=== PATIENT | female | born 1975 | race Caucasian/White ===

== ENCOUNTER 2017-09-13 11:33 | Day surgery (SDC) | payer OTHER ==
[2017-09-09 10:29] VITALS: BMI 33.3
[2017-09-13] MEDS ORDERED: Midazolam 2 MG/2 ML VIAL ONE (15:06)
[2017-09-13] MEDS ORDERED: Propofol 10 mg/ml Inj (20 ML) ONE (15:06)
[2017-09-13] MEDS ORDERED: Lidocaine Hydrochloride 5 ML INJ ONE (15:07)
[2017-09-13] MEDS ORDERED: Rocuronium 10 mg/ml (10 ml) ONE (15:10)
[2017-09-13] MEDS ORDERED: ceFAZolin 1 gm in NS 1 GM/100 ML BAG IVPB ONE (15:22)
[2017-09-13] MEDS ORDERED: Neostigmine Methylsulfate 3mg/3ml Syringe IV ONE (16:22)
[2017-09-13] MEDS ORDERED: Acetaminophen IV 1,000 MG in Premixed IV 1 EA IV PRN (16:53)
[2017-09-13] MEDS: HYDROmorphone 0.5 mg/0.5 ml ISec IVP PRN ×2 (16:57→17:20)
--- NOTE | 2017-09-13 16:57 | PCM.SURG1 ---
Surgeon's Initial Post Op Note - Surgeon's Notes Surgeon: Melchor Instrumentation Controls Engineer: Johnathan PGY4, Dom PGY3 Type of Anesthesia: General Endo Pre-Operative Diagnosis: Gallstone pancreatitis Operative Findings: Fibrotic tissue Post-Operative Diagnosis: same Operation Performed: Laparoscopic cholecystectomy Specimen/Specimens Removed: gallbladder Estimated Blood Loss: EBL {In ML}: 15 Blood Products Given: N/A Drains Used: No Drains Post-Op Condition: Good Date of Surgery/Procedure: 09/13/17 Time of Surgery/Procedure: 16:57
[2017-09-13] MEDS ORDERED: Lactated Ringer's 1,000 ML IV SCH (17:00)
[2017-09-13] MEDS ORDERED: Lactated Ringer's 1,000 ML IV ONE (18:00)
[2017-09-13 18:27] VITALS: RESP 16; O2SAT 97
[2017-09-13 19:05] VITALS: BP 144/80; PULSE 60; TEMP 97.7
--- NOTE | 2017-09-14 23:39 | OP ---
PROCEDURE DATE: 09/13/2017 SURGEON: Brant Roche MD ASSISTANTS: Miah Mann DO and Sorin Fernandes DO ANESTHESIA: General. PREOPERATIVE DIAGNOSIS: Cholelithiasis, status post gallstone pancreatitis. POSTOPERATIVE DIAGNOSIS: Cholelithiasis, status post gallstone pancreatitis. PROCEDURE: Laparoscopic cholecystectomy. DESCRIPTION OF OPERATION: With the patient in the supine position, under adequate general anesthesia, the abdomen was prepped and draped in the usual sterile manner. Veress needle puncture was performed at the umbilicus with insufflation to 15 cm water pressure of CO2, and a 10-mm laparoscopic trocar was inserted via a supraumbilical incision. Under direct vision, additional trocars were inserted in the epigastrium and right costal margin. The gallbladder was visualized. It was not acutely inflamed. The gallbladder fundus was grasped and elevated. There were adhesions of the duodenum to the peritoneal surface of the gallbladder, and these were taken down sharply to expose the gallbladder infundibulum. The infundibulum was grasped and retracted laterally. Cystic duct was identified and dissected. There was inflammatory tissue surrounding the cystic duct consistent with past pancreatitis, and this was cleared to fully visualize the cystic duct. The cystic duct was triply clipped and divided. The cystic artery was similarly identified and dissected. The cystic artery was triply clipped and divided, and the gallbladder was dissected free of the liver bed using the electrocautery. The liver bed was inspected for hemostasis, and the dissection was completed. The gallbladder was placed in a specimen retrieval bag and removed via the umbilical port site. Right upper quadrant was irrigated and suctioned. Pneumoperitoneum was released, and the trocars were removed. The umbilical port site was closed with a [id number] fascial suture of 0 Vicryl. All incisions were closed with 4-0 Monocryl subcuticular sutures and Steri-Strips. Dry sterile dressings were applied. The patient tolerated the procedure well and transferred to recovery room in stable condition. Estimated blood loss for the procedure was 15 mL. Brant Roche MD
== END 2017-09-13 19:05 | disposition home or self-care (01) ==
LOC: C.SDS 11:33
PROVIDERS: ATTEND Specialist
DX: K80.20 Calculus of gallbladder without cholecystitis without obstruction (principal); K85.10 Biliary acute pancreatitis without necrosis or infection
CPT/HCPCS: 47562; J0690; J1170; J2250; J2405; J2704; J2710; J3010; J7120

== ENCOUNTER 2017-09-16 12:15 | Inpatient (IN) | payer OTHER ==
[2017-09-16 12:15] VITALS: BMI 33.3
[2017-09-16] MEDS ORDERED: Sodium Chloride 0.9% 1,000 ML IV ONE (13:19)
[2017-09-16] MEDS ORDERED: Sodium Chloride 0.9% 1,000 ML ONE (13:26)
[2017-09-16 13:43] LABS: BASO % 0.4 % (0.0-2.0); EOS # 0.1 K/uL (0.0-0.7); EOS % 0.6 % (0.0-4.0); LYMPH # 1.1 K/uL (1.0-4.3); LYMPH % 9.7 % (20.0-40.0); MEAN CELL VOLUME 76.8 fL (81.0-99.0); MEAN CORPUSCULAR HEMOGLOBIN 25.6 pg (27.0-31.0); MEAN CORPUSCULAR HGB CONC 33.4 g/dL (33.0-37.0); MEAN PLATELET VOLUME 9.6 fL (7.2-11.7); MONO # 0.8 K/uL (0.0-0.8); NEUT # 9.3 K/uL (1.8-7.0); NEUT % 82.3 % (50.0-75.0); NRBC % 0.3 % (0.0-2.0); RBC 5.66 Mil/uL (3.80-5.20); RED CELL DISTRIBUTION WIDTH 15.3 % (11.5-14.5)
[2017-09-16 13:48] LABS: HEMOGLOBIN 14.5 g/dL (11.0-16.0); PLATELET COUNT 450 K/uL (130-400); WHITE BLOOD COUNT 11.3 K/uL (4.8-10.8)
[2017-09-16 13:54] LABS: ALB/GLOB RATIO 1.4 (1.0-2.1); ALBUMIN 4.7 g/dL (3.5-5.0); ALT/SGPT 162 U/L (9-52); AST/SGOT 151 U/L (14-36); BLOOD UREA NITROGEN 8 mg/dL (7-17); GFR AFRICAN-AMERICAN > 60; GFR NON-AFRICAN AMERICAN > 60; LIPASE 82 U/L (23-300)
[2017-09-16 14:37] LABS: HCG,QUALITATIVE URINE NEGATIVE (NEGATIVE)
[2017-09-16 14:44] LABS: SQUAMOUS EPITHIAL 9 /hpf (0-5); URINE BACTERIA RARE (<OCC); URINE BILIRUBIN NEGATIVE (NEGATIVE); URINE BLOOD NEGATIVE (NEGATIVE); URINE CLARITY Clear (Clear); URINE COLOR Amber (YELLOW); URINE GLUCOSE (UA) 1+ mg/dL (Normal); URINE LEUKOCYTE ESTERASE NEG Leu/uL (Negative); URINE PROTEIN 2+ mg/dL (NEGATIVE)
[2017-09-16 15:03] LABS: LYMPHOCYTE 5 % (20-40); MONOCYTE 6 % (0-10); NEUTROPHIL 89 % (50-75); PLATELET ESTIMATE SLIGHTLY INCREASED (NORMAL); TOTAL CELLS COUNTED 100
[2017-09-16 15:04] LABS: ANISOCYTOSIS SLIGHT; LARGE PLATELETS PRESENT; OVALOCYTES SLIGHT
[2017-09-16 15:05] LABS: GIANT PLATELETS PRESENT
--- NOTE | 2017-09-16 16:08 | RAD ---
Date of service: 09/16/2017 PROCEDURE: Radiographs of the chest and abdomen (obstructive series) HISTORY: Vomiting s/p cholecystectomy 3 days ago COMPARISON: No prior. TECHNIQUE: AP radiograph of the chest, with upright and supine radiographs of the abdomen. FINDINGS: CHEST: Lungs: The lungs are well inflated and clear. Cardiovascular: Normal size heart. No pulmonary vascular congestion. Pleura: No pleural fluid. No pneumothorax. Other findings: None. ABDOMEN AND PELVIS: Bowel: There is mild dilatation of the small bowel loops in the upper abdomen. There is large amount of stool in the ascending and transverse colon. . Free air: None. Bones: Unremarkable. Other findings: Surgical clips in the right upper quadrant are related to prior cholecystectomy. IMPRESSION: 1. Constipation. Mild dilatation of small bowel loops in the upper abdomen could be related to developing bowel obstruction or postoperative ileus. Clinical and imaging follow-up is advised. 2. Clear lungs.
[2017-09-16] MEDS ORDERED: Morphine 4 MG/ML VIAL ONE ×2 (17:29→18:47)
--- NOTE | 2017-09-16 18:00 | C.PDOC ---
Time Seen by Provider: 09/16/17 13:13 Chief Complaint (Nursing): Abdominal Pain History Per: Patient Onset/Duration Of Symptoms: Days (3) Current Symptoms Are (Timing): Still Present Severity: Moderate Location Of Pain/Discomfort: LUQ, Suprapubic Quality Of Discomfort: "Pain" Associated Symptoms: Nausea, Vomiting, Constipation Exacerbating Factors: Food Alleviating Factors: None Last Bowel Movement: Days Ago (4) Additional History Per: Prior Records Past Medical History Reviewed: Historical Data, Nursing Documentation, Vital Signs Vital Signs: Last Vital Signs Temp 98.7 F 09/16/17 18:38 Pulse 93 H 09/16/17 18:38 Resp 16 09/16/17 18:38 BP 138/84 09/16/17 18:38 Pulse Ox 98 09/16/17 18:38 - Medical History PMH: No Chronic Diseases Surgical History: Cholecystectomy (3 days ago) - [facility] Procedures APPLICATION OF SPLINT (11/02/13) Family History: States: Unknown Family Hx - Social History Hx Alcohol Use: No Hx Substance Use: No - Immunization History Hx Tetanus Toxoid Vaccination: No Hx Influenza Vaccination: No Hx Pneumococcal Vaccination: No Review Of Systems Except As Marked, All Systems Reviewed And Found Negative. Constitutional: Negative for: Weight loss Cardiovascular: Negative for: Edema Respiratory: Negative for: Shortness of Breath, Hemoptysis Gastrointestinal: Positive for: Nausea, Vomiting, Abdominal Pain, Constipation. Negative for: Diarrhea, Melena, Hematochezia, Hematemesis Genitourinary: Positive for: Dysuria Musculoskeletal: Negative for: Neck Pain Skin: Negative for: Rash Neurological: Negative for: Weakness, Numbness Physical Exam - Physical Exam Appears: Other (Uncomfortable in pain) Skin: Normal Color, Warm, Dry Head: Atraumatic, Normacephalic Eye(s): bilateral: PERRL, EOMI Neck: Normal ROM, Supple Cardiovascular: Rhythm Regular Respiratory: Normal Breath Sounds, No Accessory Muscle Use Gastrointestinal/Abdominal: Soft, Tenderness Extremity: Normal ROM Neurological/Psych: Oriented x3, Normal Motor, Normal Sensation ED Course And Treatment - Laboratory Results Result Diagrams: 09/16/17 13:35 09/16/17 13:35 Urine POC: Negative O2 Sat by Pulse Oximetry: 98 Pulse Ox Interpretation: Normal - Other Rad Obstructive Series X-Ray: Viewed By Me, Read By Radiologist Interpretation: IMPRESSION: 1. Constipation. Mild dilatation of small bowel loops in the upper abdomen could be related to developing bowel obstruction or postoperative ileus. Clinical and imaging follow-up is advised. 2. Clear lungs. - CT Scan/US CT abd/pelv Other Rad Studies (CT/US): Read By Radiologist, Radiology Report Reviewed CT/US Interpretation: IMPRESSION: 1. The recent cholecystectomy, 3-7 days prior. Surgical clips in place. There is fluid dissecting along. the right- sided abdominal wall laterally measuring 2.5 x 9.7 cm on image 93, and superior to the. inferior of 27 cm. there is fluid infiltration of more superficial subcutaneous fat. Whether this is a. infected fluid collection or sterile collection is uncertain. 2. There is a small volume of free fluid in the pelvis which may be postoperative in nature. Most of the. fluid is in the pelvis without definite signs of bile leak, which is not completely excludable. 3. There are scattered air-fluid levels in the small and large bowel as well as within portions of the. stomach which suggests a potential postoperative ileus. Progress Note: Pt was evaluated by the surgical coder who d/w Dr. Roche. They want to admit pt to their service. Progress - Interventions Interventions:: Observation, Intravenous fluid - Medications Administered Intravenous: Antiemetic, H-2 leann, NSAID, Opiate - Data Reviewed Data Reviewed: Lab, Diagnostic imaging, Old records - Patient Status Patient status: Partially improved - Continuity of Care Discussed patient case with:: Patient, Family-HIPPA compliant, ED Nurse Discussed pt. case with cycle consultant/specialty: General Surgery - Patient Plan Patient Plan: Admission Disposition Counseled Patient/Family Regarding: Studies Performed, Diagnosis - Disposition Disposition: HOSPITALIZED Disposition Time: 21:47 Condition: GUARDED - Clinical Impression Clinical Impression: Ileus, postoperative, Abdominal fluid collection, Nausea and vomiting, Abdominal pain
[2017-09-16] MEDS ORDERED: Iohexol 350mg/ml 100 ML ONE (19:05)
[2017-09-16] MEDS: Potassium Chl 40 mEq in D5-1/2 1,000 ML IV SCH (19:31)
--- NOTE | 2017-09-16 22:33 | CP.PCM.HP ---
History of Present Illness - History of Present Illness History of Present Illness: 42F with no significant PMHx s/p laparoscopic cholecystectomy POD3 presents to [facility] [place] ED with complaints of abdominal pain. Patient states she has not been able to tolerate anything PO since after surgery. Reports having multiple bouts of non bloody emesis througout the weekend. Patient reports she has not passed flatus or had a BM since day of surgery 09/13/17. Patient reports upper abdominal pain which radiates in band like fashion from RUQ to LUQ. At time of examination patient reported feeling nauseous. Denies headache/dizziness, chest pain/SOB, palpitations, dysuria. PMHx: as stated above PSurgHx: laparoscopic cholecystectomy Allergies: NKDA Fam Hx: non-contributory Present on Admission - Present on Admission Any Indicators Present on Admission: No Review of Systems - Review of Systems Review of Systems: 12 pt ROS carried out, unremarkable except as stated in HPI Past Patient History - Past Medical History & Family History Past Medical History?: Yes - Past Social History Smoking Status: Light Smoker < 10 Cigarettes Daily - CARDIAC Hx Cardiac Disorders: No - PULMONARY Hx Respiratory Disorders: No - NEUROLOGICAL Hx Neurological Disorder: No - RENAL Hx Chronic Kidney Disease: No - ENDOCRINE/METABOLIC Hx Endocrine Disorders: No - HEMATOLOGICAL/ONCOLOGICAL Hx Blood Disorders: No - INTEGUMENTARY Hx Dermatological Problems: No - MUSCULOSKELETAL/RHEUMATOLOGICAL Hx Musculoskeletal Disorders: No Hx Falls: No - GASTROINTESTINAL Hx Gastrointestinal Disorders: Yes Hx Gall Bladder Disease: Yes Other/Comment: Pancreatitis - GENITOURINARY/GYNECOLOGICAL Hx Genitourinary Disorders: No - PSYCHIATRIC Hx Substance Use: No - SURGICAL HISTORY Hx Cholecystectomy: Yes (3 days ago) - ANESTHESIA Hx Anesthesia: No Meds Allergies/Adverse Reactions: Allergies Allergy/AdvReac Type Severity Reaction Status Date / Time No Known Allergies Allergy Verified 09/16/17 12:48 Physical Exam - Constitutional Appears: No Acute Distress - Head Exam Head Exam: NORMOCEPHALIC - Eye Exam Eye Exam: EOMI, Normal appearance - ENT Exam ENT Exam: Mucous Membranes Moist - Respiratory Exam Respiratory Exam: NORMAL BREATHING PATTERN - Cardiovascular Exam Cardiovascular Exam: +S1, +S2 - GI/Abdominal Exam GI & Abdominal Exam: Distended, Soft, Tenderness. absent: Firm, Guarding, Rebound, Rigid - Extremities Exam Extremities exam: Negative for: pedal edema - Neurological Exam Neurological exam: Alert, Oriented x3 - Psychiatric Exam Psychiatric exam: Normal Mood - Skin Skin Exam: Dry, Intact, Warm Results - Vital Signs Recent Vital Signs: Last Vital Signs Temp 97.4 F L 09/16/17 22:17 Pulse 88 09/16/17 22:17 Resp 18 09/16/17 22:17 BP 130/82 09/16/17 22:17 Pulse Ox 95 09/16/17 22:17 - Labs Result Diagrams: 09/16/17 13:35 09/16/17 13:35 Labs: Laboratory Results - last 24 hr 09/16/17 09/16/17 09/16/17 13:35 13:35 14:23 WBC 11.3 H D RBC 5.66 H Hgb 14.5 D Hct 43.5 MCV 76.8 L MCH 25.6 L MCHC 33.4 RDW 15.3 H Plt Count 450 H D MPV 9.6 Neut % (Auto) 82.3 H Lymph % (Auto) 9.7 L [place] % (Auto) 7.0 Eos % (Auto) 0.6 Baso % (Auto) 0.4 Neut # (Auto) 9.3 H Lymph # (Auto) 1.1 [place] # (Auto) 0.8 Eos # (Auto) 0.1 Baso # (Auto) 0.0 Neutrophils % (Manual) 89 H Lymphocytes % (Manual) 5 L Monocytes % (Manual) 6 Platelet Estimate Slightly increased H Plt Clumps, EDTA Large Platelets Present Giant Platelets Present Anisocytosis (manual) Slight Ovalocytes Slight Sodium 141 Potassium 3.0 L Chloride 95 L Carbon Dioxide 28 Anion Gap 21 H BUN 8 Creatinine 0.8 Est GFR ( Amer) > 60 Est GFR (Non-Af Amer) > 60 Random Glucose 167 H Calcium 10.0 Total Bilirubin 3.0 H AST 151 H D ALT 162 H D Alkaline Phosphatase 149 H D Total Protein 8.1 Albumin 4.7 Globulin 3.4 Albumin/Globulin Ratio 1.4 Lipase 82 Urine Color Alyssa Urine Clarity Clear Urine pH 5.0 Ur Specific [place] 1.020 Urine Protein 2+ H Urine Glucose (UA) 1+ Urine Ketones Negative Urine Blood Negative Urine Nitrate Negative Urine Bilirubin Negative Urine Urobilinogen 4.0 H Ur Leukocyte Esterase Neg Urine WBC (Auto) 6 H Urine RBC (Auto) 1 Ur Squamous Epith Cells 9 H Urine Bacteria Rare Hyaline Casts 6-10 H Urine HCG, Qual Negative - Imaging and Cardiology CT scan - abdomen Status: Image reviewed by me, Report reviewed by me Assessment & Plan - Assessment and Plan (Free Text) Assessment: 42F s/p laparoscopic cholecystectomy POD 3 complicated by post operative ileus, ?bile leak Plan: NPO IVF Analgesic Prokinetic NGT if nausea/distention worsens F/u AM labs D/w Dr. Melchor Dumont PGY3
[2017-09-17 02:24] VITALS: RESP 20
[2017-09-17] MEDS: Potassium Chl 40 mEq in D5-1/2 1,000 ML IV SCH ×5 (02:47→20:09)
[2017-09-17 07:04] LABS: BASO # 0.1 K/uL (0.0-0.2); BASO % 1.1 % (0.0-2.0); EOS # 0.2 K/uL (0.0-0.7); EOS % 2.7 % (0.0-4.0); HEMOGLOBIN 12.8 g/dL (11.0-16.0); LYMPH # 1.2 K/uL (1.0-4.3); LYMPH % 17.9 % (20.0-40.0); MEAN CELL VOLUME 76.7 fL (81.0-99.0); MEAN CORPUSCULAR HEMOGLOBIN 26.3 pg (27.0-31.0); MEAN CORPUSCULAR HGB CONC 34.3 g/dL (33.0-37.0); MEAN PLATELET VOLUME 9.3 fL (7.2-11.7); MONO # 0.6 K/uL (0.0-0.8); MONO % 8.7 % (0.0-10.0); NEUT # 4.7 K/uL (1.8-7.0); NEUT % 69.6 % (50.0-75.0); RBC 4.88 Mil/uL (3.80-5.20); RED CELL DISTRIBUTION WIDTH 15.4 % (11.5-14.5); WHITE BLOOD COUNT 6.8 K/uL (4.8-10.8)
[2017-09-17 07:24] LABS: ALB/GLOB RATIO 1.3 (1.0-2.1); ALBUMIN 3.7 g/dL (3.5-5.0); ALT/SGPT 135 U/L (9-52); AST/SGOT 69 U/L (14-36); BLOOD UREA NITROGEN 8 mg/dL (7-17); GFR AFRICAN-AMERICAN > 60; GFR NON-AFRICAN AMERICAN > 60
--- NOTE | 2017-09-17 10:16 | CT ---
Date of service: 09/16/2017 PROCEDURE: CT Abdomen and Pelvis with contrast HISTORY: Abd pain and vomiting s/p lap ayo 3 days ago COMPARISON: None. TECHNIQUE: Contrast dose: 100 mL Omnipaque 350 Radiation dose: Total exam DLP = 955.25 mGy-cm. This CT exam was performed using one or more of the following dose reduction techniques: Automated exposure control, adjustment of the mA and/or kV according to patient size, and/or use of iterative reconstruction technique. FINDINGS: LOWER THORAX: Unremarkable. LIVER: Unremarkable. No gross lesion or ductal dilatation. GALLBLADDER AND BILE DUCTS: Status post cholecystectomy PANCREAS: Unremarkable. No gross lesion or ductal dilatation. SPLEEN: Unremarkable. ADRENALS: Left adrenal mass, 2.8 cm. Statistically likely adrenal adenoma. Right adrenal mass, 1.2 cm. This cystically likely adrenal adenoma. Further characterization, if desired, should be performed with opposed phase magnetic resonance imaging. KIDNEYS AND URETERS: Small bilateral renal cortical masses likely cysts. 1.3 cm upper pole right kidney. 7 mm lower pole right kidney. 1.4 cm mid left kidney. 2 mm nonobstructing calculus upper pole left kidney. VASCULATURE: Unremarkable. No aortic aneurysm. BOWEL: Unremarkable. No obstruction. No gross mural thickening. APPENDIX: Normal appendix. PERITONEUM: There is ascites noted. There is no pneumoperitoneum. There is a large intermediate attenuation fluid collection in the right lateral abdominal wall beats we in the external and internal oblique muscles. This collection measures approximately 3.4 x 26.5 x 3.0 cm and is strongly suspicious for an abscess. There is reactive edema lateral to the external oblique muscle, within the subcutaneous fat over the right lateral abdominal wall. This is considered a drainable collection. There is a radiopaque foreign body, several mm in diameter, in the internal oblique muscle far posteriorly, seen on series 3, image 81. Uncertain significance. LYMPH NODES: Unremarkable. No enlarged lymph nodes. BLADDER: Suboptimally distended. Grossly normal. REPRODUCTIVE: Uterus significant for a 10 mm enhancing nodule in the myometrium, most likely a leiomyoma. There is a peripherally enhancing irregular mass in the right ovary, 1.8 cm diameter, most likely representing a ruptured or involuting follicle. BONES: No acute fracture. OTHER FINDINGS: None. IMPRESSION: Large abscess over the right lateral abdominal wall between the internal-external oblique muscles. Possibly related to recent laparoscopic cholecystectomy. Tiny radiopaque foreign body seen in the lateral abdominal wall, uncertain significance. Ascites. No pneumoperitoneum. Bilateral adrenal masses as described. Statistically these most likely represent adrenal adenomas. If further imaging is desired, this should be pursued with opposed phase magnetic resonance imaging. Bilateral renal cortical cysts. 2 mm nonobstructing left upper pole renal calculus. The preliminary findings for this examination were reported by [facility] at 8:22 p.m. on 09/16/2017. There is concurrence of this report with the preliminary findings.
--- NOTE | 2017-09-17 14:59 | CP.PCM.PN ---
Subjective - Date & Time of Evaluation Date of Evaluation: 09/17/17 Time of Evaluation: 14:57 - Subjective Subjective: Surgery: Dr. Roche Pt seen and examined. Resting comfortably in bed. Her pain is improved. No N/V. She states that she would like to eat. Objective - Vital Signs/Intake and Output Vital Signs (last 24 hours): Temp Pulse Resp BP Pulse Ox 99.4 F 90 20 129/79 96 09/17/17 08:00 09/17/17 08:00 09/17/17 08:00 09/17/17 08:00 09/17/17 08:00 Intake and Output: 09/17/17 09/17/17 06:59 18:59 Intake Total 875 Balance 875 - Medications Medications: Current Medications Famotidine (Pepcid) 20 mg PO BID [facility] Last Admin: 09/17/17 10:45 Dose: 20 mg Potassium Chloride/Dextrose/Sod Cl (Potassium Chl 40 Meq In D5-1/2ns) 1,000 mls @ 125 mls/hr IV .Q8H [facility] Last Admin: 09/17/17 14:10 Dose: 125 mls/hr Ketorolac Tromethamine (Toradol) 30 mg IV Q6 PRN PRN Reason: Pain, moderate (4-7) Last Admin: 09/17/17 14:12 Dose: 30 mg Metoclopramide HCl (Reglan) 10 mg IVP DAILY [facility] Last Admin: 09/17/17 10:45 Dose: 10 mg Pneumococcal Polyvalent Vaccine (Pneumovax 23 Vaccine) 0.5 ml IM .ONCE ONE Stop: 09/18/17 10:01 - Labs Labs: 09/17/17 06:55 09/17/17 06:55 - Constitutional Appears: Non-toxic, No Acute Distress - Head Exam Head Exam: ATRAUMATIC, NORMOCEPHALIC - Eye Exam Eye Exam: EOMI. absent: Scleral icterus - ENT Exam ENT Exam: Mucous Membranes Moist - Neck Exam Neck Exam: Full ROM - Respiratory Exam Respiratory Exam: NORMAL BREATHING PATTERN. absent: Accessory Muscle Use, Respiratory Distress - GI/Abdominal Exam GI & Abdominal Exam: Soft, Tenderness (R side abdomen, overlying ecchymosis). absent: Distended, Firm, Guarding, Rigid, Rebound - Extremities Exam Extremities Exam: absent: Calf Tenderness, Pedal Edema - Neurological Exam Neurological Exam: Alert, Awake, Oriented x3 Assessment and Plan - Assessment and Plan (Free Text) Assessment: 42F s/p laparoscopic cholecystectomy POD#4, complicated by post operative ileus , and fluid collection -will start CLD -c/w IVF and trend LFTs -will get ABD U/S tomorrow, if collection persists, will consult IR -encourage OOB, ambulation, and IS use -d/w attending Zemaitis PGY4
[2017-09-17] MEDS: Enoxaparin 40 mg Syringe SC SCH (17:09)
[2017-09-18] MEDS: Potassium Chl 40 mEq in D5-1/2 1,000 ML IV SCH ×3 (02:02→17:50)
--- NOTE | 2017-09-18 07:01 | US ---
Date of service: 09/17/2017 HISTORY: R side abdominal wall collection COMPARISON: Comparison is made to the previous CT of the abdomen and pelvis dated 09/16/2017 TECHNIQUE: Sonographic evaluation of the abdomen. FINDINGS: LIVER: Measures 15.1 cm. Increased echogenicity of the liver parenchyma. No mass. No intrahepatic bile duct dilatation. GALLBLADDER: The gallbladder was removed. COMMON BILE DUCT: Measures 4 mm. No stones. No dilatation. PANCREAS: The pancreas is obscured by overlying bowel gas RIGHT KIDNEY: Measures 11.1 x 4.9 x 4.7cm. Normal echogenicity. No calculus, mass, or hydronephrosis. There is 1.9 x 1 x 1.1 centimeters cyst at the midpole of the right kidney. LEFT KIDNEY: Measures 11.6 x 5.8 x 4.8cm. This suspicious for 5 millimeter nonobstructing renal calculus. No evidence of hydronephrosis. SPLEEN: Normal in size and contour. No mass. AORTA: No aneurysmal dilatation. IVC: Unremarkable. OTHER FINDINGS: There is right lateral abdominal wall subcutaneous complex collection corresponding to the fluid collection noted in the previous CT. IMPRESSION: Suboptimal study due to the patient's condition and body habitus. No evidence of acute pathology in the abdomen. Status post cholecystectomy. 5 millimeter nonobstructing left renal calculus. Right lateral abdominal wall subcutaneous complex collection may represent hematoma. The possibility of abscess formation is less likely. If clinically warranted ultrasound or CT-guided aspiration may be performed.
[2017-09-18 08:59] LABS: BASO % 0.5 % (0.0-2.0); EOS # 0.1 K/uL (0.0-0.7); EOS % 1.2 % (0.0-4.0); HEMOGLOBIN 13.1 g/dL (11.0-16.0); LYMPH # 0.6 K/uL (1.0-4.3); LYMPH % 7.4 % (20.0-40.0); MEAN CELL VOLUME 76.2 fL (81.0-99.0); MEAN CORPUSCULAR HEMOGLOBIN 26.2 pg (27.0-31.0); MEAN CORPUSCULAR HGB CONC 34.4 g/dL (33.0-37.0); MEAN PLATELET VOLUME 9.1 fL (7.2-11.7); MONO # 0.6 K/uL (0.0-0.8); MONO % 8.1 % (0.0-10.0); NEUT # 6.6 K/uL (1.8-7.0); NEUT % 82.8 % (50.0-75.0); PLATELET COUNT 368 K/uL (130-400); RBC 5.02 Mil/uL (3.80-5.20); RED CELL DISTRIBUTION WIDTH 15.5 % (11.5-14.5)
[2017-09-18 09:31] LABS: BANDS 1 % (0-2); LARGE PLATELETS PRESENT; LYMPHOCYTE 7 % (20-40); MONOCYTE 8 % (0-10); NEUTROPHIL 83 % (50-75); PLATELET ESTIMATE NORMAL (NORMAL); REACTIVE LYMPHOCYTES 1 % (0-0); TOTAL CELLS COUNTED 100
[2017-09-18 09:33] LABS: BLOOD UREA NITROGEN 11 mg/dL (7-17)
[2017-09-18 09:34] LABS: ALB/GLOB RATIO 1.3 (1.0-2.1); ALBUMIN 3.5 g/dL (3.5-5.0); ALT/SGPT 98 U/L (9-52); AST/SGOT 33 U/L (14-36); BILIRUBIN,DIRECT 0.8 mg/dL (0.0-0.4); CALCIUM 9.1 mg/dl (8.6-10.4); GFR AFRICAN-AMERICAN > 60; GFR NON-AFRICAN AMERICAN > 60
[2017-09-18] MEDS ORDERED: Pneumococcal 23-Valent Vaccine IM ONE (10:00)
--- NOTE | 2017-09-18 10:00 | PCM.IRP ---
Chief Complaint: IR requested to evaluate Pt for drainage. Pt with post operative fluid collection along right external/internal oblique. Pt currently afebrile and has no white count. Collection is not organized and may represent a seroma or hematoma. Recommend aspiration if Pt becomes uncomfortable or shows signs of infection. Objective - Vital Signs/Intake and Output Vital Signs (last 24 hours): Vital Signs - 24 hr 09/17/17 09/17/17 09/18/17 15:30 23:25 01:51 Temperature 98.6 F 99.8 F H 99.6 F Pulse Rate 88 96 H Respiratory 20 20 Rate Blood Pressure 146/85 141/90 O2 Sat by Pulse 98 96 Oximetry 09/18/17 09/18/17 06:15 07:40 Temperature 100.2 F H 99.4 F Pulse Rate 89 88 Respiratory 20 20 Rate Blood Pressure 142/86 152/97 H O2 Sat by Pulse 97 97 Oximetry Intake and Output (last 12 hours): Intake & Output 09/17/17 09/18/17 09/18/17 18:59 06:59 18:59 Intake Total 1875 1240 Output Total 400 Balance 1875 840 Intake: Intake, IV Amount 1875 1000 Right Antecubital 1875 1000 Oral 240 Output: Emesis 400 Other: # Voids Urine, Voided 2 3 # Bowel Movements 0 2 - Medications Medications: Current Medications Acetaminophen (Tylenol 325mg Tab) 650 mg PO Q6 PRN PRN Reason: Fever >100.4 F Last Admin: 09/18/17 01:51 Dose: 650 mg Enoxaparin Sodium (Lovenox) 40 mg SC DAILY [facility] Last Admin: 09/17/17 17:09 Dose: 40 mg Famotidine (Pepcid) 20 mg PO BID [facility] Last Admin: 09/17/17 17:10 Dose: 20 mg Potassium Chloride/Dextrose/Sod Cl (Potassium Chl 40 Meq In D5-1/2ns) 1,000 mls @ 125 mls/hr IV .Q8H [facility] Last Admin: 09/18/17 02:02 Dose: 125 mls/hr Ketorolac Tromethamine (Toradol) 30 mg IV Q6 PRN PRN Reason: Pain, moderate (4-7) Last Admin: 09/18/17 01:56 Dose: 30 mg Metoclopramide HCl (Reglan) 10 mg IVP DAILY [facility] Last Admin: 09/17/17 10:45 Dose: 10 mg Ondansetron HCl (Zofran Inj) 4 mg IVP DAILY@ONCE PRN PRN Reason: Nausea/Vomiting Last Admin: 09/18/17 05:17 Dose: 4 mg Pneumococcal Polyvalent Vaccine (Pneumovax 23 Vaccine) 0.5 ml IM .ONCE ONE Stop: 09/18/17 10:01 - Labs Labs (last 24 hours): Laboratory Results - last 24 hr 09/18/17 09/18/17 08:40 08:40 WBC 8.0 RBC 5.02 Hgb 13.1 Hct 38.2 MCV 76.2 L MCH 26.2 L MCHC 34.4 RDW 15.5 H Plt Count 368 MPV 9.1 Neut % (Auto) 82.8 H Lymph % (Auto) 7.4 L [place] % (Auto) 8.1 Eos % (Auto) 1.2 Baso % (Auto) 0.5 Neut # (Auto) 6.6 Lymph # (Auto) 0.6 L [place] # (Auto) 0.6 Eos # (Auto) 0.1 Baso # (Auto) 0.0 Neutrophils % (Manual) 83 H Band Neutrophils % 1 Lymphocytes % (Manual) 7 L Reactive Lymphs % 1 H Monocytes % (Manual) 8 Platelet Estimate Normal Large Platelets Present Sodium 138 Potassium 4.1 Chloride 101 Carbon Dioxide 26 Anion Gap 16 BUN 11 Creatinine 0.7 Est GFR ( Amer) > 60 Est GFR (Non-Af Amer) > 60 Random Glucose 154 H Calcium 9.1 Phosphorus 2.9 Total Bilirubin 2.2 H Direct Bilirubin 0.8 H AST 33 ALT 98 H D Alkaline Phosphatase 164 H Total Protein 6.3 Albumin 3.5 Globulin 2.8 Albumin/Globulin Ratio 1.3
[2017-09-18] MEDS: Enoxaparin 40 mg Syringe SC SCH (10:30)
--- NOTE | 2017-09-18 12:39 | CP.PCM.PN ---
Subjective - Date & Time of Evaluation Date of Evaluation: 09/18/17 Time of Evaluation: 12:37 - Subjective Subjective: Surgery: Dr. Roche Pt seen and examined. Pt has increased R side abd pain. She states that she had nausea/vomiting. She states that she felt like she had a fever last night. Objective - Vital Signs/Intake and Output Vital Signs (last 24 hours): Temp Pulse Resp BP Pulse Ox 99.4 F 88 20 152/97 H 97 09/18/17 07:40 09/18/17 07:40 09/18/17 07:40 09/18/17 07:40 09/18/17 07:40 Intake and Output: 09/18/17 09/18/17 06:59 18:59 Intake Total 1240 Output Total 400 Balance 840 - Medications Medications: Current Medications Acetaminophen (Tylenol 325mg Tab) 650 mg PO Q6 PRN PRN Reason: Fever >100.4 F Last Admin: 09/18/17 01:51 Dose: 650 mg Enoxaparin Sodium (Lovenox) 40 mg SC DAILY [facility] Last Admin: 09/18/17 10:30 Dose: Not Given Famotidine (Pepcid) 20 mg PO BID [facility] Last Admin: 09/18/17 10:30 Dose: 20 mg Potassium Chloride/Dextrose/Sod Cl (Potassium Chl 40 Meq In D5-1/2ns) 1,000 mls @ 125 mls/hr IV .Q8H [facility] Last Admin: 09/18/17 10:45 Dose: 125 mls/hr Ketorolac Tromethamine (Toradol) 30 mg IV Q6 PRN PRN Reason: Pain, moderate (4-7) Last Admin: 09/18/17 01:56 Dose: 30 mg Metoclopramide HCl (Reglan) 10 mg IVP DAILY [facility] Last Admin: 09/18/17 10:30 Dose: 10 mg Ondansetron HCl (Zofran Inj) 4 mg IVP DAILY@ONCE PRN PRN Reason: Nausea/Vomiting Last Admin: 09/18/17 05:17 Dose: 4 mg - Labs Labs: 09/18/17 08:40 09/18/17 08:40 - Constitutional Appears: Non-toxic, No Acute Distress - Head Exam Head Exam: ATRAUMATIC, NORMOCEPHALIC - Eye Exam Eye Exam: EOMI - ENT Exam ENT Exam: Mucous Membranes Moist - Neck Exam Neck Exam: Full ROM - Respiratory Exam Respiratory Exam: NORMAL BREATHING PATTERN. absent: Accessory Muscle Use, Respiratory Distress - GI/Abdominal Exam GI & Abdominal Exam: Soft, Tenderness (R side with overlying ecchymosis). absent: Distended, Firm, Guarding, Rigid - Extremities Exam Extremities Exam: absent: Calf Tenderness, Pedal Edema - Neurological Exam Neurological Exam: Alert, Awake, Oriented x3 - Skin Skin Exam: Dry, Warm Assessment and Plan - Assessment and Plan (Free Text) Assessment: 42F s/p laparoscopic cholecystectomy POD#5, complicated by post operative ileus , and fluid collection in abdominal wall which is becoming increasingly painful -Recommend IR drainage -NPO -IVF -pain meds -DVT ppx -LFTs improving, continue to trend -d/w attending Zemaitis PGY4
[2017-09-18] MEDS: Lidocaine 5% Patch TD SCH (16:02)
[2017-09-18] MEDS: HYDROmorphone 0.5 mg/0.5 ml ISec IVP PRN ×2 (16:03→21:47)
[2017-09-18 17:14] LABS: INR 1.2; PROTHROMBIN TIME 13.4 SECONDS (9.7-12.2)
[2017-09-19] MEDS: Potassium Chl 40 mEq in D5-1/2 1,000 ML IV SCH ×4 (00:45→20:04)
[2017-09-19] MEDS: HYDROmorphone 0.5 mg/0.5 ml ISec IVP PRN ×5 (01:46→20:01)
--- NOTE | 2017-09-19 07:26 | CP.PCM.PN ---
Subjective - Date & Time of Evaluation Date of Evaluation: 09/19/17 Time of Evaluation: 07:24 - Subjective Subjective: Surgery: Dr. Roche Pt seen and examined. She continues to have R side abd pain. She states that it is mildly improved. She reports multiple episodes of nausea and emesis overnight and into this AM. Objective - Vital Signs/Intake and Output Vital Signs (last 24 hours): Temp Pulse Resp BP Pulse Ox 97.6 F 105 H 20 141/88 94 L 09/19/17 00:00 09/19/17 00:00 09/19/17 00:00 09/19/17 00:00 09/19/17 00:00 Intake and Output: 09/19/17 09/19/17 06:59 18:59 Intake Total 1300 Output Total 700 Balance 600 - Medications Medications: Current Medications Acetaminophen (Tylenol 325mg Tab) 650 mg PO Q6 PRN PRN Reason: Fever >100.4 F Last Admin: 09/18/17 01:51 Dose: 650 mg Enoxaparin Sodium (Lovenox) 40 mg SC DAILY [facility] Last Admin: 09/18/17 10:30 Dose: Not Given Famotidine (Pepcid) 20 mg PO BID [facility] Last Admin: 09/18/17 17:49 Dose: 20 mg Hydromorphone HCl (Dilaudid) 0.5 mg IVP Q4H PRN PRN Reason: Pain, moderate (4-7) Last Admin: 09/19/17 05:36 Dose: 0.5 mg Potassium Chloride/Dextrose/Sod Cl (Potassium Chl 40 Meq In D5-1/2ns) 1,000 mls @ 125 mls/hr IV .Q8H [facility] Last Admin: 09/19/17 02:45 Dose: Not Given Lidocaine (Lidoderm) 1 ea TD DAILY [facility] Last Admin: 09/18/17 16:02 Dose: 1 ea Metoclopramide HCl (Reglan) 10 mg IVP Q6 PRN PRN Reason: Nausea/Vomiting Last Admin: 09/19/17 05:06 Dose: 10 mg Ondansetron HCl (Zofran Inj) 4 mg IVP Q6 PRN PRN Reason: Nausea/Vomiting Last Admin: 09/19/17 00:36 Dose: 4 mg - Labs Labs: 09/18/17 08:40 08/01/18 08:40 PT 13.4 SECONDS (9.7-12.2) H 09/18/17 17:04 INR 1.2 09/18/17 17:04 - Constitutional Appears: Non-toxic, No Acute Distress - Head Exam Head Exam: ATRAUMATIC, NORMOCEPHALIC - Eye Exam Eye Exam: EOMI - ENT Exam ENT Exam: Mucous Membranes Moist - Neck Exam Neck Exam: Full ROM - Respiratory Exam Respiratory Exam: NORMAL BREATHING PATTERN. absent: Accessory Muscle Use, Respiratory Distress - GI/Abdominal Exam GI & Abdominal Exam: Soft, Tenderness (R side). absent: Distended, Firm, Guarding, Rigid, Rebound Additional comments: Worsening ecchymosis over R flank, new ecchymosis developing over umbilicus - Extremities Exam Extremities Exam: absent: Calf Tenderness, Pedal Edema - Neurological Exam Neurological Exam: Alert, Awake, Oriented x3 Assessment and Plan - Assessment and Plan (Free Text) Assessment: 42F s/p laparoscopic cholecystectomy POD#6, no with ileus and abd wall hematoma -For IR drainage today -Keep NPO, c/w anti-emetics -Pt currently refusing NGT, pt was told that is symptoms worsen, NGT would be the next step -c/w IVF -c/w pain meds -dvt ppx -encourage OOB/Ambulation -f/u AM labs -d/w attending Zemaitis PGY4
[2017-09-19 07:44] LABS: BASO % 0.1 % (0.0-2.0); EOS % 0.2 % (0.0-4.0); HEMOGLOBIN 14.3 g/dL (11.0-16.0); LYMPH # 0.6 K/uL (1.0-4.3); LYMPH % 9.8 % (20.0-40.0); MEAN CELL VOLUME 76.8 fL (81.0-99.0); MEAN CORPUSCULAR HEMOGLOBIN 26.4 pg (27.0-31.0); MEAN CORPUSCULAR HGB CONC 34.3 g/dL (33.0-37.0); MEAN PLATELET VOLUME 9.3 fL (7.2-11.7); MONO % 16.5 % (0.0-10.0); NEUT # 4.5 K/uL (1.8-7.0); NEUT % 73.4 % (50.0-75.0); NRBC % 0.1 % (0.0-2.0); RBC 5.43 Mil/uL (3.80-5.20); RED CELL DISTRIBUTION WIDTH 15.6 % (11.5-14.5); WHITE BLOOD COUNT 6.2 K/uL (4.8-10.8)
[2017-09-19 07:46] LABS: PLATELET COUNT 472 K/uL (130-400)
[2017-09-19 08:08] LABS: ALB/GLOB RATIO 1.3 (1.0-2.1); ALBUMIN 4.2 g/dL (3.5-5.0); ALT/SGPT 107 U/L (9-52); AST/SGOT 59 U/L (14-36); BLOOD UREA NITROGEN 22 mg/dL (7-17); CALCIUM 9.6 mg/dl (8.6-10.4); GFR AFRICAN-AMERICAN > 60; GFR NON-AFRICAN AMERICAN > 60
[2017-09-19 09:16] LABS: BANDS 19 % (0-2); LYMPHOCYTE 10 % (20-40); MONOCYTE 19 % (0-10); NEUTROPHIL 52 % (50-75); PLATELET ESTIMATE NORMAL (NORMAL); TOTAL CELLS COUNTED 100
[2017-09-19] MEDS: Enoxaparin 40 mg Syringe SC SCH (10:00)
[2017-09-19] MEDS: Lidocaine 5% Patch TD SCH (10:00)
--- NOTE | 2017-09-19 13:03 | US ---
PROCEDURE: Date of procedure: 09/20/19 Procedure: 1. Limited ultrasound of right flank for drainage. HISTORY: Fluid collection along right flank. TECHNIQUE: Limited ultrasound of patient's right flank in the area of swelling was performed. Ultrasound showed the a small collection which is nearly isoechoic to muscle. Collection appear highly viscous. Collection believed to be resolving hematoma and not amenable to a percutaneous drain with a small catheter. The patient reports improving symptoms. Patient is agreeable to observing collection and swelling. IMPRESSION: Small collection right flank along the external oblique muscle likely related to a hematoma. The collection is viscous and not amenable to a percutaneous drain. Recommend continued observation.
--- NOTE | 2017-09-19 15:15 | RAD ---
Date of service: 09/19/2017 PROCEDURE: Radiographs of the chest and abdomen (obstructive series) HISTORY: postop vomiting COMPARISON: No prior. TECHNIQUE: AP radiograph of the chest, with upright and supine radiographs of the abdomen. FINDINGS: CHEST: Lungs: The lungs are clear. Cardiovascular: Normal size heart. No pulmonary vascular congestion. Pleura: No pleural fluid. No pneumothorax. Other findings: None. ABDOMEN AND PELVIS: Bowel: There is moderate dilatation of the small bowel loops. The colon is decompressed. Free air: None. Bones: Unremarkable. Other findings: Surgical clips in the right upper quadrant are related to prior cholecystectomy. IMPRESSION: Persistent moderate dilatation of the small bowel loops which may represent postoperative ileus however developing small bowel obstruction cannot be excluded. Follow-up is advised.
[2017-09-20] MEDS: HYDROmorphone 0.5 mg/0.5 ml ISec IVP PRN ×2 (02:40→16:50)
[2017-09-20 06:29] LABS: HEMOGLOBIN 13.1 g/dL (11.0-16.0); MEAN CELL VOLUME 76.8 fL (81.0-99.0); MEAN CORPUSCULAR HEMOGLOBIN 25.6 pg (27.0-31.0); MEAN CORPUSCULAR HGB CONC 33.3 g/dL (33.0-37.0); MEAN PLATELET VOLUME 8.7 fL (7.2-11.7); RBC 5.1 Mil/uL (3.80-5.20); RED CELL DISTRIBUTION WIDTH 15.4 % (11.5-14.5); WHITE BLOOD COUNT 6.8 K/uL (4.8-10.8)
[2017-09-20 06:47] LABS: BLOOD UREA NITROGEN 27 mg/dL (7-17); CALCIUM 9.4 mg/dl (8.6-10.4); GFR AFRICAN-AMERICAN > 60; GFR NON-AFRICAN AMERICAN 50
--- NOTE | 2017-09-20 07:43 | CP.PCM.PN ---
Subjective - Date & Time of Evaluation Date of Evaluation: 09/20/17 Time of Evaluation: 06:00 - Subjective Subjective: GENERAL SURGERY PROGRESS NOTE FOR DR. GOMEZ Patient seen and examined at bedside. She is ambulating and reports that her pain is improved. Still reports several episodes of nausea and vomiting, however continues to refuse NG tube. Pt reports diarrhea. Objective - Vital Signs/Intake and Output Vital Signs (last 24 hours): Temp Pulse Resp BP Pulse Ox 98.5 F 103 H 20 153/82 H 97 09/20/17 00:00 09/20/17 00:00 09/20/17 00:00 09/20/17 00:00 09/20/17 00:00 Intake and Output: 09/20/17 09/20/17 06:59 18:59 Intake Total 1240 Output Total 600 Balance 640 - Medications Medications: Current Medications Acetaminophen (Tylenol 325mg Tab) 650 mg PO Q6 PRN PRN Reason: Fever >100.4 F Last Admin: 09/18/17 01:51 Dose: 650 mg Enoxaparin Sodium (Lovenox) 40 mg SC DAILY [facility] Last Admin: 09/19/17 10:00 Dose: Not Given Famotidine (Pepcid) 20 mg PO BID [facility] Last Admin: 09/19/17 17:19 Dose: Not Given Hydromorphone HCl (Dilaudid) 0.5 mg IVP Q4H PRN PRN Reason: Pain, moderate (4-7) Last Admin: 09/20/17 02:40 Dose: 0.5 mg Lidocaine (Lidoderm) 1 ea TD DAILY [facility] Last Admin: 09/19/17 10:00 Dose: Not Given Metoclopramide HCl (Reglan) 10 mg IVP Q8 [facility] Last Admin: 09/20/17 05:44 Dose: 10 mg Ondansetron HCl (Zofran Inj) 4 mg IVP Q6 PRN PRN Reason: Nausea/Vomiting Last Admin: 09/20/17 01:08 Dose: 4 mg - Labs Labs: 09/20/17 06:15 09/20/17 06:15 PT 13.4 SECONDS (9.7-12.2) H 09/18/17 17:04 INR 1.2 09/18/17 17:04 - Constitutional Appears: Well, Non-toxic, No Acute Distress - Head Exam Head Exam: ATRAUMATIC, NORMAL INSPECTION - Eye Exam Eye Exam: EOMI, Normal appearance - Respiratory Exam Respiratory Exam: NORMAL BREATHING PATTERN. absent: Respiratory Distress - Cardiovascular Exam Cardiovascular Exam: +S1, +S2 - GI/Abdominal Exam GI & Abdominal Exam: Soft. absent: Distended, Firm, Guarding, Rigid, Tenderness , Rebound Additional comments: dermabond over laparoscopic incision sites Continued ecchymosis over R flank and ecchymosis inferior to umbilicus - Neurological Exam Neurological Exam: Alert, Awake, Oriented x3 - Psychiatric Exam Psychiatric exam: Normal Affect, Normal Mood - Skin Skin Exam: Dry, Warm Assessment and Plan - Assessment and Plan (Free Text) Plan: 42F s/p laparoscopic cholecystectomy POD#7, with post op ileus and resolving abd wall hematoma - IR drainage was attempted yesterday but Ultrasound showed a small highly viscous collection in the right flank along the external oblique muscle - believed to be resolving hematoma and not amenable to a percutaneous drain with a small catheter. - Continue with anti-emetics - pt on scheduled Reglan with Zofran PRN -Pt continues to refuse NGT and drank CLD even when NPO - Pt now on CLD and had diarrhea last night - C/w IVF - Continue pain meds PRN: lidoderm patch, dilaudid 0.5 - DVT ppx - Continue to encourage OOB/Ambulation/ IS use - Discussed plan with Dr. Melchor Taylor PGY-4
[2017-09-20] MEDS: Lidocaine 5% Patch TD SCH (09:17)
[2017-09-20] MEDS: Enoxaparin 40 mg Syringe SC SCH (09:17)
[2017-09-20] MEDS: Potassium Ch 20mEq in D5-1/2NS 1,000 ML IV SCH ×2 (09:31→17:00)
[2017-09-20] MEDS ORDERED: Benzocaine/Menthol (Cepacol) Lozenge MT PRN (17:01)
[2017-09-21] MEDS: Potassium Ch 20mEq in D5-1/2NS 1,000 ML IV SCH ×2 (04:30→14:00)
[2017-09-21 07:00] LABS: BASO % 0.2 % (0.0-2.0); EOS # 0.2 K/uL (0.0-0.7); EOS % 2.2 % (0.0-4.0); HEMOGLOBIN 12.8 g/dL (11.0-16.0); LYMPH # 0.9 K/uL (1.0-4.3); LYMPH % 11.6 % (20.0-40.0); MEAN CELL VOLUME 76.9 fL (81.0-99.0); MEAN CORPUSCULAR HEMOGLOBIN 25.7 pg (27.0-31.0); MEAN CORPUSCULAR HGB CONC 33.5 g/dL (33.0-37.0); MEAN PLATELET VOLUME 9.1 fL (7.2-11.7); MONO # 1.1 K/uL (0.0-0.8); MONO % 13.9 % (0.0-10.0); NEUT # 5.7 K/uL (1.8-7.0); NEUT % 72.1 % (50.0-75.0); NRBC % 0.1 % (0.0-2.0); RBC 4.99 Mil/uL (3.80-5.20); RED CELL DISTRIBUTION WIDTH 15.5 % (11.5-14.5); WHITE BLOOD COUNT 7.8 K/uL (4.8-10.8)
[2017-09-21 07:31] LABS: ALB/GLOB RATIO 1.2 (1.0-2.1); ALBUMIN 3.5 g/dL (3.5-5.0); ALT/SGPT 206 U/L (9-52); AST/SGOT 132 U/L (14-36); BLOOD UREA NITROGEN 24 mg/dL (7-17); CALCIUM 8.9 mg/dl (8.6-10.4); GFR AFRICAN-AMERICAN > 60; GFR NON-AFRICAN AMERICAN 55
[2017-09-21] MEDS: Enoxaparin 40 mg Syringe SC SCH (10:15)
[2017-09-21] MEDS: Lidocaine 5% Patch TD SCH (10:15)
[2017-09-21] MEDS ORDERED: Potassium Chloride 20 mEq/15 ml LIQ UD PO ONE (14:00)
--- NOTE | 2017-09-22 00:34 | CP.PCM.PN ---
Subjective - Date & Time of Evaluation Date of Evaluation: 09/21/17 Time of Evaluation: 07:00 - Subjective Subjective: GENERAL SURGERY PROGRESS NOTE FOR DR. GOMEZ Patient seen and examined at bedside. She is ambulating and reports that her pain is improved and is now intermittent. Still reports several episodes of nausea and vomiting and notes that it occurs after the zofran or reglan. Pt reports diarrhea x8 today, non bloody. Objective - Vital Signs/Intake and Output Vital Signs (last 24 hours): Temp Pulse Resp BP Pulse Ox 98.9 F 89 20 149/100 H 98 09/21/17 17:06 09/21/17 17:06 09/21/17 17:06 09/21/17 17:06 09/21/17 17:06 Intake and Output: 09/21/17 09/22/17 18:59 06:59 Intake Total 900 Balance 900 - Medications Medications: Current Medications Acetaminophen (Tylenol 325mg Tab) 650 mg PO Q6 PRN PRN Reason: Fever >100.4 F Last Admin: 09/18/17 01:51 Dose: 650 mg Benzocaine/Menthol (Cepacol Sore Throat) 1 lisa MT PRN PRN PRN Reason: Sore Throat Enoxaparin Sodium (Lovenox) 40 mg SC DAILY [facility] Last Admin: 09/21/17 10:15 Dose: 40 mg Famotidine (Pepcid) 20 mg IVP Q12 [facility] Last Admin: 09/21/17 21:37 Dose: 20 mg Potassium Chloride/Dextrose/Sod Cl (Potassium Chl 20 Meq In D5-1/2ns) 1,000 mls @ 100 mls/hr IV .Q10H [facility] Last Admin: 09/21/17 14:00 Dose: 100 mls/hr Lidocaine (Lidoderm) 1 ea TD DAILY [facility] Last Admin: 09/21/17 10:15 Dose: 1 ea Metoclopramide HCl (Reglan) 10 mg IVP Q8 PRN PRN Reason: Other Last Admin: 09/21/17 21:41 Dose: 10 mg Morphine Sulfate (Morphine) 2 mg IVP Q4 PRN PRN Reason: Pain, moderate (4-7) Last Admin: 09/21/17 21:37 Dose: 2 mg - Labs Labs: 09/21/17 06:52 09/21/17 06:52 PT 13.4 SECONDS (9.7-12.2) H 09/18/17 17:04 INR 1.2 09/18/17 17:04 - Constitutional Appears: Non-toxic, No Acute Distress - Head Exam Head Exam: ATRAUMATIC, NORMAL INSPECTION - Eye Exam Eye Exam: EOMI, Normal appearance - Respiratory Exam Respiratory Exam: NORMAL BREATHING PATTERN. absent: Respiratory Distress - Cardiovascular Exam Cardiovascular Exam: +S1, +S2 - GI/Abdominal Exam GI & Abdominal Exam: Soft. absent: Distended, Firm, Guarding, Rigid, Tenderness Additional comments: dermabond over laparoscopic incision sites Continued ecchymosis over R flank and ecchymosis inferior to umbilicus - Neurological Exam Neurological Exam: Alert, Awake - Skin Skin Exam: Dry, Warm Assessment and Plan - Assessment and Plan (Free Text) Assessment: 42F s/p laparoscopic cholecystectomy POD#8, with post op ileus and resolving abd wall hematoma - IR drainage was attempted 2 days ago but Ultrasound showed a small highly viscous collection in the right flank along the external oblique muscle - believed to be resolving hematoma and not amenable to a percutaneous drain with a small catheter. - Zofran DCed and Reglan changed to PRN - Advanced to full liquids - Due to diarrhea, C diff ordered - C/w IVF - Continue pain meds PRN: lidoderm patch, morphine - DVT ppx - Continue to encourage OOB/Ambulation/ IS use - HIDA scan ordered due to increasing bilirubin - Discussed plan with Dr. Melchor Taylor PGY-4
[2017-09-22] MEDS: Potassium Ch 20mEq in D5-1/2NS 1,000 ML IV SCH ×4 (01:00→20:00)
[2017-09-22 08:15] LABS: BASO % 0.2 % (0.0-2.0); EOS # 0.2 K/uL (0.0-0.7); EOS % 1.4 % (0.0-4.0); HEMOGLOBIN 13.2 g/dL (11.0-16.0); LYMPH # 1.1 K/uL (1.0-4.3); LYMPH % 10.5 % (20.0-40.0); MEAN CELL VOLUME 76.8 fL (81.0-99.0); MEAN CORPUSCULAR HEMOGLOBIN 25.9 pg (27.0-31.0); MEAN CORPUSCULAR HGB CONC 33.8 g/dL (33.0-37.0); MEAN PLATELET VOLUME 9.3 fL (7.2-11.7); MONO # 1.3 K/uL (0.0-0.8); NEUT # 8.3 K/uL (1.8-7.0); NEUT % 75.9 % (50.0-75.0); RBC 5.07 Mil/uL (3.80-5.20); RED CELL DISTRIBUTION WIDTH 15.4 % (11.5-14.5); WHITE BLOOD COUNT 10.9 K/uL (4.8-10.8)
[2017-09-22 08:47] LABS: ALB/GLOB RATIO 1.3 (1.0-2.1); ALBUMIN 3.4 g/dL (3.5-5.0); ALT/SGPT 168 U/L (9-52); AST/SGOT 71 U/L (14-36); BLOOD UREA NITROGEN 21 mg/dL (7-17); CALCIUM 8.9 mg/dl (8.6-10.4); GFR AFRICAN-AMERICAN > 60; GFR NON-AFRICAN AMERICAN 55
[2017-09-22] MEDS: Enoxaparin 40 mg Syringe SC SCH (09:49)
[2017-09-22] MEDS: Lidocaine 5% Patch TD SCH (10:03)
[2017-09-22] MEDS: Potassium Chloride 20 mEq ER Tab PO SCH (12:56)
--- NOTE | 2017-09-22 12:58 | CP.PCM.PN ---
Subjective - Date & Time of Evaluation Date of Evaluation: 09/22/17 Time of Evaluation: 07:45 - Subjective Subjective: General Surgery progress note for Dr. Roche Patient seen and examined this am at bedside. no acute events overnight per nursing. Patient states that her abdominal pain is improving and that she has only vomited twice overnight. she additionally states that she has had fewer loose stools. She states that she vomited after eating vanilla yogurt and orange juice together. she denies any nausea other than at the time of the OJ and vanilla yogurt. she otherwise denies fevers and chills. Objective - Vital Signs/Intake and Output Vital Signs (last 24 hours): Temp Pulse Resp BP Pulse Ox 98.4 F 103 H 20 136/90 96 09/22/17 07:48 09/22/17 07:48 09/22/17 07:48 09/22/17 07:48 09/22/17 07:48 - Medications Medications: Current Medications Acetaminophen (Tylenol 325mg Tab) 650 mg PO Q6 PRN PRN Reason: Fever >100.4 F Last Admin: 09/18/17 01:51 Dose: 650 mg Benzocaine/Menthol (Cepacol Sore Throat) 1 lisa MT PRN PRN PRN Reason: Sore Throat Enoxaparin Sodium (Lovenox) 40 mg SC DAILY [facility] Last Admin: 09/22/17 09:49 Dose: Not Given Famotidine (Pepcid) 20 mg IVP Q12 [facility] Last Admin: 09/22/17 10:03 Dose: 20 mg Potassium Chloride/Dextrose/Sod Cl (Potassium Chl 20 Meq In D5-1/2ns) 1,000 mls @ 100 mls/hr IV .Q10H [facility] Last Admin: 09/22/17 10:26 Dose: Not Given Lidocaine (Lidoderm) 1 ea TD DAILY [facility] Last Admin: 09/22/17 10:03 Dose: 1 ea Metoclopramide HCl (Reglan) 10 mg IVP Q8 PRN PRN Reason: Other Last Admin: 09/21/17 21:41 Dose: 10 mg Morphine Sulfate (Morphine) 2 mg IVP Q4 PRN PRN Reason: Pain, moderate (4-7) Last Admin: 09/22/17 04:19 Dose: 2 mg Potassium Chloride (K-Dur 20 Meq Er Tab) 40 meq PO DAILY [facility] - Labs Labs: 09/22/17 08:01 09/22/17 08:01 PT 13.4 SECONDS (9.7-12.2) H 09/18/17 17:04 INR 1.2 09/18/17 17:04 - Constitutional Appears: Well, Non-toxic, No Acute Distress - Head Exam Head Exam: ATRAUMATIC, NORMOCEPHALIC - ENT Exam ENT Exam: Mucous Membranes Moist - Respiratory Exam Respiratory Exam: NORMAL BREATHING PATTERN - Cardiovascular Exam Cardiovascular Exam: +S1, +S2 - GI/Abdominal Exam GI & Abdominal Exam: Distended, Soft, Tenderness. absent: Firm, Guarding, Rigid , Rebound Additional comments: abdominal wall hematoma and overlying ecchymosis is stable in size and appears to be resolving. incisions are c/d/i. abdomen is nontympanic - Neurological Exam Neurological Exam: Alert, Awake, Oriented x3 - Psychiatric Exam Psychiatric exam: Normal Affect, Normal Mood - Skin Skin Exam: Dry, Intact, Warm Additional comments: improving ecchymosis Assessment and Plan - Assessment and Plan (Free Text) Assessment: 42 yr old female s/p cholecystectomy POD 9 with aimproving abdominal wall hematoma and ileus Plan: -will advance to bland diet for dinner if continuing to tolerate diet - LFTs and bili improved today, will forgo HIDA scan -D/c morphine and switch to PO pain meds today -WBC elevation likely inflammatory d/t menstruation, no fevers chills or tachycardia, will repeat tomorrow - discussed plan with Dr. Roche, all further recs per her Amanda Noland, PGY 1
[2017-09-22] MEDS ORDERED: oxyCODONE 5 mg Immediate Release Tab PO PRN (15:53)
[2017-09-23] MEDS: Potassium Ch 20mEq in D5-1/2NS 1,000 ML IV SCH ×4 (00:45→16:00)
[2017-09-23 08:06] LABS: BASO % 0.2 % (0.0-2.0); EOS # 0.2 K/uL (0.0-0.7); HEMOGLOBIN 13.1 g/dL (11.0-16.0); LYMPH # 1.4 K/uL (1.0-4.3); LYMPH % 13.8 % (20.0-40.0); MEAN CELL VOLUME 77.4 fL (81.0-99.0); MEAN CORPUSCULAR HGB CONC 33.6 g/dL (33.0-37.0); MEAN PLATELET VOLUME 9.1 fL (7.2-11.7); MONO # 1.5 K/uL (0.0-0.8); MONO % 14.5 % (0.0-10.0); NEUT # 7.2 K/uL (1.8-7.0); NEUT % 69.5 % (50.0-75.0); NRBC % 0.1 % (0.0-2.0); RBC 5.05 Mil/uL (3.80-5.20); RED CELL DISTRIBUTION WIDTH 15.3 % (11.5-14.5); WHITE BLOOD COUNT 10.3 K/uL (4.8-10.8)
[2017-09-23 08:23] LABS: ALB/GLOB RATIO 1.2 (1.0-2.1); ALBUMIN 3.4 g/dL (3.5-5.0); ALT/SGPT 142 U/L (9-52); AST/SGOT 61 U/L (14-36); BLOOD UREA NITROGEN 16 mg/dL (7-17); CALCIUM 8.8 mg/dl (8.6-10.4); GFR AFRICAN-AMERICAN > 60; GFR NON-AFRICAN AMERICAN 50
[2017-09-23] MEDS: Potassium Chloride 20 mEq ER Tab PO SCH (09:48)
[2017-09-23] MEDS: Enoxaparin 40 mg Syringe SC SCH (09:48)
[2017-09-23] MEDS: Lidocaine 5% Patch TD SCH (09:48)
--- NOTE | 2017-09-23 19:08 | CP.PCM.DIS ---
Provider - Provider Date of Admission: 09/16/17 21:49 Attending physician: Brant Roche MD Consults: MARIBELL Finley Time Spent in preparation of Discharge (in minutes): 30 Hospital Course - Lab Results Lab Results: Micro Results 09/18/17 11:21 Blood Blood Culture - Final NO GROWTH AFTER 5 DAYS 09/18/17 11:21 Blood Gram Stain - Final TEST NOT PERFORMED 09/18/17 10:35 Blood Blood Culture - Final NO GROWTH AFTER 5 DAYS 09/18/17 10:35 Blood Gram Stain - Final TEST NOT PERFORMED 09/16/17 14:23 Urine Urine Culture - Final Gram Positive Cocci Most Recent Lab Values WBC 10.3 K/uL (4.8-10.8) 09/23/17 07:42 RBC 5.05 Mil/uL (3.80-5.20) 09/23/17 07:42 Hgb 13.1 g/dL (11.0-16.0) 09/23/17 07:42 Hct 39.0 % (34.0-47.0) 09/23/17 07:42 MCV 77.4 fL (81.0-99.0) L 09/23/17 07:42 MCH 26.0 pg (27.0-31.0) L 09/23/17 07:42 MCHC 33.6 g/dL (33.0-37.0) 09/23/17 07:42 RDW 15.3 % (11.5-14.5) H 09/23/17 07:42 Plt Count 532 K/uL (130-400) H 09/23/17 07:42 MPV 9.1 fL (7.2-11.7) 09/23/17 07:42 Neut % (Auto) 69.5 % (50.0-75.0) 09/23/17 07:42 Lymph % (Auto) 13.8 % (20.0-40.0) L 09/23/17 07:42 [place] % (Auto) 14.5 % (0.0-10.0) H 09/23/17 07:42 Eos % (Auto) 2.0 % (0.0-4.0) 09/23/17 07:42 Baso % (Auto) 0.2 % (0.0-2.0) 09/23/17 07:42 Neut # (Auto) 7.2 K/uL (1.8-7.0) H 09/23/17 07:42 Lymph # (Auto) 1.4 K/uL (1.0-4.3) 09/23/17 07:42 [place] # (Auto) 1.5 K/uL (0.0-0.8) H 09/23/17 07:42 Eos # (Auto) 0.2 K/uL (0.0-0.7) 09/23/17 07:42 Baso # (Auto) 0.0 K/uL (0.0-0.2) 09/23/17 07:42 Neutrophils % (Manual) 52 % (50-75) 09/19/17 07:34 Band Neutrophils % 19 % (0-2) H* 09/19/17 07:34 Lymphocytes % (Manual) 10 % (20-40) L 09/19/17 07:34 Reactive Lymphs % 1 % (0-0) H 09/18/17 08:40 Monocytes % (Manual) 19 % (0-10) H 09/19/17 07:34 Platelet Estimate Normal (NORMAL) 09/19/17 07:34 Plt Clumps, EDTA 09/16/17 13:35 Large Platelets Present 09/18/17 08:40 Giant Platelets Present 09/16/17 13:35 Anisocytosis (manual) Slight 09/16/17 13:35 Ovalocytes Slight 09/16/17 13:35 PT 13.4 SECONDS (9.7-12.2) H 09/18/17 17:04 INR 1.2 09/18/17 17:04 Sodium 132 mmol/L (132-148) 09/23/17 07:42 Potassium 3.6 mmol/L (3.6-5.2) 09/23/17 07:42 Chloride 94 mmol/L (98-107) L 09/23/17 07:42 Carbon Dioxide 29 mmol/L (22-30) 09/23/17 07:42 Anion Gap 13 (10-20) 09/23/17 07:42 BUN 16 mg/dL (7-17) 09/23/17 07:42 Creatinine 1.2 mg/dL (0.7-1.2) 09/23/17 07:42 Est GFR ( Amer) > 60 09/23/17 07:42 Est GFR (Non-Af Amer) 50 09/23/17 07:42 Random Glucose 129 mg/dL (65-105) H 09/23/17 07:42 Calcium 8.8 mg/dl (8.6-10.4) 09/23/17 07:42 Phosphorus 4.3 mg/dL (2.5-4.5) 09/21/17 06:52 Magnesium 2.1 mg/dL (1.6-2.3) 09/21/17 06:52 Total Bilirubin 2.0 mg/dL (0.2-1.3) H 09/23/17 07:42 Direct Bilirubin 0.8 mg/dL (0.0-0.4) H 09/18/17 08:40 AST 61 U/L (14-36) H 09/23/17 07:42 ALT 142 U/L (9-52) H 09/23/17 07:42 Alkaline Phosphatase 272 U/L (38-126) H 09/23/17 07:42 Total Protein 6.3 g/dL (6.3-8.3) 09/23/17 07:42 Albumin 3.4 g/dL (3.5-5.0) L 09/23/17 07:42 Globulin 2.8 gm/dL (2.2-3.9) 09/23/17 07:42 Albumin/Globulin Ratio 1.2 (1.0-2.1) 09/23/17 07:42 Lipase 82 U/L (23-300) 09/16/17 13:35 Urine Color Alyssa (YELLOW) 09/16/17 14:23 Urine Clarity Clear (Clear) 09/16/17 14:23 Urine pH 5.0 (5.0-8.0) 09/16/17 14:23 Ur Specific [place] 1.020 (1.003-1.030) 09/16/17 14:23 Urine Protein 2+ mg/dL (NEGATIVE) H 09/16/17 14:23 Urine Glucose (UA) 1+ mg/dL (Normal) 09/16/17 14:23 Urine Ketones Negative mg/dL (NEGATIVE) 09/16/17 14:23 Urine Blood Negative (NEGATIVE) 09/16/17 14:23 Urine Nitrate Negative (NEGATIVE) 09/16/17 14:23 Urine Bilirubin Negative (NEGATIVE) 09/16/17 14:23 Urine Urobilinogen 4.0 mg/dL (0.2-1.0) H 09/16/17 14:23 Ur Leukocyte Esterase Neg Teresa/uL (Negative) 09/16/17 14:23 Urine WBC (Auto) 6 /hpf (0-5) H 09/16/17 14:23 Urine RBC (Auto) 1 /hpf (0-3) 09/16/17 14:23 Ur Squamous Epith Cells 9 /hpf (0-5) H 09/16/17 14:23 Urine Bacteria Rare (<OCC) 09/16/17 14:23 Hyaline Casts 6-10 /lpf (0-2) H 09/16/17 14:23 Urine HCG, Qual Negative (NEGATIVE) 09/19/17 06:32 C. difficile Ag & Toxin Negative (NEGATIVE) 09/21/17 19:39 - Hospital Course Hospital Course: 42F s/p laparoscopic cholecystectomy on 09/13/17 (3 days prior) presented to [facility] ED with abdominal pain with nausea and vomiting. US showed large intramuscular abdominal wall fluid collection - likely hematoma along external oblique muscle. Also found to have post op ileus. IR was consulted for possible drainage but the collection was highly viscous and not amenable to a percutaneous drain with a small catheter. Pt's symptoms improved. Her ileus resolved. She was tolerating diet and having bowel function and she was discharged home. Discharge Exam - Head Exam Head Exam: ATRAUMATIC, NORMOCEPHALIC - Respiratory Exam Respiratory Exam: NORMAL BREATHING PATTERN. absent: Respiratory Distress - Cardiovascular Exam Cardiovascular Exam: +S1, +S2 - GI/Abdominal Exam GI & Abdominal Exam: Soft. absent: Distended, Rebound, Rigid, Tenderness Additional comments: Right flank and infra-umbilical ecchymosis - Neurological Exam Neurological exam: Alert, CN II-XII Intact, Oriented x3 - Psychiatric Exam Psychiatric exam: Normal Affect, Normal Mood - Skin Skin Exam: Dry, Warm Discharge Plan - Follow Up Plan Condition: GUARDED Disposition: HOME/ ROUTINE Patient education suggested?: Yes Additional Instructions: Please follow up with Dr. Roche in her office in 1-2 weeks May take ibuprofen or tylenol PRN for pain return to ED for fever, or worsening symptoms
[2017-09-24] MEDS: Potassium Ch 20mEq in D5-1/2NS 1,000 ML IV SCH ×2 (01:42→15:19)
[2017-09-24] MEDS: Lidocaine 5% Patch TD SCH (10:42)
[2017-09-24] MEDS: Potassium Chloride 20 mEq ER Tab PO SCH (10:42)
[2017-09-24] MEDS: Enoxaparin 40 mg Syringe SC SCH (10:43)
--- NOTE | 2017-09-24 11:10 | RAD ---
Date of service: 09/24/2017 HISTORY: ileus vs obstruction COMPARISON: No prior. FINDINGS: BOWEL: There is gaseous distention of small bowel loops and some large-bowel loops in the abdomen with the overall distention diminished in the interval. The pattern remains suggestive of potential ileus rather than small bowel obstruction. No free intra peritoneal gas or abnormal intra-abdominal calcifications are identified. Surgical clips are reiterated at the right upper quadrant abdomen. BONES: Normal. OTHER FINDINGS: None. IMPRESSION: Ileus favored over small bowel obstruction. No free intrarenal gas. Postcholecystectomy changes right upper quadrant. Clinical correlation and imaging follow-up are advised.
[2017-09-24 12:21] LABS: BLOOD UREA NITROGEN 13 mg/dL (7-17); CALCIUM 8.7 mg/dl (8.6-10.4); GFR AFRICAN-AMERICAN > 60; GFR NON-AFRICAN AMERICAN > 60
--- NOTE | 2017-09-24 13:22 | CP.PCM.PN ---
Subjective - Date & Time of Evaluation Date of Evaluation: 09/24/17 Time of Evaluation: 06:30 - Subjective Subjective: GENERAL SURGERY PROGRESS NOTE FOR DR. GOMEZ Patient seen and examined at bedside. Discharge yesterday was held because patient had more vomiting. Pt reports diarrhea x5, non bloody. She denies abdominal pain. Objective - Vital Signs/Intake and Output Vital Signs (last 24 hours): Temp Pulse Resp BP Pulse Ox 98.2 F 102 H 20 139/90 97 09/24/17 08:01 09/24/17 08:01 09/24/17 08:01 09/24/17 08:01 09/24/17 08:01 Intake and Output: 09/24/17 09/24/17 06:59 18:59 Intake Total 1900 Balance 1900 - Medications Medications: Current Medications Acetaminophen (Tylenol 325mg Tab) 650 mg PO Q6 PRN PRN Reason: Fever >100.4 F Last Admin: 09/18/17 01:51 Dose: 650 mg Benzocaine/Menthol (Cepacol Sore Throat) 1 lisa MT PRN PRN PRN Reason: Sore Throat Enoxaparin Sodium (Lovenox) 40 mg SC DAILY [facility] Last Admin: 09/24/17 10:43 Dose: Not Given Famotidine (Pepcid) 20 mg IVP Q12 [facility] Last Admin: 09/24/17 10:43 Dose: 20 mg Potassium Chloride/Dextrose/Sod Cl (Potassium Chl 20 Meq In D5-1/2ns) 1,000 mls @ 100 mls/hr IV .Q10H [facility] Last Admin: 09/24/17 01:42 Dose: 100 mls/hr Ketorolac Tromethamine (Toradol) 30 mg IVP Q6H PRN PRN Reason: Pain, moderate (4-7) Last Admin: 09/23/17 20:29 Dose: 30 mg Lidocaine (Lidoderm) 1 ea TD DAILY [facility] Last Admin: 09/24/17 10:42 Dose: Not Given Metoclopramide HCl (Reglan) 10 mg IVP Q8 PRN PRN Reason: Other Last Admin: 09/23/17 20:31 Dose: 10 mg Potassium Chloride (K-Dur 20 Meq Er Tab) 40 meq PO DAILY [facility] Last Admin: 09/24/17 10:42 Dose: Not Given - Labs Labs: 09/23/17 07:42 09/24/17 11:54 PT 13.4 SECONDS (9.7-12.2) H 09/18/17 17:04 INR 1.2 09/18/17 17:04 - Constitutional Appears: Non-toxic, No Acute Distress - Head Exam Head Exam: ATRAUMATIC, NORMAL INSPECTION - Respiratory Exam Respiratory Exam: NORMAL BREATHING PATTERN. absent: Respiratory Distress - Cardiovascular Exam Cardiovascular Exam: +S1, +S2 - GI/Abdominal Exam GI & Abdominal Exam: Soft. absent: Distended, Firm, Guarding, Rigid, Tenderness , Rebound Additional comments: resolving ecchymosis - Neurological Exam Neurological Exam: Alert, Awake, Oriented x3 - Psychiatric Exam Psychiatric exam: Normal Affect, Normal Mood - Skin Skin Exam: Dry, Warm Assessment and Plan - Assessment and Plan (Free Text) Assessment: 42F s/p laparoscopic cholecystectomy POD#11, with resolving abd wall hematoma & persistent nausea, vomiting, diarrhea - X ray: gaseous distention of SB loops and some large bowel loops in the abdomen (diminished from before) - suggestive of potential ileus - GI consulted - GI series ordered due to persistent vomiting after eating anything - C diff negative - C/w IVF - DVT ppx - Continue to encourage OOB/Ambulation/ IS use - Discussed plan with Dr. Melchor Taylor PGY-4
[2017-09-24] MEDS ORDERED: Potassium Chloride 20 mEq/15 ml LIQ UD PO ONE (15:42)
[2017-09-24] MEDS ORDERED: LIPASE/PROTEASE/AMYLASE 21,000 U ECC PO SCH (18:00)
[2017-09-24] MEDS: LIPASE/PROTEASE/AMYLASE 21,000 U ECC PO SCH ×2 (19:12→19:49)
[2017-09-24] MEDS: Cholestyramine 4 gm/Pkt UD PO SCH (19:13)
[2017-09-24] MEDS: Potassium Chloride 20 mEq/15 ml LIQ UD PO SCH ×3 (19:14→20:40)
[2017-09-24] MEDS ORDERED: Trimethobenzamide 200 mg/2 mL Inj IM STA (19:47)
[2017-09-25] MEDS: Potassium Ch 20mEq in D5-1/2NS 1,000 ML IV SCH (08:00)
[2017-09-25] MEDS ORDERED: Barium Sulfate for Susp 96% w/w 176g Bottle PR ONE (08:46)
[2017-09-25] MEDS ORDERED: Barium Sulfate Susp 0.1% w/v, 0.1% w/w 450 mL Bottle PO ONE (08:46)
[2017-09-25] MEDS: Cholestyramine 4 gm/Pkt UD PO SCH ×2 (10:00→18:34)
[2017-09-25] MEDS: Potassium Chloride 20 mEq/15 ml LIQ UD PO SCH (10:00)
[2017-09-25] MEDS: LIPASE/PROTEASE/AMYLASE 21,000 U ECC PO SCH ×2 (10:00→14:48)
[2017-09-25] MEDS: Lidocaine 5% Patch TD SCH ×2 (10:00→14:48)
--- NOTE | 2017-09-25 15:06 | CP.PCM.CON ---
History of Present Illness - History of Present Illness History of Present Illness: PGY- 4 GI Consult Note Pt is a 42 yo female with recent Lap Sarah on 09/13/17 for which GI is consulted for persistent diarrhea and N/V. Pt states that since her surgery she has had trouble with diarrhea. She states prior to the surgery she would have 3-4 formed brown BMs per day. Post surgery, she stats she was having much more than 5 loose greenish-roberts bowel movements. She cannot identify any precipitating or alleviating factors. Denies nocturnal awakenings to go but states that if she does use the restroom in the night that stools are loose. She states that emesis is a grayish liquids, denying any bloody or bilious emesis. States she is barely able to keep some food down recently due to associated nausea. She denies recent, travel, sick contacts, abx use or change in diet. 12 point ROS negative other than stated above MHx and SurgHx as above Meds: None FamHx: Denied h/o GI/Liver probs SocHx: Denied Tob, EtOH, Ill All: NKDA Past Patient History - Past Medical History & Family History Past Medical History?: Yes - Past Social History Smoking Status: Light Smoker < 10 Cigarettes Daily - CARDIAC Hx Cardiac Disorders: No - PULMONARY Hx Respiratory Disorders: No - NEUROLOGICAL Hx Neurological Disorder: No - HEENT Hx HEENT Problems: No - RENAL Hx Chronic Kidney Disease: No - ENDOCRINE/METABOLIC Hx Endocrine Disorders: No - HEMATOLOGICAL/ONCOLOGICAL Hx Blood Disorders: No - INTEGUMENTARY Hx Dermatological Problems: No - MUSCULOSKELETAL/RHEUMATOLOGICAL Hx Musculoskeletal Disorders: No Hx Falls: No - GASTROINTESTINAL Hx Gastrointestinal Disorders: Yes Hx Gall Bladder Disease: Yes Other/Comment: Pancreatitis - GENITOURINARY/GYNECOLOGICAL Hx Genitourinary Disorders: No - PSYCHIATRIC Hx Psychophysiologic Disorder: No Hx Substance Use: No - SURGICAL HISTORY Hx Surgeries: Yes Hx Cholecystectomy: Yes (3 days ago) - ANESTHESIA Hx Anesthesia: Yes Hx Anesthesia Reactions: No Hx Malignant Hyperthermia: No Has any member of the family had a problem w/ anesthesia?: No Meds Allergies/Adverse Reactions: Allergies Allergy/AdvReac Type Severity Reaction Status Date / Time No Known Allergies Allergy Verified 09/16/17 12:48 - Medications Medications: Current Medications Acetaminophen (Tylenol 325mg Tab) 650 mg PO Q6 PRN PRN Reason: Fever >100.4 F Last Admin: 09/18/17 01:51 Dose: 650 mg Benzocaine/Menthol (Cepacol Sore Throat) 1 lisa MT PRN PRN PRN Reason: Sore Throat Last Admin: 09/24/17 22:07 Dose: 1 lisa Cholestyramine Resin (Questran) 4 gm PO BID [facility] Last Admin: 09/25/17 10:00 Dose: Not Given Famotidine (Pepcid) 20 mg IVP Q12 [facility] Last Admin: 09/25/17 10:00 Dose: Not Given Lidocaine (Lidoderm) 1 ea TD DAILY [facility] Last Admin: 09/25/17 14:48 Dose: 1 ea Metoclopramide HCl (Reglan) 10 mg IVP Q8 PRN PRN Reason: Other Last Admin: 09/24/17 19:19 Dose: 10 mg Potassium Chloride (Potassium Chloride Oral Soln) 40 meq PO DAILY [facility] Last Admin: 09/25/17 10:00 Dose: Not Given Physical Exam - Constitutional Appears: Well, Non-toxic - Head Exam Head Exam: ATRAUMATIC, NORMAL INSPECTION - Eye Exam Eye Exam: EOMI. absent: Conjunctival injection, Scleral icterus - ENT Exam ENT Exam: Mucous Membranes Dry, Normal External Ear Exam. absent: Mucous Membranes Moist - Respiratory Exam Respiratory Exam: Clear to Auscultation Bilateral, NORMAL BREATHING PATTERN. absent: Wheezes - Cardiovascular Exam Cardiovascular Exam: REGULAR RHYTHM, RRR - GI/Abdominal Exam GI & Abdominal Exam: Distended (midly), Normal Bowel Sounds, Soft. absent: Bruit, Diminished Bowel Sounds, Firm, Guarding, Hernia, Hyperactive Bowel Sounds , Hypoactive Bowel Sounds, Mass, Organomegaly, Pulsatile Mass, Rebound, Rigid, Tenderness - Rectal Exam Rectal Exam: Deferred - Extremities Exam Extremities exam: Positive for: normal inspection. Negative for: pedal edema - Neurological Exam Neurological exam: Alert, CN II-XII Intact, Oriented x3 - Psychiatric Exam Psychiatric exam: Normal Affect, Normal Mood - Skin Skin Exam: Normal Color, Warm (post-lap surg incisions on abd) Results - Vital Signs Recent Vital Signs: Last Vital Signs Temp 98.4 F 09/25/17 08:00 Pulse 96 H 09/25/17 08:00 Resp 20 09/25/17 08:00 BP 120/76 09/25/17 08:00 Pulse Ox 97 09/25/17 08:00 - Labs Result Diagrams: 09/23/17 07:42 09/24/17 11:54 Assessment & Plan - Assessment and Plan (Free Text) Assessment: # Acute diarrhea, N/V: Suspected that diarrhea related to post-cholecystectomy diarrhea with excess bile causing diarrhea. Pt reporting loose green stools to further suggest. C diff negative. Unclear if symptoms of N/V related as well, though pt reports that N/V already somewhat improved. Doubt pancreatic insufficiency given no h/o pancreatitis prior to this recent episode of gallstone pancreatitis. Plan: - Trial of cholestyramine - F/u Radio Series - Consider EGD pending above/course - Considering stopping Creon, and rather trial above to see if effective Pt discussed with Dr. Lala. See his attestation for further details/changes.
[2017-09-25 15:14] LABS: HEPATITIS A IGM NEGATIVE (NEGATIVE); HEPATITIS B CORE AB NEGATIVE (NEGATIVE); HEPATITIS C ANTIBODY Negative (NEGATIVE)
[2017-09-25 15:15] LABS: HEPATITIS B SURFACE AG Negative (NEGATIVE)
--- NOTE | 2017-09-25 16:19 | RAD ---
Date of service: 09/25/2017 PROCEDURE: Upper GI series and small bowel series HISTORY: persistant vomiting s/p lap ayo COMPARISON: Not available TECHNIQUE: Upper GI series was performed utilizing biphasic technique. Following the upper GI series, additional low-density barium suspension was administered orally for additional sequential imaging of the small bowel. FINDINGS: The flare breaker radiograph of the chest demonstrates no acute infiltrate. No pleural effusion is seen. Scar radiography of the abdomen demonstrates multiple dilated small bowel loops centrally in the abdomen suspicious for mechanical bowel obstruction. There is a paucity of gas seen within large bowel. Upper GI series demonstrates the esophagus to be normal in caliber and mucosal detail. Normal esophageal peristaltic activity is observed. No esophageal mass or ulceration is seen. Very small hiatal hernia is demonstrated. There is no evidence of gastroesophageal reflux. The stomach is normal in size, contour, position and mucosal detail. No gastric mass or ulceration is demonstrated. The duodenal bulb and sweep are normal in contour, position and mucosal detail. There is no duodenal mass or ulceration. Sequential overhead views of the abdomen during progressive transit of oral barium suspension demonstrates multiple dilated loops of small bowel again suspicious for mechanical bowel obstruction. On the 1 hour 20 minutes film, there is an abnormal loop of bowel seen oriented vertically in the right lateral abdomen. Uncertain significance. On the 2 hours and 30 minutes film, there is barium seen within this vertically-oriented abnormal bowel loop, with features atypical for both small bowel and large bowel, most likely representing abnormal small bowel. There is no thumbprinting to suggest ischemia. On the 5 hours 10 minutes film, there is persistent dilatation of small bowel loops in the central and left abdomen. There is barium seen within decompressed small bowel loops in the right side of the abdomen. There is a small amount of barium seen within the rectum/rectosigmoid junction without identifiable barium seen elsewhere throughout the colon. This raises suspicion of an entero colonic fistula. A fistulous tract is not definitely demonstrated, but can be inferred from this finding. . IMPRESSION: Findings suspicious for partial mechanical small bowel obstruction. Alternatively, there may be complete obstruction with an enteroenteric fistula to the collapsed loops of small bowel in the right abdomen. 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 There is an abnormal loop of small bowel in the right lateral abdomen oriented vertically, with atypical appearance. Uncertain significance. This corresponds to an abnormal loop of bowel, presumably small bowel, vertically-oriented, in the right flank on the 1 hour 20 minutes film, containing only air at that time, The findings in this examination were discussed by telephone with Dr. Bill at 4:05 p.m. on 09/25/2017.
--- NOTE | 2017-09-25 17:28 | CP.PCM.PN ---
Subjective - Date & Time of Evaluation Date of Evaluation: 09/25/17 Time of Evaluation: 11:00 - Subjective Subjective: Patient seen and examined this morning. Reports having multiples bouts of non- bloody emesis. Patient states right flank pain is slightly improving. States she is still having diarrhea. Afebrile. Objective - Vital Signs/Intake and Output Vital Signs (last 24 hours): Temp Pulse Resp BP Pulse Ox 98.2 F 109 H 20 135/83 95 09/25/17 15:35 09/25/17 15:35 09/25/17 15:35 09/25/17 15:35 09/25/17 15:35 Intake and Output: 09/25/17 09/25/17 06:59 18:59 Intake Total 180 1200 Balance 180 1200 - Medications Medications: Current Medications Acetaminophen (Tylenol 325mg Tab) 650 mg PO Q6 PRN PRN Reason: Fever >100.4 F Last Admin: 09/18/17 01:51 Dose: 650 mg Benzocaine/Menthol (Cepacol Sore Throat) 1 lisa MT PRN PRN PRN Reason: Sore Throat Last Admin: 09/24/17 22:07 Dose: 1 lisa Cholestyramine Resin (Questran) 4 gm PO BID [facility] Last Admin: 09/25/17 10:00 Dose: Not Given Enoxaparin Sodium (Lovenox) 40 mg SC DAILY [facility] Famotidine (Pepcid) 20 mg IVP Q12 [facility] Last Admin: 09/25/17 10:00 Dose: Not Given Lidocaine (Lidoderm) 1 ea TD DAILY [facility] Last Admin: 09/25/17 14:48 Dose: 1 ea Metoclopramide HCl (Reglan) 10 mg IVP Q8 PRN PRN Reason: Other Last Admin: 09/24/17 19:19 Dose: 10 mg Potassium Chloride (Potassium Chloride Oral Soln) 40 meq PO DAILY [facility] Last Admin: 09/25/17 10:00 Dose: Not Given - Labs Labs: 09/23/17 07:42 09/24/17 11:54 PT 13.4 SECONDS (9.7-12.2) H 09/18/17 17:04 INR 1.2 09/18/17 17:04 - Constitutional Appears: No Acute Distress - Head Exam Head Exam: NORMOCEPHALIC - Eye Exam Eye Exam: Normal appearance - ENT Exam ENT Exam: Mucous Membranes Moist - Respiratory Exam Respiratory Exam: NORMAL BREATHING PATTERN - Cardiovascular Exam Cardiovascular Exam: +S1, +S2 - GI/Abdominal Exam GI & Abdominal Exam: Distended, Soft, Tenderness. absent: Firm, Guarding, Rigid - Neurological Exam Neurological Exam: Alert, Awake, Oriented x3 - Skin Skin Exam: Warm Additional comments: resolving hematoma along right flank- jaundice Assessment and Plan - Assessment and Plan (Free Text) Assessment: 42 yr old female s/p cholecystectomy POD 12 with an improving abdominal wall hematoma and persistent ileus Plan: -[place] diet -F/u Abd Xray in AM -Replete electrolytes prn -analgesics prn -GI recs appreciated Further recs per Dr. Melchor Dumont PGY3
[2017-09-26 07:37] LABS: BASO % 0.1 % (0.0-2.0); EOS # 0.3 K/uL (0.0-0.7); HEMOGLOBIN 12.4 g/dL (11.0-16.0); LYMPH # 1.2 K/uL (1.0-4.3); LYMPH % 9.2 % (20.0-40.0); MEAN CELL VOLUME 76.2 fL (81.0-99.0); MEAN CORPUSCULAR HEMOGLOBIN 25.6 pg (27.0-31.0); MEAN CORPUSCULAR HGB CONC 33.6 g/dL (33.0-37.0); MEAN PLATELET VOLUME 9.2 fL (7.2-11.7); MONO # 1.3 K/uL (0.0-0.8); MONO % 10.3 % (0.0-10.0); NEUT # 10.2 K/uL (1.8-7.0); NEUT % 78.4 % (50.0-75.0); NRBC % 0.1 % (0.0-2.0); PLATELET COUNT 596 K/uL (130-400); RBC 4.85 Mil/uL (3.80-5.20); RED CELL DISTRIBUTION WIDTH 15.8 % (11.5-14.5)
[2017-09-26 07:54] LABS: ALB/GLOB RATIO 1.1 (1.0-2.1); ALBUMIN 3.3 g/dL (3.5-5.0); ALT/SGPT 113 U/L (9-52); AST/SGOT 60 U/L (14-36); BLOOD UREA NITROGEN 12 mg/dL (7-17); CALCIUM 8.9 mg/dl (8.6-10.4); GFR AFRICAN-AMERICAN > 60; GFR NON-AFRICAN AMERICAN > 60
--- NOTE | 2017-09-26 08:03 | CP.PCM.PN ---
Subjective - Date & Time of Evaluation Date of Evaluation: 09/26/17 Time of Evaluation: 08:00 - Subjective Subjective: Surgery: Dr. Roche Pt seen and examined. No acute events overnight. Overall pt states that she is feeling much better. She is tolerating bland diet. No further vomiting. Diarrhea has resolved. Objective - Vital Signs/Intake and Output Vital Signs (last 24 hours): Temp Pulse Resp BP Pulse Ox 98.1 F 93 H 20 139/82 96 09/26/17 00:00 09/26/17 00:00 09/26/17 00:00 09/26/17 00:00 09/26/17 00:00 Intake and Output: 09/26/17 09/26/17 06:59 18:59 Intake Total 800 1040 Balance 800 1040 - Medications Medications: Current Medications Acetaminophen (Tylenol 325mg Tab) 650 mg PO Q6 PRN PRN Reason: Fever >100.4 F Last Admin: 09/18/17 01:51 Dose: 650 mg Benzocaine/Menthol (Cepacol Sore Throat) 1 lisa MT PRN PRN PRN Reason: Sore Throat Last Admin: 09/24/17 22:07 Dose: 1 lisa Cholestyramine Resin (Questran) 4 gm PO BID [facility] Last Admin: 09/25/17 18:34 Dose: Not Given Enoxaparin Sodium (Lovenox) 40 mg SC DAILY [facility] Famotidine (Pepcid) 20 mg IVP Q12 [facility] Last Admin: 09/25/17 23:16 Dose: 20 mg Ketorolac Tromethamine (Toradol) 30 mg IVP Q6 PRN PRN Reason: Pain, moderate (4-7) Last Admin: 09/25/17 19:36 Dose: 30 mg Lidocaine (Lidoderm) 1 ea TD DAILY [facility] Last Admin: 09/25/17 14:48 Dose: 1 ea Metoclopramide HCl (Reglan) 10 mg IVP Q8 PRN PRN Reason: Other Last Admin: 09/24/17 19:19 Dose: 10 mg Potassium Chloride (Potassium Chloride Oral Soln) 40 meq PO DAILY [facility] Last Admin: 09/25/17 10:00 Dose: Not Given - Labs Labs: 09/26/17 07:23 09/26/17 07:23 PT 13.4 SECONDS (9.7-12.2) H 09/18/17 17:04 INR 1.2 09/18/17 17:04 - Constitutional Appears: Non-toxic, No Acute Distress - Head Exam Head Exam: ATRAUMATIC, NORMOCEPHALIC - Eye Exam Eye Exam: EOMI - ENT Exam ENT Exam: Mucous Membranes Moist - Neck Exam Neck Exam: Full ROM - Respiratory Exam Respiratory Exam: NORMAL BREATHING PATTERN. absent: Accessory Muscle Use, Respiratory Distress - GI/Abdominal Exam GI & Abdominal Exam: Soft. absent: Distended, Firm, Guarding, Rigid, Tenderness , Rebound - Extremities Exam Extremities Exam: absent: Calf Tenderness, Pedal Edema - Neurological Exam Neurological Exam: Alert, Awake, Oriented x3 Assessment and Plan - Assessment and Plan (Free Text) Assessment: 42 yr old female s/p cholecystectomy POD 13 with an improving abdominal wall hematoma and persistent N/V/D, no improving -F/U AXR -F/U AM labs -c/w bland diet -If no further N/V/D tentative D/C later today -d/w attending Johnathan PGY4
[2017-09-26 08:37] LABS: BANDS 2 % (0-2); LYMPHOCYTE 6 % (20-40); MONOCYTE 10 % (0-10); NEUTROPHIL 82 % (50-75); PLATELET ESTIMATE INCREASED (NORMAL); TOTAL CELLS COUNTED 100
[2017-09-26 08:38] LABS: ANISOCYTOSIS SLIGHT
[2017-09-26 08:47] VITALS: O2SAT 98
[2017-09-26] MEDS ORDERED: Enoxaparin 40 mg Syringe SC SCH (10:00)
[2017-09-26] MEDS: Potassium Chloride 20 mEq/15 ml LIQ UD PO SCH (10:30)
[2017-09-26] MEDS: Cholestyramine 4 gm/Pkt UD PO SCH (10:30)
[2017-09-26] MEDS: Lidocaine 5% Patch TD SCH (10:31)
--- NOTE | 2017-09-26 10:34 | RAD ---
Date of service: 09/26/2017 HISTORY: f/u contrast COMPARISON: GI with the soft this exam 09/25/2017 FINDINGS: BOWEL: Moderate gastric distention. Moderate small bowel dilatation central and left abdomen yet less pronounced than on oil scout image from same exam. The contrast in right bowel loops is inferred as decompressed small bowel with or without enteroentero fistulous tracts. The defined large bowel colon loops gas and/or with contrast remarkable in paucity. There is contrast in the rectum however noted. BONES: Normal. OTHER FINDINGS: None. IMPRESSION: Partial perhaps multiple incomplete small-bowel obstructions. No complete distal small bowel obstruction suggested. As noted previously, fistulous tracts between the small bowel loops are a consideration. As previously mentioned small bowel to colon fistulous tracts also needed be considered. The colonic contrast appears isolated to the rectum. Clinical correlation and follow-up is advised.
[2017-09-26 15:50] VITALS: BP 112/72; PULSE 108; TEMP 98.8
--- NOTE | 2017-09-26 16:52 | CP.PCM.DIS ---
Provider - Provider Date of Admission: 09/16/17 21:49 Attending physician: Brant Roche MD Consults: Norma Time Spent in preparation of Discharge (in minutes): 20 Hospital Course - Lab Results Lab Results: Micro Results 09/18/17 11:21 Blood Blood Culture - Final NO GROWTH AFTER 5 DAYS 09/18/17 11:21 Blood Gram Stain - Final TEST NOT PERFORMED 09/18/17 10:35 Blood Blood Culture - Final NO GROWTH AFTER 5 DAYS 09/18/17 10:35 Blood Gram Stain - Final TEST NOT PERFORMED 09/16/17 14:23 Urine Urine Culture - Final Gram Positive Cocci Most Recent Lab Values WBC 13.0 K/uL (4.8-10.8) H 09/26/17 07:23 RBC 4.85 Mil/uL (3.80-5.20) 09/26/17 07:23 Hgb 12.4 g/dL (11.0-16.0) 09/26/17 07:23 Hct 37.0 % (34.0-47.0) 09/26/17 07:23 MCV 76.2 fL (81.0-99.0) L 09/26/17 07:23 MCH 25.6 pg (27.0-31.0) L 09/26/17 07:23 MCHC 33.6 g/dL (33.0-37.0) 09/26/17 07:23 RDW 15.8 % (11.5-14.5) H 09/26/17 07:23 Plt Count 596 K/uL (130-400) H 09/26/17 07:23 MPV 9.2 fL (7.2-11.7) 09/26/17 07:23 Neut % (Auto) 78.4 % (50.0-75.0) H 09/26/17 07:23 Lymph % (Auto) 9.2 % (20.0-40.0) L 09/26/17 07:23 Grainger % (Auto) 10.3 % (0.0-10.0) H 09/26/17 07:23 Eos % (Auto) 2.0 % (0.0-4.0) 09/26/17 07:23 Baso % (Auto) 0.1 % (0.0-2.0) 09/26/17 07:23 Neut # (Auto) 10.2 K/uL (1.8-7.0) H 09/26/17 07:23 Lymph # (Auto) 1.2 K/uL (1.0-4.3) 09/26/17 07:23 Grainger # (Auto) 1.3 K/uL (0.0-0.8) H 09/26/17 07:23 Eos # (Auto) 0.3 K/uL (0.0-0.7) 09/26/17 07:23 Baso # (Auto) 0.0 K/uL (0.0-0.2) 09/26/17 07:23 Neutrophils % (Manual) 82 % (50-75) H 09/26/17 07:23 Band Neutrophils % 2 % (0-2) 09/26/17 07:23 Lymphocytes % (Manual) 6 % (20-40) L 09/26/17 07:23 Reactive Lymphs % 1 % (0-0) H 09/18/17 08:40 Monocytes % (Manual) 10 % (0-10) 09/26/17 07:23 Platelet Estimate Increased (NORMAL) H 09/26/17 07:23 Plt Clumps, EDTA 09/16/17 13:35 Large Platelets Present 09/18/17 08:40 Giant Platelets Present 09/16/17 13:35 Anisocytosis (manual) Slight 09/26/17 07:23 Ovalocytes Slight 09/16/17 13:35 PT 13.4 SECONDS (9.7-12.2) H 09/18/17 17:04 INR 1.2 09/18/17 17:04 Sodium 130 mmol/L (132-148) L 09/26/17 07:23 Potassium 3.7 mmol/L (3.6-5.2) 09/26/17 07:23 Chloride 95 mmol/L (98-107) L 09/26/17 07:23 Carbon Dioxide 23 mmol/L (22-30) 09/26/17 07:23 Anion Gap 16 (10-20) 09/26/17 07:23 BUN 12 mg/dL (7-17) 09/26/17 07:23 Creatinine 1.0 mg/dL (0.7-1.2) 09/26/17 07:23 Est GFR ( Amer) > 60 09/26/17 07:23 Est GFR (Non-Af Amer) > 60 09/26/17 07:23 Random Glucose 167 mg/dL (65-105) H 09/26/17 07:23 Calcium 8.9 mg/dl (8.6-10.4) 09/26/17 07:23 Phosphorus 3.3 mg/dL (2.5-4.5) 09/26/17 07:23 Magnesium 2.0 mg/dL (1.6-2.3) 09/26/17 07:23 Total Bilirubin 2.1 mg/dL (0.2-1.3) H 09/26/17 07:23 Direct Bilirubin 0.8 mg/dL (0.0-0.4) H 09/18/17 08:40 AST 60 U/L (14-36) H 09/26/17 07:23 ALT 113 U/L (9-52) H D 09/26/17 07:23 Alkaline Phosphatase 286 U/L (38-126) H 09/26/17 07:23 Total Protein 6.3 g/dL (6.3-8.3) 09/26/17 07:23 Albumin 3.3 g/dL (3.5-5.0) L 09/26/17 07:23 Globulin 3.0 gm/dL (2.2-3.9) 09/26/17 07:23 Albumin/Globulin Ratio 1.1 (1.0-2.1) 09/26/17 07:23 Lipase 82 U/L (23-300) 09/16/17 13:35 Urine Color Alyssa (YELLOW) 09/16/17 14:23 Urine Clarity Clear (Clear) 09/16/17 14:23 Urine pH 5.0 (5.0-8.0) 09/16/17 14:23 Ur Specific [place] 1.020 (1.003-1.030) 09/16/17 14:23 Urine Protein 2+ mg/dL (NEGATIVE) H 09/16/17 14:23 Urine Glucose (UA) 1+ mg/dL (Normal) 09/16/17 14:23 Urine Ketones Negative mg/dL (NEGATIVE) 09/16/17 14:23 Urine Blood Negative (NEGATIVE) 07/30/18 14:23 Urine Nitrate Negative (NEGATIVE) 09/16/17 14:23 Urine Bilirubin Negative (NEGATIVE) 09/16/17 14:23 Urine Urobilinogen 4.0 mg/dL (0.2-1.0) H 09/16/17 14:23 Ur Leukocyte Esterase Neg Teresa/uL (Negative) 09/16/17 14:23 Urine WBC (Auto) 6 /hpf (0-5) H 09/16/17 14:23 Urine RBC (Auto) 1 /hpf (0-3) 09/16/17 14:23 Ur Squamous Epith Cells 9 /hpf (0-5) H 09/16/17 14:23 Urine Bacteria Rare (<OCC) 09/16/17 14:23 Hyaline Casts 6-10 /lpf (0-2) H 09/16/17 14:23 Urine HCG, Qual Negative (NEGATIVE) 09/19/17 06:32 C. difficile Ag & Toxin Negative (NEGATIVE) 09/21/17 19:39 Hepatitis A IgM Ab Negative (NEGATIVE) 09/25/17 13:51 Hep Bs Antigen Negative (NEGATIVE) 09/25/17 13:51 Hep B Core IgM Ab Negative (NEGATIVE) 09/25/17 13:51 Hepatitis C Antibody Negative (NEGATIVE) 09/25/17 13:51 - Hospital Course Hospital Course: Admitted 3 days s/p laparoscopic cholecystectomy with intractable vomiting and diarrhea. Ultrasound notes abdominal wall fluid collection R falnk, no intra abdominal collection or bile duct dilatation. Patient with past history of pancreatitis. Mild LFT elevation returned to normal with IV fluid, as did hypokalemia. Patient had persistent diarrhea with intermittent vomiting. Upper GI series with small bowel followthrough negative for obstruction. GI consult with recommendation for Cholestyramine for post-cholecystectomy diarrhea ; Patient notes improvement in symptoms, tolerating regular (bland) diet at time of discharge. - Date & Time of H&P Date of H&P: 09/16/17 Time of H&P: 15:30 Discharge Exam - Head Exam Head Exam: ATRAUMATIC, NORMOCEPHALIC - Eye Exam Eye Exam: PERRL. absent: Scleral icterus - ENT Exam ENT Exam: Mucous Membranes Moist, Normal Oropharynx - Neck Exam Neck exam: Full Rom - Respiratory Exam Respiratory Exam: NORMAL BREATHING PATTERN, UNREMARKABLE - Cardiovascular Exam Cardiovascular Exam: REGULAR RHYTHM - GI/Abdominal Exam GI & Abdominal Exam: Normal Bowel Sounds. absent: Distended - Back Exam Back exam: NORMAL INSPECTION Additional comments: no ecchymosis - Psychiatric Exam Psychiatric exam: Normal Affect, Normal Mood - Skin Skin Exam: Normal Color, Warm Discharge Plan - Discharge Medications Prescriptions: Cholestyramine [Questran] 4 gm PO BID 30 Days #60 packet - Follow Up Plan Condition: GUARDED Disposition: HOME/ ROUTINE Instructions: Nausea and Vomiting, Adult (DC), Fluid in the Belly (Ascites) (DC ), Pneumococcal Polysaccharide Vaccine (23-Valent) Additional Instructions: Please follow up with Dr. Roche in her office in 1-2 weeks May take ibuprofen or tylenol PRN for pain return to ED for fever, or worsening symptoms Referrals: Brant Roche MD [Staff Provider] -
[2017-09-26] MEDS ORDERED: Pneumococcal 23-Valent Vaccine IM ONE (17:49)
== END 2017-09-26 18:44 | disposition home or self-care (01) | DRG 188 ==
LOC: C.ER 12:15 → C.9E 21:49 → C.3T 09-17 01:32
PROVIDERS: ADMIT Specialist; ATTEND Specialist
DX: K91.89 Other postprocedural complications and disorders of digestive system (principal); K56.7 Ileus, unspecified; E87.6 Hypokalemia; R18.8 Other ascites; Y83.6 Removal of other organ (partial) (total) as the cause of abnormal reaction of the patient, or of later complication, without mention of misadventure at the time of the procedure; M79.81 Nontraumatic hematoma of soft tissue; F17.210 Nicotine dependence, cigarettes, uncomplicated; R19.7 Diarrhea, unspecified; K86.89 Other specified diseases of pancreas

== ENCOUNTER 2017-11-02 18:14 | Inpatient (IN) | payer OTHER ==
[2017-11-02 18:14] VITALS: BMI 33.3
[2017-11-02] MEDS ORDERED: Iohexol 240 (50 ml) PO STA (19:12)
[2017-11-02] MEDS ORDERED: Sodium Chloride 0.9% 1,000 ML IV ONE ×2 (19:12→20:08)
[2017-11-02] MEDS ORDERED: Morphine 4 MG/ML VIAL IV STA (19:14)
[2017-11-02] MEDS ORDERED: Morphine 4 MG/ML VIAL ONE (19:40)
[2017-11-02] MEDS ORDERED: Iohexol 240 (50 ml) ONE (19:40)
[2017-11-02] MEDS ORDERED: Sodium Chloride 0.9% 1,000 ML ONE ×2 (19:41→21:01)
[2017-11-02 19:57] LABS: ALB/GLOB RATIO 0.7 (1.0-2.1); ALBUMIN 3.2 g/dL (3.5-5.0); ALT/SGPT 32 U/L (9-52); AST/SGOT 36 U/L (14-36); BLOOD UREA NITROGEN 8 mg/dL (7-17); CALCIUM 8.7 mg/dl (8.6-10.4); GFR NON-AFRICAN AMERICAN > 60; LIPASE 47 U/L (23-300)
[2017-11-02 19:58] LABS: INR 1.8; PROTHROMBIN TIME 19.9 SECONDS (9.7-12.2)
[2017-11-02 20:02] LABS: BASO % 0.1 % (0.0-2.0); HEMOGLOBIN 8.5 g/dL (11.0-16.0); LYMPH # 1.8 K/uL (1.0-4.3); LYMPH % 7.6 % (20.0-40.0); MEAN CORPUSCULAR HEMOGLOBIN 23.5 pg (27.0-31.0); MEAN CORPUSCULAR HGB CONC 33.6 g/dL (33.0-37.0); MEAN PLATELET VOLUME 6.8 fL (7.2-11.7); MONO # 1.2 K/uL (0.0-0.8); NEUT # 20.3 K/uL (1.8-7.0); NEUT % 87.3 % (50.0-75.0); PLATELET COUNT 629 K/uL (130-400); RED CELL DISTRIBUTION WIDTH 17.5 % (11.5-14.5)
[2017-11-02 20:04] LABS: MEAN CELL VOLUME 69.9 fL (81.0-99.0); WHITE BLOOD COUNT 23.2 K/uL (4.8-10.8)
[2017-11-02] MEDS ORDERED: Potassium Chloride 20 mEq ER Tab PO STA (20:08)
[2017-11-02] MEDS ORDERED: Potassium Chloride 20 mEq ER Tab PO ONE (20:24)
[2017-11-02] MEDS ORDERED: Iodixanol 320 MG/ML 100 ML BOTTLE IV ONE (20:26)
[2017-11-02 20:29] LABS: ANISOCYTOSIS SLIGHT; BANDS 9 % (0-2); HYPOCHROMIC MODERATE; LARGE PLATELETS PRESENT; LYMPHOCYTE 2 % (20-40); MICROCYTOSIS MODERATE; MONOCYTE 4 % (0-10); NEUTROPHIL 85 % (50-75); OVALOCYTES SLIGHT; POIKILOCYTOSIS SLIGHT; POLYCHROMIC SLIGHT; TOTAL CELLS COUNTED 100; TOXIC GRANULATION PRESENT
[2017-11-02 20:31] LABS: PLATELET ESTIMATE INCREASED (NORMAL)
[2017-11-02 20:52] LABS: VENOUS BLOOD GAS BASE EXCESS 5.1 mmol/L (0.0-2.0); VENOUS BLOOD GAS PCO2 34 mmHg (40-60); VENOUS BLOOD GAS PO2 32 mm/Hg (30-55); VENOUS BLOOD PH 7.52 (7.32-7.43)
[2017-11-02] MEDS ORDERED: Piperacill/Tazo 3.375gm in Dex 3.375 GM/50 ML BAG IVPB STA (20:56)
[2017-11-02] MEDS ORDERED: Piperacillin/Tazobact 3.375 gm 100 ML IVPB ONE (21:01)
[2017-11-02] MEDS: Piperacillin/Tazobact 3.375 GM in Sodium Chloride 100 ML IVPB SCH (21:20)
[2017-11-02 21:27] LABS: SQUAMOUS EPITHIAL 3 /hpf (0-5); URINE BACTERIA RARE (<OCC); URINE BILIRUBIN NEGATIVE (NEGATIVE); URINE BLOOD NEGATIVE (NEGATIVE); URINE CLARITY Hazy (Clear); URINE COLOR Amber (YELLOW); URINE GLUCOSE (UA) NORMAL (Normal); URINE HYALINE CAST >20 /lpf (0-2); URINE LEUKOCYTE ESTERASE NEG Leu/uL (Negative); URINE PROTEIN 2+ mg/dL (NEGATIVE); URINE UROBILINOGEN NORMAL mg/dL (0.2-1.0)
[2017-11-02] MEDS ORDERED: Vancomycin 1 GM 1 GM/250 ML BAG IVPB ONE (21:33)
[2017-11-02 22:27] LABS: VENOUS BLOOD GAS BASE EXCESS 9.7 mmol/L (0.0-2.0); VENOUS BLOOD GAS PCO2 41 mmHg (40-60); VENOUS BLOOD GAS PO2 43 mm/Hg (30-55); VENOUS BLOOD PH 7.52 (7.32-7.43)
[2017-11-02] MEDS ORDERED: Sodium Chloride 0.9% 1,000 ML IV SCH (23:15)
[2017-11-02] MEDS ORDERED: Potassium Chloride 20 mEq 100 ML ONE (23:24)
[2017-11-02] MEDS: Sodium Chloride 0.9% 1,000 ML IV SCH (23:47)
--- NOTE | 2017-11-03 00:06 | C.PDOC ---
History Of Present Illness 42 year old female presents to the ED complaining of nausea, vomiting, abdominal distention and drainage around FRANC drain insertion. She reports she recently had a cholecystectomy with some "complications". She denies any fever, hematuria, hematochezia, but admits to decreased PO intake. She states Dr. Roche advised her to come to the ED for evaluation. Chief Complaint (Nursing): Abdominal Pain History Per: Patient History/Exam Limitations: no limitations Onset/Duration Of Symptoms: Hrs Current Symptoms Are (Timing): Still Present Severity: Moderate Location Of Pain/Discomfort: Diffuse Associated Symptoms: Nausea, Vomiting. denies: Fever, Urinary Symptoms Past Medical History Reviewed: Historical Data, Nursing Documentation, Vital Signs Vital Signs: Last Vital Signs Temp 97.4 F L 11/07/17 06:45 Pulse 113 H 11/07/17 06:45 Resp 20 11/07/17 06:45 BP 145/91 H 11/07/17 06:45 Pulse Ox 97 11/07/17 06:45 - Medical History PMH: Gall Bladder Disease, Pancreatitis Denies: Chronic Kidney Disease Surgical History: Cholecystectomy (09/13) - [facility] Procedures APPLICATION OF SPLINT (11/02/13) DILATION OF COMMON BILE DUCT WITH INTRALUMINAL DEVICE, ENDO (10/04/17) DRAINAGE OF PERITONEAL CAVITY WITH DRAIN DEV, PERC APPROACH (10/04/17) INSPECTION OF HEPATOBILIARY DUCT, ENDO (10/04/17) INTRODUCTION OF NUTRITIONAL INTO PERIPH VEIN, PERC APPROACH (10/04/17) TRANSFUSE NONAUT FROZEN PLASMA IN PERIPH VEIN, PERC (10/04/17) ULTRASONOGRAPHY OF ABDOMEN (10/04/17) Family History: States: No Known Family Hx - Social History Hx Alcohol Use: No Hx Substance Use: No - Immunization History Hx Tetanus Toxoid Vaccination: No Hx Influenza Vaccination: Yes Hx Pneumococcal Vaccination: No Review Of Systems Except As Marked, All Systems Reviewed And Found Negative. Constitutional: Positive for: Other (decreased PO intake ). Negative for: Fever Gastrointestinal: Positive for: Nausea, Vomiting, Other (Abdominal distention ) . Negative for: Hematochezia Genitourinary: Negative for: Hematuria Physical Exam - Physical Exam Appears: Non-toxic, Other (Moderate distress ) Skin: Warm, Dry Head: Normacephalic Eye(s): bilateral: Normal Inspection Nose: Normal Oral Mucosa: Dry Neck: Normal ROM Chest: Symmetrical Cardiovascular: Rhythm Regular Respiratory: Normal Breath Sounds Gastrointestinal/Abdominal: Tenderness (Diffused abdominal tenderness, greater on the right than left ), Distention, Other (FRANC drain noted to RUQ. Serious drainage noted to dressing around FRANC drain ) Extremity: Normal ROM Neurological/Psych: Oriented x3, Normal Speech Gait: Steady ED Course And Treatment - Laboratory Results Result Diagrams: 11/07/17 07:11 11/07/17 07:11 O2 Sat by Pulse Oximetry: 94 (RA) - CT Scan/US CT ABD/PEL Other Rad Studies (CT/US): Read By Radiologist, Radiology Report Reviewed CT/US Interpretation: EXAM: CT Abdomen and Pelvis With Intravenous Contrast. CLINICAL HISTORY: 42 years old, female; Pain; Abdominal pain; Prior surgery; Surgery date: 1-6 months; Surgery type: Gallbladder removed- 09/13/17. Rt kidney stent- [id number]. Rt lateral abd (drainage)- x 3wks; Additional. info: Right-sided abd pain/tendeness-recent CT surgery. TECHNIQUE: Axial computed tomography images of the abdomen and pelvis with intravenous contrast. All CT. scans at this facility use at least one of these dose optimization techniques: automated exposure. control; mA and/or kV adjustment per patient size ( includes targeted exams where dose is matched to. clinical indication); or iterative reconstruction. Coronal and sagittal reformatted images were created and reviewed. CONTRAST: 100 mL of Visipaque 320 administered intravenously. COMPARISON: No prior CT scans available for comparison. FINDINGS: Lung bases : See below. Pleural space: Small to moderate right pleural effusion. Compressive atelectasis versus infiltrate at. right lung base. Small left pleural effusion. Compressive atelectasis versus infiltrate left lung base. ABDOMEN: Liver: Hepatic steatosis. No mass. Gallbladder and bile ducts: Plastic stent in region of common bile duct extending down into region of. duodenum. Surgical clips in gallbladder fossa. Gallbladder surgically absent. Pancreas: Multiple peripancreatic fluid collections. Spleen: Spleen is unremarkable. Adrenals: 2.6 CM left adrenal nodule. Right adrenal gland is unremarkable. Kidneys and ureters: Multiple right perinephric fluid collections. Small right renal cyst. Small left. renal cyst. No hydronephrosis. Stomach and bowel: Large collection in posterior to the stomach. No bowel obstruction. PELVIS: Appendix: Not visualized. Bladder: Unremarkable. No mass. Reproductive: Unremarkable as visualized. ABDOMEN and PELVIS: Intraperitoneal space: Multiloculated fluid collection with foci of gas , most likely representing multiple. intra-abdominal abscesses. Small amount of fluid in the pelvis. Bones/joints: No acute fracture. No dislocation. Soft tissues: Unremarkable. Vasculature: Unremarkable. No abdominal aortic aneurysm. Lymph nodes: Multiple enlarged intra-abdominal and retroperitoneal lymph nodes. Tubes, lines and devices: Drainage catheter adjacent to right hepatic lobe with residual fluid. collection extending inferior to the pigtail catheter. IMPRESSION: 1. Multiple, complex intra-abdominal abscesses. Critical finding discussed with referring physician at. time of dictation. 2. Remainder of findings as above. Thank you for allowing us to participate in the care of your patient. Dictated and Authenticated by: Linus Larios MD. 11/02/2017 11:05 PM Eastern Time ([place] & [place]) Progress Note: Discussed case with surgical aide at 1900. Discussed case with surgical aide at 2030. CT reading shows multiple abcess formation. Patient ashlie be admitted to Dr. Roche's service. Medical Decision Making Medical Decision Making: Orders: - CT Abd/Pel - Labwork - Bloodwork - IV Fluids - Tylenol 650 mg [place] - [id number] IVP - Morphine 4mg IVP - Zofran 8mg IVP Disposition - Disposition Disposition: HOSPITALIZED Disposition Time: 00:20 Condition: FAIR - Clinical Impression Clinical Impression: Postprocedural intraabdominal abscess - Scribe Statement The provider has reviewed the documentation as recorded by the Scribe Katerine Sagastume All medical record entries made by the Scribe were at my direction and personally dictated by me. I have reviewed the chart and agree that the record accurately reflects my personal performance of the history, physical exam, medical decision making, and the department course for this patient. I have also personally directed, reviewed, and agree with the discharge instructions and disposition.
[2017-11-03] MEDS: HYDROmorphone 0.5 mg/0.5 ml ISec IVP PRN ×4 (00:50→21:36)
[2017-11-03] MEDS: Piperacillin/Tazobact 3.375 GM in Sodium Chloride 100 ML IVPB SCH ×3 (03:09→18:30)
[2017-11-03] MEDS: Sodium Chloride 0.9% 1,000 ML IV SCH ×2 (06:15→07:31)
--- NOTE | 2017-11-03 06:41 | CP.PCM.HP ---
Past Patient History - Infectious Disease Hx of Infectious Diseases: None - Past Medical History & Family History Past Medical History?: Yes - Past Social History Smoking Status: Never Smoked - CARDIAC Hx Cardiac Disorders: No - PULMONARY Hx Respiratory Disorders: No - NEUROLOGICAL Hx Neurological Disorder: No - HEENT Hx HEENT Problems: No - RENAL Hx Chronic Kidney Disease: No - ENDOCRINE/METABOLIC Hx Endocrine Disorders: No - HEMATOLOGICAL/ONCOLOGICAL Hx Blood Disorders: No - INTEGUMENTARY Hx Dermatological Problems: No - MUSCULOSKELETAL/RHEUMATOLOGICAL Hx Falls: No - GASTROINTESTINAL Hx Gall Bladder Disease: Yes Hx Pancreatitis: Yes - GENITOURINARY/GYNECOLOGICAL Hx Genitourinary Disorders: No - PSYCHIATRIC Hx Substance Use: No - SURGICAL HISTORY Hx Cholecystectomy: Yes (09/13) - ANESTHESIA Hx Anesthesia: Yes Hx Anesthesia Reactions: No Hx Malignant Hyperthermia: No Meds Allergies/Adverse Reactions: Allergies Allergy/AdvReac Type Severity Reaction Status Date / Time No Known Allergies Allergy Verified 11/02/17 18:51 Results - Vital Signs Recent Vital Signs: Last Vital Signs Temp 98 F 11/03/17 04:30 Pulse 110 H 11/03/17 04:30 Resp 20 11/03/17 04:30 BP 132/72 11/03/17 04:30 Pulse Ox 97 11/03/17 04:30 - Labs Result Diagrams: 11/02/17 19:53 11/02/17 19:27 Labs: Laboratory Results - last 24 hr 11/02/17 11/02/17 11/02/17 19:27 19:35 19:53 WBC 23.2 H D RBC 3.60 L Hgb 8.5 L Hct 25.2 L MCV 69.9 L D MCH 23.5 L MCHC 33.6 RDW 17.5 H Plt Count 629 H MPV 6.8 L Neut % (Auto) 87.3 H Lymph % (Auto) 7.6 L [place] % (Auto) 5.0 Eos % (Auto) 0.0 Baso % (Auto) 0.1 Neut # (Auto) 20.3 H Lymph # (Auto) 1.8 [place] # (Auto) 1.2 H Eos # (Auto) 0.0 Baso # (Auto) 0.0 Neutrophils % (Manual) 85 H Band Neutrophils % 9 H Lymphocytes % (Manual) 2 L Monocytes % (Manual) 4 Toxic Granulation Present Platelet Estimate Increased H Large Platelets Present Polychromasia Slight Hypochromasia (manual) Moderate Poikilocytosis (manual Slight Anisocytosis (manual) Slight Microcytosis (manual) Moderate Ovalocytes Slight PT 19.9 H INR 1.8 APTT 39 H pO2 VBG pH VBG pCO2 VBG HCO3 VBG Total CO2 VBG O2 Sat (Calc) VBG Base Excess VBG Potassium Glucose Lactate FiO2 Crit Value Called To Crit Value Called By Crit Value Read Back Blood Gas Notified Time Sodium 144 Potassium 2.6 L Chloride 91 L Carbon Dioxide 40 H* D Anion Gap 16 BUN 8 Creatinine 0.7 Est GFR ( Amer) > 60 Est GFR (Non-Af Amer) > 60 Random Glucose 139 H Calcium 8.7 Total Bilirubin 1.1 AST 36 D ALT 32 Alkaline Phosphatase 187 H D Total Protein 7.5 Albumin 3.2 L D Globulin 4.3 H Albumin/Globulin Ratio 0.7 L Lipase 47 Venous Blood Potassium Urine Color Urine Clarity Urine pH Ur Specific [place] Urine Protein Urine Glucose (UA) Urine Ketones Urine Blood Urine Nitrate Urine Bilirubin Urine Urobilinogen Ur Leukocyte Esterase Urine WBC (Auto) Urine RBC (Auto) Ur Squamous Epith Cells Urine Bacteria Hyaline Casts Blood Type Antibody Screen 11/02/17 11/02/17 11/02/17 20:13 20:45 21:19 WBC RBC Hgb Hct MCV MCH MCHC RDW Plt Count MPV Neut % (Auto) Lymph % (Auto) [place] % (Auto) Eos % (Auto) Baso % (Auto) Neut # (Auto) Lymph # (Auto) [place] # (Auto) Eos # (Auto) Baso # (Auto) Neutrophils % (Manual) Band Neutrophils % Lymphocytes % (Manual) Monocytes % (Manual) Toxic Granulation Platelet Estimate Large Platelets Polychromasia Hypochromasia (manual) Poikilocytosis (manual Anisocytosis (manual) Microcytosis (manual) Ovalocytes PT INR APTT pO2 32 VBG pH 7.52 H VBG pCO2 34 L VBG HCO3 28.2 VBG Total CO2 28.8 H VBG O2 Sat (Calc) 64.3 VBG Base Excess 5.1 H VBG Potassium 1.9 L* Glucose 92 Lactate 1.5 FiO2 21.0 Crit Value Called To D passafaro Crit Value Called By Agapito sanidad Crit Value Read Back Y Blood Gas Notified Time 2049 Sodium 145.0 Potassium Chloride 112.0 H Carbon Dioxide Anion Gap BUN Creatinine Est GFR ( Amer) Est GFR (Non-Af Amer) Random Glucose Calcium Total Bilirubin AST ALT Alkaline Phosphatase Total Protein Albumin Globulin Albumin/Globulin Ratio Lipase Venous Blood Potassium 1.9 L* Urine Color Alyssa Urine Clarity Hazy Urine pH 5.0 Ur Specific [place] 1.020 Urine Protein 2+ H Urine Glucose (UA) Normal Urine Ketones Trace Urine Blood Negative Urine Nitrate Negative Urine Bilirubin Negative Urine Urobilinogen Normal Ur Leukocyte Esterase Neg Urine WBC (Auto) 15 H Urine RBC (Auto) 7 H Ur Squamous Epith Cells 3 Urine Bacteria Rare Hyaline Casts >20 H Blood Type O POSITIVE Antibody Screen Negative 11/02/17 22:20 WBC RBC Hgb Hct MCV MCH MCHC RDW Plt Count MPV Neut % (Auto) Lymph % (Auto) [place] % (Auto) Eos % (Auto) Baso % (Auto) Neut # (Auto) Lymph # (Auto) [place] # (Auto) Eos # (Auto) Baso # (Auto) Neutrophils % (Manual) Band Neutrophils % Lymphocytes % (Manual) Monocytes % (Manual) Toxic Granulation Platelet Estimate Large Platelets Polychromasia Hypochromasia (manual) Poikilocytosis (manual Anisocytosis (manual) Microcytosis (manual) Ovalocytes PT INR APTT pO2 43 VBG pH 7.52 H VBG pCO2 41 VBG HCO3 32.1 VBG Total CO2 34.8 H VBG O2 Sat (Calc) 83.8 H VBG Base Excess 9.7 H VBG Potassium 2.3 L* Glucose 113 H Lactate 1.5 FiO2 21.0 Crit Value Called To Jenn esposito Crit Value Called By [facility] Crit Value Read Back Y Blood Gas Notified Time 2226 Sodium 141.0 Potassium Chloride 105.0 Carbon Dioxide Anion Gap BUN Creatinine Est GFR ( Amer) Est GFR (Non-Af Amer) Random Glucose Calcium Total Bilirubin AST ALT Alkaline Phosphatase Total Protein Albumin Globulin Albumin/Globulin Ratio Lipase Venous Blood Potassium 2.3 L* Urine Color Urine Clarity Urine pH Ur Specific [place] Urine Protein Urine Glucose (UA) Urine Ketones Urine Blood Urine Nitrate Urine Bilirubin Urine Urobilinogen Ur Leukocyte Esterase Urine WBC (Auto) Urine RBC (Auto) Ur Squamous Epith Cells Urine Bacteria Hyaline Casts Blood Type Antibody Screen
[2017-11-03 08:55] LABS: BASO % 0.2 % (0.0-2.0); HEMOGLOBIN 7.5 g/dL (11.0-16.0); LYMPH # 0.7 K/uL (1.0-4.3); LYMPH % 3.6 % (20.0-40.0); MEAN CELL VOLUME 71.2 fL (81.0-99.0); MEAN CORPUSCULAR HEMOGLOBIN 23.6 pg (27.0-31.0); MEAN CORPUSCULAR HGB CONC 33.2 g/dL (33.0-37.0); MONO % 5.3 % (0.0-10.0); NEUT # 17.7 K/uL (1.8-7.0); NEUT % 90.9 % (50.0-75.0); PLATELET COUNT 563 K/uL (130-400); RBC 3.19 Mil/uL (3.80-5.20); RED CELL DISTRIBUTION WIDTH 17.6 % (11.5-14.5); WHITE BLOOD COUNT 19.5 K/uL (4.8-10.8)
--- NOTE | 2017-11-03 09:06 | CT ---
Date of service: 11/02/2017 PROCEDURE: CT Abdomen and Pelvis with contrast HISTORY: right-sided abd pain/tendeness-recent CT surgery COMPARISON: CT scan of the abdomen and pelvis dated 10/14/2017. TECHNIQUE: Contrast dose: 100 mL Visipaque 320 Radiation dose: Total exam DLP = 876.1 mGy-cm. This CT exam was performed using one or more of the following dose reduction techniques: Automated exposure control, adjustment of the mA and/or kV according to patient size, and/or use of iterative reconstruction technique. FINDINGS: LOWER THORAX: Small to moderate bilateral pleural effusions with subjacent atelectasis. LIVER: Unremarkable. No gross lesion or ductal dilatation. GALLBLADDER AND BILE DUCTS: Prior cholecystectomy with surgical clips in place. CBD stent redemonstrated. PANCREAS: Unremarkable. No gross lesion or ductal dilatation. SPLEEN: Unremarkable. ADRENALS: 3.0 x 2.3 cm indeterminate left adrenal nodule (HU 70). KIDNEYS AND URETERS: Unremarkable. No hydronephrosis. No solid mass. VASCULATURE: Unremarkable. No aortic aneurysm. BOWEL: Unremarkable. No obstruction. No gross mural thickening. APPENDIX: No findings to suggest acute appendicitis. PERITONEUM: Interval placement of right upper quadrant pigtail drainage catheter with near complete resolution of large perihepatic fluid collection. Remainder of diffuse abdominal pelvic fluid persists and has enhancing rudolph suggesting peritonitis and/or abscess formation. There is a large collection with rim enhancement abutting the left stomach measuring approximately 12.7 x 12.8 x 16.9 cm. A collection of fluid and air with is seen abutting the cholecystectomy clips measuring 4.1 x 3.1 x 5.4 cm and may contain a dropped gallstone in its most dependent portion. The right lower quadrant drainage catheter has been removed with recurrence of rim enhancing large collection measuring 9.2 x 6.1 x 12.5 cm. This collection is in contiguity with encapsulated gas and fluid surrounding the right kidney. Another rim enhancing collection is seen superior to the bladder measuring 8.2 x 5.9 x 4.7 cm. Multiple additional smaller areas of fluid are seen throughout the abdomen and pelvis. LYMPH NODES: Unremarkable. No enlarged lymph nodes. BLADDER: Unremarkable. REPRODUCTIVE: Unremarkable. BONES: No acute fracture. OTHER FINDINGS: None. IMPRESSION: Multiple complex intra-abdominal abscesses as described above. Small to moderate bilateral pleural effusions.
--- NOTE | 2017-11-03 09:35 | CP.PCM.HP ---
History of Present Illness - History of Present Illness History of Present Illness: Surgery HP 42F underwent elective same day lap ayo on 09/13 with return to ED on 09/16 for persistent abd pain, N/V/D. Pt had extended hospital stay 2/ to persistent sxs , but was finally D/C on 09/26 following resolution of sxs with conservative management. Pt states that soon after leaving hospital her sxs returned. She complains of constant diffuse abd pain with no alleviating or aggravating factors. She states that she has been unable to tolerate PO intake and has had several episodes of emesis each day. She also states that she has had 4-5 episodes of diarrhea each day, non bloody. She denies F/C. No WINKLER/blurred vision , no CP/palipitations, no SOB/cough. She does report generalized weakness and fatigue. She has dysuria, no hematuria, urine is darker than usual, she denies foul odor. Pt saw Dr. Roche in office and was advised to come to ED for further workup. Pt admitted to surgical service on 10/04. Pt found to have bile leak. IR consulted for drain placement with 6L of bile removed on 10/04. NGT placed to decompress stomach. Pt transferred to ICU on hospital day 1 2/ tachycardia and ASHLEY, suspected sepsis s/p IR drain placement. started on IV Abx, given supportive care. Pt sent for ERCP with GI on 10/09, unsuccessful stent placement , pt taken back on 10/08 with successful stent placed. Pt seen/evaluated by nephrology with recs to avoid hypotension, moniot I/Os. Pt seen/evaluated by ID with recs for IV Abx. Pt seen/evaluated by hem/onc with recs for lab evaluations. Pt had RUE swelling on 10/09, duplex ordered - negative for DVT. PICC placed in RUE with swelling resolution. Pt stabilized, transferred to tele on hospital day 10. IR placed another drain on hospital day 10. Pt monitored on the floor with return of bowel function. Abdominal pain slowly improved over hospitalization. Pt mobilized. Drain with decreased output over time from RLQ drain, which was removed on 10/23. Pt stable, ready for d/c home with RUQ abdominal drain in place. Instructed on how to do drain care at home. Today pt came with sudden abd pain and distension accompanied with nausea andc vomiting. Reports lots of foul ordor purulent drainage from the drain PMH gallstone pancreatitis , anemia PSH lap ayo, ERCP, IR drainage Present on Admission - Present on Admission Any Indicators Present on Admission: No Review of Systems - Review of Systems Review of Systems: See HPI Past Patient History - Infectious Disease Hx of Infectious Diseases: None - Past Medical History & Family History Past Medical History?: Yes - Past Social History Smoking Status: Never Smoked - CARDIAC Hx Cardiac Disorders: No - PULMONARY Hx Respiratory Disorders: No - NEUROLOGICAL Hx Neurological Disorder: No - HEENT Hx HEENT Problems: No - RENAL Hx Chronic Kidney Disease: No - ENDOCRINE/METABOLIC Hx Endocrine Disorders: No - HEMATOLOGICAL/ONCOLOGICAL Hx Blood Disorders: No - INTEGUMENTARY Hx Dermatological Problems: No - MUSCULOSKELETAL/RHEUMATOLOGICAL Hx Falls: No - GASTROINTESTINAL Hx Gall Bladder Disease: Yes Hx Pancreatitis: Yes - GENITOURINARY/GYNECOLOGICAL Hx Genitourinary Disorders: No - PSYCHIATRIC Hx Substance Use: No - SURGICAL HISTORY Hx Cholecystectomy: Yes (09/13) - ANESTHESIA Hx Anesthesia: Yes Hx Anesthesia Reactions: No Hx Malignant Hyperthermia: No Meds Allergies/Adverse Reactions: Allergies Allergy/AdvReac Type Severity Reaction Status Date / Time No Known Allergies Allergy Verified 11/02/17 18:51 Physical Exam - Constitutional Appears: No Acute Distress - Head Exam Head Exam: ATRAUMATIC, NORMAL INSPECTION, NORMOCEPHALIC - Eye Exam Eye Exam: EOMI, Normal appearance, PERRL Pupil Exam: NORMAL ACCOMODATION, PERRL - ENT Exam ENT Exam: Mucous Membranes Moist, Normal Exam - Neck Exam Neck exam: Positive for: Normal Inspection - Respiratory Exam Respiratory Exam: NORMAL BREATHING PATTERN - Cardiovascular Exam Cardiovascular Exam: Tachycardia, +S1, +S2 - GI/Abdominal Exam GI & Abdominal Exam: Distended, Soft, Tenderness. absent: Firm Additional comments: Drain purulent bilious drainge. - Exam Exam: NORMAL INSPECTION - Extremities Exam Extremities exam: Positive for: full ROM, pedal edema - Back Exam Back exam: NORMAL INSPECTION - Neurological Exam Neurological exam: Alert, CN II-XII Intact, Normal Gait, Oriented x3, Reflexes Normal - Psychiatric Exam Psychiatric exam: Normal Affect, Normal Mood - Skin Skin Exam: Dry, Intact, Normal Color, Warm Results - Vital Signs Recent Vital Signs: Last Vital Signs Temp 100.1 F H 11/03/17 08:29 Pulse 129 H 11/03/17 07:00 Resp 18 11/03/17 07:00 BP 144/82 11/03/17 07:00 Pulse Ox 98 11/03/17 07:00 - Labs Result Diagrams: 11/03/17 08:51 11/02/17 19:27 Labs: Laboratory Results - last 24 hr 11/02/17 11/02/17 11/02/17 19:27 19:35 19:53 WBC 23.2 H D RBC 3.60 L Hgb 8.5 L Hct 25.2 L MCV 69.9 L D MCH 23.5 L MCHC 33.6 RDW 17.5 H Plt Count 629 H MPV 6.8 L Neut % (Auto) 87.3 H Lymph % (Auto) 7.6 L [place] % (Auto) 5.0 Eos % (Auto) 0.0 Baso % (Auto) 0.1 Neut # (Auto) 20.3 H Lymph # (Auto) 1.8 [place] # (Auto) 1.2 H Eos # (Auto) 0.0 Baso # (Auto) 0.0 Neutrophils % (Manual) 85 H Band Neutrophils % 9 H Lymphocytes % (Manual) 2 L Monocytes % (Manual) 4 Toxic Granulation Present Platelet Estimate Increased H Large Platelets Present Polychromasia Slight Hypochromasia (manual) Moderate Poikilocytosis (manual Slight Anisocytosis (manual) Slight Microcytosis (manual) Moderate Ovalocytes Slight PT 19.9 H INR 1.8 APTT 39 H pO2 VBG pH VBG pCO2 VBG HCO3 VBG Total CO2 VBG O2 Sat (Calc) VBG Base Excess VBG Potassium Glucose Lactate FiO2 Crit Value Called To Crit Value Called By Crit Value Read Back Blood Gas Notified Time Sodium 144 Potassium 2.6 L Chloride 91 L Carbon Dioxide 40 H* D Anion Gap 16 BUN 8 Creatinine 0.7 Est GFR ( Amer) > 60 Est GFR (Non-Af Amer) > 60 Random Glucose 139 H Calcium 8.7 Total Bilirubin 1.1 AST 36 D ALT 32 Alkaline Phosphatase 187 H D Total Protein 7.5 Albumin 3.2 L D Globulin 4.3 H Albumin/Globulin Ratio 0.7 L Lipase 47 Venous Blood Potassium Urine Color Urine Clarity Urine pH Ur Specific [place] Urine Protein Urine Glucose (UA) Urine Ketones Urine Blood Urine Nitrate Urine Bilirubin Urine Urobilinogen Ur Leukocyte Esterase Urine WBC (Auto) Urine RBC (Auto) Ur Squamous Epith Cells Urine Bacteria Hyaline Casts Blood Type Antibody Screen 11/02/17 11/02/17 11/02/17 20:13 20:45 21:19 WBC RBC Hgb Hct MCV MCH MCHC RDW Plt Count MPV Neut % (Auto) Lymph % (Auto) [place] % (Auto) Eos % (Auto) Baso % (Auto) Neut # (Auto) Lymph # (Auto) [place] # (Auto) Eos # (Auto) Baso # (Auto) Neutrophils % (Manual) Band Neutrophils % Lymphocytes % (Manual) Monocytes % (Manual) Toxic Granulation Platelet Estimate Large Platelets Polychromasia Hypochromasia (manual) Poikilocytosis (manual Anisocytosis (manual) Microcytosis (manual) Ovalocytes PT INR APTT pO2 32 VBG pH 7.52 H VBG pCO2 34 L VBG HCO3 28.2 VBG Total CO2 28.8 H VBG O2 Sat (Calc) 64.3 VBG Base Excess 5.1 H VBG Potassium 1.9 L* Glucose 92 Lactate 1.5 FiO2 21.0 Crit Value Called To Jovan barraza Crit Value Called By [facility] Crit Value Read Back Y Blood Gas Notified Time 2049 Sodium 145.0 Potassium Chloride 112.0 H Carbon Dioxide Anion Gap BUN Creatinine Est GFR ( Amer) Est GFR (Non-Af Amer) Random Glucose Calcium Total Bilirubin AST ALT Alkaline Phosphatase Total Protein Albumin Globulin Albumin/Globulin Ratio Lipase Venous Blood Potassium 1.9 L* Urine Color Alyssa Urine Clarity Hazy Urine pH 5.0 Ur Specific [place] 1.020 Urine Protein 2+ H Urine Glucose (UA) Normal Urine Ketones Trace Urine Blood Negative Urine Nitrate Negative Urine Bilirubin Negative Urine Urobilinogen Normal Ur Leukocyte Esterase Neg Urine WBC (Auto) 15 H Urine RBC (Auto) 7 H Ur Squamous Epith Cells 3 Urine Bacteria Rare Hyaline Casts >20 H Blood Type O POSITIVE Antibody Screen Negative 11/02/17 11/03/17 22:20 08:51 WBC 19.5 H RBC 3.19 L Hgb 7.5 L Hct 22.7 L MCV 71.2 L MCH 23.6 L MCHC 33.2 RDW 17.6 H Plt Count 563 H MPV 7.0 L Neut % (Auto) 90.9 H Lymph % (Auto) 3.6 L [place] % (Auto) 5.3 Eos % (Auto) 0.0 Baso % (Auto) 0.2 Neut # (Auto) 17.7 H Lymph # (Auto) 0.7 L [place] # (Auto) 1.0 H Eos # (Auto) 0.0 Baso # (Auto) 0.0 Neutrophils % (Manual) Band Neutrophils % Lymphocytes % (Manual) Monocytes % (Manual) Toxic Granulation Platelet Estimate Large Platelets Polychromasia Hypochromasia (manual) Poikilocytosis (manual Anisocytosis (manual) Microcytosis (manual) Ovalocytes PT INR APTT pO2 43 VBG pH 7.52 H VBG pCO2 41 VBG HCO3 32.1 VBG Total CO2 34.8 H VBG O2 Sat (Calc) 83.8 H VBG Base Excess 9.7 H VBG Potassium 2.3 L* Glucose 113 H Lactate 1.5 FiO2 21.0 Crit Value Called To Jenn esposito Crit Value Called By Agapito sanidad Crit Value Read Back Y Blood Gas Notified Time 2226 Sodium 141.0 Potassium Chloride 105.0 Carbon Dioxide Anion Gap BUN Creatinine Est GFR ( Amer) Est GFR (Non-Af Amer) Random Glucose Calcium Total Bilirubin AST ALT Alkaline Phosphatase Total Protein Albumin Globulin Albumin/Globulin Ratio Lipase Venous Blood Potassium 2.3 L* Urine Color Urine Clarity Urine pH Ur Specific [place] Urine Protein Urine Glucose (UA) Urine Ketones Urine Blood Urine Nitrate Urine Bilirubin Urine Urobilinogen Ur Leukocyte Esterase Urine WBC (Auto) Urine RBC (Auto) Ur Squamous Epith Cells Urine Bacteria Hyaline Casts Blood Type Antibody Screen Assessment & Plan - Assessment and Plan (Free Text) Assessment: Intra-abd abscess with biliary leak s/p ERCP s/p lap ayo -f/u blood, fluid cx -NPO -ABX -GI/ID/IR recommendation -IVF -Nauea/pain control DW
[2017-11-03] MEDS: Enoxaparin 30 mg Syringe SC SCH (10:10)
[2017-11-03 11:03] LABS: ANISOCYTOSIS SLIGHT; BANDS 31 % (0-2); LYMPHOCYTE 3 % (20-40); METAMYELOCYTE 3 % (0-0); MONOCYTE 4 % (0-10); NEUTROPHIL 59 % (50-75); PLATELET ESTIMATE INCREASED (NORMAL); POIKILOCYTOSIS SLIGHT; TOTAL CELLS COUNTED 100
[2017-11-03 11:04] LABS: HYPOCHROMIC SLIGHT; MICROCYTOSIS SLIGHT; OVALOCYTES SLIGHT; POLYCHROMIC SLIGHT; SCHISTOCYTES SLIGHT
[2017-11-03 11:14] LABS: ALB/GLOB RATIO 0.7 (1.0-2.1); ALBUMIN 2.8 g/dL (3.5-5.0); ALT/SGPT 22 U/L (9-52); AST/SGOT 24 U/L (14-36); BLOOD UREA NITROGEN 8 mg/dL (7-17); CALCIUM 8.2 mg/dl (8.6-10.4); GFR NON-AFRICAN AMERICAN > 60
[2017-11-03] MEDS ORDERED: Vancomycin 1 gm/NS 200 ml 1 GM/200 ML BAG IVPB STA (11:30)
[2017-11-03] MEDS ORDERED: Potassium Chloride 20 mEq/15 ml LIQ UD PO STA (11:54)
--- NOTE | 2017-11-03 12:39 | PCM.SEPTIC ---
Sepsis Progress Note - Reassessment Type Date of Evaluation: 11/03/17 Time of Evaluation: 11:20 Reassessment Type: Non-invasive reassessment - Non Invasive Reassessment Were the most recent vital sign reviewed: Yes Vital Sign (Latest): Temp Pulse Resp BP Pulse Ox 98.6 F 129 H 18 144/82 98 11/03/17 10:13 11/03/17 07:00 11/03/17 07:00 11/03/17 07:00 11/03/17 07:00 Cardiovascular: Yes: Regular Rate, Rhythm, Chest Non Tender, Tachycardia. No: Edema, Gallop Respiratory: Yes: Normal Breath Sounds. No: Decreased Breath Sounds, Accessory Muscle Use, Rhonchi, Wheezing Capillary Refill: Normal (Less than 2 sec) Pulses: Normal Radial, Normal Dorsalis Pedis, Normal Posterior Tibialis Skin: Normal Color, Warm, Dry Was a central venous oxygen measurement obtained within 6 hours after the presentation of septic shock: No Was a bedside cardiovascular ultrasound performed within 6 hours after the presentation of septic shock: No Was a passive leg raise performed or was a fluid challenge performed within 6 hrs of the initial fluid bolus: No
--- NOTE | 2017-11-03 12:50 | CP.PCM.PN ---
<Bg Marie - Last Filed: 11/03/17 12:43> Subjective - Date & Time of Evaluation Date of Evaluation: 11/03/17 Time of Evaluation: 11:20 - Subjective Subjective: Code sepsis called at 11:20 today by nursing staff. Patient with tachycardia and fever of 102.7 overnight. Patient seen and examined at bedside, reports feeling lethargic, short of breath, and febrile. Patient is managed by surgery team. Vitals were 134/78, T 98.5F, HR 120's, pulse ox 98%. Orders were placed for blood culture, UC, lactic acid stat and in 3 hours. Potassium was also low at 2.8 and repleted. Vanco 1Gm STAT was started. ID is on the case (Dr. Vegas ) and is in process of determining standing antibiotics. Objective - Vital Signs/Intake and Output Vital Signs (last 24 hours): Temp Pulse Resp BP Pulse Ox 98.6 F 129 H 18 144/82 98 11/03/17 10:13 11/03/17 07:00 11/03/17 07:00 11/03/17 07:00 11/03/17 07:00 Intake and Output: 11/03/17 11/03/17 06:59 18:59 Intake Total 900 Output Total 300 Balance 600 - Medications Medications: Current Medications Acetaminophen (Tylenol 650 Mg Supp) 650 mg [place] Q4 PRN PRN Reason: Fever >100.4 F Last Admin: 11/03/17 08:29 Dose: 650 mg Enoxaparin Sodium (Lovenox) 30 mg SC DAILY AILEEN Last Admin: 11/03/17 10:10 Dose: 30 mg Hydromorphone HCl (Dilaudid) 0.5 mg IVP Q4H PRN PRN Reason: Pain, moderate (4-7) Last Admin: 11/03/17 08:33 Dose: 0.5 mg Piperacillin Sod/Tazobactam (Sod 3.375 gm/ Sodium Chloride) 100 mls @ 200 mls/ hr IVPB Q6H AILEEN PRN Reason: Protocol Last Admin: 11/03/17 08:30 Dose: 200 mls/hr Vancomycin/Sodium Chloride (Vancomycin 1 Gm/Ns 200 Ml) 1 gm in 200 mls @ 133.333 mls/hr IVPB STAT STA PRN Reason: Protocol Stop: 11/03/17 12:59 Potassium Chloride (Potassium Chloride 20 Meq/100 Ml) 20 meq in 100 mls @ 50 mls/hr IVPB Q4H [facility] [place] Stop: 11/03/17 18:14 Last Admin: 11/03/17 12:29 Dose: 50 mls/hr Potassium Chloride 40 meq/ (Sodium Chloride) 1,020 mls @ 150 mls/hr IV .Q6H48M [facility] [place] Ondansetron HCl (Zofran Inj) 4 mg IVP Q4 PRN PRN Reason: Nausea/Vomiting Pneumococcal Polyvalent Vaccine (Pneumovax 23 Vaccine) 0.5 ml IM .ONCE ONE Stop: 11/05/17 10:01 - Labs Labs: 11/03/17 08:51 11/03/17 08:27 PT 19.9 SECONDS (9.7-12.2) H 11/02/17 19:35 INR 1.8 11/02/17 19:35 APTT 39 SECONDS (21-34) H 11/02/17 19:35 - Additional Findings Additional findings: - Constitutional Appears: No Acute Distress - Head Exam Head Exam: ATRAUMATIC, NORMAL INSPECTION, NORMOCEPHALIC - Eye Exam Eye Exam: EOMI, Normal appearance, PERRL Pupil Exam: NORMAL ACCOMODATION, PERRL - Neck Exam Neck exam: Positive for: Normal Inspection - Respiratory Exam Respiratory Exam: NORMAL BREATHING PATTERN - Cardiovascular Exam Cardiovascular Exam: Tachycardia, +S1, +S2 - GI/Abdominal Exam GI & Abdominal Exam: Distended, Soft, Tenderness. absent: Firm Additional comments: Drain with purulent bilious drainage - Extremities Exam Extremities exam: Positive for: full ROM, pedal edema - Neurological Exam Neurological exam: Alert, CN II-XII Intact, Normal Gait, Oriented x3, Reflexes Normal - Psychiatric Exam Psychiatric exam: Normal Affect, Normal Mood - Skin Skin Exam: Dry, Intact, Normal Color, Warm <BorkerBrigidoVerito V - Last Filed: 11/03/17 21:20> Objective - Vital Signs/Intake and Output Vital Signs (last 24 hours): Temp Pulse Resp BP Pulse Ox 99.0 F 111 H 20 143/84 95 11/03/17 15:00 11/03/17 17:00 11/03/17 15:00 11/03/17 15:00 11/03/17 15:00 Intake and Output: 11/03/1718 18:59 06:59 Output Total 400 Balance -400 - Medications Medications: Current Medications Acetaminophen (Tylenol 650 Mg Supp) 650 mg FL Q4 PRN PRN Reason: Fever >100.4 F Last Admin: 11/03/17 08:29 Dose: 650 mg Enoxaparin Sodium (Lovenox) 30 mg SC DAILY [facility] [place] Last Admin: 11/03/17 10:10 Dose: 30 mg Hydromorphone HCl (Dilaudid) 0.5 mg IVP Q4H PRN PRN Reason: Pain, moderate (4-7) Last Admin: 11/03/17 16:27 Dose: 0.5 mg Potassium Chloride 40 meq/ (Sodium Chloride) 1,020 mls @ 150 mls/hr IV .Q6H48M AILEEN Last Admin: 11/03/17 16:28 Dose: 150 mls/hr Potassium Chloride (Potassium Chloride 20 Meq/100 Ml) 20 meq in 100 mls @ 50 mls/hr IVPB Q4H AILEEN Stop: 11/03/17 21:59 Meropenem 1 gm/ Sodium (Chloride) 100 mls @ 100 mls/hr IVPB Q8H AILEEN PRN Reason: Protocol Gentamicin Sulfate 80 mg/ (Sodium Chloride) 102 mls @ 102 mls/hr IVPB Q8 AILEEN Ondansetron HCl (Zofran Inj) 4 mg IVP Q4 PRN PRN Reason: Nausea/Vomiting Last Admin: 11/03/17 16:28 Dose: 4 mg Pneumococcal Polyvalent Vaccine (Pneumovax 23 Vaccine) 0.5 ml IM .ONCE ONE Stop: 11/05/17 10:01 - Labs Labs: 11/03/17 08:51 11/03/17 08:27 PT 19.9 SECONDS (9.7-12.2) H 11/02/17 19:35 INR 1.8 11/02/17 19:35 APTT 39 SECONDS (21-34) H 11/02/17 19:35 Attending/Attestation - Attestation I have personally seen and examined this patient.: Yes I have fully participated in the care of the patient.: Yes I have reviewed all pertinent clinical information, including history, physical exam and plan: Yes Notes (Text): Brief Hospitalist Note: Code sepsis called by nursing staff for fulfillment of SIRS criteria including leukocytosis, bandemia, tachycardia and fever. We have drawn lactic acid which is normal. Patient's labs were worsen on admission and had received IV fluid boluses, 2 IV Abx, and infectious disease is on board. Potassium is low we have repleted it and we have check magnesium given low potassium. Patient to have a repeat lactic acid in 3 hours. Patient noted briefly has had a prior surgery, sustained a bile leak, was recently d/c on but reports fever, nausea, vomitting which prompted her to come back. patient has pending abdominal wound culture. We have ordered blood and urine cultures per code sepsis protocol. Patient in acute distress, has mild tachycardia, reports she is ambulatory, blood pressure appropriate not in shock, very conversant and pleasant.
--- NOTE | 2017-11-03 16:18 | NM ---
Date of service: 11/03/2017 PROCEDURE: Nuclear Medicine Hepatobiliary Scan HISTORY: r/o bile leak COMPARISON: Nuclear medicine hepatobiliary scan performed 10/14/2017. TECHNIQUE: 6 mCi of technetium 99m Mebrofenin was administered intravenously. Planar images of the abdomen were obtained at 5 min intervals to 60 mins. Delayed images were also obtained. FINDINGS: LIVER: Timely and homogenous uptake. COMMON BILE DUCT: identified at 10 mins. GALLBLADDER: Prior cholecystectomy. Focal radiotracer accumulation in the surgical bed/hepatic hilum which subsequently drains to the percutaneous drainage catheter SMALL BOWEL: Identified at 10 mins. IMPRESSION: Persistent albeit smaller bile leak in comparison to the prior study. Radiotracer accumulation is seen within the drainage catheter tubing and bulb. Patent CBD.
[2017-11-03] MEDS ORDERED: Magnesium Sulfate 1 gm in D5W 1 GM/100 ML BAG IVPB ONE ×2 (16:55→20:00)
[2017-11-03] MEDS ORDERED: Phytonadione 10 mg/ml Inj (Adult) IV STA (20:44)
[2017-11-03] MEDS ORDERED: Gentamicin 80 mg/2mL Inj. IVPB SCH (20:45)
[2017-11-03] MEDS: Meropenem 1 GM in Sodium Chloride 0.9% 100 ML IVPB SCH (22:00)
[2017-11-04] MEDS: HYDROmorphone 0.5 mg/0.5 ml ISec IVP PRN ×5 (01:33→21:38)
--- NOTE | 2017-11-04 04:02 | CON ---
DATE: 11/03/2017 LOCATION: 669, bed B. This is from Dr. Davenport to Dr. Roche. HISTORY OF PRESENT ILLNESS: I was called for a GI consultation by the admitting medical team. The patient is seen and fully examined on 11/03/2017 as requested by the admitting medical staff. The entire chart is reviewed including but not limited to the most recent lab and radiology study results, current and previous medication list, current and previous medical events, allergy to medication list as well as all the available current and previous medical records. Case discussed with the staff at length. This is a 42 years old female, very well known case for me from previous admission recently with a known history of biliary tree stent insertion due to bile leak or biliary leak, readmitted again to the hospital through the emergency room with recurrent episodes of nausea and vomiting, abdominal pain, abdominal distention with subsequent and sudden increase of drainage from previously inserted biliary drainage catheter. No reported chills or fever. No chest pain, palpitation or significant shortness of breath but subsequent drop of oral intake with loss of appetite recently. PAST MEDICAL HISTORY: 1. Cholecystectomy. 2. Status post biliary leak with ERCP and biliary stent insertion. 3. Biliary ascites with biliary peritonitis. 4. Acute pancreatitis in the past. 5. More than one episode of abdominal paracentesis for removal of biliary contents before. FAMILY HISTORY: Unrelated to specific GI disorder. MEDICATIONS: Post admission medication list reviewed. ALLERGIES TO MEDICATIONS: UNCLEAR. SOCIAL HISTORY: Denied any recent history of cigarette smoking or alcohol intake. Initial blood workup post admission showed hemoglobin of 8.3, hematocrit of 25.2, thrombocytosis of 629 with leukocytosis of 23.2, blood glucose level 139, potassium 2.6 with CO2 content of 40 indicative of severe respiratory alkalosis. The patient had abdominal and pelvic CAT scan at the time of the admission, official report is seen, including multiple complex intraabdominal abscess. The patient for HIDA scan today. PHYSICAL EXAMINATION: GENERAL: A 42 years old female appeared to be pale complaining of abdominal pain with low grade temperature. VITAL SIGNS: Pulse of 104, respiratory rate 20-24 with blood pressure of 146/88. HEENT: Showed pale dry oral mucous membrane, mildly bilateral icteric sclerae. LUNGS: Few scattered crepitation. Decreased air entry at bases. LYMPH NODES: No lymphadenitis or lymphadenopathy. HEART: Positive S1 and S2 with increased rate. ABDOMEN: Soft with [id number] distention, positive for ascites small amount with generalized tenderness. No mass or organomegaly. No rebound tenderness or guarding. EXTREMITIES: Lower extremities mild edematous changes. No clubbing or cyanosis. NEUROLOGIC: No reported new neurological deficits, sensory or motor. IMPRESSION: 1. Biliary ascites with biliary peritonitis and small multiple peritoneal abscess formation. 2. Recent history of biliary leak post cholecystectomy. SUGGESTIONS: 1. Agree with your plan. 2. Agree with HIDA scan. 3. Ultrasound-guided repeat abdominal paracentesis as needed. 4. We will follow up closely with you. 5. Reglan IV with proton pump inhibitors to be initiated. Thank you for letting me participate in your patient's case management. Thor Davenport MD
[2017-11-04] MEDS: Meropenem 1 GM in Sodium Chloride 0.9% 100 ML IVPB SCH (05:18)
--- NOTE | 2017-11-04 07:21 | CP.PCM.PN ---
Subjective - Date & Time of Evaluation Date of Evaluation: 11/04/17 Time of Evaluation: 07:19 - Subjective Subjective: Surgery Pt seen and examined. Tmax of 100.1. Pt had code sepsis over the weekend for fever. Pain controlled. C/o nausea. No vomiting. NGT in place. Objective - Vital Signs/Intake and Output Vital Signs (last 24 hours): Temp Pulse Resp BP Pulse Ox 98.2 F 109 H 20 146/86 95 11/04/17 04:39 11/04/17 04:39 11/04/17 04:39 11/04/17 04:39 11/04/17 04:39 Intake and Output: 11/04/17 11/04/17 06:59 18:59 Intake Total 1900 Output Total 2250 Balance -350 - Medications Medications: Current Medications Acetaminophen (Tylenol 650 Mg Supp) 650 mg [place] Q4 PRN PRN Reason: Fever >100.4 F Last Admin: 11/03/17 08:29 Dose: 650 mg Enoxaparin Sodium (Lovenox) 30 mg SC DAILY [facility] Last Admin: 11/03/17 10:10 Dose: 30 mg Hydromorphone HCl (Dilaudid) 0.5 mg IVP Q4H PRN PRN Reason: Pain, moderate (4-7) Last Admin: 11/04/17 05:25 Dose: 0.5 mg Potassium Chloride 40 meq/ (Sodium Chloride) 1,020 mls @ 150 mls/hr IV .Q6H48M [facility] Last Admin: 11/04/17 03:06 Dose: Not Given Meropenem 1 gm/ Sodium (Chloride) 100 mls @ 100 mls/hr IVPB Q8H [facility] PRN Reason: Protocol Last Admin: 11/04/17 05:18 Dose: 100 mls/hr Gentamicin Sulfate 80 mg/ (Sodium Chloride) 102 mls @ 102 mls/hr IVPB Q8 [facility] Last Admin: 11/04/17 05:19 Dose: 102 mls/hr Ondansetron HCl (Zofran Inj) 4 mg IVP Q4 PRN PRN Reason: Nausea/Vomiting Last Admin: 11/03/17 16:28 Dose: 4 mg Pneumococcal Polyvalent Vaccine (Pneumovax 23 Vaccine) 0.5 ml IM .ONCE ONE Stop: 11/05/17 10:01 - Labs Labs: 11/03/17 08:51 11/03/17 08:27 PT 19.9 SECONDS (9.7-12.2) H 11/02/17 19:35 INR 1.8 11/02/17 19:35 APTT 39 SECONDS (21-34) H 11/02/17 19:35 - Constitutional Appears: Non-toxic - Head Exam Head Exam: ATRAUMATIC, NORMAL INSPECTION, NORMOCEPHALIC - Eye Exam Eye Exam: EOMI, Normal appearance, PERRL Pupil Exam: NORMAL ACCOMODATION, PERRL - ENT Exam ENT Exam: Mucous Membranes Moist, Normal Exam Additional comments: NGT in place - Neck Exam Neck Exam: Normal Inspection - Respiratory Exam Respiratory Exam: NORMAL BREATHING PATTERN - Cardiovascular Exam Cardiovascular Exam: Tachycardia - GI/Abdominal Exam GI & Abdominal Exam: Distended, Soft, Tenderness Additional comments: FRANC drain - 450cc/24hrs, cloudy bilious NG - 300/24hrs, light bilious - Exam Additional comments: Bedoya - 900/24hrs - Extremities Exam Extremities Exam: Normal Inspection - Back Exam Back Exam: NORMAL INSPECTION - Neurological Exam Neurological Exam: Alert, Awake, Oriented x3 - Psychiatric Exam Psychiatric exam: Normal Affect, Normal Mood - Skin Skin Exam: Intact, Normal Color Assessment and Plan - Assessment and Plan (Free Text) Assessment: 42 year old female PSHx of lap ayo 08/2017 with bile leak and intra-abdominal abscesses. Plan: NPO NG tube low continuous suction monitor drain outputs continue IV abx continue IVF consult Dr. Sullivan, follow recs follow up GI/ID recs DVT/GI prophylaxis pain control discuss with Dr. Roche
[2017-11-04 07:43] LABS: BASO % 0.2 % (0.0-2.0); LYMPH # 0.8 K/uL (1.0-4.3); LYMPH % 4.7 % (20.0-40.0); MEAN CELL VOLUME 71.2 fL (81.0-99.0); MEAN CORPUSCULAR HEMOGLOBIN 23.5 pg (27.0-31.0); MEAN PLATELET VOLUME 7.2 fL (7.2-11.7); MONO # 1.1 K/uL (0.0-0.8); MONO % 6.8 % (0.0-10.0); NEUT # 14.6 K/uL (1.8-7.0); NEUT % 88.3 % (50.0-75.0); PLATELET COUNT 541 K/uL (130-400); RBC 2.97 Mil/uL (3.80-5.20); RED CELL DISTRIBUTION WIDTH 17.3 % (11.5-14.5); WHITE BLOOD COUNT 16.6 K/uL (4.8-10.8)
[2017-11-04 07:50] LABS: ALB/GLOB RATIO 0.7 (1.0-2.1); ALBUMIN 2.5 g/dL (3.5-5.0); ALT/SGPT 25 U/L (9-52); AST/SGOT 20 U/L (14-36); BLOOD UREA NITROGEN 10 mg/dL (7-17); CALCIUM 8.1 mg/dl (8.6-10.4); GFR NON-AFRICAN AMERICAN > 60
[2017-11-04 07:57] LABS: INR 1.6; PROTHROMBIN TIME 17.4 SECONDS (9.7-12.2)
[2017-11-04] MEDS: Enoxaparin 30 mg Syringe SC SCH (09:44)
--- NOTE | 2017-11-04 09:47 | RAD ---
Chest x-ray single frontal view History: NG tube placement. Comparison: None available. Findings: NG tube extending into stomach. Catheter tubing projecting over the right ward abdomen. Surgical clips in the right ward abdomen. Moderate venous congestion. Confluent consolidative changes in the bilateral lung bases ; right greater than left. Cardiomegaly. Degenerative changes the spine and shoulders. Impression: NG tube extending into stomach. Catheter tubing projecting over the right ward abdomen. Surgical clips in the right ward abdomen. Moderate venous congestion. Confluent consolidative changes in the bilateral lung bases ; right greater than left. Cardiomegaly.
[2017-11-04 09:58] LABS: BANDS 35 % (0-2); BASOPHIL 1 % (0-2); LYMPHOCYTE 4 % (20-40); MONOCYTE 7 % (0-10); NEUTROPHIL 53 % (50-75); PLATELET ESTIMATE INCREASED (NORMAL); TOTAL CELLS COUNTED 100
[2017-11-04 09:59] LABS: ANISOCYTOSIS SLIGHT; HYPOCHROMIC MODERATE
[2017-11-04 10:00] LABS: TOXIC GRANULATION PRESENT
--- NOTE | 2017-11-04 11:01 | CP.PCM.CON ---
History of Present Illness - History of Present Illness History of Present Illness: dictated Past Patient History - Infectious Disease Hx of Infectious Diseases: None - Past Medical History & Family History Past Medical History?: Yes - Past Social History Smoking Status: Never Smoked - CARDIAC Hx Cardiac Disorders: No - PULMONARY Hx Respiratory Disorders: No - NEUROLOGICAL Hx Neurological Disorder: No - HEENT Hx HEENT Problems: No - RENAL Hx Chronic Kidney Disease: No - ENDOCRINE/METABOLIC Hx Endocrine Disorders: No - HEMATOLOGICAL/ONCOLOGICAL Hx Blood Disorders: No - INTEGUMENTARY Hx Dermatological Problems: No - MUSCULOSKELETAL/RHEUMATOLOGICAL Hx Falls: No - GASTROINTESTINAL Hx Gall Bladder Disease: Yes Hx Pancreatitis: Yes - GENITOURINARY/GYNECOLOGICAL Hx Genitourinary Disorders: No - PSYCHIATRIC Hx Substance Use: No - SURGICAL HISTORY Hx Cholecystectomy: Yes (09/13) - ANESTHESIA Hx Anesthesia: Yes Hx Anesthesia Reactions: No Hx Malignant Hyperthermia: No Meds Allergies/Adverse Reactions: Allergies Allergy/AdvReac Type Severity Reaction Status Date / Time No Known Allergies Allergy Verified 11/02/17 18:51 - Medications Medications: Current Medications Acetaminophen (Tylenol 650 Mg Supp) 650 mg ID Q4 PRN PRN Reason: Fever >100.4 F Last Admin: 11/03/17 08:29 Dose: 650 mg Enoxaparin Sodium (Lovenox) 30 mg SC DAILY [facility] Last Admin: 11/04/17 09:44 Dose: 30 mg Hydromorphone HCl (Dilaudid) 0.5 mg IVP Q4H PRN PRN Reason: Pain, moderate (4-7) Last Admin: 11/04/17 09:50 Dose: 0.5 mg Potassium Chloride 40 meq/ (Sodium Chloride) 1,020 mls @ 150 mls/hr IV .[id number] [facility] Last Admin: 11/04/17 03:06 Dose: Not Given Gentamicin Sulfate 80 mg/ (Sodium Chloride) 102 mls @ 102 mls/hr IVPB Q8 [facility] Last Admin: 11/04/17 05:19 Dose: 102 mls/hr Ciprofloxacin (Cipro 400mg/200ml Dsw) 400 mg in 200 mls @ 133 mls/hr IVPB Q12H AILEEN PRN Reason: Protocol Metronidazole (Flagyl) 500 mg in 100 mls @ 100 mls/hr IVPB Q8H AILEEN PRN Reason: Protocol Ondansetron HCl (Zofran Inj) 4 mg IVP Q4 PRN PRN Reason: Nausea/Vomiting Last Admin: 11/03/17 16:28 Dose: 4 mg Pneumococcal Polyvalent Vaccine (Pneumovax 23 Vaccine) 0.5 ml IM .ONCE ONE Stop: 11/05/17 10:01 Results - Vital Signs Recent Vital Signs: Last Vital Signs Temp 97.5 F L 11/04/17 08:12 Pulse 113 H 11/04/17 08:12 Resp 20 11/04/17 08:12 BP 145/85 11/04/17 08:12 Pulse Ox 96 11/04/17 08:12 - Labs Result Diagrams: 11/04/17 07:20 11/04/17 07:20 Labs: Laboratory Results - last 24 hr 11/03/17 11/03/17 11/03/17 08:27 08:51 12:32 WBC RBC Hgb Hct MCV MCH MCHC RDW Plt Count MPV Neut % (Auto) Lymph % (Auto) [place] % (Auto) Eos % (Auto) Baso % (Auto) Neut # (Auto) Lymph # (Auto) [place] # (Auto) Eos # (Auto) Baso # (Auto) Neutrophils % (Manual) 59 Band Neutrophils % 31 H* Lymphocytes % (Manual) 3 L Monocytes % (Manual) 4 Basophils % (Manual) Metamyelocytes % 3 H Toxic Granulation Dohle Bodies Platelet Estimate Increased H Polychromasia Slight Hypochromasia (manual) Slight Poikilocytosis (manual Slight Anisocytosis (manual) Slight Microcytosis (manual) Slight Ovalocytes Slight Schistocytes Slight PT INR APTT Sodium 142 Potassium 2.8 L Chloride 99 Carbon Dioxide 33 H Anion Gap 13 BUN 8 Creatinine 0.7 Est GFR ( Amer) > 60 Est GFR (Non-Af Amer) > 60 Random Glucose 115 H Lactic Acid 1.5 Calcium 8.2 L Phosphorus Magnesium Total Bilirubin 0.8 AST 24 ALT 22 Alkaline Phosphatase 156 H Total Protein 6.6 Albumin 2.8 L Globulin 3.8 Albumin/Globulin Ratio 0.7 L 11/03/17 11/03/17 11/04/17 12:32 19:39 07:20 WBC 16.6 H RBC 2.97 L Hgb 7.0 L Hct 21.1 L MCV 71.2 L MCH 23.5 L MCHC 33.0 RDW 17.3 H Plt Count 541 H MPV 7.2 Neut % (Auto) 88.3 H Lymph % (Auto) 4.7 L [place] % (Auto) 6.8 Eos % (Auto) 0.0 Baso % (Auto) 0.2 Neut # (Auto) 14.6 H Lymph # (Auto) 0.8 L [place] # (Auto) 1.1 H Eos # (Auto) 0.0 Baso # (Auto) 0.0 Neutrophils % (Manual) 53 Band Neutrophils % 35 H* Lymphocytes % (Manual) 4 L Monocytes % (Manual) 7 Basophils % (Manual) 1 Metamyelocytes % Toxic Granulation Present Dohle Bodies Present Platelet Estimate Increased H Polychromasia Hypochromasia (manual) Moderate Poikilocytosis (manual Anisocytosis (manual) Slight Microcytosis (manual) Ovalocytes Schistocytes PT INR APTT Sodium Potassium Chloride Carbon Dioxide Anion Gap BUN Creatinine Est GFR ( Amer) Est GFR (Non-Af Amer) Random Glucose Lactic Acid 1.3 Calcium Phosphorus Magnesium 1.5 L Total Bilirubin AST ALT Alkaline Phosphatase Total Protein Albumin Globulin Albumin/Globulin Ratio 11/04/17 11/04/17 07:20 07:20 WBC RBC Hgb Hct MCV MCH MCHC RDW Plt Count MPV Neut % (Auto) Lymph % (Auto) [place] % (Auto) Eos % (Auto) Baso % (Auto) Neut # (Auto) Lymph # (Auto) [place] # (Auto) Eos # (Auto) Baso # (Auto) Neutrophils % (Manual) Band Neutrophils % Lymphocytes % (Manual) Monocytes % (Manual) Basophils % (Manual) Metamyelocytes % Toxic Granulation Dohle Bodies Platelet Estimate Polychromasia Hypochromasia (manual) Poikilocytosis (manual Anisocytosis (manual) Microcytosis (manual) Ovalocytes Schistocytes PT 17.4 H INR 1.6 APTT 38 H Sodium 147 Potassium 3.5 L Chloride 101 Carbon Dioxide 37 H Anion Gap 13 BUN 10 Creatinine 0.6 L Est GFR ( Amer) > 60 Est GFR (Non-Af Amer) > 60 Random Glucose 97 Lactic Acid Calcium 8.1 L Phosphorus 3.2 Magnesium 1.9 Total Bilirubin 0.7 AST 20 ALT 25 Alkaline Phosphatase 144 H Total Protein 6.1 L Albumin 2.5 L Globulin 3.6 Albumin/Globulin Ratio 0.7 L
[2017-11-04] MEDS: metroNIDAZOLE IV 500 mg/100 ml 500 MG/100 ML BAG IVPB SCH ×2 (13:57→19:33)
[2017-11-04] MEDS: Ciprofloxacin 400mg/200ml D5W 400 MG/200 ML BAG IVPB SCH (14:57)
--- NOTE | 2017-11-04 15:12 | PN ---
DATE: 11/04/2017 LOCATION: 669, bed B. SUBJECTIVE: This is a 42-year-old female seen and examined today in rounds with NG tube is in place. She is still with some FRANC drainage with thick yellowish exudate. The patient is still complaining of intermittent period of abdominal pain, generalized weakness, and malaise. The entire chart is reviewed including but not limited to the most recent lab and radiology study results, current and the previous medication list, current and the previous medical events. Today's lab showed hemoglobin of 7, hematocrit 21.1 with low indices, white blood cell 16.6 with thrombocytosis of 541, PT of 17.4, PTT 38, potassium 3.5, CO2 content 37 with calcium 8.1, albumin 2.5, and total protein 6.1. Official report of the biliary scan, the hiatus scan as well as chest x-ray done yesterday is seen. PHYSICAL EXAMINATION: GENERAL: A 42-year-old female appears to be awake, alert, oriented. VITAL SIGNS: Afebrile, slightly pale with heart rate of 106, respiratory rate 20 to 22, blood pressure of 140/82. HEENT: Showed pale, dry oral mucous membrane. Nonicteric sclerae. LUNGS: Few scattered crepitation. Decreased air entry at bases. HEART: Positive S1 and S2. ABDOMEN: Soft with mild distension, possible generalized tenderness. No mass or organomegaly. No rebound tenderness or guarding. Abdominal drainage is in place. EXTREMITIES: With lower extremity mild edematous changes. No clubbing or cyanosis. NEUROLOGICAL: No reported new neurological deficits, sensory or motor. IMPRESSION: 1. Status post cholecystectomy. 2. Biliary leak with status post endoscopic retrograde cholangiopancreatography and biliary stent insertion. 3. Biliary ascites by recent history with multiple biliary abscess formation with biliary peritonitis. 4. Reported history of acute pancreatitis. SUGGESTIONS: 1. Continue current management. 2. Central hyperalimentation. 3. I would prefer to repeat the biliary scan, the hiatus scan within the next two to three days; however, if there is further evidence of biliary leak, then repeat ERCP with insertion of a new larger stent to be kept in mind, otherwise continue current management. Thor Davenport MD [facility] # [id number]
[2017-11-04] MEDS ORDERED: Lactated Ringer's 1,000 ML IV ONE (15:17)
--- NOTE | 2017-11-04 16:24 | RAD ---
Date of service: 11/04/2017 HISTORY: Verify chest x-ray COMPARISON: 11/03/2017 FINDINGS: LUNGS: No active pulmonary disease. PLEURA: Small bilateral pleural effusion. Elevation of right hemidiaphragm, nonspecific. No pneumothorax. CARDIOVASCULAR: Normal heart size. New right PICC catheter terminating in the superior vena cava at or just above the cavoatrial junction. Nasogastric tube unchanged. OSSEOUS STRUCTURES: No significant abnormalities. VISUALIZED UPPER ABDOMEN: Normal. OTHER FINDINGS: None. IMPRESSION: New right PICC catheter. Small bilateral pleural effusion.
--- NOTE | 2017-11-04 19:05 | CARD ---
APPROVED REPORT Date of service: 11/03/2017 EKG Measurement Heart [id number] <Conclusion> Sinus tachycardia Otherwise normal ECG
[2017-11-04] MEDS ORDERED: Benzocaine/Menthol (Cepacol) Lozenge MT PRN (19:09)
[2017-11-04] MEDS ORDERED: Lidocaine 2% Jelly (Uro-Jet) TOP ONE (19:10)
[2017-11-05] MEDS: Ciprofloxacin 400mg/200ml D5W 400 MG/200 ML BAG IVPB SCH ×2 (00:34→23:45)
[2017-11-05] MEDS: HYDROmorphone 0.5 mg/0.5 ml ISec IVP PRN ×4 (01:47→20:29)
--- NOTE | 2017-11-05 03:21 | CON ---
DATE: 11/04/2017 HISTORY OF PRESENT ILLNESS: This patient is known to me. She is a 42-year-old female who we will recap the story. She came in here and had a laparoscopic cholecystectomy on 09/13/2017. She went to the emergency room on 09/16/2017 with nausea, vomiting and diarrhea, and then she stayed here for these symptoms and was finally discharged on 09/26/2017 with conservative management. After leaving, she said the symptoms reappeared, and she was not able to take p.o. uptake. She was vomiting. She came back. She was again admitted on 10/04/2017. The surgical team and IR placed a drain, and six liters were removed on 10/04/2017. She had also NG tube. She was then in ICU because she developed tachycardia and had acute renal failure and suspected of having sepsis. At that point, ID service I was called in to tailor the IV antibiotics. The patient also went for ERCP, but I think, ERCP did not help and was a failure, and finally she did have a stent placed on 10/09/2017, and her kidney function started to improve. She was also with generalized anasarca because of the renal failure which started to get better. She was mobilizing. Her abdominal distention was decreasing. She had a drain and the drain was removed on 10/23/2017, and the patient went home. She went home with a drain, and she was instructed how to take care of it soon. Now, she returns with abdominal pain and distention. She has purulent discharge from the drain, and she also has severe bandemia and now had a CAT scan, which shows multiple abscesses and had a CAT scan, which shows a bile leak, so it is an ongoing process at this time, so we will need to see what the surgery recommends. PAST MEDICAL HISTORY: As above. She was improving and her white count was almost back to normal when she was sent here. She has no other medical problems in the past, but she had kidney issues but that improved. She had cholecystectomy, which was done on 09/13/2017. SOCIAL HISTORY: She denies any smoking, drinking, or any drug abuse. ALLERGIES: SHE IS NOT ALLERGIC TO ANY MEDICINE. MEDICATIONS: Yesterday, I put her on vancomycin and Merrem, but today we come to know that she has Proteus from the wound site. Now, her medications are Tylenol, , Cipro, Lovenox, gentamicin, hydromorphone, metronidazole, I just started. She is on Zofran and is getting potassium. The gentamicin is still on, but probably they changed the time. REVIEW OF SYSTEMS: She was not saying that she had any fevers, but she states she was nauseous, and she had this drainage, which was color changing and dark urine. Abdomen still was hurting. PHYSICAL EXAMINATION: VITAL SIGNS: T-max is 98.2 now, pulse is 109, blood pressure 148/89, respirations are 20, saturations 94. GENERAL: The patient is awake, alert, and oriented x3. She is able to give a history. HEENT: Head is atraumatic and normocephalic. Pupils are reacting to light. NECK: Supple. JVP is flat. LUNGS: Clear. No crackles or rales present. HEART: S1 and S2, tachycardiac. ABDOMEN: Distended. There is a drain present. Bowel sounds are present. EXTREMITIES: Have decreased edema on the lower extremities now. She has a drain present. LABORATORY DATA: Labs are noted. Labs show white count is 16.6 today, hemoglobin 7, hematocrit 21.1, platelet count is 541, so her hemoglobin still remains low. Chemistry shows alkaline phosphatase is 144, protein is 6.1, albumin is 2.5, globulin is 3.6, and total bilirubin is 0.7. White count was showing that there were 35% bands that is the worse thing. She got a new right PICC line today. X-ray shows small bilateral pleural effusion. She did have imaging done, hepatobiliary scan, which was done on 11/03/2017 yesterday shows persistent albeit smaller bile leak in comparison to the prior study is seen when the drainage catheter tubing and patent CBD. She also had abdominal and pelvic CT, has interval placement of right upper quadrant pigtail drainage catheter with near-complete resolution of large perihepatic fluid collection. Remainder of diffuse abdominal and pelvic wall persists and has enhancing wall suggesting peritonitis and/or abscess formation. There is large collection with rim enhancement abutting the left stomach measuring approximately 12.7 x 12.8 x 16.9. A collection of fluid and air is seen abutting the cholecystectomy, measuring 4.1 x 3.1 x 5.1 and may contain a dropped stone in it. Most dependent portion, the right lower quadrant drain catheter has been removed, and the recurrence of rim enhancing large collection, measuring 9.2 x 6.1 x 12.5. This collection is in continuity with encapsulated gas and fluid surrounding the right kidney. Another ring-enhancing collection is seen superior to the bladder, measuring 8.2 x 5.9 x 4.7 cm. Multiple adhesional smaller areas of fluid are seen throughout the abdomen and pelvis. Multiple complex intra-abdominal abscesses as described. She has still multiple abdominal abscesses present, which may need drainage. ASSESSMENT AND PLAN: We will see what Dr. Roche decides, probably Interventional Radiology to drain these and to continue. At this time, I find that this Proteus is sensitive to Cipro most out of all the medications, so we will continue with Cipro 400 mg intravenous piggyback. I have added Flagyl for anaerobic coverage at this time and gentamicin as there is severe bandemia present. Once the bandemia comes down, maybe we can discontinue the gentamicin and we will see what the plan is of the team with Gastroenterology, Interventional Radiology as well as Surgery and with the primary. We will follow. Juliet Vegas MD
[2017-11-05] MEDS: metroNIDAZOLE IV 500 mg/100 ml 500 MG/100 ML BAG IVPB SCH ×3 (04:16→20:34)
[2017-11-05 06:52] LABS: BASO % 0.3 % (0.0-2.0); MEAN CORPUSCULAR HEMOGLOBIN 22.3 pg (27.0-31.0); MEAN PLATELET VOLUME 7.4 fL (7.2-11.7); MONO # 1.1 K/uL (0.0-0.8); MONO % 8.4 % (0.0-10.0); NEUT # 10.8 K/uL (1.8-7.0); NEUT % 83.3 % (50.0-75.0); PLATELET COUNT 540 K/uL (130-400); RBC 3.12 Mil/uL (3.80-5.20); RED CELL DISTRIBUTION WIDTH 18.1 % (11.5-14.5)
[2017-11-05 07:37] LABS: ALB/GLOB RATIO 0.7 (1.0-2.1); ALBUMIN 2.5 g/dL (3.5-5.0); ALT/SGPT 24 U/L (9-52); AST/SGOT 14 U/L (14-36); BLOOD UREA NITROGEN 13 mg/dL (7-17); CALCIUM 8.1 mg/dl (8.6-10.4); GFR NON-AFRICAN AMERICAN > 60
[2017-11-05 08:35] LABS: BANDS 35 % (0-2); LYMPHOCYTE 8 % (20-40); MONOCYTE 2 % (0-10); NEUTROPHIL 55 % (50-75); PLATELET ESTIMATE INCREASED (NORMAL); TOTAL CELLS COUNTED 100
[2017-11-05 08:36] LABS: ANISOCYTOSIS SLIGHT; POLYCHROMIC SLIGHT
[2017-11-05 08:37] LABS: HYPOCHROMIC MODERATE; MICROCYTOSIS MODERATE
[2017-11-05] MEDS: Enoxaparin 30 mg Syringe SC SCH (09:43)
[2017-11-05] MEDS ORDERED: Pneumococcal 23-Valent Vaccine IM ONE (10:00)
[2017-11-05] MEDS: Aluminum Hydroxide/Magnesium Hydroxide Susp (30 mL) PO PRN ×2 (11:03→16:36)
[2017-11-05] MEDS ORDERED: Aluminum Hydroxide/Magnesium Hydroxide Susp (30 mL) PO SCH (12:00)
--- NOTE | 2017-11-05 14:16 | PN ---
DATE: 11/05/2017 LOCATION: 670, bed A. SUBJECTIVE: This is a 42-year-old female seen and examined early in rounds with recurrent complaint of abdominal pain with no reported evidence of active bleeding, but mild nausea and dyspepsia. The entire chart is reviewed including but not limited to the most recent lab and radiology study results. The patient denied any actual chest pain, palpitation despite some increase of heart rate and no significant change of shortness of breath. Today's lab results showed leukocytosis of 13, hemoglobin 7, hematocrit 22.5 with low indices highly suggestive of hypochromic microcytic anemia with thrombocytosis of 540 with PT of 17.4, PTT 38 as per yesterday, CO2 content 39 indicative of respiratory alkalosis, creatinine 0.6, blood glucose level 146, calcium 8.1, phosphorus 2.1, alkaline phosphatase 198 with normal ALT, AST and normal total bilirubin with albumin 2.5. Most recently done chest x-ray, yesterday, official report is seen, indicative of a small bilateral pleural effusion. PHYSICAL EXAMINATION: GENERAL: A 42-year-old female. VITAL SIGNS: Afebrile with heart rate 108, respiratory rate 20 to 22, blood pressure 150/82. HEENT: Showed pale, dry oral mucous membrane. Nonicteric sclerae. LUNGS: Few scattered crepitation. Decreased air entry at bases. HEART: Positive S1 and S2. ABDOMEN: Soft with mild generalized tenderness, slightly distended. No mass or organomegaly. No rebound tenderness or guarding. EXTREMITIES: Slight lower extremity edematous changes. No clubbing or cyanosis. NEUROLOGICAL: No reported new neurological deficits, sensory or motor. IMPRESSION: 1. Biliary leak status post endoscopic retrograde cholangiopancreatography with biliary stent insertion. 2. Biliary ascites with intraperitoneal multiple abscess formation. 3. Hypochromic microcytic anemia, most likely secondary to chronic disease. 4. Respiratory alkalosis due to abdominal pain. 5. Reported history of acute pancreatitis before. SUGGESTIONS: 1. Continue current management. 2. Close observation. 3. If there is no significant improvement, then repeat ERCP with biliary stent change versus surgical reevaluation for potential choledochojejunostomy after adequate treatment of her multi-biliary abscess, intraperitoneal abscess. Further recommendation to follow. Thor Davenport MD [facility] # [id number]
--- NOTE | 2017-11-05 15:41 | CP.PCM.PN ---
Subjective - Date & Time of Evaluation Date of Evaluation: 11/05/17 Time of Evaluation: 14:00 - Subjective Subjective: dictated Objective - Vital Signs/Intake and Output Vital Signs (last 24 hours): Temp Pulse Resp BP Pulse Ox 99.0 F 130 H 20 149/77 94 L 11/05/17 14:24 11/05/17 14:24 11/05/17 14:24 11/05/17 15:09 11/05/17 08:21 Intake and Output: 11/05/17 11/05/17 06:59 18:59 Intake Total 3075 325 Output Total 1750 Balance 1325 325 - Medications Medications: Current Medications Acetaminophen (Tylenol 650 Mg Supp) 650 mg KY Q4 PRN PRN Reason: Fever >100.4 F Last Admin: 11/03/17 08:29 Dose: 650 mg Al Hydrox/Mg Hydrox/Simethicone (Maalox 30 Ml) 30 ml PO Q6 PRN PRN Reason: Dyspepsia Last Admin: 11/05/17 11:03 Dose: 30 ml Benzocaine/Menthol (Cepacol Sore Throat) 1 lisa MT Q2H PRN PRN Reason: Sore Throat Enoxaparin Sodium (Lovenox) 30 mg SC DAILY [facility] Last Admin: 11/05/17 09:43 Dose: Not Given Hydromorphone HCl (Dilaudid) 0.5 mg IVP Q3H PRN PRN Reason: Pain, moderate (4-7) Gentamicin Sulfate 80 mg/ (Sodium Chloride) 102 mls @ 102 mls/hr IVPB Q8 [facility] Last Admin: 11/05/17 05:31 Dose: 102 mls/hr Ciprofloxacin (Cipro 400mg/200ml Dsw) 400 mg in 200 mls @ 133 mls/hr IVPB Q12H AILEEN PRN Reason: Protocol Last Admin: 11/05/17 00:34 Dose: 133 mls/hr Metronidazole (Flagyl) 500 mg in 100 mls @ 100 mls/hr IVPB Q8H [facility] PRN Reason: Protocol Last Admin: 11/05/17 14:59 Dose: 100 mls/hr Sodium Phosphate 15 mmole/ (Sodium Chloride) 255 mls @ 50 mls/hr IVPB .Q5H6M ONE Stop: 11/05/17 21:05 Potassium Chloride 40 meq/ (Sodium Chloride) 1,020 mls @ 100 mls/hr IV .[id number] AILEEN Ondansetron HCl (Zofran Inj) 4 mg IVP Q4 PRN PRN Reason: Nausea/Vomiting Last Admin: 11/03/17 16:28 Dose: 4 mg - Labs Labs: 11/05/17 06:45 11/05/17 06:45 PT 17.4 SECONDS (9.7-12.2) H 11/04/17 07:20 INR 1.6 11/04/17 07:20 APTT 38 SECONDS (21-34) H 11/04/17 07:20
[2017-11-05] MEDS ORDERED: Sodium Phosphate 15 MMOLE in Sodium Chloride 0.9% 250 ML IVPB ONE (16:00)
--- NOTE | 2017-11-05 16:51 | MRI ---
Date of service: 11/05/17 MRCP Indication: Assess CBD, bile leak Technique: Multiplanar, multisequence MR images of the abdomen were obtained, including heavily T2 weighted MRCP images of the biliary system. Rotating maximum intensity projection images of the biliary system were generated. A total of 548 images were submitted for review. Comparison: CT abdomen and pelvis with contrast performed 11/02/17 Findings: Limited study. Examination limited by motion. The patient was unable to tolerate additional sequences. Limited lung bases reveal moderate sized pleural effusions. The patient is status post cholecystectomy. There is no intrahepatic biliary ductal dilatation. The common bile duct and pancreatic duct do not appear dilated. No filling defects are seen in the common bile duct or pancreatic duct. Hepatic steatosis. Left adrenal gland nodule measuring approximately 3 x 2.3 cm seen to better advantage on CT performed 09/01/17. Suspected bilateral renal cysts cannot be further characterized in the absence IV contrast. The liver, right adrenal gland, kidneys, spleen, and pancreas appear otherwise unremarkable. No bulky abdominal lymphadenopathy is seen. Persistent but decreased fluid collections within the right upper quadrant. Peritoneal and retroperitoneal fluid collections may represent abscesses. Small fluid collection also noted posterior to the pancreatic body/tail. Right para renal gas evident. Largest fluid collection is noted within the left upper quadrant inferior to the stomach measures approximately 8.0 x 10.7 x 11.4 cm Narrowing of the distal gastric wall/pylorus. No acute osseous abnormality is detected. Impression: Limited study as above. The common bile duct is not appear dilated. Moderate-sized pleural effusions. Multiple complex intra-abdominal fluid collections may represent abscesses. Largest collection resides within the left upper quadrant. Narrowing of the distal gastric wall/pylorus. Correlate clinically and attention on follow-up. Left adrenal gland nodule seen to better advantage on CT performed 11/02/17 and cannot be further characterized on this study. Additional findings as above.
--- NOTE | 2017-11-05 17:16 | CP.PCM.PN ---
Subjective - Date & Time of Evaluation Date of Evaluation: 11/05/17 Time of Evaluation: 17:13 - Subjective Subjective: Surgery PT seen and examined. Pt refusing NGT. Denies nausea. Pain controlled. Drain in place. Pt is seen by hepatobiliary surgeon. Discussed possible plan for oR tomorrow. Objective - Vital Signs/Intake and Output Vital Signs (last 24 hours): Temp Pulse Resp BP Pulse Ox 98.3 F 110 H 20 163/94 H 95 11/05/17 16:00 11/05/17 16:00 11/05/17 16:00 11/05/17 16:00 11/05/17 16:00 Intake and Output: 11/05/17 11/05/17 06:59 18:59 Intake Total 3075 325 Output Total 1750 580 Balance 1325 -255 - Medications Medications: Current Medications Acetaminophen (Tylenol 650 Mg Supp) 650 mg [place] Q4 PRN PRN Reason: Fever >100.4 F Last Admin: 11/03/17 08:29 Dose: 650 mg Al Hydrox/Mg Hydrox/Simethicone (Maalox 30 Ml) 30 ml PO Q6 PRN PRN Reason: Dyspepsia Last Admin: 11/05/17 16:36 Dose: 30 ml Benzocaine/Menthol (Cepacol Sore Throat) 1 lisa MT Q2H PRN PRN Reason: Sore Throat Enoxaparin Sodium (Lovenox) 30 mg SC DAILY [facility] Last Admin: 11/05/17 09:43 Dose: Not Given Hydromorphone HCl (Dilaudid) 0.5 mg IVP Q3H PRN PRN Reason: Pain, moderate (4-7) Gentamicin Sulfate 80 mg/ (Sodium Chloride) 102 mls @ 102 mls/hr IVPB Q8 [facility] Last Admin: 11/05/17 05:31 Dose: 102 mls/hr Ciprofloxacin (Cipro 400mg/200ml Dsw) 400 mg in 200 mls @ 133 mls/hr IVPB Q12H [facility] PRN Reason: Protocol Last Admin: 11/05/17 00:34 Dose: 133 mls/hr Metronidazole (Flagyl) 500 mg in 100 mls @ 100 mls/hr IVPB Q8H [facility] PRN Reason: Protocol Last Admin: 11/05/17 14:59 Dose: 100 mls/hr Sodium Phosphate 15 mmole/ (Sodium Chloride) 255 mls @ 50 mls/hr IVPB .Q5H6M ONE Stop: 11/05/17 21:05 Potassium Chloride 40 meq/ (Sodium Chloride) 1,020 mls @ 100 mls/hr IV .[id number] [facility] Ondansetron HCl (Zofran Inj) 4 mg IVP Q4 PRN PRN Reason: Nausea/Vomiting Last Admin: 11/03/17 16:28 Dose: 4 mg - Labs Labs: 11/05/17 06:45 11/05/17 06:45 PT 17.4 SECONDS (9.7-12.2) H 11/04/17 07:20 INR 1.6 11/04/17 07:20 APTT 38 SECONDS (21-34) H 11/04/17 07:20 - Constitutional Appears: In Acute Distress - Head Exam Head Exam: ATRAUMATIC, NORMAL INSPECTION, NORMOCEPHALIC - Eye Exam Eye Exam: EOMI, Normal appearance, PERRL Pupil Exam: NORMAL ACCOMODATION, PERRL - ENT Exam ENT Exam: Mucous Membranes Moist, Normal Exam - Neck Exam Neck Exam: Full ROM, Normal Inspection. absent: Lymphadenopathy - Respiratory Exam Respiratory Exam: NORMAL BREATHING PATTERN - Cardiovascular Exam Cardiovascular Exam: Tachycardia - GI/Abdominal Exam GI & Abdominal Exam: Distended, Soft, Tenderness Additional comments: R drain in place. 800cc bilious purulent fluid in place. - Extremities Exam Extremities Exam: Full ROM, Normal Capillary Refill, Normal Inspection, Pedal Edema. absent: Joint Swelling - Back Exam Back Exam: NORMAL INSPECTION - Neurological Exam Neurological Exam: Alert, Awake, CN II-XII Intact, Normal Gait, Oriented x3 - Psychiatric Exam Psychiatric exam: Normal Affect, Normal Mood - Skin Skin Exam: Dry, Intact, Normal Color, Warm Assessment and Plan - Assessment and Plan (Free Text) Assessment: 42 year old female PSHx of lap ayo 08/2017 with bile leak and intra-abdominal abscesses. Pt refusing NGT now. IR unable to drain abscess Plan: Plan for laparoscopic wash out and drainage of abscess tomorrow at noon NPO monitor drain outputs continue IV abx continue IVF consult Dr. Sullivan, follow recs : f/u MRCP follow up GI/ID recs DVT/GI prophylaxis pain control discussed with Dr. Roche
[2017-11-05 17:47] LABS: SQUAMOUS EPITHIAL 1 /hpf (0-5); URINE BACTERIA RARE (<OCC); URINE BILIRUBIN NEGATIVE (NEGATIVE); URINE BLOOD 2+ (NEGATIVE); URINE CLARITY Hazy (Clear); URINE COLOR Yellow (YELLOW); URINE GLUCOSE (UA) NORMAL (Normal); URINE LEUKOCYTE ESTERASE 2+ Leu/uL (Negative); URINE PROTEIN NEGATIVE (NEGATIVE); URINE UROBILINOGEN NORMAL mg/dL (0.2-1.0)
[2017-11-05] MEDS ORDERED: Potassium Phosphate 30 MMOLE in Dextrose 5% In Water 500 ML IVPB ONE (21:39)
[2017-11-05] MEDS ORDERED: Potassium Phosphate 15 MMOLE in Sodium Chloride 0.9% 250 ML IVPB ONE (22:00)
[2017-11-06] MEDS: HYDROmorphone 0.5 mg/0.5 ml ISec IVP PRN ×6 (00:24→15:30)
--- NOTE | 2017-11-06 02:25 | PN ---
DATE: 11/05/2017 SUBJECTIVE: When I went to see the patient today, she was complaining of lot of chest pain, back pain, right upper quadrant pain. She had the drain and she says when she is sitting up, she feels that the drain is moving and giving her pain and she was waiting for a pain medication. The nurse was running to get an EKG done because of the chest pain. PHYSICAL EXAMINATION: VITAL SIGNS: T max was 99, pulse 130, blood pressure 149/77, respirations are 20. HEENT: Head is atraumatic and normocephalic. NECK: Supple. LUNGS: Clear. No crackles or rales heard. HEART: S1, S2 was tachycardic. ABDOMEN: Soft, distended. EXTREMITIES: Have edema bilaterally lower extremities. LABORATORY DATA: Lab show white count is 13 today, hemoglobin 7, hematocrit 22.5, platelet count 540 and her bands were 35, CO2 was 39, alkaline phosphatase 198, they got the troponin which was 0.012. ASSESSMENT AND PLAN: So, this patient also has anxiety issues in the past, but of course she does have pain. Her blood cultures have all been negative. Urine culture is negative. She has multiple abdominal abscesses. The question remains whether IR or Surgery and plan is per Dr. Roche for that and I am continuing IV antibiotics at this time and we will follow. The patient has bile peritonitis, bile leak is still persisting and has developed multiple abscesses at this time and they are calling IR too and they are also consulting GI for a followup on the stent for bile leak. We will follow. Juliet Vegas MD
[2017-11-06] MEDS: metroNIDAZOLE IV 500 mg/100 ml 500 MG/100 ML BAG IVPB SCH ×3 (05:05→20:06)
[2017-11-06 07:38] LABS: BASO % 0.2 % (0.0-2.0); EOS % 0.1 % (0.0-4.0); HEMOGLOBIN 8.4 g/dL (11.0-16.0); LYMPH # 1.1 K/uL (1.0-4.3); MEAN CELL VOLUME 73.4 fL (81.0-99.0); MEAN CORPUSCULAR HEMOGLOBIN 23.9 pg (27.0-31.0); MEAN CORPUSCULAR HGB CONC 32.6 g/dL (33.0-37.0); MEAN PLATELET VOLUME 7.2 fL (7.2-11.7); MONO % 8.2 % (0.0-10.0); NEUT # 10.3 K/uL (1.8-7.0); NEUT % 82.5 % (50.0-75.0); NRBC % 0.1 % (0.0-2.0); RBC 3.51 Mil/uL (3.80-5.20); RED CELL DISTRIBUTION WIDTH 19.1 % (11.5-14.5); WHITE BLOOD COUNT 12.4 K/uL (4.8-10.8)
[2017-11-06 07:47] LABS: INR 1.4; PROTHROMBIN TIME 15.7 SECONDS (9.7-12.2)
[2017-11-06 07:49] LABS: PLATELET COUNT 401 K/uL (130-400)
[2017-11-06 08:02] LABS: ALB/GLOB RATIO 0.7 (1.0-2.1); ALBUMIN 2.6 g/dL (3.5-5.0); ALT/SGPT 27 U/L (9-52); AST/SGOT 23 U/L (14-36); BLOOD UREA NITROGEN 13 mg/dL (7-17); GFR NON-AFRICAN AMERICAN > 60
[2017-11-06 09:23] LABS: BANDS 30 % (0-2); LYMPHOCYTE 7 % (20-40); MONOCYTE 7 % (0-10); NEUTROPHIL 56 % (50-75); TOTAL CELLS COUNTED 100
[2017-11-06 09:24] LABS: ANISOCYTOSIS SLIGHT; MICROCYTOSIS SLIGHT; PLATELET ESTIMATE NORMAL (NORMAL); POLYCHROMIC SLIGHT
[2017-11-06 09:25] LABS: HYPOCHROMIC MODERATE
[2017-11-06] MEDS: Enoxaparin 30 mg Syringe SC SCH (10:07)
[2017-11-06] MEDS ORDERED: Rocuronium 10 mg/ml (5 ml) ONE (10:49)
[2017-11-06] MEDS ORDERED: Propofol 10 mg/ml Inj (20 ML) ONE (10:49)
[2017-11-06] MEDS ORDERED: Midazolam 2 MG/2 ML VIAL ONE (10:49)
[2017-11-06] MEDS ORDERED: Lidocaine Hydrochloride 5 ML INJ ONE (10:49)
[2017-11-06] MEDS: Ciprofloxacin 400mg/200ml D5W 400 MG/200 ML BAG IVPB SCH (11:56)
[2017-11-06] MEDS ORDERED: Neostigmine Methylsulfate 3mg/3ml Syringe IV ONE (12:17)
[2017-11-06] MEDS ORDERED: Lactated Ringer's 1,000 ML IV ONE ×3 (13:27→22:44)
--- NOTE | 2017-11-06 13:29 | PCM.SURG1 ---
Surgeon's Initial Post Op Note - Surgeon's Notes Surgeon: Dr. Roche Finance And Administration Manager: Dr. Fernandes PGY3 Type of Anesthesia: General Endo Pre-Operative Diagnosis: intra abdominal collections Operative Findings: see operative report Post-Operative Diagnosis: see operative report Operation Performed: laparoscopic converted to open drainage of rertroperitoneal collections. laparotomy Specimen/Specimens Removed: none Estimated Blood Loss: EBL {In ML}: 100 Blood Products Given: N/A Drains Used: James Post-Op Condition: Good Date of Surgery/Procedure: 11/06/17 Time of Surgery/Procedure: 11:00
[2017-11-06] MEDS ORDERED: HYDROmorphone 0.5 mg/0.5 ml ISec ONE (13:40)
[2017-11-06] MEDS ORDERED: Lactated Ringer's 1,000 ML IV SCH (13:45)
[2017-11-06] MEDS ORDERED: Potassium Chl 40 mEq in D5-1/2 1,000 ML IV SCH (15:45)
[2017-11-06] MEDS ORDERED: HYDROmorphone 1 mg/ml ISec IVP PRN (18:04)
[2017-11-06] MEDS ORDERED: Sodium Chloride 0.9% 500 ML IV ONE ×2 (19:07→20:35)
[2017-11-06] MEDS: HYDROmorphone 1 mg/ml ISec IVP PRN (21:24)
[2017-11-06 21:45] LABS: BASO % 0.2 % (0.0-2.0); LYMPH # 1.8 K/uL (1.0-4.3); LYMPH % 8.2 % (20.0-40.0); MEAN CELL VOLUME 74.4 fL (81.0-99.0); MEAN CORPUSCULAR HEMOGLOBIN 23.9 pg (27.0-31.0); MEAN CORPUSCULAR HGB CONC 32.2 g/dL (33.0-37.0); MEAN PLATELET VOLUME 7.6 fL (7.2-11.7); MONO # 0.6 K/uL (0.0-0.8); NEUT # 19.3 K/uL (1.8-7.0); NEUT % 88.6 % (50.0-75.0); NRBC % 0.2 % (0.0-2.0); RED CELL DISTRIBUTION WIDTH 19.6 % (11.5-14.5)
[2017-11-06 21:50] LABS: PLATELET COUNT 620 K/uL (130-400); WHITE BLOOD COUNT 21.7 K/uL (4.8-10.8)
[2017-11-06 21:54] LABS: ALB/GLOB RATIO 0.7 (1.0-2.1); ALBUMIN 2.5 g/dL (3.5-5.0); ALT/SGPT 24 U/L (9-52); AST/SGOT 16 U/L (14-36); BLOOD UREA NITROGEN 14 mg/dL (7-17); CALCIUM 7.8 mg/dl (8.6-10.4); GFR NON-AFRICAN AMERICAN > 60
[2017-11-06 21:55] LABS: INR 1.6; PROTHROMBIN TIME 17.4 SECONDS (9.7-12.2)
[2017-11-06 22:20] LABS: ANISOCYTOSIS SLIGHT; BANDS 28 % (0-2); HYPOCHROMIC SLIGHT; LYMPHOCYTE 2 % (20-40); MONOCYTE 2 % (0-10); NEUTROPHIL 68 % (50-75); PLATELET ESTIMATE INCREASED (NORMAL); POLYCHROMIC SLIGHT; TOTAL CELLS COUNTED 100
[2017-11-06] MEDS: Potassium Chl 40 mEq in D5-1/2 1,000 ML IV SCH (22:59)
[2017-11-06 23:19] LABS: ARTERIAL BLOOD GAS HCO3 31.3 mmol/L (21-28); ARTERIAL BLOOD GAS O2 SAT 99.3 % (95-98); ARTERIAL BLOOD GAS PCO2 48 mm/Hg (35-45); ARTERIAL BLOOD GAS PH 7.45 (7.35-7.45); ARTERIAL BLOOD GAS PO2 102 mm/Hg (80-100); ARTERIAL BLOOD GAS TCO2 34.9 mmol/L (22-28)
--- NOTE | 2017-11-06 23:37 | PN ---
DATE: 11/06/2017 LOCATION: 670, bed A. SUBJECTIVE: This is a 42-year-old female, seen and examined in the presence of her family at bedside . The patient had yesterday MRCP. The official report is seen. Drainage of the abdominal abscess took place as reported today. PHYSICAL EXAMINATION: GENERAL: A 42-year-old female. VITAL SIGNS: Afebrile with heart rate of 106, blood pressure 162/94. HEENT: Showed pale, dry oral mucous membrane. Nonicteric sclerae. LUNGS: Few scattered crepitation. Decreased air entry at bases. HEART: Positive S1 and S2 with increased rate. ABDOMEN: Soft with mild generalized tenderness. No mass or organomegaly. No rebound tenderness or guarding. It has to be mentioned that clean abdominal dressing post surgically seen in place. EXTREMITIES: With edematous changes. No clubbing or cyanosis. NEUROLOGIC: No reported new neurological deficits, sensory or motor. IMPRESSION: 1. Biliary leak with intraperitoneal biliary abscess formation. 2. Biliary ascites. 3. Status post endoscopic retrograde cholangiopancreatography with biliary stent insertion. 4. Exploratory laparotomy with drainage of intraperitoneal abscess formation. 5. Anemia most likely secondary to above. SUGGESTIONS: 1. Continue current management. 2. No aggressive GI workup in the meantime at this point. 3. Further recommendation to follow. 4. The patient may need central hyperalimentation. Thor Davenport MD
[2017-11-07] MEDS: HYDROmorphone 1 mg/ml ISec IVP PRN ×5 (00:49→20:39)
[2017-11-07] MEDS: Ciprofloxacin 400mg/200ml D5W 400 MG/200 ML BAG IVPB SCH ×2 (00:51→13:12)
[2017-11-07] MEDS: metroNIDAZOLE IV 500 mg/100 ml 500 MG/100 ML BAG IVPB SCH ×3 (04:30→20:38)
--- NOTE | 2017-11-07 07:00 | CARD ---
APPROVED REPORT Date of service: 11/05/2017 EKG Measurement Heart [id number] 126P50 [id number] <Conclusion> Sinus tachycardia Otherwise normal ECG
[2017-11-07 07:27] LABS: BASO % 0.1 % (0.0-2.0); HEMOGLOBIN 9.5 g/dL (11.0-16.0); LYMPH # 1.7 K/uL (1.0-4.3); LYMPH % 10.7 % (20.0-40.0); MEAN CELL VOLUME 74.7 fL (81.0-99.0); MEAN CORPUSCULAR HEMOGLOBIN 24.3 pg (27.0-31.0); MEAN CORPUSCULAR HGB CONC 32.5 g/dL (33.0-37.0); MEAN PLATELET VOLUME 7.7 fL (7.2-11.7); MONO % 6.2 % (0.0-10.0); NEUT # 13.2 K/uL (1.8-7.0); NRBC % 0.1 % (0.0-2.0); RBC 3.93 Mil/uL (3.80-5.20); RED CELL DISTRIBUTION WIDTH 19.1 % (11.5-14.5); WHITE BLOOD COUNT 15.9 K/uL (4.8-10.8)
[2017-11-07 07:35] LABS: ALB/GLOB RATIO 0.7 (1.0-2.1); ALBUMIN 2.4 g/dL (3.5-5.0); ALT/SGPT 23 U/L (9-52); AST/SGOT 21 U/L (14-36); BLOOD UREA NITROGEN 16 mg/dL (7-17); CALCIUM 7.7 mg/dl (8.6-10.4); GFR NON-AFRICAN AMERICAN > 60
--- NOTE | 2017-11-07 08:35 | CP.PCM.PN ---
Subjective - Date & Time of Evaluation Date of Evaluation: 11/07/17 Time of Evaluation: 07:00 - Subjective Subjective: Patient seen and examined. Overnight HR at ~170s, BP 95/66. Given 2L bolus, responded to fluid challenge. Patient reported being anxious about the outcome of her surgery. Currently states she feels much better. UOP over night 200ccs. 190cc bilious output from RUQ and 70cc biliopurulent output from midline drain. Objective - Vital Signs/Intake and Output Vital Signs (last 24 hours): Temp Pulse Resp BP Pulse Ox 97.4 F L 113 H 20 145/91 H 97 11/07/17 06:45 11/07/17 06:45 11/07/17 06:45 11/07/17 06:45 11/07/17 06:45 Intake and Output: 11/07/17 11/07/17 06:59 18:59 Intake Total 4605 Output Total 360 Balance 4245 - Medications Medications: Current Medications Acetaminophen (Tylenol 650 Mg Supp) 650 mg [place] Q4 PRN PRN Reason: Fever >100.4 F Last Admin: 11/03/17 08:29 Dose: 650 mg Al Hydrox/Mg Hydrox/Simethicone (Maalox 30 Ml) 30 ml PO Q6 PRN PRN Reason: Dyspepsia Last Admin: 11/05/17 16:36 Dose: 30 ml Benzocaine/Menthol (Cepacol Sore Throat) 1 lisa MT Q2H PRN PRN Reason: Sore Throat Enoxaparin Sodium (Lovenox) 30 mg SC DAILY [facility] Last Admin: 11/06/17 10:07 Dose: Not Given Hydromorphone HCl (Dilaudid) 1 mg IVP Q3H PRN PRN Reason: Pain, severe (8-10) Last Admin: 11/07/17 08:03 Dose: 1 mg Gentamicin Sulfate 80 mg/ (Sodium Chloride) 102 mls @ 102 mls/hr IVPB Q8 [facility] Last Admin: 11/07/17 05:55 Dose: 102 mls/hr Ciprofloxacin (Cipro 400mg/200ml Dsw) 400 mg in 200 mls @ 133 mls/hr IVPB Q12H [facility] PRN Reason: Protocol Last Admin: 11/07/17 00:51 Dose: 133 mls/hr Metronidazole (Flagyl) 500 mg in 100 mls @ 100 mls/hr IVPB Q8H [facility] PRN Reason: Protocol Last Admin: 11/07/17 04:30 Dose: 100 mls/hr Potassium Chloride/Dextrose/Sod Cl (Potassium Chl 40 Meq In D5-1/2ns) 1,000 mls @ 125 mls/hr IV .Q8H [facility] Last Admin: 11/06/17 22:59 Dose: 125 mls/hr Ondansetron HCl (Zofran Inj) 4 mg IVP Q4 PRN PRN Reason: Nausea/Vomiting Last Admin: 11/05/17 19:49 Dose: 4 mg - Labs Labs: 11/07/17 07:11 11/07/17 07:11 PT 17.4 SECONDS (9.7-12.2) H 11/06/17 21:38 INR 1.6 11/06/17 21:38 APTT 35 SECONDS (21-34) H 11/06/17 21:38 - Constitutional Appears: No Acute Distress - Head Exam Head Exam: NORMOCEPHALIC - Eye Exam Eye Exam: EOMI, Normal appearance - ENT Exam ENT Exam: Mucous Membranes Moist - Respiratory Exam Respiratory Exam: NORMAL BREATHING PATTERN - Cardiovascular Exam Cardiovascular Exam: Tachycardia, +S1, +S2 - GI/Abdominal Exam GI & Abdominal Exam: Soft - Neurological Exam Neurological Exam: Alert, Awake, Oriented x3 - Psychiatric Exam Psychiatric exam: Normal Mood - Skin Skin Exam: Dry, Intact, Warm Assessment and Plan - Assessment and Plan (Free Text) Assessment: 42F with intraabdominal collections s/p laparoscopic converted to open abdominal drainage POD 1 Plan: NPO with ice chips IVF
[2017-11-07 09:20] LABS: LIPASE 11 U/L (23-300)
--- NOTE | 2017-11-07 13:47 | CP.PCM.PN ---
Subjective - Date & Time of Evaluation Date of Evaluation: 11/07/17 Time of Evaluation: 13:40 - Subjective Subjective: dictated Objective - Vital Signs/Intake and Output Vital Signs (last 24 hours): Temp Pulse Resp BP Pulse Ox 98.5 F 114 H 20 144/81 94 L 11/07/17 07:30 11/07/17 07:30 11/07/17 07:30 11/07/17 07:30 11/07/17 09:09 Intake and Output: 11/07/17 11/07/17 06:59 18:59 Intake Total 4605 700 Output Total 360 Balance 4245 700 - Medications Medications: Current Medications Acetaminophen (Tylenol 650 Mg Supp) 650 mg [place] Q4 PRN PRN Reason: Fever >100.4 F Last Admin: 11/03/17 08:29 Dose: 650 mg Al Hydrox/Mg Hydrox/Simethicone (Maalox 30 Ml) 30 ml PO Q6 PRN PRN Reason: Dyspepsia Last Admin: 11/05/17 16:36 Dose: 30 ml Benzocaine/Menthol (Cepacol Sore Throat) 1 lisa MT Q2H PRN PRN Reason: Sore Throat Enoxaparin Sodium (Lovenox) 30 mg SC DAILY [facility] Last Admin: 11/06/17 10:07 Dose: Not Given Hydromorphone HCl (Dilaudid) 1 mg IVP Q3H PRN PRN Reason: Pain, severe (8-10) Last Admin: 11/07/17 12:45 Dose: 1 mg Gentamicin Sulfate 80 mg/ (Sodium Chloride) 102 mls @ 102 mls/hr IVPB Q8 [facility] Last Admin: 11/07/17 05:55 Dose: 102 mls/hr Ciprofloxacin (Cipro 400mg/200ml Dsw) 400 mg in 200 mls @ 133 mls/hr IVPB Q12H [facility] PRN Reason: Protocol Last Admin: 11/07/17 13:12 Dose: 133 mls/hr Metronidazole (Flagyl) 500 mg in 100 mls @ 100 mls/hr IVPB Q8H [facility] PRN Reason: Protocol Last Admin: 11/07/17 11:40 Dose: 100 mls/hr Potassium Chloride/Dextrose/Sod Cl (Potassium Chl 40 Meq In D5-1/2ns) 1,000 mls @ 125 mls/hr IV .Q8H [facility] Last Admin: 11/06/17 22:59 Dose: 125 mls/hr Ondansetron HCl (Zofran Inj) 4 mg IVP Q4 PRN PRN Reason: Nausea/Vomiting Last Admin: 11/05/17 19:49 Dose: 4 mg - Labs Labs: 11/07/17 07:11 11/07/17 07:11 PT 17.4 SECONDS (9.7-12.2) H 11/06/17 21:38 INR 1.6 11/06/17 21:38 APTT 35 SECONDS (21-34) H 11/06/17 21:38
[2017-11-07] MEDS: Potassium Chl 40 mEq in D5-1/2 1,000 ML IV SCH ×2 (20:40→23:23)
--- NOTE | 2017-11-07 21:34 | CARD ---
APPROVED REPORT Date of service: 11/06/2017 EKG Measurement Heart [id number] 126P49 [id number] <Conclusion> Sinus tachycardia Otherwise normal ECG
[2017-11-08] MEDS: HYDROmorphone 1 mg/ml ISec IVP PRN ×6 (00:24→21:29)
[2017-11-08] MEDS: Ciprofloxacin 400mg/200ml D5W 400 MG/200 ML BAG IVPB SCH ×2 (00:28→11:15)
--- NOTE | 2017-11-08 02:37 | PN ---
DATE: 11/07/2017 INFECTIOUS DISEASE FOLLOWUP SUBJECTIVE: The patient was seen today. She looks little comfortable than before. She just received pain meds as she fell asleep even while I was present. PHYSICAL EXAMINATION: VITAL SIGNS: T-max is 98, pulse is 100, blood pressure 154/101, respirations are 20. HEENT: Head is atraumatic, normocephalic. NECK: Supple. LUNGS: Clear. HEART: S1 and S2, tachy. ABDOMEN: Remains with fullness. She still has a drain which is draining from the biliary fossa, gallbladder fossa drain, and she had a surgery with Dr. Roche yesterday, and she told me that she tried to drain the intra-abdominal collections and she had to convert the laparoscopic to open drainage for retroperitoneal collections, and she thinks she got most of it, so we will continue antibiotics at this time and we will follow. EXTREMITIES: Remain with edema, however. LABORATORY DATA: She is n.p.o. White count today was 15.9, last night was 21; hemoglobin 9.5; hematocrit 29.4, she received probably blood; platelets are 525 today. There are no bands reported, but they did not do differential. I would be happy if that is no bandemia. BUN is 35, creatinine is 1. She is tolerating the medications. Liver enzymes are unremarkable at this time. ASSESSMENT AND PLAN: She is on Cipro, Flagyl and gentamicin at this time. We are continuing treatment for the intra-abdominal abscesses. The last body fluid was Proteus which was sensitive to Cipro, and this was from 11/02/2017. I am still waiting for operating room culture report from 11/06/2017. We will follow those also. The patient had cholecystectomy and post-cholecystectomy, she had a bile leak and bile leak related peritonitis. Had endoscopic retrograde cholangiopancreatography which also did not help and has still bite leak present and has intra-abdominal abscesses in spite of being treated with multiple antibiotic courses. We will follow. Juliet Vegas MD
[2017-11-08] MEDS: metroNIDAZOLE IV 500 mg/100 ml 500 MG/100 ML BAG IVPB SCH ×3 (04:27→21:30)
[2017-11-08 08:19] LABS: BASO # 0.1 K/uL (0.0-0.2); BASO % 0.5 % (0.0-2.0); HEMOGLOBIN 8.3 g/dL (11.0-16.0); LYMPH # 1.5 K/uL (1.0-4.3); LYMPH % 8.6 % (20.0-40.0); MEAN CELL VOLUME 73.6 fL (81.0-99.0); MEAN CORPUSCULAR HEMOGLOBIN 23.8 pg (27.0-31.0); MEAN CORPUSCULAR HGB CONC 32.3 g/dL (33.0-37.0); MEAN PLATELET VOLUME 7.7 fL (7.2-11.7); MONO # 1.5 K/uL (0.0-0.8); MONO % 8.6 % (0.0-10.0); NEUT % 82.3 % (50.0-75.0); PLATELET COUNT 478 K/uL (130-400); RBC 3.48 Mil/uL (3.80-5.20); RED CELL DISTRIBUTION WIDTH 19.7 % (11.5-14.5)
--- NOTE | 2017-11-08 09:03 | CP.PCM.PN ---
Subjective - Date & Time of Evaluation Date of Evaluation: 11/08/17 Time of Evaluation: 09:01 - Subjective Subjective: General surgery progress note for Dr. Wilber Mays, PGY-2 Pt S & E at bedside at 0650 Pt reports abdominal pain better with pain meds. Is bleching, having flatus. Denies N & V, F & C. RLQ ab drain with 100cc bilious output/24hrs RUQ ab drain with 70cc bilious output/24h Objective - Vital Signs/Intake and Output Vital Signs (last 24 hours): Temp Pulse Resp BP Pulse Ox 97.8 F 106 H 20 146/85 97 11/08/17 07:00 11/08/17 07:00 11/08/17 07:00 11/08/17 07:00 11/08/17 07:00 Intake and Output: 11/08/17 11/08/17 06:59 18:59 Intake Total 1760 Output Total 1340 Balance 420 - Medications Medications: Current Medications Acetaminophen (Tylenol 650 Mg Supp) 650 mg [place] Q4 PRN PRN Reason: Fever >100.4 F Last Admin: 11/03/17 08:29 Dose: 650 mg Al Hydrox/Mg Hydrox/Simethicone (Maalox 30 Ml) 30 ml PO Q6 PRN PRN Reason: Dyspepsia Last Admin: 11/05/17 16:36 Dose: 30 ml Benzocaine/Menthol (Cepacol Sore Throat) 1 lisa MT Q2H PRN PRN Reason: Sore Throat Enoxaparin Sodium (Lovenox) 30 mg SC DAILY [facility] Last Admin: 11/06/17 10:07 Dose: Not Given Hydromorphone HCl (Dilaudid) 1 mg IVP Q3H PRN PRN Reason: Pain, severe (8-10) Last Admin: 11/08/17 07:55 Dose: 1 mg Gentamicin Sulfate 80 mg/ (Sodium Chloride) 102 mls @ 102 mls/hr IVPB Q8 [facility] Last Admin: 11/08/17 05:42 Dose: 102 mls/hr Ciprofloxacin (Cipro 400mg/200ml Dsw) 400 mg in 200 mls @ 133 mls/hr IVPB Q12H [facility] PRN Reason: Protocol Last Admin: 11/08/17 00:28 Dose: 133 mls/hr Metronidazole (Flagyl) 500 mg in 100 mls @ 100 mls/hr IVPB Q8H [facility] PRN Reason: Protocol Last Admin: 11/08/17 04:27 Dose: 100 mls/hr Potassium Chloride/Dextrose/Sod Cl (Potassium Chl 40 Meq In D5-1/2ns) 1,000 mls @ 125 mls/hr IV .Q8H [facility] Last Admin: 11/07/17 23:23 Dose: Not Given Ondansetron HCl (Zofran Inj) 4 mg IVP Q4 PRN PRN Reason: Nausea/Vomiting Last Admin: 11/05/17 19:49 Dose: 4 mg - Labs Labs: 11/08/17 08:12 11/07/17 07:11 PT 17.4 SECONDS (9.7-12.2) H 11/06/17 21:38 INR 1.6 11/06/17 21:38 APTT 35 SECONDS (21-34) H 11/06/17 21:38 - Constitutional Appears: Non-toxic, No Acute Distress - Head Exam Head Exam: ATRAUMATIC, NORMAL INSPECTION, NORMOCEPHALIC - Eye Exam Eye Exam: EOMI, Normal appearance - ENT Exam ENT Exam: Mucous Membranes Moist, Normal Exam - Neck Exam Neck Exam: Full ROM, Normal Inspection - Respiratory Exam Respiratory Exam: NORMAL BREATHING PATTERN - Cardiovascular Exam Cardiovascular Exam: REGULAR RHYTHM, +S1, +S2 - GI/Abdominal Exam GI & Abdominal Exam: Distended (mild), Soft, Tenderness (over surgical site at midline). absent: Firm, Guarding, Rigid Additional comments: RUQ and RLQ with drains in place- bilious output to drains Dressing removed from midline incision Nik in place over midline incision - Extremities Exam Extremities Exam: Pedal Edema (bilateral) - Neurological Exam Neurological Exam: Alert, Awake, CN II-XII Intact, Oriented x3 - Psychiatric Exam Psychiatric exam: Normal Affect, Normal Mood - Skin Skin Exam: Dry, Normal Color, Warm Assessment and Plan - Assessment and Plan (Free Text) Assessment: 42F w/intra-abdominal collections s/p laparoscopic converted to open abdominal drainage POD#2 Plan: NPO TPN IVF Cont IV Abx Anti-emetic PRN Encourage IS use OOBTC PT/OT Ambulate with assistance MAIRA Mays, PGY-2
[2017-11-08 10:39] LABS: TOTAL CELLS COUNTED 100
[2017-11-08 10:45] LABS: ANISOCYTOSIS MODERATE; BANDS 19 % (0-2); LYMPHOCYTE 10 % (20-40); METAMYELOCYTE 1 % (0-0); MONOCYTE 8 % (0-10); NEUTROPHIL 62 % (50-75); PLATELET ESTIMATE SLIGHTLY INCREASED (NORMAL)
[2017-11-08 10:46] LABS: HYPOCHROMIC SLIGHT
[2017-11-08 12:11] LABS: BLOOD UREA NITROGEN 14 mg/dL (7-17); CALCIUM 8.1 mg/dl (8.6-10.4); GFR NON-AFRICAN AMERICAN > 60
[2017-11-08] MEDS: Potassium Chl 40 mEq in D5-1/2 1,000 ML IV SCH ×2 (13:00→23:00)
--- NOTE | 2017-11-08 15:55 | CP.PCM.PN ---
Subjective - Date & Time of Evaluation Date of Evaluation: 11/08/17 Time of Evaluation: 15:00 - Subjective Subjective: dictated Objective - Vital Signs/Intake and Output Vital Signs (last 24 hours): Temp Pulse Resp BP Pulse Ox 97.8 F 85 20 146/85 97 11/08/17 07:00 11/08/17 08:00 11/08/17 07:00 11/08/17 07:00 11/08/17 07:00 Intake and Output: 11/08/17 11/08/17 06:59 18:59 Intake Total 1760 Output Total 1340 Balance 420 - Medications Medications: Current Medications Acetaminophen (Tylenol 650 Mg Supp) 650 mg [place] Q4 PRN PRN Reason: Fever >100.4 F Last Admin: 11/03/17 08:29 Dose: 650 mg Al Hydrox/Mg Hydrox/Simethicone (Maalox 30 Ml) 30 ml PO Q6 PRN PRN Reason: Dyspepsia Last Admin: 11/05/17 16:36 Dose: 30 ml Benzocaine/Menthol (Cepacol Sore Throat) 1 lisa MT Q2H PRN PRN Reason: Sore Throat Enoxaparin Sodium (Lovenox) 30 mg SC DAILY [facility] Last Admin: 11/06/17 10:07 Dose: Not Given Hydromorphone HCl (Dilaudid) 1 mg IVP Q3H PRN PRN Reason: Pain, severe (8-10) Last Admin: 11/08/17 14:57 Dose: 1 mg Gentamicin Sulfate 80 mg/ (Sodium Chloride) 102 mls @ 102 mls/hr IVPB Q8 [facility] Last Admin: 11/08/17 05:42 Dose: 102 mls/hr Ciprofloxacin (Cipro 400mg/200ml Dsw) 400 mg in 200 mls @ 133 mls/hr IVPB Q12H [facility] PRN Reason: Protocol Last Admin: 11/08/17 11:15 Dose: 133 mls/hr Metronidazole (Flagyl) 500 mg in 100 mls @ 100 mls/hr IVPB Q8H [facility] PRN Reason: Protocol Last Admin: 11/08/17 12:30 Dose: 100 mls/hr Potassium Chloride/Dextrose/Sod Cl (Potassium Chl 40 Meq In D5-1/2ns) 1,000 mls @ 125 mls/hr IV .Q8H [facility] Last Admin: 11/08/17 13:00 Dose: 125 mls/hr Heparin Sodium (Porcine) 1,000 units/ Chromium/Copper/Manganese/Zinc 1 ml/Multivitamins/Vitamin C 10 ml/Amino Acids/Electrolytes/Dextrose 1,012 mls @ 83 mls/hr IV .[id number] ONE Stop: 11/09/17 06:11 Heparin Sodium (Porcine) 1,000 units/ Chromium/Copper/Manganese/Zinc 1 ml/ Amino Acids/Electrolytes/Dextrose 1,002 mls @ 83 mls/hr IV .Q12H5M ONE Stop: 11/09/17 18:04 Fat Emulsion Intravenous (Intralipid 20%) 500 mls @ 83 mls/hr IV ONCE ONE Stop: 11/09/17 00:01 Ondansetron HCl (Zofran Inj) 4 mg IVP Q4 PRN PRN Reason: Nausea/Vomiting Last Admin: 11/05/17 19:49 Dose: 4 mg - Labs Labs: 11/08/17 08:12 11/08/17 11:38 PT 17.4 SECONDS (9.7-12.2) H 11/06/17 21:38 INR 1.6 11/06/17 21:38 APTT 35 SECONDS (21-34) H 11/06/17 21:38
[2017-11-08] MEDS ORDERED: TPN#1 IV ONE (18:00)
[2017-11-08] MEDS ORDERED: Fat Emulsion 20% IV 500 ML IV ONE (18:00)
--- NOTE | 2017-11-08 19:16 | PN ---
DATE: 11/08/2017 SUBJECTIVE: The patient was seen today. She was more comfortable. She denied any pain. She has these drains, at least three of them there on the abdomen. She states she is passing gas when she sits up. No nausea, no vomiting reported. Abdomen looks like distended. PHYSICAL EXAMINATION: VITAL SIGNS: She is afebrile. T-max is 97.8, heart rate remains 106, blood pressure 146/85 and respirations are 20. HEENT: Head is atraumatic and normocephalic. NECK: Supple. LUNGS: Clear. HEART: S1 and S2 are tachycardic. ABDOMEN: Surgical scar is unremarkable and has drains present. EXTREMITIES: Remain with edema. She has CATHY stockings on at this time. LABORATORY DATA: White count is 17, hemoglobin 8.3, hematocrit 25.6, platelet count is 478, bands are 19, they were 28 day before. Chemistry shows sodium 141, potassium 4.2, chloride 101, anion gap is 9, BUN is 14 and creatinine is 0.6. Her CO2 is 35. ASSESSMENT AND PLAN: The last culture was on 11/02/2017 has Proteus, which was sensitive to Cipro and I had continued Flagyl, will renew these and also renew gentamicin till the bandemia comes down and we will follow with the surgeon. This patient is with multiple abscesses, status post bile leak and status post laparoscopic cholecystectomy in the past and she has severe bandemia, Proteus mirabilis and she had a procedure to redrain the retroperitoneal collections and now she is still n.p.o. Juliet Vegas MD
[2017-11-08] MEDS ORDERED: HYDROmorphone 0.5 mg/0.5 ml ISec IVP STA (22:25)
--- NOTE | 2017-11-08 22:59 | PN ---
DATE: 11/08/2017 LOCATION: 670, bed A. SUBJECTIVE: This is a 42-year-old female, seen and examined in rounds with intermittent period of abdominal pain postsurgically but less than before. The patient denied any recent episodes of nausea or vomiting but passes gas, no bowel movement yet. Abdominal drainage is still in place. The entire chart is reviewed including but not limited to the most recent lab and radiology study results, current and the previous medication lists, current and the previous medical events. LABORATORY DATA: The patient still has today leukocytosis of 17, hemoglobin 8.3, hematocrit 25.6 with low indices, highly suggestive of hypochromic microcytic anemia with platelet count of 478 with CO2 content of 35 indicative of respiratory alkalosis, blood glucose level 120, calcium 8.1. PHYSICAL EXAMINATION: GENERAL: A 42-year-old female. VITAL SIGNS: Afebrile with pulse of 90, respiratory rate 20 to 22, blood pressure of 160/86. HEENT: Showed pale, dry oral mucous membrane. Nonicteric sclerae. LUNGS: Few scattered crepitation. Decreased air entry at bases. HEART: Positive S1 and S2 with increased rate. ABDOMEN: Soft with slight distention, covered with clean dressing. EXTREMITIES: With lower extremities mild edematous changes. No clubbing or cyanosis. NEUROLOGIC: No reported new neurological deficits, sensory or motor. IMPRESSION: 1. Recent history of biliary leak with biliary peritonitis and abscess formation. 2. Status post endoscopic retrograde cholangiopancreatography with biliary stent insertion. 3. Hypochromic microcytic anemia. 4. Status post surgically drained abdominal abscess with exploratory laparotomy. SUGGESTIONS: 1. Continue current management. 2. Peripheral hyperalimentation. 3. The patient may repeat abdominopelvic CAT scan due to her leukocytosis. 4. Further recommendation to follow. Thor Davenport MD
[2017-11-09] MEDS: HYDROmorphone 1 mg/ml ISec IVP PRN ×6 (03:12→21:50)
[2017-11-09] MEDS: metroNIDAZOLE IV 500 mg/100 ml 500 MG/100 ML BAG IVPB SCH ×3 (03:30→20:44)
[2017-11-09] MEDS: Ciprofloxacin 400mg/200ml D5W 400 MG/200 ML BAG IVPB SCH ×2 (03:31→12:05)
--- NOTE | 2017-11-09 03:47 | OP ---
PROCEDURE DATE: 11/06/2017 SURGEON: Brant Roche MD MINE TECHNICIAN: Sorin Fernandes DO ANESTHESIA: General. ANESTHESIOLOGIST: Liborio Palacios CRNA PREOPERATIVE DIAGNOSIS: Intraabdominal collection, status post bile leak. POSTOPERATIVE DIAGNOSIS: Intraabdominal collection, status post bile leak. PROCEDURE: Laparoscopic and open drainage of retroperitoneal collection. DESCRIPTION OF OPERATION: With the patient in the supine position under adequate general anesthesia, the abdomen was prepped and draped in the usual sterile manner. The patient had a preexisting IR drain in the right upper quadrant which was prepped into the field. The patient was believed on preoperative imaging to have a collection in the right iliac fossa and a small incision was made in this area, taken down through the subcutaneous tissue, and the fascia was pierced into the peritoneum in this area. There was minimal drainage of some old bloody fluid and a Rod 12 mm trocar was placed and insufflation was performed at this site with CO2 to 15 cm water pressure. A scope was placed and there was noted to be no significant collection and difficult visualization up towards the area of the liver with no gross collections and no bile staining visualized on the surface of the visualized bowel. A 5 mm trocar was inserted, closed just above the umbilicus under direct vision, and attempt was made to manipulate the bile and identify a second collection which was suspected in the area surrounding the greater curvature of the stomach and this could not be identified laparoscopically due to bowel adhesions and decision was made to perform a mini laparotomy. The pneumoperitoneum was released and a supraumbilical midline incision was made, taken down through the subcutaneous tissue and the peritoneal cavity was usually entered in the midline aided by the pneumoperitoneum. Upon entering the peritoneal cavity, the stomach was easily palpated surrounding the nasal gastric tube and again no collection was identified either anterior or posterior to the area of the greater curvature of the stomach. There was marked thickening noted in the retroperitoneum where additional collections have been identified and the small bowel mesentery was gently dissected downward from the area of the ligament of Treitz at which point a small retroperitoneal collection was identified and entered with drainage of a moderate amount of milky and thicker purulent fluid, which was not foul smelling. The small cavity was suctioned and irrigated, and a 19-[place] James drain was positioned into this area and brought out through the right lower quadrant laparoscopic port site. Attempt was made at additional manipulation of the bowel, but due to marked adhesion formation and the absence of any visible intraperitoneal collection, this was abandoned and closure was performed with running suture of 0 Monocryl. The skin was closed with rei. Dry sterile dressings were applied. The patient tolerated the procedure well and transferred to the recovery room in stable condition. Estimated blood loss for the procedure was 100 mL. Brant Roche MD
[2017-11-09] MEDS ORDERED: TPN#2 IV ONE (06:00)
[2017-11-09] MEDS: Potassium Chl 40 mEq in D5-1/2 1,000 ML IV SCH ×3 (06:01→14:12)
[2017-11-09 06:52] LABS: BASO % 0.1 % (0.0-2.0); HEMOGLOBIN 8.6 g/dL (11.0-16.0); LYMPH # 1.9 K/uL (1.0-4.3); MEAN CELL VOLUME 72.8 fL (81.0-99.0); MEAN CORPUSCULAR HEMOGLOBIN 23.7 pg (27.0-31.0); MEAN CORPUSCULAR HGB CONC 32.5 g/dL (33.0-37.0); MEAN PLATELET VOLUME 7.7 fL (7.2-11.7); MONO # 1.3 K/uL (0.0-0.8); MONO % 6.3 % (0.0-10.0); NEUT # 17.8 K/uL (1.8-7.0); NEUT % 84.6 % (50.0-75.0); PLATELET COUNT 480 K/uL (130-400); RBC 3.63 Mil/uL (3.80-5.20); RED CELL DISTRIBUTION WIDTH 20.1 % (11.5-14.5); WHITE BLOOD COUNT 21.1 K/uL (4.8-10.8)
[2017-11-09 07:59] LABS: ALB/GLOB RATIO 0.7 (1.0-2.1); ALBUMIN 2.4 g/dL (3.5-5.0); ALT/SGPT 20 U/L (9-52); AST/SGOT 44 U/L (14-36); BLOOD UREA NITROGEN 9 mg/dL (7-17); GFR NON-AFRICAN AMERICAN > 60
[2017-11-09 11:04] LABS: ANISOCYTOSIS MODERATE; BANDS 8 % (0-2); LYMPHOCYTE 8 % (20-40); MONOCYTE 5 % (0-10); NEUTROPHIL 78 % (50-75); PLATELET ESTIMATE SLIGHTLY INCREASED (NORMAL); REACTIVE LYMPHOCYTES 1 % (0-0); TOTAL CELLS COUNTED 100; TOXIC GRANULATION PRESENT
[2017-11-09 11:05] LABS: HYPOCHROMIC SLIGHT; LARGE PLATELETS PRESENT; MICROCYTOSIS SLIGHT; POLYCHROMIC SLIGHT
--- NOTE | 2017-11-09 12:11 | PN ---
DATE: 11/09/2017 LOCATION: 670, bed A. SUBJECTIVE: This is a 42 years old female with status post exploratory laparotomy seen and examined in rounds with reported less abdominal pain and less abdominal drainage amount. No reported active bleeding, the entire chart is reviewed including but not limited to the most recent lab and radiology study results, current and the previous medication list, current and the previous medical events and today's lab showed leukocytosis of 21.1, hemoglobin 8.6, hematocrit 26.4 with low indices is highly suggestive of hypochromic microcytic anemia. The patient is still have thrombocytosis of 480. Rest of the lab result is still pending. PHYSICAL EXAMINATION: GENERAL: A 42 years old female. VITAL SIGNS: Afebrile with pulse of 90, respiratory rate 20-22, blood pressure 152/90. HEENT: Showed pale dry oral mucous membrane. Nonicteric sclerae. LUNGS: Few scattered crepitation. Decreased air entry at bases. HEART: Positive S1 and S2. ABDOMEN: Soft with slight distention and generalized tenderness covered with clean dressing. EXTREMITIES: Lower extremity edematous changes. No clubbing or cyanosis. NEUROLOGIC: No reported new neurological deficits, sensory or motor. IMPRESSION: 1. Status post exploratory laparotomy with drainage of intraperitoneal abscess formation. 2. Hypochromic microcytic anemia. 3. Recent history of cholecystectomy, biliary leak, ERCP with status post biliary stent insertion. SUGGESTIONS: 1. Agree with your plan. 2. Stool for occult blood as well as stool for C. diff. 3. Blood cultures x2. 4. Rest as per the [employer] delivery consultant. Further recommendation to follow. Thor Davenport MD
[2017-11-09] MEDS ORDERED: TPN IV SCH (18:00)
--- NOTE | 2017-11-09 18:58 | CP.PCM.PN ---
Subjective - Date & Time of Evaluation Date of Evaluation: 11/09/17 Time of Evaluation: 17:15 - Subjective Subjective: dictated Objective - Vital Signs/Intake and Output Vital Signs (last 24 hours): Temp Pulse Resp BP Pulse Ox 97.1 F L 100 H 20 170/106 H 99 11/09/17 15:49 11/09/17 15:49 11/09/17 15:49 11/09/17 15:49 11/09/17 15:49 Intake and Output: 11/09/17 11/09/17 06:59 18:59 Intake Total 800 800 Output Total 470 1095 Balance 330 -295 - Medications Medications: Current Medications Acetaminophen (Tylenol 650 Mg Supp) 650 mg OR Q4 PRN PRN Reason: Fever >100.4 F Last Admin: 11/03/17 08:29 Dose: 650 mg Al Hydrox/Mg Hydrox/Simethicone (Maalox 30 Ml) 30 ml PO Q6 PRN PRN Reason: Dyspepsia Last Admin: 11/05/17 16:36 Dose: 30 ml Benzocaine/Menthol (Cepacol Sore Throat) 1 lisa MT Q2H PRN PRN Reason: Sore Throat Enoxaparin Sodium (Lovenox) 30 mg SC DAILY [facility] Last Admin: 11/06/17 10:07 Dose: Not Given Hydromorphone HCl (Dilaudid) 1 mg IVP Q3H PRN PRN Reason: Pain, severe (8-10) Last Admin: 11/09/17 18:21 Dose: 1 mg Gentamicin Sulfate 80 mg/ (Sodium Chloride) 102 mls @ 102 mls/hr IVPB Q8 [facility] Last Admin: 11/09/17 14:10 Dose: 102 mls/hr Ciprofloxacin (Cipro 400mg/200ml Dsw) 400 mg in 200 mls @ 133 mls/hr IVPB Q12H [facility] PRN Reason: Protocol Last Admin: 11/09/17 12:05 Dose: 133 mls/hr Metronidazole (Flagyl) 500 mg in 100 mls @ 100 mls/hr IVPB Q8H [facility] PRN Reason: Protocol Last Admin: 11/09/17 12:30 Dose: 100 mls/hr Potassium Chloride/Dextrose/Sod Cl (Potassium Chl 40 Meq In D5-1/2ns) 1,000 mls @ 125 mls/hr IV .Q8H [facility] Last Admin: 11/09/17 14:12 Dose: 125 mls/hr Heparin Sodium (Porcine) 1,000 units/ Multivitamins/Vitamin C 10 ml/ Chromium/ Copper/Manganese/Zinc 1 ml/ Amino Acids/Electrolytes/Dextrose 1,012 mls @ 83 mls/hr IV .[id number] [facility] Stop: 11/10/17 06:00 Heparin Sodium (Porcine) 1,000 units/ Chromium/Copper/Manganese/Zinc 1 ml/ Amino Acids/Electrolytes/Dextrose 1,002 mls @ 83 mls/hr IV .Q12H5M [facility] Ondansetron HCl (Zofran Inj) 4 mg IVP Q4 PRN PRN Reason: Nausea/Vomiting Last Admin: 11/05/17 19:49 Dose: 4 mg - Labs Labs: 11/09/17 06:33 11/09/17 06:33 PT 17.4 SECONDS (9.7-12.2) H 11/06/17 21:38 INR 1.6 11/06/17 21:38 APTT 35 SECONDS (21-34) H 11/06/17 21:38
[2017-11-10] MEDS: Ciprofloxacin 400mg/200ml D5W 400 MG/200 ML BAG IVPB SCH ×2 (01:00→12:00)
[2017-11-10] MEDS: HYDROmorphone 1 mg/ml ISec IVP PRN ×7 (01:08→22:08)
[2017-11-10] MEDS: metroNIDAZOLE IV 500 mg/100 ml 500 MG/100 ML BAG IVPB SCH ×3 (04:24→21:22)
--- NOTE | 2017-11-10 06:29 | CP.PCM.PN ---
Subjective - Date & Time of Evaluation Date of Evaluation: 11/10/17 Time of Evaluation: 06:27 - Subjective Subjective: General Surgery Progress Note: Dr Roche Pt S&E. NAEO. Now on CLD and tolerating. Remains on TPN. Has been OOB more but still not ambulating much independently. Drain output declining. Denies f/ c, n/v. Still with LE edema. Got lasix yesterday x 2 Objective - Vital Signs/Intake and Output Vital Signs (last 24 hours): Temp Pulse Resp BP Pulse Ox 99 F 99 H 20 159/107 H 100 11/09/17 23:35 11/10/17 04:00 11/09/17 23:35 11/09/17 23:35 11/09/17 23:35 Intake and Output: 11/09/17 11/10/17 18:59 06:59 Intake Total 800 1278 Output Total 1095 3325 Balance -295 -5270 - Medications Medications: Current Medications Acetaminophen (Tylenol 650 Mg Supp) 650 mg AL Q4 PRN PRN Reason: Fever >100.4 F Last Admin: 11/03/17 08:29 Dose: 650 mg Al Hydrox/Mg Hydrox/Simethicone (Maalox 30 Ml) 30 ml PO Q6 PRN PRN Reason: Dyspepsia Last Admin: 11/05/17 16:36 Dose: 30 ml Benzocaine/Menthol (Cepacol Sore Throat) 1 lisa MT Q2H PRN PRN Reason: Sore Throat Enoxaparin Sodium (Lovenox) 30 mg SC DAILY [facility] Last Admin: 11/06/17 10:07 Dose: Not Given Hydromorphone HCl (Dilaudid) 1 mg IVP Q3H PRN PRN Reason: Pain, severe (8-10) Last Admin: 11/10/17 04:20 Dose: 1 mg Gentamicin Sulfate 80 mg/ (Sodium Chloride) 102 mls @ 102 mls/hr IVPB Q8 [facility] Last Admin: 11/09/17 21:28 Dose: 102 mls/hr Ciprofloxacin (Cipro 400mg/200ml Dsw) 400 mg in 200 mls @ 133 mls/hr IVPB Q12H [facility] PRN Reason: Protocol Last Admin: 11/10/17 01:00 Dose: 133 mls/hr Metronidazole (Flagyl) 500 mg in 100 mls @ 100 mls/hr IVPB Q8H [facility] PRN Reason: Protocol Last Admin: 11/10/17 04:24 Dose: 100 mls/hr Heparin Sodium (Porcine) 1,000 units/ Chromium/Copper/Manganese/Zinc 1 ml/ Amino Acids/Electrolytes/Dextrose 1,002 mls @ 83 mls/hr IV .Q12H5M [facility] Ondansetron HCl (Zofran Inj) 4 mg IVP Q4 PRN PRN Reason: Nausea/Vomiting Last Admin: 11/05/17 19:49 Dose: 4 mg - Labs Labs: 11/09/17 06:33 11/09/17 06:33 PT 17.4 SECONDS (9.7-12.2) H 11/06/17 21:38 INR 1.6 11/06/17 21:38 APTT 35 SECONDS (21-34) H 11/06/17 21:38 - Constitutional Appears: Non-toxic - ENT Exam ENT Exam: Mucous Membranes Moist - Respiratory Exam Respiratory Exam: absent: Respiratory Distress - Cardiovascular Exam Cardiovascular Exam: Tachycardia - GI/Abdominal Exam GI & Abdominal Exam: Soft. absent: Distended, Firm, Tenderness Additional comments: drains with 400/70 out - Neurological Exam Neurological Exam: Alert, Awake, Oriented x3 - Psychiatric Exam Psychiatric exam: Normal Affect, Normal Mood Assessment and Plan - Assessment and Plan (Free Text) Assessment: 42F with bile leak Plan: cont TPN remain on CLD pt needs to ambulate more - aggressive PT will give another dose of lasix today will d/w Dr Melchor Moody, PGY4
[2017-11-10] MEDS: TPN IV SCH ×3 (06:39→18:26)
[2017-11-10 08:01] LABS: BASO # 0.1 K/uL (0.0-0.2); BASO % 0.3 % (0.0-2.0); HEMOGLOBIN 8.4 g/dL (11.0-16.0); LYMPH # 1.9 K/uL (1.0-4.3); LYMPH % 9.4 % (20.0-40.0); MEAN CELL VOLUME 73.6 fL (81.0-99.0); MEAN CORPUSCULAR HEMOGLOBIN 23.5 pg (27.0-31.0); MEAN PLATELET VOLUME 8.2 fL (7.2-11.7); MONO # 1.3 K/uL (0.0-0.8); MONO % 6.3 % (0.0-10.0); NEUT # 17.1 K/uL (1.8-7.0); NRBC % 0.1 % (0.0-2.0); PLATELET COUNT 454 K/uL (130-400); RBC 3.58 Mil/uL (3.80-5.20); RED CELL DISTRIBUTION WIDTH 19.8 % (11.5-14.5); WHITE BLOOD COUNT 20.4 K/uL (4.8-10.8)
[2017-11-10 08:25] LABS: ALB/GLOB RATIO 0.7 (1.0-2.1); ALBUMIN 2.4 g/dL (3.5-5.0); ALT/SGPT 19 U/L (9-52); AST/SGOT 14 U/L (14-36); BLOOD UREA NITROGEN 9 mg/dL (7-17); CALCIUM 8.2 mg/dl (8.6-10.4); GFR NON-AFRICAN AMERICAN > 60
[2017-11-10 10:35] LABS: ANISOCYTOSIS MODERATE; BANDS 8 % (0-2); HYPOCHROMIC SLIGHT; LYMPHOCYTE 10 % (20-40); MONOCYTE 5 % (0-10); NEUTROPHIL 77 % (50-75); PLATELET ESTIMATE SLIGHTLY INCREASED (NORMAL); TOTAL CELLS COUNTED 100
[2017-11-10] MEDS: Enoxaparin 30 mg Syringe SC SCH (11:18)
[2017-11-10] MEDS ORDERED: HYDROmorphone 0.5 mg/0.5 ml ISec IVP ONE (11:45)
[2017-11-10] MEDS: Potassium Ch 20mEq in D5-1/2NS 1,000 ML IV SCH ×2 (12:00→21:25)
[2017-11-10] MEDS ORDERED: Fat Emulsion 20% IV 500 ML IV ONE ×2 (14:00→18:00)
--- NOTE | 2017-11-10 14:33 | PN ---
DATE: 11/10/2017 LOCATION: 670, bed A. SUBJECTIVE: This is a 42-year-old female seen early in rounds without significant clinical changes, but recurrent abdominal pain despite less than before with mild abdominal distention and edematous changes of the lower extremities more recently. The entire chart is reviewed including but not limited to the most recent lab and radiology study results. Case discussed with the staff at length. Today's lab showed leukocytosis of 20.4, hemoglobin 8.4, hematocrit 26.3 with low indices highly suggestive of hypochromic microcytic anemia with thrombocytosis, potassium 3.5, CO2 content 37 indicative of respiratory alkalosis with blood glucose level 124, calcium 8.2, magnesium 1.5, albumin 2.4 with low total protein of 6. PHYSICAL EXAMINATION: GENERAL: A 42-year-old female. VITAL SIGNS: Afebrile with pulse of 96, respiratory rate 20 to 22, blood pressure of 150/100. HEENT: Showed pale, dry oral mucous membrane. Nonicteric sclerae. LUNGS: Few scattered crepitation. Decreased air entry at bases. HEART: Positive S1 and S2 with increased rate. ABDOMEN: Soft with mild generalized tenderness. No mass or organomegaly. No rebound tenderness or guarding. The patient still has abdominal drainage, but less than before, gradually declining. EXTREMITIES: With lower extremity edematous changes. No clubbing or cyanosis. NEUROLOGICAL: No reported new neurological deficits, sensory or motor. SKIN: Abdominal dressing is in place and appears to be clean and dry. IMPRESSION: 1. Status post exploratory laparotomy. 2. Biliary leak with biliary peritonitis and biliary abscess formation. 3. Poorly-controlled hypertension. 4. Malnutrition with hypoalbuminemia. SUGGESTIONS: 1. Agree with your plan. 2. Repeat stool for occult blood as well as for C. diff toxin. 3. Repeat blood cultures x2. 4. Further recommendation to follow. Thor Davenport MD
[2017-11-10] MEDS ORDERED: TPN #5 IV ONE (18:00)
[2017-11-11] MEDS: Ciprofloxacin 400mg/200ml D5W 400 MG/200 ML BAG IVPB SCH ×2 (01:00→12:00)
[2017-11-11] MEDS: HYDROmorphone 1 mg/ml ISec IVP PRN ×6 (01:35→19:42)
[2017-11-11] MEDS: metroNIDAZOLE IV 500 mg/100 ml 500 MG/100 ML BAG IVPB SCH ×3 (03:30→20:31)
[2017-11-11] MEDS ORDERED: TPN #6 IV ONE (06:15)
[2017-11-11 06:38] LABS: BASO % 0.2 % (0.0-2.0); HEMOGLOBIN 8.6 g/dL (11.0-16.0); LYMPH # 1.4 K/uL (1.0-4.3); LYMPH % 7.6 % (20.0-40.0); MEAN CELL VOLUME 72.9 fL (81.0-99.0); MEAN CORPUSCULAR HEMOGLOBIN 23.4 pg (27.0-31.0); MEAN CORPUSCULAR HGB CONC 32.1 g/dL (33.0-37.0); MEAN PLATELET VOLUME 7.6 fL (7.2-11.7); MONO # 1.3 K/uL (0.0-0.8); MONO % 6.9 % (0.0-10.0); NEUT # 16.2 K/uL (1.8-7.0); NEUT % 85.3 % (50.0-75.0); PLATELET COUNT 470 K/uL (130-400); RBC 3.67 Mil/uL (3.80-5.20); RED CELL DISTRIBUTION WIDTH 20.2 % (11.5-14.5)
[2017-11-11 07:04] LABS: ALB/GLOB RATIO 0.7 (1.0-2.1); ALBUMIN 2.4 g/dL (3.5-5.0); ALT/SGPT 10 U/L (9-52); AST/SGOT 12 U/L (14-36); BLOOD UREA NITROGEN 8 mg/dL (7-17); GFR NON-AFRICAN AMERICAN > 60
[2017-11-11 07:55] LABS: BANDS 2 % (0-2); LYMPHOCYTE 3 % (20-40); MONOCYTE 4 % (0-10); NEUTROPHIL 91 % (50-75); TOTAL CELLS COUNTED 100
[2017-11-11 07:56] LABS: ANISOCYTOSIS SLIGHT; HYPOCHROMIC SLIGHT; PLATELET ESTIMATE NORMAL (NORMAL); POIKILOCYTOSIS SLIGHT; TARGET CELLS SLIGHT
--- NOTE | 2017-11-11 09:05 | PN ---
DATE: 11/09/2017 SUBJECTIVE: The patient is still n.p.o. She was in bed. She denied extreme pains in the abdomen, but she states she is not passing gas as of yet, and she remains bed bound and has been getting TPN through the PICC line, but she states it was one lumen so they are to hold it to give her antibiotics. PHYSICAL EXAMINATION: GENERAL: She is otherwise afebrile. VITAL SIGNS: T-max is 97.1; heart rate of 100; blood pressure was raised to 170/106, is being monitored; respirations are 20. HEENT: Head is atraumatic and normocephalic. She is pale. NECK: Supple. LUNGS: Clear. HEART: S1 and S2 regular. ABDOMEN: Soft. Nontender. Her belly remains distended. EXTREMITIES: Have edema. Her white count went up to 21.1 today, hemoglobin is 8.6, hematocrit 26.4, platelet count is 480. White count is elevated, but bands are 8, segs are 78, CO2 is 35, BUN is 9. She was on Cipro, Flagyl, and gentamicin, and I am surprised that her white count went up. She still complains that she is not passing gas at this time. Since her white count is going up, I may have to see this Proteus. She had Proteus before which was Cipro sensitive or ertapenem sensitive, but it was resistant to other organisms. It was sensitive to Zosyn, but little less than Cipro. We will need to repeat the count tomorrow. If it continues to increase, I think we should get another CAT scan done tomorrow morning to see what is happening with her belly. I would repeat the CBC with diff tomorrow and lactate level. Nexium is already there, and also procalcitonin level in the morning to see where we stand with, and we will continue present treatment because clinically she looked the same, but white count has gone up, and she is status post another laparoscopy. She had a laparotomy again for draining the intraabdominal abscesses. We may need to see if she is forming more abscesses and having more bile leak. She still has drainage tubes on both sides as such. Juliet Vegas MD [facility] # [id number]
[2017-11-11] MEDS: Enoxaparin 30 mg Syringe SC SCH (10:52)
--- NOTE | 2017-11-11 16:10 | CP.PCM.PN ---
Subjective - Date & Time of Evaluation Date of Evaluation: 11/11/17 Time of Evaluation: 16:00 - Subjective Subjective: dictated Objective - Vital Signs/Intake and Output Vital Signs (last 24 hours): Temp Pulse Resp BP Pulse Ox 97.8 F 101 H 20 136/87 100 11/11/17 07:55 11/11/17 07:55 11/11/17 07:55 11/11/17 07:55 11/11/17 07:55 Intake and Output: 11/11/17 11/11/17 06:59 18:59 Intake Total 1000 Output Total 710 900 Balance 290 -900 - Medications Medications: Current Medications Acetaminophen (Tylenol 650 Mg Supp) 650 mg [place] Q4 PRN PRN Reason: Fever >100.4 F Last Admin: 11/03/17 08:29 Dose: 650 mg Al Hydrox/Mg Hydrox/Simethicone (Maalox 30 Ml) 30 ml PO Q6 PRN PRN Reason: Dyspepsia Last Admin: 11/05/17 16:36 Dose: 30 ml Benzocaine/Menthol (Cepacol Sore Throat) 1 lisa MT Q2H PRN PRN Reason: Sore Throat Docusate Sodium (Colace) 100 mg PO TID [facility] Last Admin: 11/11/17 14:09 Dose: Not Given Enoxaparin Sodium (Lovenox) 30 mg SC DAILY [facility] Last Admin: 11/11/17 10:52 Dose: 30 mg Hydromorphone HCl (Dilaudid) 1 mg IVP Q3H PRN PRN Reason: Pain, severe (8-10) Last Admin: 11/11/17 12:30 Dose: 1 mg Gentamicin Sulfate 80 mg/ (Sodium Chloride) 102 mls @ 102 mls/hr IVPB Q8 [facility] Last Admin: 11/11/17 13:50 Dose: 102 mls/hr Ciprofloxacin (Cipro 400mg/200ml Dsw) 400 mg in 200 mls @ 133 mls/hr IVPB Q12H [facility] PRN Reason: Protocol Last Admin: 11/11/17 12:00 Dose: 133 mls/hr Metronidazole (Flagyl) 500 mg in 100 mls @ 100 mls/hr IVPB Q8H [facility] PRN Reason: Protocol Last Admin: 11/11/17 12:25 Dose: 100 mls/hr Parenteral Electrolytes 20 ml/Chromium/Copper/Manganese/Zinc 1 ml/ Heparin Sodium ( Porcine) 1,000 units/ Amino Acids 1,022 mls @ 83 mls/hr IV .[id number] [facility] Stop: 11/11/17 18:33 Last Admin: 11/11/17 07:24 Dose: 83 mls/hr Chromium/Copper/Manganese/Zinc 1 ml/ Heparin Sodium (Porcine ) 1,000 units/ Multivitamins/Vitamin C 10 ml/ Amino Acids/Electrolytes/Dextrose 1,012 mls @ 83 mls/hr IV .[id number] [facility] Stop: 11/12/17 06:00 Chromium/Copper/Manganese/Zinc 1 ml/ Heparin Sodium (Porcine ) 1,000 units/ Parenteral Electrolytes 20 ml/ Amino Acids 1,022 mls @ 83 mls/hr IV .[id number] [facility] Stop: 11/12/17 18:00 Ondansetron HCl (Zofran Inj) 4 mg IVP Q4 PRN PRN Reason: Nausea/Vomiting Last Admin: 11/11/17 12:35 Dose: 4 mg - Labs Labs: 11/11/17 06:29 11/11/17 06:29 PT 17.4 SECONDS (9.7-12.2) H 11/06/17 21:38 INR 1.6 11/06/17 21:38 APTT 35 SECONDS (21-34) H 11/06/17 21:38
--- NOTE | 2017-11-11 16:11 | CP.PCM.PN ---
Subjective - Date & Time of Evaluation Date of Evaluation: 11/11/17 Time of Evaluation: 09:05 - Subjective Subjective: General surgery progress note for Dr. Roche-Carmita Mays, PGY-2 Pt S & E at bedside at 0630 Pt reports abdomen "feels weird" - no actual pain. Denies N & V, F & C. Objective - Vital Signs/Intake and Output Vital Signs (last 24 hours): Temp Pulse Resp BP Pulse Ox 97.8 F 101 H 20 136/87 100 11/11/17 07:55 11/11/17 07:55 11/11/17 07:55 11/11/17 07:55 11/11/17 07:55 Intake and Output: 11/11/17 11/11/17 06:59 18:59 Intake Total 1000 Output Total 710 900 Balance 290 -900 - Medications Medications: Current Medications Acetaminophen (Tylenol 650 Mg Supp) 650 mg [place] Q4 PRN PRN Reason: Fever >100.4 F Last Admin: 11/03/17 08:29 Dose: 650 mg Al Hydrox/Mg Hydrox/Simethicone (Maalox 30 Ml) 30 ml PO Q6 PRN PRN Reason: Dyspepsia Last Admin: 11/05/17 16:36 Dose: 30 ml Benzocaine/Menthol (Cepacol Sore Throat) 1 lisa MT Q2H PRN PRN Reason: Sore Throat Docusate Sodium (Colace) 100 mg PO TID [facility] Last Admin: 11/11/17 14:09 Dose: Not Given Enoxaparin Sodium (Lovenox) 30 mg SC DAILY [facility] Last Admin: 11/11/17 10:52 Dose: 30 mg Hydromorphone HCl (Dilaudid) 1 mg IVP Q3H PRN PRN Reason: Pain, severe (8-10) Last Admin: 11/11/17 12:30 Dose: 1 mg Gentamicin Sulfate 80 mg/ (Sodium Chloride) 102 mls @ 102 mls/hr IVPB Q8 [facility] Last Admin: 11/11/17 13:50 Dose: 102 mls/hr Ciprofloxacin (Cipro 400mg/200ml Dsw) 400 mg in 200 mls @ 133 mls/hr IVPB Q12H [facility] PRN Reason: Protocol Last Admin: 11/11/17 12:00 Dose: 133 mls/hr Metronidazole (Flagyl) 500 mg in 100 mls @ 100 mls/hr IVPB Q8H [facility] PRN Reason: Protocol Last Admin: 11/11/17 12:25 Dose: 100 mls/hr Parenteral Electrolytes 20 ml/Chromium/Copper/Manganese/Zinc 1 ml/ Heparin Sodium ( Porcine) 1,000 units/ Amino Acids 1,022 mls @ 83 mls/hr IV .[id number] [facility] Stop: 11/11/17 18:33 Last Admin: 11/11/17 07:24 Dose: 83 mls/hr Chromium/Copper/Manganese/Zinc 1 ml/ Heparin Sodium (Porcine ) 1,000 units/ Multivitamins/Vitamin C 10 ml/ Amino Acids/Electrolytes/Dextrose 1,012 mls @ 83 mls/hr IV .[id number] [facility] Stop: 11/12/17 06:00 Chromium/Copper/Manganese/Zinc 1 ml/ Heparin Sodium (Porcine ) 1,000 units/ Parenteral Electrolytes 20 ml/ Amino Acids 1,022 mls @ 83 mls/hr IV .[id number] [facility] Stop: 11/12/17 18:00 Ondansetron HCl (Zofran Inj) 4 mg IVP Q4 PRN PRN Reason: Nausea/Vomiting Last Admin: 11/11/17 12:35 Dose: 4 mg - Labs Labs: 11/11/17 06:29 11/11/17 06:29 PT 17.4 SECONDS (9.7-12.2) H 11/06/17 21:38 INR 1.6 11/06/17 21:38 APTT 35 SECONDS (21-34) H 11/06/17 21:38 - Constitutional Appears: Non-toxic, No Acute Distress - Head Exam Head Exam: ATRAUMATIC, NORMAL INSPECTION, NORMOCEPHALIC - Eye Exam Eye Exam: EOMI, Normal appearance - ENT Exam ENT Exam: Mucous Membranes Moist, Normal Exam - Neck Exam Neck Exam: Full ROM, Normal Inspection - Respiratory Exam Respiratory Exam: NORMAL BREATHING PATTERN - Cardiovascular Exam Cardiovascular Exam: REGULAR RHYTHM, +S1, +S2 - GI/Abdominal Exam GI & Abdominal Exam: Soft, Tenderness (mild, over surgical ). absent: Distended, Firm, Guarding, Rigid - Back Exam Back Exam: NORMAL INSPECTION - Neurological Exam Neurological Exam: Alert, Awake, CN II-XII Intact, Oriented x3 - Psychiatric Exam Psychiatric exam: Normal Affect, Normal Mood - Skin Skin Exam: Dry, Intact, Normal Color, Warm Assessment and Plan - Assessment and Plan (Free Text) Assessment: 42F w/bile leak Plan: Cont NPO TPN orders daily Aggressive PT- please put walker at bedside Will DW Dr. Melchor Mays, PGY-2
[2017-11-11] MEDS: Aluminum Hydroxide/Magnesium Hydroxide Susp (30 mL) PO PRN (16:43)
[2017-11-11] MEDS ORDERED: TPN # 7 IV SCH (18:00)
--- NOTE | 2017-11-11 18:34 | PN ---
DATE: 11/11/2017 LOCATION: 670, bed B. SUBJECTIVE: This is a 42-year-old female seen and examined in rounds, appeared to be awake, alert, oriented. Still complaining of abdominal pain, at times sharp with leaking around the new stitch as per the patient's statement, but no reported biliary leak recently. The patient is not ambulating now with the complaint of lower extremity edema, but much less than before, and receiving Lasix IV recently. The entire chart is reviewed including but not limited to the most recent lab and radiology study results, current and the previous medication list, current and the previous medical events and today's lab results showed leukocytosis of 19, hemoglobin 8.6, hematocrit of 26.7 with low indices, highly suggest hypochromic microcytic anemia with platelet count 470, potassium 3.3, CO2 content 36 indicative of respiratory alkalosis, blood glucose less than 122, calcium of 8, magnesium of 1.5, albumin 2.4, and total protein 5.6 with elevated prolactin levels recently. PHYSICAL EXAMINATION: GENERAL: A 42-year-old female, n.p.o. as per the surgical team. VITAL SIGNS: Afebrile with heart rate of 98, respiratory rate 20 to 22, blood pressure of 140/84. HEENT: Showed pale, dry oral mucous membrane. Nonicteric sclerae. LUNGS: Few scattered crepitation. Decreased air entry at bases. HEART: Positive S1 and S2 with increased rate. ABDOMEN: Covered with clean dressing, somewhat wet mildly with mild abdominal distention, but in general soft with less abdominal tenderness. The patient experienced period of nausea during the physical examination. Right-sided drainage is less than before. EXTREMITIES: Lower extremity with mild edematous changes. No clubbing or cyanosis. NEUROLOGICAL: No reported new neurological deficits, sensory or motor. Peripheral pulses are present bilaterally, but weak mildly. IMPRESSION: 1. Status post exploratory laparotomy. 2. Biliary leak with biliary peritonitis and multiple abscess formation, treated surgically. 3. Status post endoscopic retrograde cholangiopancreatography with biliary stent insertion. 4. Malnutrition with hypoalbuminemia. 5. Nausea, most likely secondary to above. 6. Re-exacerbation of peptic ulcer disease. 7. Hypochromic microcytic anemia due to chronic disease. 8. Poorly-controlled hypertension. SUGGESTIONS: 1. Continue current management including central hyperalimentation. 2. May repeat CAT scan of the abdomen and pelvis versus repeat MRCP. 3. The patient may need to culture the abdominal drainage contents. 4. Reglan IV due to her nausea rather than Zofran or increase the dose of Zofran to 8 mg IV every 4 hours around the clock in the meantime. 5. Further recommendation to follow. Thor Davenport MD
--- NOTE | 2017-11-11 21:22 | PN ---
DATE: 11/11/2017 SUBJECTIVE: The patient still remains n.p.o. and was seen by the Surgical Team just now today and remains with NG tube, I do not think I saw NG tube. She still has drainage from the drains leaking on the right side. Surgical wound appears unremarkable. Still continues to have abdominal pain, but denies any nausea and vomiting. She is still on antibiotics and has a PICC line. Her antibiotics are Cipro, as well as gentamicin and Flagyl. PHYSICAL EXAMINATION: VITAL SIGNS: T-max is 97.8, heart rate of 101, blood pressure 136/87, respirations are 20. HEENT: Head is atraumatic and normocephalic. NECK: Supple. LUNGS: Clear. No crackles or rales heard. HEART: S1 and S2 tachycardic. ABDOMEN: Remains prominent. There is drainage of the bile from the right side drains, multiple three of them and surgical sutures and rei are healing. EXTREMITIES: Have bilateral edema. LABORATORY DATA: White count today was 19, hemoglobin is 8.6, hematocrit 26.7, platelet count is 470. Potassium is 3.3, creatinine is 0.7. ASSESSMENT AND PLAN: She is getting total parenteral nutrition through the peripherally inserted central catheter line and plan is to continue antibiotics at this time as the white count still remains high and still has some bandemia. This is a patient with bile leak and multiple abdominal abscesses, underwent incision and drainage and open laparotomy recently for the drainage of the abscess and is still with a white count, but her procalcitonin level came out 0.67 which is better, so we will continue the treatment with these antibiotics. I would like to get rid off gentamicin when the white count decreases further below 15. Juliet Vegas MD
[2017-11-12] MEDS: Aluminum Hydroxide/Magnesium Hydroxide Susp (30 mL) PO PRN (00:08)
[2017-11-12] MEDS: HYDROmorphone 1 mg/ml ISec IVP PRN ×5 (00:08→19:32)
[2017-11-12] MEDS: Ciprofloxacin 400mg/200ml D5W 400 MG/200 ML BAG IVPB SCH (01:00)
[2017-11-12] MEDS: metroNIDAZOLE IV 500 mg/100 ml 500 MG/100 ML BAG IVPB SCH ×2 (05:00→21:32)
--- NOTE | 2017-11-12 05:24 | PN ---
DATE: 11/11/2017 SUBJECTIVE: The patient was seen today. She still is n.p.o. She said they were going to She had lot of drainage leaking from the site where she has FRANC drains, bile leak, but at that time I saw her, she was not complaining of pain, probably after the pain medication. OBJECTIVE: NECK: Supple. LUNGS: Clear. HEART: S1, S2 regular. ABDOMEN: Soft. Surgical dressing and surgical wound was clean. EXTREMITIES: Have bilateral edema present. Labs still remain hemoglobin is 8.6, hematocrit 26.7, platelet count is 470. She said she was passing gas but was not having any BMs so far. IMPRESSION: She had open laparotomy for drainage of the wound, drainage of the abscesses; has multiple abscesses and bile leak and is being followed by Surgery, and I am continuing Cipro, gentamicin, as well as Flagyl at this time. Juliet Vegas MD
[2017-11-12] MEDS ORDERED: TPN IV SCH (06:30)
[2017-11-12 08:24] LABS: BASO # 0.1 K/uL (0.0-0.2); BASO % 0.3 % (0.0-2.0); HEMOGLOBIN 8.4 g/dL (11.0-16.0); LYMPH # 1.8 K/uL (1.0-4.3); LYMPH % 11.2 % (20.0-40.0); MEAN CELL VOLUME 72.5 fL (81.0-99.0); MEAN CORPUSCULAR HGB CONC 33.2 g/dL (33.0-37.0); MEAN PLATELET VOLUME 8.4 fL (7.2-11.7); MONO # 1.3 K/uL (0.0-0.8); MONO % 7.8 % (0.0-10.0); NEUT # 13.2 K/uL (1.8-7.0); NEUT % 80.7 % (50.0-75.0); RBC 3.49 Mil/uL (3.80-5.20); RED CELL DISTRIBUTION WIDTH 20.6 % (11.5-14.5); WHITE BLOOD COUNT 16.3 K/uL (4.8-10.8)
[2017-11-12 08:49] LABS: ALB/GLOB RATIO 0.6 (1.0-2.1); ALBUMIN 2.5 g/dL (3.5-5.0); ALT/SGPT 16 U/L (9-52); AST/SGOT 15 U/L (14-36); BLOOD UREA NITROGEN 9 mg/dL (7-17); CALCIUM 7.9 mg/dl (8.6-10.4); GFR NON-AFRICAN AMERICAN > 60
[2017-11-12] MEDS ORDERED: Potassium Chloride 20 mEq/15 ml LIQ UD PO ONE (09:30)
--- NOTE | 2017-11-12 10:19 | CP.PCM.PN ---
Subjective - Date & Time of Evaluation Date of Evaluation: 11/12/17 Time of Evaluation: 06:30 - Subjective Subjective: Patient seen and examined. Reports feeling better. Denies n/v. Ambulating. Lower extremity swelling resolved. Purulent drianage into FRANC and IR drains. Objective - Vital Signs/Intake and Output Vital Signs (last 24 hours): Temp Pulse Resp BP Pulse Ox 99 F 116 H 20 126/67 95 11/12/17 06:00 11/12/17 06:00 11/12/17 06:00 11/12/17 06:00 11/12/17 06:00 Intake and Output: 11/12/17 11/12/17 06:59 18:59 Intake Total 332 Output Total 25 Balance 307 - Medications Medications: Current Medications Acetaminophen (Tylenol 650 Mg Supp) 650 mg ID Q4 PRN PRN Reason: Fever >100.4 F Last Admin: 11/03/17 08:29 Dose: 650 mg Benzocaine/Menthol (Cepacol Sore Throat) 1 lisa MT Q2H PRN PRN Reason: Sore Throat Docusate Sodium (Colace) 100 mg PO TID [facility] Last Admin: 11/11/17 18:10 Dose: 100 mg Enoxaparin Sodium (Lovenox) 30 mg SC DAILY [facility] Last Admin: 11/11/17 10:52 Dose: 30 mg Hydromorphone HCl (Dilaudid) 1 mg IVP Q3H PRN PRN Reason: Pain, severe (8-10) Last Admin: 11/12/17 03:14 Dose: 1 mg Gentamicin Sulfate 80 mg/ (Sodium Chloride) 102 mls @ 102 mls/hr IVPB Q8 [facility] Last Admin: 11/12/17 06:18 Dose: 102 mls/hr Ciprofloxacin (Cipro 400mg/200ml Dsw) 400 mg in 200 mls @ 133 mls/hr IVPB Q12H [facility]; Protocol Last Admin: 11/12/17 01:00 Dose: 133 mls/hr Metronidazole (Flagyl) 500 mg in 100 mls @ 100 mls/hr IVPB Q8H [facility]; Protocol Last Admin: 11/12/17 05:00 Dose: 100 mls/hr Chromium/Copper/Manganese/Zinc 1 ml/ Heparin Sodium (Porcine ) 1,000 units/ Parenteral Electrolytes 20 ml/ Amino Acids 1,022 mls @ 83 mls/hr IV .[id number] [facility] Stop: 11/12/17 18:00 Last Admin: 11/12/17 07:10 Dose: 83 mls/hr Ondansetron HCl (Zofran Inj) 4 mg IVP Q4 PRN PRN Reason: Nausea/Vomiting Last Admin: 11/11/17 12:35 Dose: 4 mg Pantoprazole Sodium (Protonix Ec Tab) 40 mg PO DAILY [facility] - Labs Labs: 11/12/17 08:17 11/12/17 08:17 PT 17.4 SECONDS (9.7-12.2) H 11/06/17 21:38 INR 1.6 11/06/17 21:38 APTT 35 SECONDS (21-34) H 11/06/17 21:38 - Constitutional Appears: No Acute Distress - Head Exam Head Exam: NORMOCEPHALIC - Eye Exam Eye Exam: EOMI, Normal appearance - Respiratory Exam Respiratory Exam: NORMAL BREATHING PATTERN - Cardiovascular Exam Cardiovascular Exam: +S1, +S2 - GI/Abdominal Exam GI & Abdominal Exam: Distended, Soft - Neurological Exam Neurological Exam: Alert, Awake, Oriented x3 - Skin Skin Exam: Dry, Normal Color, Warm Assessment and Plan - Assessment and Plan (Free Text) Assessment: 42F s/p open drainage of intraabdominal abscess Plan: NPO TPN Replete electrolytes DVT/GI ppx encourage ambulation D/w Dr. Melchor Dumont PGY3
[2017-11-12] MEDS: Magnesium Oxide 400 mg Tab UD PO SCH ×2 (11:20→11:21)
[2017-11-12] MEDS: Enoxaparin 30 mg Syringe SC SCH (11:20)
[2017-11-12] MEDS: Pantoprazole 40 mg EC Tab PO SCH (11:21)
--- NOTE | 2017-11-12 15:20 | CP.PCM.PN ---
Subjective - Date & Time of Evaluation Date of Evaluation: 11/12/17 Time of Evaluation: 15:00 - Subjective Subjective: dictated Objective - Vital Signs/Intake and Output Vital Signs (last 24 hours): Temp Pulse Resp BP Pulse Ox 99 F 116 H 20 126/67 95 11/12/17 06:00 11/12/17 06:00 11/12/17 06:00 11/12/17 06:00 11/12/17 06:00 Intake and Output: 11/12/17 11/12/17 06:59 18:59 Intake Total 332 Output Total 25 Balance 307 - Medications Medications: Current Medications Acetaminophen (Tylenol 650 Mg Supp) 650 mg IN Q4 PRN PRN Reason: Fever >100.4 F Last Admin: 11/03/17 08:29 Dose: 650 mg Benzocaine/Menthol (Cepacol Sore Throat) 1 lisa MT Q2H PRN PRN Reason: Sore Throat Enoxaparin Sodium (Lovenox) 30 mg SC DAILY [facility] Last Admin: 11/12/17 11:20 Dose: 30 mg Hydromorphone HCl (Dilaudid) 1 mg IVP Q3H PRN PRN Reason: Pain, severe (8-10) Last Admin: 11/12/17 10:17 Dose: 1 mg Gentamicin Sulfate 80 mg/ (Sodium Chloride) 102 mls @ 102 mls/hr IVPB Q8 [facility] Last Admin: 11/12/17 06:18 Dose: 102 mls/hr Ciprofloxacin (Cipro 400mg/200ml Dsw) 400 mg in 200 mls @ 133 mls/hr IVPB Q12H [facility]; Protocol Last Admin: 11/12/17 01:00 Dose: 133 mls/hr Metronidazole (Flagyl) 500 mg in 100 mls @ 100 mls/hr IVPB Q8H [facility]; Protocol Last Admin: 11/12/17 05:00 Dose: 100 mls/hr Chromium/Copper/Manganese/Zinc 1 ml/ Heparin Sodium (Porcine ) 1,000 units/ Parenteral Electrolytes 20 ml/ Amino Acids 1,022 mls @ 83 mls/hr IV .[id number] [facility] Stop: 11/12/17 18:00 Last Admin: 11/12/17 07:10 Dose: 83 mls/hr Chromium/Copper/Manganese/Zinc 1 ml/ Heparin Sodium (Porcine ) 1,000 units/ Mu ltivitamins/Vitamin C 10 ml/ Sodium Chloride 35 meq/ Potassium Chloride 80 meq/ Calcium Gluconate 4.5 meq/ Amino Acids 1,070.4274 mls @ 83 mls/hr IV .[id number] ONE Stop: 11/13/17 06:53 Chromium/Copper/Manganese/Zinc 1 ml/ Heparin Sodium (Porcine ) 1,000 units/ Sodium Chloride 35 meq/ Potassium Chloride 80 meq/ Calcium Gluconate 4.5 meq/ Amino Acids 1,060.4274 mls @ 83 mls/hr IV .[id number] ONE Stop: 11/13/17 19:16 Metoclopramide HCl (Reglan) 10 mg IVP Q6H [facility] Ondansetron HCl (Zofran Inj) 4 mg IVP Q4 PRN PRN Reason: Nausea/Vomiting Last Admin: 11/11/17 12:35 Dose: 4 mg Pantoprazole Sodium (Protonix Ec Tab) 40 mg PO DAILY [facility] Last Admin: 11/12/17 11:21 Dose: Not Given - Labs Labs: 11/12/17 08:17 11/12/17 08:17 PT 17.4 SECONDS (9.7-12.2) H 11/06/17 21:38 INR 1.6 11/06/17 21:38 APTT 35 SECONDS (21-34) H 11/06/17 21:38
[2017-11-12] MEDS ORDERED: Magnesium Sulfate 1 gm in D5W 1 GM/100 ML BAG IVPB ONE (16:05)
[2017-11-12] MEDS ORDERED: TPN #9 IV ONE (18:00)
[2017-11-12] MEDS ORDERED: HYDROmorphone 1 mg/ml ISec IVP STA (22:10)
--- NOTE | 2017-11-13 02:14 | PN ---
DATE: 11/12/2017 SUBJECTIVE: The patient said today she was not feeling well. She did have nausea. When I saw her, she had a drainage from the FRANC and IR, and there was some leak also which I noticed from the surgical note yesterday. She, however, was lying in bed when I saw her. PHYSICAL EXAMINATION: VITAL SIGNS: T-max was 98.2, pulse 99, blood pressure 140/81, respirations are 20. HEENT: Head is atraumatic, normocephalic. NECK: Supple. LUNGS: Clear. HEART: S1 and S2, remains tachycardic. ABDOMEN: With less distention. Bowel sounds are present today. EXTREMITIES: Had bilateral edema. LABORATORY DATA: Labs are noted. Labs show white count is 16.3, hemoglobin 8.4, hematocrit 25.3, platelet count is 521, neutrophils are 80.7, and differential was not in there. Differential was not reported. BUN is 9, creatinine is 0.7. ASSESSMENT AND PLAN: Impression is that she also had an magnetic resonance cholangiopancreatography done on 11/05/2017, report of which is back. Magnetic resonance imaging showed persistent decreased fluid collection within the right upper quadrant, peritoneal, and retroperitoneal fluid collection may represent abscesses. Small fluid collection also noted, posterior to the pancreatic body or tail. Right pararenal gas evident. Largest fluid collections noted with the left upper quadrant inferior to the stomach, measures 8 x 10.7 x 11.4. So, this is prior to the surgery that I am reading. At this time, the patient does have bowel sounds. She has not had a bowel movement, but she is nauseous. It could be with the medications, but she needs Flagyl along with Cipro to cover for abscesses; however the gentamicin, we will not renew after 11/03/2017 unless white count remains elevated and will continue with Cipro and Flagyl. Follow with surgeon and she is on total parenteral nutrition through the peripherally inserted central catheter line. We will follow. Juliet Vegas MD
[2017-11-13] MEDS: HYDROmorphone 1 mg/ml ISec IVP PRN ×7 (02:30→22:58)
[2017-11-13] MEDS: Ciprofloxacin 400mg/200ml D5W 400 MG/200 ML BAG IVPB SCH ×3 (05:30→17:23)
[2017-11-13] MEDS ORDERED: TPN #10 IV ONE (06:30)
[2017-11-13] MEDS: metroNIDAZOLE IV 500 mg/100 ml 500 MG/100 ML BAG IVPB SCH ×3 (06:54→22:09)
[2017-11-13] MEDS: Pantoprazole 40 mg EC Tab PO SCH (10:00)
[2017-11-13] MEDS: Enoxaparin 30 mg Syringe SC SCH (10:15)
[2017-11-13 11:09] LABS: BASO # 0.2 K/uL (0.0-0.2); BASO % 1.2 % (0.0-2.0); HEMOGLOBIN 8.2 g/dL (11.0-16.0); LYMPH # 2.2 K/uL (1.0-4.3); LYMPH % 11.8 % (20.0-40.0); MEAN CELL VOLUME 72.9 fL (81.0-99.0); MEAN CORPUSCULAR HEMOGLOBIN 23.7 pg (27.0-31.0); MEAN CORPUSCULAR HGB CONC 32.5 g/dL (33.0-37.0); MEAN PLATELET VOLUME 7.9 fL (7.2-11.7); MONO # 1.2 K/uL (0.0-0.8); MONO % 6.6 % (0.0-10.0); NEUT % 80.4 % (50.0-75.0); RBC 3.48 Mil/uL (3.80-5.20); RED CELL DISTRIBUTION WIDTH 20.6 % (11.5-14.5); WHITE BLOOD COUNT 18.6 K/uL (4.8-10.8)
[2017-11-13] MEDS ORDERED: Potassium Chloride 20 mEq/15 ml LIQ UD PO STA (11:29)
--- NOTE | 2017-11-13 11:38 | CARD ---
APPROVED REPORT Date of service: 11/12/2017 EKG Measurement Heart [id number] <Conclusion> Sinus tachycardia Otherwise normal ECG
[2017-11-13 11:43] LABS: BLOOD UREA NITROGEN 7 mg/dL (7-17); CALCIUM 8.2 mg/dl (8.6-10.4); GFR NON-AFRICAN AMERICAN > 60
[2017-11-13] MEDS: HYDROmorphone 0.5 mg/0.5 ml ISec IVP STA ×2 (14:20→14:43)
[2017-11-13] MEDS ORDERED: HYDROmorphone 0.5 mg/0.5 ml ISec IVP STA (14:38)
[2017-11-13] MEDS ORDERED: Fat Emulsion 20% IV 500 ML IV ONE (18:00)
[2017-11-13] MEDS ORDERED: TPN #11 IV ONE (18:00)
--- NOTE | 2017-11-13 20:48 | PN ---
DATE: 11/13/2017 LOCATION: 670, bed A. SUBJECTIVE: This is a 42-year-old female seen and examined with intermittent period of abdominal pain again, with reported lower right abdominal FRANC site leaking some greenish discharge. The patient has nausea, but no reported vomiting, tolerating oral intake well with reported bowel movement and passing gas before. The entire chart is reviewed including but not limited to the most recent lab and radiology study results, current and the previous medication list, current and the previous medical events. LABORATORY DATA: Today's lab showed hemoglobin of 8.2, hematocrit 25.4 with leukocytosis of 18.6 with subsequent increase of platelet count to 661, potassium 3.4, CO2 content 36, creatinine of 0.6, calcium 8.2 with reported low hemoglobin and hematocrit before. PHYSICAL EXAMINATION: GENERAL: A 42-year-old female, awake, alert, oriented, complaining of generalized weakness. VITAL SIGNS: Afebrile with pulse of 102, respiratory rate 20 to 22, blood pressure of 136/88. HEENT: Showed pale, dry oral mucous membrane. Nonicteric sclerae. LUNGS: Few scattered crepitation. Decreased air entry at bases. HEART: Positive S1 and S2. ABDOMEN: Soft with mild generalized tenderness. No mass or organomegaly. No rebound tenderness or guarding, but mild distention. EXTREMITIES: With lower extremity edematous changes. No clubbing or cyanosis. NEUROLOGICAL: No reported new neurological deficits, sensory or motor. IMPRESSION: 1. Status post exploratory laparotomy. 2. Status post cholecystectomy. 3. Biliary leak with status post endoscopic retrograde cholangiopancreatography and biliary stent insertion. 4. Anemia, most likely secondary to above. 5. Leukocytosis, that could be secondary to biliary abscess formation intraperitoneal, treated surgically. SUGGESTIONS: 1. Continue current management. 2. Stool for C. diff due to the leukocytosis and the loose bowel movement. The patient had been on IV antibiotics for a long period of time so far. 3. Further recommendation to follow. Thor Davenport MD
[2017-11-14] MEDS: HYDROmorphone 1 mg/ml ISec IVP PRN ×3 (02:03→09:01)
--- NOTE | 2017-11-14 02:41 | PN ---
DATE: 11/13/2017 INFECTIOUS DISEASE FOLLOWUP SUBJECTIVE: The patient is awake and alert. She says she was little bit better, but she has the drainage from the FRANC drain is draining, and there is purulent pus coming out of the intra-abdominal FRANC drain. The other one is draining bile. PHYSICAL EXAMINATION: VITAL SIGNS: T-max is 99, heart rate of 118, blood pressure 144/87, respirations are 20. GENERAL: The resident was there and she was asking for an extra pain medication from her. HEENT: Head is atraumatic. NECK: Supple. LUNGS: Clear. HEART: S1 and S2, tachy. ABDOMEN: With a surgical scar. Nik are stable, but leakage was there, so they adjusted. EXTREMITIES: Have bilateral edema present. LABORATORY DATA: White count today was 18.6, slightly more and platelets are 661. ASSESSMENT AND PLAN: She is status post drainage of intra-abdominal abscess. Her white count jumped up a little bit. We will monitor. However, she is on Cipro and Flagyl which has been given based on her culture reports. She is status post bile leak after her laparoscopic cholecystectomy and status post stent. We will follow. Juliet Vegas MD
[2017-11-14] MEDS: metroNIDAZOLE IV 500 mg/100 ml 500 MG/100 ML BAG IVPB SCH ×3 (04:43→20:35)
[2017-11-14] MEDS: Ciprofloxacin 400mg/200ml D5W 400 MG/200 ML BAG IVPB SCH ×2 (05:52→18:05)
[2017-11-14] MEDS ORDERED: TPN #12 IV ONE (06:45)
--- NOTE | 2017-11-14 07:31 | CP.PCM.PN ---
Subjective - Date & Time of Evaluation Date of Evaluation: 11/13/17 Time of Evaluation: 11:45 - Subjective Subjective: Patient seen and examined. Reports feeling better. Having purulent drainage around cmkenzie drain site. Denies n/v. Objective - Vital Signs/Intake and Output Vital Signs (last 24 hours): Temp Pulse Resp BP Pulse Ox 98.5 F 102 H 20 131/75 100 11/13/17 23:00 11/13/17 23:00 11/13/17 23:00 11/13/17 23:00 11/13/17 23:00 Intake and Output: 11/14/17 11/14/17 06:59 18:59 Intake Total 1529 Output Total 170 Balance 1359 - Medications Medications: Current Medications Acetaminophen (Tylenol 650 Mg Supp) 650 mg [place] Q4 PRN PRN Reason: Fever >100.4 F Last Admin: 11/03/17 08:29 Dose: 650 mg Benzocaine/Menthol (Cepacol Sore Throat) 1 lisa MT Q2H PRN PRN Reason: Sore Throat Enoxaparin Sodium (Lovenox) 30 mg SC DAILY [facility] Last Admin: 11/13/17 10:15 Dose: 30 mg Hydromorphone HCl (Dilaudid) 1 mg IVP Q3H PRN PRN Reason: Pain, severe (8-10) Last Admin: 11/14/17 05:14 Dose: 1 mg Metronidazole (Flagyl) 500 mg in 100 mls @ 100 mls/hr IVPB Q8H [facility]; Protocol Last Admin: 11/14/17 04:43 Dose: 100 mls/hr Ciprofloxacin (Cipro 400mg/200ml Dsw) 400 mg in 200 mls @ 133 mls/hr IVPB Q12H [facility]; Protocol Last Admin: 11/14/17 05:52 Dose: 133 mls/hr Heparin Sodium (Porcine) 1,000 units/ Chromium/Copper/Manganese/Zinc 1 ml/ Sodium Phosphate 15 mmole/ Potassium Chloride 60 meq/ Magnesium Sulfate 6 meq/ Calcium Gluconate 4.5 meq/ Amino Acids 1,048.1552 mls @ 83 mls/hr IV .[id number] ONE Stop: 11/14/17 19:22 Last Admin: 11/14/17 06:51 Dose: 83 mls/hr Metoclopramide HCl (Reglan) 10 mg IVP Q6H [facility] Last Admin: 11/14/17 05:14 Dose: 10 mg Ondansetron HCl (Zofran Inj) 4 mg IVP Q4 PRN PRN Reason: Nausea/Vomiting Last Admin: 11/11/17 12:35 Dose: 4 mg Pantoprazole Sodium (Protonix Ec Tab) 40 mg PO DAILY [facility] Last Admin: 11/13/17 10:00 Dose: 40 mg - Labs Labs: 11/13/17 10:59 11/13/17 10:59 PT 17.4 SECONDS (9.7-12.2) H 11/06/17 21:38 INR 1.6 11/06/17 21:38 APTT 35 SECONDS (21-34) H 11/06/17 21:38 - Constitutional Appears: No Acute Distress - Head Exam Head Exam: NORMOCEPHALIC - Eye Exam Eye Exam: EOMI, Normal appearance - ENT Exam ENT Exam: Mucous Membranes Moist - Respiratory Exam Respiratory Exam: NORMAL BREATHING PATTERN - Cardiovascular Exam Cardiovascular Exam: +S1, +S2 - GI/Abdominal Exam GI & Abdominal Exam: Soft. absent: Distended, Firm, Guarding, Rigid - Neurological Exam Neurological Exam: Alert, Awake, Oriented x3 - Psychiatric Exam Psychiatric exam: Normal Mood - Skin Skin Exam: Dry, Intact, Warm Assessment and Plan - Assessment and Plan (Free Text) Assessment: 42F s/p open drainage of intraabdominal abscess Plan: NPO TPN ABx D/c jaeger Replete electrolytes DVT/GI ppx encourage ambulation D/w Dr. Melchor Dumont PGY3
[2017-11-14 08:04] LABS: BLOOD UREA NITROGEN 7 mg/dL (7-17); GFR NON-AFRICAN AMERICAN > 60
[2017-11-14 08:14] LABS: BASO # 0.1 K/uL (0.0-0.2); BASO % 0.6 % (0.0-2.0); HEMOGLOBIN 7.5 g/dL (11.0-16.0); LYMPH # 1.3 K/uL (1.0-4.3); MEAN CELL VOLUME 72.9 fL (81.0-99.0); MEAN CORPUSCULAR HEMOGLOBIN 24.1 pg (27.0-31.0); MEAN PLATELET VOLUME 8.1 fL (7.2-11.7); MONO % 6.3 % (0.0-10.0); NEUT # 13.8 K/uL (1.8-7.0); NEUT % 85.1 % (50.0-75.0); PLATELET COUNT 586 K/uL (130-400); RBC 3.13 Mil/uL (3.80-5.20); RED CELL DISTRIBUTION WIDTH 20.9 % (11.5-14.5); WHITE BLOOD COUNT 16.3 K/uL (4.8-10.8)
[2017-11-14 09:14] LABS: BANDS 2 % (0-2); LYMPHOCYTE 2 % (20-40); MONOCYTE 5 % (0-10); NEUTROPHIL 91 % (50-75); TOTAL CELLS COUNTED 100
[2017-11-14 09:15] LABS: PLATELET ESTIMATE INCREASED (NORMAL)
[2017-11-14 09:16] LABS: ANISOCYTOSIS SLIGHT; HYPOCHROMIC SLIGHT; POIKILOCYTOSIS SLIGHT
[2017-11-14 09:17] LABS: LARGE PLATELETS PRESENT; TARGET CELLS SLIGHT; TEARDROP CELLS SLIGHT
[2017-11-14] MEDS: Pantoprazole 40 mg EC Tab PO SCH (10:08)
[2017-11-14] MEDS: Enoxaparin 30 mg Syringe SC SCH (10:08)
[2017-11-14] MEDS ORDERED: Potassium Chloride 20 mEq/15 ml LIQ UD PO STA (11:07)
--- NOTE | 2017-11-14 11:13 | CP.PCM.PN ---
Subjective - Date & Time of Evaluation Date of Evaluation: 11/14/17 Time of Evaluation: 11:10 - Subjective Subjective: Gen Sx: Dr Roche Pt S&E. LEANA. Resting comfortably. Bedoya d/c yesterday, pt has voided. OOB and ambulating with walker. Minor drainage around del insertion site, but otherwise doing well. Objective - Vital Signs/Intake and Output Vital Signs (last 24 hours): Temp Pulse Resp BP Pulse Ox 98.8 F 115 H 22 135/76 99 11/14/17 08:37 11/14/17 08:37 11/14/17 08:37 11/14/17 08:37 11/14/17 08:37 Intake and Output: 11/14/17 11/14/17 06:59 18:59 Intake Total 1529 Output Total 170 Balance 1359 - Medications Medications: Current Medications Acetaminophen (Tylenol 650 Mg Supp) 650 mg [place] Q4 PRN PRN Reason: Fever >100.4 F Last Admin: 11/03/17 08:29 Dose: 650 mg Acetaminophen (Tylenol 325mg Tab) 650 mg PO Q6 PRN PRN Reason: Pain, Mild (1-3) Benzocaine/Menthol (Cepacol Sore Throat) 1 lisa MT Q2H PRN PRN Reason: Sore Throat Enoxaparin Sodium (Lovenox) 30 mg SC DAILY [facility] Last Admin: 11/14/17 10:08 Dose: 30 mg Hydromorphone HCl (Dilaudid) 0.5 mg IVP Q3H PRN PRN Reason: Pain, severe (8-10) Metronidazole (Flagyl) 500 mg in 100 mls @ 100 mls/hr IVPB Q8H [facility]; Protocol Last Admin: 11/14/17 04:43 Dose: 100 mls/hr Ciprofloxacin (Cipro 400mg/200ml Dsw) 400 mg in 200 mls @ 133 mls/hr IVPB Q12H [facility]; Protocol Last Admin: 11/14/17 05:52 Dose: 133 mls/hr Heparin Sodium (Porcine) 1,000 units/ Chromium/Copper/Manganese/Zinc 1 ml/ Sodium Phosphate 15 mmole/ Potassium Chloride 60 meq/ Magnesium Sulfate 6 meq/ Calcium Gluconate 4.5 meq/ Amino Acids 1,048.1552 mls @ 83 mls/hr IV .[id number] ONE Stop: 11/14/17 19:22 Last Admin: 11/14/17 06:51 Dose: 83 mls/hr Ketorolac Tromethamine (Toradol) 30 mg IVP Q6 [facility] Stop: 11/17/17 06:01 Metoclopramide HCl (Reglan) 10 mg IVP Q6H [facility] Last Admin: 11/14/17 05:14 Dose: 10 mg Ondansetron HCl (Zofran Inj) 4 mg IVP Q4 PRN PRN Reason: Nausea/Vomiting Last Admin: 11/11/17 12:35 Dose: 4 mg Pantoprazole Sodium (Protonix Ec Tab) 40 mg PO DAILY [facility] Last Admin: 11/14/17 10:08 Dose: 40 mg - Labs Labs: 11/14/17 06:54 11/14/17 06:54 PT 17.4 SECONDS (9.7-12.2) H 11/06/17 21:38 INR 1.6 11/06/17 21:38 APTT 35 SECONDS (21-34) H 11/06/17 21:38 - Constitutional Appears: Non-toxic - Head Exam Head Exam: NORMAL INSPECTION - ENT Exam ENT Exam: Mucous Membranes Moist - Respiratory Exam Respiratory Exam: absent: Accessory Muscle Use, Respiratory Distress - Cardiovascular Exam Cardiovascular Exam: Tachycardia (lowgrade), REGULAR RHYTHM - GI/Abdominal Exam GI & Abdominal Exam: Soft. absent: Distended, Tenderness - Neurological Exam Neurological Exam: Alert, Awake, Oriented x3 - Psychiatric Exam Psychiatric exam: Normal Affect Assessment and Plan - Assessment and Plan (Free Text) Assessment: 42F s/p cholecystectomy w/ bile leak Plan: cont NPO TPN Iv ABx per ID doc will start to wean off narcotics, toradol Q6H [facility], Tylenol PRN, dilaudid only for breakthrough cont ambulation d/w Dr Melchor Moody, PGY4
--- NOTE | 2017-11-14 14:33 | CP.PCM.PN ---
Subjective - Date & Time of Evaluation Date of Evaluation: 11/14/17 Time of Evaluation: 14:00 - Subjective Subjective: dictated Objective - Vital Signs/Intake and Output Vital Signs (last 24 hours): Temp Pulse Resp BP Pulse Ox 98.8 F 115 H 22 135/76 99 11/14/17 08:37 11/14/17 08:37 11/14/17 08:37 11/14/17 08:37 11/14/17 08:37 Intake and Output: 11/14/17 11/14/17 06:59 18:59 Intake Total 1529 Output Total 170 Balance 1359 - Medications Medications: Current Medications Acetaminophen (Tylenol 650 Mg Supp) 650 mg [place] Q4 PRN PRN Reason: Fever >100.4 F Last Admin: 11/03/17 08:29 Dose: 650 mg Acetaminophen (Tylenol 325mg Tab) 650 mg PO Q6 PRN PRN Reason: Pain, Mild (1-3) Benzocaine/Menthol (Cepacol Sore Throat) 1 lisa MT Q2H PRN PRN Reason: Sore Throat Enoxaparin Sodium (Lovenox) 30 mg SC DAILY [facility] Last Admin: 11/14/17 10:08 Dose: 30 mg Hydromorphone HCl (Dilaudid) 0.5 mg IVP Q3H PRN PRN Reason: Pain, severe (8-10) Metronidazole (Flagyl) 500 mg in 100 mls @ 100 mls/hr IVPB Q8H [facility]; Protocol Last Admin: 11/14/17 12:03 Dose: 100 mls/hr Ciprofloxacin (Cipro 400mg/200ml Dsw) 400 mg in 200 mls @ 133 mls/hr IVPB Q12H [facility]; Protocol Last Admin: 11/14/17 05:52 Dose: 133 mls/hr Heparin Sodium (Porcine) 1,000 units/ Chromium/Copper/Manganese/Zinc 1 ml/ Sod ium Phosphate 15 mmole/ Potassium Chloride 60 meq/ Magnesium Sulfate 6 meq/ Calcium Gluconate 4.5 meq/ Amino Acids 1,048.1552 mls @ 83 mls/hr IV .[id number] ONE Stop: 11/14/17 19:22 Last Admin: 11/14/17 06:51 Dose: 83 mls/hr Chromium/Copper/Manganese/Zinc 1 ml/ Multivitamins/Vitamin C 10 ml/ Heparin Sodium ( Porcine) 1,000 units/ Sodium Phosphate 15 mmole/ Potassium Chloride 60 meq/ Magnesium Sulfate 6 meq/ Calcium Gluconate 4.5 meq/ Amino Acids 1,058.1552 mls @ 83 mls/hr IV .[id number] ONE Stop: 11/15/17 06:44 Chromium/Copper/Manganese/Zinc 1 ml/ Heparin Sodium (Porcine ) 1,000 units/ Sodium Phosphate 15 mmole/ Potassium Chloride 60 meq/ Magnesium Sulfate 6 meq/ Calcium Gluconate 4.5 meq/ Amino Acids 1,048.1552 mls @ 83 mls/hr IV .[id number] ONE Stop: 11/15/17 19:22 Fat Emulsion Intravenous (Intralipid 20%) 500 mls @ 83 mls/hr IV DAILY@1800 [facility] Ketorolac Tromethamine (Toradol) 30 mg IVP Q6 [facility] Stop: 11/17/17 06:01 Last Admin: 11/14/17 11:57 Dose: 30 mg Metoclopramide HCl (Reglan) 10 mg IVP Q6H [facility] Last Admin: 11/14/17 11:56 Dose: 10 mg Ondansetron HCl (Zofran Inj) 4 mg IVP Q4 PRN PRN Reason: Nausea/Vomiting Last Admin: 11/11/17 12:35 Dose: 4 mg Pantoprazole Sodium (Protonix Ec Tab) 40 mg PO DAILY [facility] Last Admin: 11/14/17 10:08 Dose: 40 mg - Labs Labs: 11/14/17 06:54 11/14/17 06:54 PT 17.4 SECONDS (9.7-12.2) H 11/06/17 21:38 INR 1.6 11/06/17 21:38 APTT 35 SECONDS (21-34) H 11/06/17 21:38
[2017-11-14] MEDS ORDERED: TPN #13 IV ONE (18:00)
[2017-11-14] MEDS ORDERED: Fat Emulsion 20% IV 500 ML IV SCH (18:00)
[2017-11-14] MEDS: HYDROmorphone 0.5 mg/0.5 ml ISec IVP PRN (20:29)
--- NOTE | 2017-11-14 20:56 | PN ---
DATE: 11/14/2017 SUBJECTIVE: Today, they have put a stitch around where the leak was from the drain. The patient remains still with pain and she was in tears as it has been a longer problem. OBJECTIVE: VITAL SIGNS: T-max is 98, heart rate is 103. Her PICC line is stable. Blood pressure is 145/87, respirations are 20. GENERAL: She is awake, alert, but getting emotional. HEENT: Head is atraumatic, normocephalic. NECK: Supple. LUNGS: Clear. HEART: S1, S2 regular. ABDOMEN: Remains distended but she has had two bowel movements today. EXTREMITIES: Remain with edema. She still has pus in the abscess drainage tube. White count is 16.3, hemoglobin is 7.5. It has dropped, and she remains anemic. Her potassium is 3.4, BUN is 7, creatinine 0.6. So at this time, she is being treated for multiple abdominal abscesses, status post laparotomy, status post bile leak following laparoscopic cholecystectomy. We will continue with the antibiotics. She is on Cipro and Flagyl for now. Juliet Vegas MD
--- NOTE | 2017-11-14 21:31 | PN ---
DATE: 11/14/2017 LOCATION: 670, bed A. SUBJECTIVE: This is a 42 years old female seen and examined in rounds without significant clinical changes or reported active bleeding with intermittent period of abdominal pain, out of bed and ambulatory with a walker with much less drainage around FRANC site. The entire chart is reviewed including, but not limited to the most recent lab and radiology study results, current and the previous medication list, current and previous medical events. Case discussed with staff at length. Today's lab results showed leukocytosis of 16.3, hemoglobin 7.5, hematocrit 22.8 with low indices highly suggestive of hypochromic microcytic anemia with thrombocytosis. Potassium 3.4, CO2 content 34, glucose 115, calcium 8. The patient had near normal liver function test. PHYSICAL EXAMINATION: GENERAL: A 42 years old female. VITAL SIGNS: Afebrile with heart rate of 108, respiratory rate 20-22, blood pressure of 130/72. HEENT: Showed pale dry oral mucous membrane. Nonicteric sclerae. LUNGS: Few scattered crepitation. Decreased air entry at bases. HEART: Positive S1 and S2. ABDOMEN: Soft. Bowel sounds are present with mild generalized tenderness. No mass or organomegaly. No rebound tenderness or guarding. EXTREMITIES: Without significant clubbing, cyanosis or edema. No reported new neurological deficits, sensory or motor. IMPRESSION: 1. Biliary leak. 2. Status post cholecystectomy. 3. Status post endoscopic retrograde cholangiopancreatography with biliary stent insertion. 4. Status post explorative laparotomy with drainage of abdominal abscess formation. 5. Anemia secondary to above. SUGGESTIONS: 1. Continue current management. 2. Continue hyperalimentation. 3. Repeat sectional abdominal and pelvic CAT scan if the leukocytosis persist. 4. Stool for Clostridium difficile as the patient had some loose bowel movement recently. Thor Davenport MD
[2017-11-15] MEDS: HYDROmorphone 0.5 mg/0.5 ml ISec IVP PRN ×2 (02:23→12:45)
[2017-11-15] MEDS: metroNIDAZOLE IV 500 mg/100 ml 500 MG/100 ML BAG IVPB SCH ×4 (04:45→21:12)
[2017-11-15] MEDS: Ciprofloxacin 400mg/200ml D5W 400 MG/200 ML BAG IVPB SCH ×2 (05:58→19:00)
[2017-11-15] MEDS ORDERED: TPN #14 IV ONE (06:45)
[2017-11-15 08:24] LABS: BASO # 0.1 K/uL (0.0-0.2); BASO % 0.6 % (0.0-2.0); HEMOGLOBIN 7.6 g/dL (11.0-16.0); LYMPH % 5.4 % (20.0-40.0); MEAN CELL VOLUME 73.1 fL (81.0-99.0); MEAN CORPUSCULAR HEMOGLOBIN 23.9 pg (27.0-31.0); MEAN CORPUSCULAR HGB CONC 32.7 g/dL (33.0-37.0); MEAN PLATELET VOLUME 7.7 fL (7.2-11.7); MONO % 5.2 % (0.0-10.0); NEUT # 16.4 K/uL (1.8-7.0); NEUT % 88.8 % (50.0-75.0); PLATELET COUNT 627 K/uL (130-400); RBC 3.16 Mil/uL (3.80-5.20); RED CELL DISTRIBUTION WIDTH 20.5 % (11.5-14.5); WHITE BLOOD COUNT 18.5 K/uL (4.8-10.8)
[2017-11-15] MEDS ORDERED: Iohexol 240 (50 ml) PO ONE (08:30)
[2017-11-15 08:39] LABS: BLOOD UREA NITROGEN 11 mg/dL (7-17); CALCIUM 8.3 mg/dl (8.6-10.4); GFR NON-AFRICAN AMERICAN > 60
[2017-11-15 08:55] LABS: LYMPHOCYTE 5 % (20-40); MONOCYTE 9 % (0-10); NEUTROPHIL 86 % (50-75); TOTAL CELLS COUNTED 100
[2017-11-15 08:56] LABS: ANISOCYTOSIS SLIGHT; HYPOCHROMIC SLIGHT; PLATELET ESTIMATE INCREASED (NORMAL); POIKILOCYTOSIS SLIGHT; TEARDROP CELLS SLIGHT
[2017-11-15 08:57] LABS: TARGET CELLS SLIGHT
[2017-11-15] MEDS: Enoxaparin 30 mg Syringe SC SCH (10:13)
[2017-11-15] MEDS: Pantoprazole 40 mg EC Tab PO SCH (10:13)
--- NOTE | 2017-11-15 10:23 | CP.PCM.PN ---
Addendum entered and electronically signed by Sorin Fernandes DO 11/15/17 10:28: NPO will decide whether or not to adv diet s/p CT Abd n Pel Original Note: Subjective - Date & Time of Evaluation Date of Evaluation: 11/15/17 Time of Evaluation: 10:17 - Subjective Subjective: Patient seen and examined. Right mckenzie drain dislodged. Patient continuous to have purulent drainage from mckenzie drain tract. Denies n/v. Denies fever/chills. Objective - Vital Signs/Intake and Output Vital Signs (last 24 hours): Temp Pulse Resp BP Pulse Ox 98.5 F 115 H 20 125/90 98 11/15/17 08:33 11/15/17 08:33 11/15/17 08:33 11/15/17 08:33 11/15/17 08:33 Intake and Output: 11/15/17 11/15/17 06:59 18:59 Intake Total 1174 Output Total 50 Balance 1124 - Medications Medications: Current Medications Acetaminophen (Tylenol 650 Mg Supp) 650 mg [place] Q4 PRN PRN Reason: Fever >100.4 F Last Admin: 11/03/17 08:29 Dose: 650 mg Acetaminophen (Tylenol 325mg Tab) 650 mg PO Q6 PRN PRN Reason: Pain, Mild (1-3) Last Admin: 11/15/17 06:45 Dose: 650 mg Benzocaine/Menthol (Cepacol Sore Throat) 1 lisa MT Q2H PRN PRN Reason: Sore Throat Enoxaparin Sodium (Lovenox) 30 mg SC DAILY [facility] Last Admin: 11/15/17 10:13 Dose: 30 mg Hydromorphone HCl (Dilaudid) 0.5 mg IVP Q3H PRN PRN Reason: Pain, severe (8-10) Last Admin: 11/15/17 02:23 Dose: 0.5 mg Metronidazole (Flagyl) 500 mg in 100 mls @ 100 mls/hr IVPB Q8H [facility]; Protocol Last Admin: 11/15/17 04:45 Dose: 100 mls/hr Ciprofloxacin (Cipro 400mg/200ml Dsw) 400 mg in 200 mls @ 133 mls/hr IVPB Q12H [facility]; Protocol Last Admin: 11/15/17 05:58 Dose: 133 mls/hr Chromium/Copper/Manganese/Zinc 1 ml/ Heparin Sodium (Porcine ) 1,000 units/ Sodium Phosphate 15 mmole/ Potassium Chloride 60 meq/ Magnesium Sulfate 6 meq/ Calcium Gluconate 4.5 meq/ Amino Acids 1,048.1552 mls @ 83 mls/hr IV .[id number] ONE Stop: 11/15/17 19:22 Last Admin: 11/15/17 07:11 Dose: 83 mls/hr Fat Emulsion Intravenous (Intralipid 20%) 500 mls @ 83 mls/hr IV DAILY@1800 [facility] Last Admin: 11/14/17 18:33 Dose: 83 mls/hr Ketorolac Tromethamine (Toradol) 30 mg IVP Q6 [facility] Stop: 11/17/17 06:01 Last Admin: 11/15/17 06:46 Dose: 30 mg Metoclopramide HCl (Reglan) 10 mg IVP Q6H [facility] Last Admin: 11/15/17 04:46 Dose: 10 mg Ondansetron HCl (Zofran Inj) 4 mg IVP Q4 PRN PRN Reason: Nausea/Vomiting Last Admin: 11/11/17 12:35 Dose: 4 mg Pantoprazole Sodium (Protonix Ec Tab) 40 mg PO DAILY [facility] Last Admin: 11/15/17 10:13 Dose: 40 mg - Labs Labs: 11/15/17 08:12 11/15/17 08:03 PT 17.4 SECONDS (9.7-12.2) H 11/06/17 21:38 INR 1.6 11/06/17 21:38 APTT 35 SECONDS (21-34) H 11/06/17 21:38 - Constitutional Appears: No Acute Distress - Head Exam Head Exam: NORMOCEPHALIC - Eye Exam Eye Exam: Normal appearance - ENT Exam ENT Exam: Mucous Membranes Moist - Respiratory Exam Respiratory Exam: NORMAL BREATHING PATTERN - Cardiovascular Exam Cardiovascular Exam: +S1, +S2 - GI/Abdominal Exam GI & Abdominal Exam: Soft. absent: Firm, Guarding, Rigid, Rebound Additional comments: purulent drainage from mckenzie drain site - Neurological Exam Neurological Exam: Alert, Awake, Oriented x3 - Psychiatric Exam Psychiatric exam: Normal Mood - Skin Skin Exam: Dry, Erythema, Intact - Additional Findings Additional findings: erythematous changes along skin around drain sites likely 2/2 skin irritation from intra abdominal fluids Assessment and Plan - Assessment and Plan (Free Text) Assessment: 42F s/p open drainage of intraabdominal abscess Plan: CLD TPN ABx low dose lasix CT Abd Pel w/ PO contrast Replete electrolytes prn Monitor abd output DVT/GI ppx encourage ambulation D/w Dr. Melchor Dumont PGY3
[2017-11-15] MEDS ORDERED: Epoetin Alfa 10,000 unit/ml Dialysis SC SCH (12:30)
--- NOTE | 2017-11-15 13:03 | CT ---
PROCEDURE: CT Abdomen and Pelvis without IV contrast. HISTORY: evaluation COMPARISON: CT abdomen and pelvis with contrast performed 11/02/17 TECHNIQUE: Contiguous axial images of the abdomen and pelvis. Oral contrast was administered. No IV contrast given. Coronal and Sagittal reformats generated and reviewed. Radiation dose: Total exam DLP = 995.66 mGy-cm. This CT exam was performed using one or more of the following dose reduction techniques: Automated exposure control, adjustment of the mA and/or kV according to patient size, and/or use of iterative reconstruction technique. FINDINGS: There is limited evaluation of the solid organs without the administration of IV contrast. LOWER THORAX: Moderate to large szzv-dhowgwm-[id number]-right pleural effusions and associated consolidations. LIVER: Unremarkable unenhanced appearance. GALLBLADDER AND BILE DUCTS: Cholecystectomy. CBD stent. PANCREAS: Unremarkable unenhanced appearance. SPLEEN: Unremarkable unenhanced appearance. ADRENALS: Indeterminate left adrenal gland nodule measures approximately 2.9 x 2.5 cm. The right adrenal gland is not well visualized. KIDNEYS AND URETERS: Punctate nonobstructing left renal calculus. No hydronephrosis. BLADDER: Mildly thick-walled under distended urinary bladder. REPRODUCTIVE: Uterus is present. APPENDIX: The appendix is not identified clearly. BOWEL: The stomach is nondistended. The bowel loops appear within normal limits of caliber without evidence of intestinal obstruction. PERITONEUM: Right upper quadrant drainage catheter. Evidence of large left upper quadrant fluid collection abutting the stomach measuring approximately 6.4 x 8.6 cm (coronal image 58). Air in fluid re-identified within the right upper quadrant with appearance of contained collection measuring approximately 9.3 x 4.2 cm (coronal image 57). 4.0 x 4.5 cm collection appears within the mid abdomen (series 3, image 93). Right lower quadrant collection measuring approximately 8.4 x 5.8 cm (series 3, image 132). 2.8 x 5.3 cm fluid collection anterior to the uterus (sagittal image 88). Abdominal and pelvic ascites. Foci of air within the upper abdomen. LYMPH NODES: No bulky lymphadenopathy identified. VASCULATURE: No aortic aneurysm. BONES: No acute osseous abnormality is detected. OTHER FINDINGS: Soft tissue edema. IMPRESSION: Multiple probable intra-abdominal abscesses as above. Collections appear stable to slightly decreased in size as compared to prior study however limited assessment due to lack of IV contrast. Foci of free air within the upper abdomen. Moderate to large uwfn-depgfqe-ltvs-right pleural effusions and associated consolidations. Additional findings as above.
[2017-11-15] MEDS: EPOETIN ALFA 10,000 UNIT/ML ML SC SCH (15:46)
--- NOTE | 2017-11-15 17:01 | PN ---
DATE: 11/15/2017 LOCATION: 670, bed A. SUBJECTIVE: This is a 42-year-old female seen and examined in rounds without significant clinical changes, but was loosing her lower abdominal FRANC catheter. Still has intermittent period of abdominal pain; however, is less than expected and reported before. The patient is signed for CAT scan of the abdomen and pelvis, official report is still pending. No chest pain, palpitation or significant clinical changes. With recurrent discharge of purulent exudate from the drain tract. No nausea or vomiting. The entire chart is reviewed including but not limited to the most recent lab and radiology study results, current and the previous medication list, current and the previous medical events. Today's lab showed white blood cells of 18.5, hemoglobin 7.5, hematocrit 23.1 with low indices with thrombocytosis and low creatinine of 0.6. Blood glucose level 178, calcium 8.3. The patient is still having low albumin. PHYSICAL EXAMINATION: GENERAL: A 42-year-old female. VITAL SIGNS: Afebrile with heart rate of 106, respiratory rate 20 to 22, blood pressure 130/88. HEENT: Showed pale, dry oral mucous membrane. Nonicteric sclerae. LUNGS: Few scattered crepitation. Decreased air entry at bases. HEART: Positive S1 and S2. ABDOMEN: Soft with mild generalized tenderness. No mass or organomegaly. No rebound tenderness or guarding. EXTREMITIES: With lower extremities mild edematous changes. No clubbing or cyanosis. NEUROLOGICAL: No reported new neurological deficits, sensory or motor. IMPRESSION: 1. Status post exploratory laparotomy with drainage of intraperitoneal abscess formation. 2. Status post cholecystectomy, biliary leak, endoscopic retrograde cholangiopancreatography with biliary stent insertion. 3. Anemia, most likely secondary to above. SUGGESTIONS: 1. Continue current management. 2. As I suggested, repeat CAT scan of the abdomen and pelvis is to be done today, results still pending. Further recommendation to follow. Thor Davenport MD
[2017-11-15] MEDS ORDERED: TPN #15 IV ONE (18:00)
--- NOTE | 2017-11-15 19:10 | CP.PCM.PN ---
Subjective - Date & Time of Evaluation Date of Evaluation: 11/15/17 Time of Evaluation: 11:00 - Subjective Subjective: dictated Objective - Vital Signs/Intake and Output Vital Signs (last 24 hours): Temp Pulse Resp BP Pulse Ox 98.7 F 123 H 21 139/89 99 11/15/17 15:00 11/15/17 15:00 11/15/17 15:00 11/15/17 15:00 11/15/17 15:00 - Medications Medications: Current Medications Acetaminophen (Tylenol 650 Mg Supp) 650 mg [place] Q4 PRN PRN Reason: Fever >100.4 F Last Admin: 11/03/17 08:29 Dose: 650 mg Acetaminophen (Tylenol 325mg Tab) 650 mg PO Q6 PRN PRN Reason: Pain, Mild (1-3) Last Admin: 11/15/17 06:45 Dose: 650 mg Benzocaine/Menthol (Cepacol Sore Throat) 1 lisa MT Q2H PRN PRN Reason: Sore Throat Enoxaparin Sodium (Lovenox) 30 mg SC DAILY [facility] Last Admin: 11/15/17 10:13 Dose: 30 mg Epoetin Curry (Procrit) 10,000 unit SC MWF [facility] Last Admin: 11/15/17 15:46 Dose: 10,000 unit Hydromorphone HCl (Dilaudid) 0.5 mg IVP Q3H PRN PRN Reason: Pain, severe (8-10) Last Admin: 11/15/17 12:45 Dose: 0.5 mg Metronidazole (Flagyl) 500 mg in 100 mls @ 100 mls/hr IVPB Q8H [facility]; Protocol Last Admin: 11/15/17 12:47 Dose: 100 mls/hr Ciprofloxacin (Cipro 400mg/200ml Dsw) 400 mg in 200 mls @ 133 mls/hr IVPB Q12H [facility]; Protocol Last Admin: 11/15/17 05:58 Dose: 133 mls/hr Chromium/Copper/Manganese/Zinc 1 ml/ Heparin Sodium (Porcine ) 1,000 units/ Sodium Phosphate 15 mmole/ Potassium Chloride 60 meq/ Magnesium Sulfate 6 meq/ Calcium Gluconate 4.5 meq/ Amino Acids 1,048.1552 mls @ 83 mls/hr IV .[id number] ONE Stop: 11/15/17 19:22 Last Admin: 11/15/17 07:11 Dose: 83 mls/hr Multivitamins/Vitamin C 10 ml/Chromium/Copper/Manganese/Zinc 1 ml/ Heparin Sodium ( Porcine) 1,000 units/ Amino Acids/Electrolytes/Dextrose 1,012 mls @ 83 mls/hr IV .[id number] ONE Stop: 11/16/17 06:11 Chromium/Copper/Manganese/Zinc 1 ml/ Heparin Sodium (Porcine ) 1,000 units/ Amino Acids/Electrolytes/Dextrose 1,002 mls @ 83 mls/hr IV .[id number] ONE Stop: 11/16/17 18:14 Fat Emulsion Intravenous (Intralipid 20%) 500 mls @ 83 mls/hr IV QOD@1800 [facility] Ketorolac Tromethamine (Toradol) 30 mg IVP Q6 [facility] Stop: 11/17/17 06:01 Last Admin: 11/15/17 11:42 Dose: 30 mg Metoclopramide HCl (Reglan) 10 mg IVP Q6H [facility] Last Admin: 11/15/17 11:41 Dose: 10 mg Ondansetron HCl (Zofran Inj) 4 mg IVP Q4 PRN PRN Reason: Nausea/Vomiting Last Admin: 11/11/17 12:35 Dose: 4 mg Pantoprazole Sodium (Protonix Ec Tab) 40 mg PO DAILY [facility] Last Admin: 11/15/17 10:13 Dose: 40 mg - Labs Labs: 11/15/17 08:12 11/15/17 08:03 PT 17.4 SECONDS (9.7-12.2) H 11/06/17 21:38 INR 1.6 11/06/17 21:38 APTT 35 SECONDS (21-34) H 11/06/17 21:38
--- NOTE | 2017-11-16 01:11 | PN ---
DATE: 11/15/2017 SUBJECTIVE: The patient was seen today. She said one of the tube which was draining the abscess fell off in spite of the suture that was put yesterday. She went for a CAT scan, and they were cleaning her wounds. There was some mild redness and minimal leakage of bile, look like bile from the abdominal wound which was midline. She still had biliary drains present. OBJECTIVE: GENERAL: She was afebrile. She is pale. VITAL SIGNS: T-max is 98.7, heart rate of 123, blood pressure 139/89, respirations are 21. HEENT: Head is atraumatic. NECK: Supple. LUNGS: Decreased breath sounds bilaterally. HEART: S1, S2 regular. Tachycardia present. ABDOMEN: Soft, distended, and the nurses were doing dressing. EXTREMITIES: Have bilateral edema. Her labs showed white count has gone up to 18.5; hemoglobin remained 7.6; hematocrit 23.1; platelet count is 627, has increased. The chemistry showed sodium 135, potassium 3.6, chlorides are 97, CO2 is 28, anion gap is 13, BUN is 11, creatinine 0.6. Urine culture and blood culture x2 are all negative from 11/05, body fluid had Proteus before, and she has been on Cipro and Flagyl, and if she had a CAT scan, I would like to see the CAT scan report and the CAT scan was done today, but when I am dictating my note, it is resulted, and it shows multiple probable intra-abdominal abscesses. As above, collection appears stable to slightly decreased in size as compared to prior study, however, limited assessment due to lack of IV contrast, foci of free air within the upper abdomen, moderate to large left, greater than right pleural effusion and associated consolidations, associated additional findings as above. She is retaining them. She has effusions now and in the peritoneum, they said evidence of a large left upper quadrant fluid collection abutting the stomach, measuring 6.4 x 8.6, air in fluid identified within the right upper quadrant with appearance of contained collection measuring approximately 9.3 x 4.2, collection appears within the mid abdomen. Right lower collection measuring approximately 8.4 x 5.8 and 2.8 x 5.30 on another series anterior to the fluid collection, anterior to the uterus, abdominal, and pelvic ascites. She does have multiple abscesses and she had a bile leak and last culture was Proteus from the body fluids. I will continue with Cipro as well as Flagyl. If white count goes further up, then these collections, if they can be drained them by IR, Surgery is following. We will continue antibiotics, and we will also put her on Procrit as she remains very anemic, and she may need pulmonary eval or IR to drain the effusions if they are large but she has no respiratory problems as such. We will follow. Juliet Vegas MD
[2017-11-16] MEDS: HYDROmorphone 0.5 mg/0.5 ml ISec IVP PRN ×3 (04:01→23:36)
[2017-11-16] MEDS: metroNIDAZOLE IV 500 mg/100 ml 500 MG/100 ML BAG IVPB SCH ×3 (04:03→21:20)
[2017-11-16] MEDS ORDERED: TPN #16 IV ONE (06:10)
[2017-11-16] MEDS: Ciprofloxacin 400mg/200ml D5W 400 MG/200 ML BAG IVPB SCH ×2 (06:30→17:04)
[2017-11-16 08:04] LABS: BASO # 0.1 K/uL (0.0-0.2); HEMOGLOBIN 6.9 g/dL (11.0-16.0); LYMPH % 6.7 % (20.0-40.0); MEAN CELL VOLUME 72.3 fL (81.0-99.0); MEAN CORPUSCULAR HEMOGLOBIN 23.7 pg (27.0-31.0); MEAN CORPUSCULAR HGB CONC 32.8 g/dL (33.0-37.0); MONO # 1.3 K/uL (0.0-0.8); MONO % 8.4 % (0.0-10.0); NEUT # 12.6 K/uL (1.8-7.0); NEUT % 83.9 % (50.0-75.0); PLATELET COUNT 635 K/uL (130-400); RED CELL DISTRIBUTION WIDTH 21.3 % (11.5-14.5)
[2017-11-16 08:17] LABS: BLOOD UREA NITROGEN 15 mg/dL (7-17); CALCIUM 6.7 mg/dl (8.6-10.4); GFR NON-AFRICAN AMERICAN > 60
[2017-11-16 09:54] LABS: BANDS 4 % (0-2); TOTAL CELLS COUNTED 100
[2017-11-16 09:55] LABS: LYMPHOCYTE 6 % (20-40); MONOCYTE 7 % (0-10); NEUTROPHIL 83 % (50-75); PLATELET ESTIMATE INCREASED (NORMAL)
[2017-11-16 09:56] LABS: ANISOCYTOSIS MODERATE; HYPOCHROMIC SLIGHT; MICROCYTOSIS SLIGHT; OVALOCYTES SLIGHT; POIKILOCYTOSIS SLIGHT; POLYCHROMIC SLIGHT
[2017-11-16] MEDS: Pantoprazole 40 mg EC Tab PO SCH (10:07)
[2017-11-16] MEDS: Enoxaparin 30 mg Syringe SC SCH (10:07)
[2017-11-16] MEDS ORDERED: TPN #16 IV SCH (12:30)
--- NOTE | 2017-11-16 13:31 | PN ---
DATE: 11/16/2017 LOCATION: 670, bed A. SUBJECTIVE: This is a 42-year-old female seen and examined in rounds with intermittent period of abdominal pain, which is less than before. The entire chart is reviewed including but not limited to the most recent lab and radiology study results, current and the previous medication list, current and the previous medical events, and yesterday's abdominal and pelvic CAT scan report is seen, for which the patient may need thoracocentesis also. Today's lab results is pending, but the patient still has leukocytosis with evidence of hypochromic microcytic anemia with increased blood glucose level and low calcium. PHYSICAL EXAMINATION: GENERAL: A 42-year-old female. VITAL SIGNS: Afebrile with heart rate of 102, respiratory rate 20 to 22, blood pressure of 140/88. HEENT: Showed pale, dry oral mucous membrane. Nonicteric sclerae. LUNGS: Few scattered crepitation with decreased air entry, mainly in the right side. HEART: Positive S1 and S2 with increased rate. ABDOMEN: Soft. Bowel sounds are present. No mass or organomegaly. No rebound tenderness or guarding, but generalized tenderness with mild distention. It has to be mentioned that the abdominal drainage had been less in amount, but appeared o be purulent in color from the James drain tract. EXTREMITIES: With lower extremity edematous changes. No clubbing or cyanosis. NEUROLOGICAL: No reported new neurological deficits, sensory or motor. IMPRESSION: 1. Biliary leak. 2. Intraabdominal/biliary abscess formation. 3. Anemia, most likely secondary to above. 4. Pleural effusion, which is refractory. Further recommendation to follow. SUGGESTIONS: 1. Continue current management. 2. Thoracocentesis due to the refractory pleural effusion. 3. Antireflux measure. 4. The patient may need chest CAT scan. 5. We will follow up closely with you. Thor Davenport MD
--- NOTE | 2017-11-16 15:54 | CP.PCM.PN ---
Subjective - Date & Time of Evaluation Date of Evaluation: 11/16/17 Time of Evaluation: 14:55 - Subjective Subjective: General surgery progress note for Dr. Wilber Mays, PGY-2 Pt S & E at bedside at 0630 and again at 1445 Pt reports abdominal pain overnight, SOB. Denies N & V, F & C. Later in the day, pt requesting information regarding discharge home- pt was instructed that she had to be able to eat prior to discharge. Objective - Vital Signs/Intake and Output Vital Signs (last 24 hours): Temp Pulse Resp BP Pulse Ox 98.4 F 117 H 20 153/89 H 98 11/16/17 07:00 11/16/17 07:00 11/16/17 07:00 11/16/17 07:00 11/16/17 07:00 Intake and Output: 11/16/17 11/16/17 06:59 18:59 Intake Total 964 964 Output Total 0 460 Balance 964 504 - Medications Medications: Current Medications Acetaminophen (Tylenol 650 Mg Supp) 650 mg [place] Q4 PRN PRN Reason: Fever >100.4 F Last Admin: 11/03/17 08:29 Dose: 650 mg Acetaminophen (Tylenol 325mg Tab) 650 mg PO Q6 PRN PRN Reason: Pain, Mild (1-3) Last Admin: 11/16/17 01:18 Dose: 650 mg Benzocaine/Menthol (Cepacol Sore Throat) 1 lisa MT Q2H PRN PRN Reason: Sore Throat Enoxaparin Sodium (Lovenox) 30 mg SC DAILY [facility] Last Admin: 11/16/17 10:07 Dose: 30 mg Epoetin Curry (Procrit) 10,000 unit SC MWF [facility] Last Admin: 11/15/17 15:46 Dose: 10,000 unit Hydromorphone HCl (Dilaudid) 0.5 mg IVP Q3H PRN PRN Reason: Pain, severe (8-10) Last Admin: 11/16/17 04:01 Dose: 0.5 mg Metronidazole (Flagyl) 500 mg in 100 mls @ 100 mls/hr IVPB Q8H [facility]; Protocol Last Admin: 11/16/17 11:32 Dose: 100 mls/hr Ciprofloxacin (Cipro 400mg/200ml Dsw) 400 mg in 200 mls @ 133 mls/hr IVPB Q12H [facility]; Protocol Last Admin: 11/16/17 06:30 Dose: 133 mls/hr Fat Emulsion Intravenous (Intralipid 20%) 500 mls @ 42 mls/hr IV QOD@1800 [facility] Heparin Sodium (Porcine) 1,000 units/ Multivitamins/Vitamin C 10 ml/ Amino Acids/Electrolytes/Dextrose 1,011 mls @ 83 mls/hr IV .[id number] [facility] Stop: 11/17/17 06:10 Chromium/Copper/Manganese/Zinc 1 ml/ Heparin Sodium (Porcine ) 1,000 units/ Amino Acids/Electrolytes/Dextrose 1,002 mls @ 83 mls/hr IV .Q12H5M [facility] Stop: 11/16/17 17:59 Heparin Sodium (Porcine) 1,000 units/ Amino Acids/Electrolytes/Dextrose 1,001 mls @ 83 mls/hr IV .Q12H4M [facility] Stop: 11/17/17 17:59 Metoclopramide HCl (Reglan) 10 mg IVP Q6H [facility] Last Admin: 11/16/17 11:27 Dose: 10 mg Ondansetron HCl (Zofran Inj) 4 mg IVP Q4 PRN PRN Reason: Nausea/Vomiting Last Admin: 11/11/17 12:35 Dose: 4 mg Pantoprazole Sodium (Protonix Ec Tab) 40 mg PO DAILY [facility] Last Admin: 11/16/17 10:07 Dose: 40 mg - Labs Labs: 11/16/17 07:57 11/16/17 07:57 PT 17.4 SECONDS (9.7-12.2) H 11/06/17 21:38 INR 1.6 11/06/17 21:38 APTT 35 SECONDS (21-34) H 11/06/17 21:38 - Constitutional Appears: Non-toxic, No Acute Distress - Head Exam Head Exam: ATRAUMATIC, NORMAL INSPECTION, NORMOCEPHALIC - Eye Exam Eye Exam: EOMI, Normal appearance - ENT Exam ENT Exam: Mucous Membranes Moist, Normal Exam - Neck Exam Neck Exam: Full ROM, Normal Inspection - Respiratory Exam Respiratory Exam: NORMAL BREATHING PATTERN - Cardiovascular Exam Cardiovascular Exam: REGULAR RHYTHM, +S1, +S2 - GI/Abdominal Exam GI & Abdominal Exam: Soft, Tenderness (mild, diffuse). absent: Distended, Firm, Guarding, Rigid Additional comments: Midline dressing in place- slight serous strike through RLQ FRANC drain insertion site with yellow drainage to ostomy bag - Extremities Exam Extremities Exam: Pedal Edema (bilateral) - Neurological Exam Neurological Exam: Alert, Awake, CN II-XII Intact, Oriented x3 - Psychiatric Exam Psychiatric exam: Normal Affect, Normal Mood - Skin Skin Exam: Dry, Normal Color, Warm Assessment and Plan - Assessment and Plan (Free Text) Assessment: 42F s/p open drainage of intra-abdominal abscess POD# CT ab w/Multiple probable intra-abdominal abscesses as above. Collections appear stable to slightly decreased in size as compared to prior study however limited assessment due to lack of IV contrast. Foci of free air within the upper abdomen.Moderate to large uckc-kchaqsm-xixy-right pleural effusions and associated consolidations. Plan: Hgb 6.9 from 7.6 Transfuse 1 unit pRBCs as per Dr. Roche CLD ok on 11/17 TPN Abx Low dose lasix Ambulate with walker Replace electrolytes PRN Monitor abdominal output DVT/GI ppx DW Dr. Melchor Mays, PGY-2
[2017-11-16] MEDS: Fat Emulsion 20% IV 500 ML IV SCH (17:07)
[2017-11-16] MEDS ORDERED: TPN IV SCH (18:00)
[2017-11-17] MEDS: HYDROmorphone 0.5 mg/0.5 ml ISec IVP PRN ×6 (02:32→20:15)
[2017-11-17 04:28] VITALS: RESP 20
[2017-11-17] MEDS: metroNIDAZOLE IV 500 mg/100 ml 500 MG/100 ML BAG IVPB SCH ×3 (05:40→21:27)
[2017-11-17] MEDS: Ciprofloxacin 400mg/200ml D5W 400 MG/200 ML BAG IVPB SCH ×2 (05:41→18:30)
[2017-11-17] MEDS ORDERED: TPN IV SCH ×2 (06:11→18:00)
[2017-11-17 08:35] LABS: BASO # 0.1 K/uL (0.0-0.2); BASO % 0.9 % (0.0-2.0); HEMOGLOBIN 8.2 g/dL (11.0-16.0); LYMPH # 1.7 K/uL (1.0-4.3); LYMPH % 10.3 % (20.0-40.0); MEAN CORPUSCULAR HEMOGLOBIN 24.9 pg (27.0-31.0); MEAN CORPUSCULAR HGB CONC 33.3 g/dL (33.0-37.0); MEAN PLATELET VOLUME 8.1 fL (7.2-11.7); MONO # 1.4 K/uL (0.0-0.8); MONO % 8.6 % (0.0-10.0); NEUT # 12.8 K/uL (1.8-7.0); NEUT % 80.2 % (50.0-75.0); RBC 3.29 Mil/uL (3.80-5.20); RED CELL DISTRIBUTION WIDTH 21.6 % (11.5-14.5)
[2017-11-17 08:37] LABS: MEAN CELL VOLUME 74.9 fL (81.0-99.0)
[2017-11-17] MEDS: Pantoprazole 40 mg EC Tab PO SCH (09:23)
[2017-11-17 10:08] LABS: BLOOD UREA NITROGEN 15 mg/dL (7-17); CALCIUM 8.4 mg/dl (8.6-10.4); GFR NON-AFRICAN AMERICAN > 60
[2017-11-17] MEDS ORDERED: Potassium Chloride 20 mEq ER Tab PO STA (10:28)
--- NOTE | 2017-11-17 10:52 | CP.PCM.PN ---
Addendum entered and electronically signed by Brant Roche MD 11/18/17 11:36: Midline purulent drainage, similar in appearance to content of retroperitoneal abscess; RLQ drainage is non-feculent, dark ?old bloody ascitic. For thoracentesis today. Original Note: Subjective - Date & Time of Evaluation Date of Evaluation: 11/17/17 Time of Evaluation: 06:30 - Subjective Subjective: Patient seen and examined. No acute events over night. S/p 1uPRBC. Responded appropriately. Hgb 8.2 today. Tolerating liquid diet. Still having purulent abdominal drainage. Objective - Vital Signs/Intake and Output Vital Signs (last 24 hours): Temp Pulse Resp BP Pulse Ox 97.8 F 132 H 20 160/106 H 96 11/17/17 07:00 11/17/17 07:00 11/17/17 07:00 11/17/17 09:23 11/17/17 07:00 Intake and Output: 11/17/17 11/17/17 06:59 18:59 Intake Total 575 1150 Output Total 545 Balance 575 605 - Medications Medications: Current Medications Acetaminophen (Tylenol 650 Mg Supp) 650 mg [place] Q4 PRN PRN Reason: Fever >100.4 F Last Admin: 11/03/17 08:29 Dose: 650 mg Acetaminophen (Tylenol 325mg Tab) 650 mg PO Q6 PRN PRN Reason: Pain, Mild (1-3) Last Admin: 11/16/17 23:35 Dose: 650 mg Benzocaine/Menthol (Cepacol Sore Throat) 1 lisa MT Q2H PRN PRN Reason: Sore Throat Epoetin Curry (Procrit) 10,000 unit SC MWF [facility] Last Admin: 11/15/17 15:46 Dose: 10,000 unit Furosemide (Lasix) 20 mg IVP DAILY [facility] Last Admin: 11/17/17 09:23 Dose: 20 mg Hydromorphone HCl (Dilaudid) 0.5 mg IVP Q3H PRN PRN Reason: Pain, severe (8-10) Last Admin: 11/17/17 08:53 Dose: 0.5 mg Metronidazole (Flagyl) 500 mg in 100 mls @ 100 mls/hr IVPB Q8H [facility]; Protocol Last Admin: 11/17/17 05:40 Dose: 100 mls/hr Ciprofloxacin (Cipro 400mg/200ml Dsw) 400 mg in 200 mls @ 133 mls/hr IVPB Q12H [facility]; Protocol Last Admin: 11/17/17 05:41 Dose: 133 mls/hr Fat Emulsion Intravenous (Intralipid 20%) 500 mls @ 42 mls/hr IV QOD@1800 [facility] Last Admin: 11/16/17 17:07 Dose: 42 mls/hr Heparin Sodium (Porcine) 1,000 units/ Amino Acids/Electrolytes/Dextrose 1,001 mls @ 83 mls/hr IV .Q12H4M [facility] Stop: 11/17/17 17:59 Last Admin: 11/17/17 06:04 Dose: 83 mls/hr Metoclopramide HCl (Reglan) 10 mg IVP Q6H [facility] Last Admin: 11/17/17 05:40 Dose: 10 mg Ondansetron HCl (Zofran Inj) 4 mg IVP Q4 PRN PRN Reason: Nausea/Vomiting Last Admin: 11/11/17 12:35 Dose: 4 mg Pantoprazole Sodium (Protonix Ec Tab) 40 mg PO DAILY [facility] Last Admin: 11/17/17 09:23 Dose: 40 mg - Labs Labs: 11/17/17 08:04 11/17/17 08:04 PT 17.4 SECONDS (9.7-12.2) H 11/06/17 21:38 INR 1.6 11/06/17 21:38 APTT 35 SECONDS (21-34) H 11/06/17 21:38 - Constitutional Appears: No Acute Distress - Head Exam Head Exam: NORMOCEPHALIC - Eye Exam Eye Exam: Normal appearance - ENT Exam ENT Exam: Mucous Membranes Moist - Respiratory Exam Respiratory Exam: NORMAL BREATHING PATTERN - Cardiovascular Exam Cardiovascular Exam: +S1, +S2 - GI/Abdominal Exam GI & Abdominal Exam: Distended, Soft. absent: Firm, Guarding, Rigid, Rebound Additional comments: mild distension - Neurological Exam Neurological Exam: Alert, Awake, Oriented x3 - Psychiatric Exam Psychiatric exam: Normal Mood - Skin Skin Exam: Dry, Intact, Warm Assessment and Plan - Assessment and Plan (Free Text) Assessment: 42F s/p open drainage of intra-abdominal abscess POD 11 Plan: Monitor H/H Start CLD Patient for IR thoracentesis tomorrow C/w TPN Abx Ambulate with walker Replace electrolytes PRN Monitor abdominal output DVT/GI ppx DW Dr. Melchor Dumont PGY3
[2017-11-17] MEDS ORDERED: Potassium Chloride 20 mEq/15 ml LIQ UD PO ONE (11:45)
--- NOTE | 2017-11-17 14:21 | PN ---
DATE: 11/17/2017 LOCATION: 670, bed A. SUBJECTIVE: This is a 42-year-old female seen and examined in rounds without reported significant clinical changes with intermittent periods of abdominal pain, received blood transfusion. No reported active bleeding or reported nausea or vomiting. The entire chart is reviewed including but not limited to the most recent lab and radiology study results, current and the previous medication list. The patient's latest hemoglobin was 6.8, for which a blood transfusion was started last night with leukocytosis of 15, with elevated blood glucose level, but calcium of 6.7. No reported chest pain, palpitation. No hematemesis. PHYSICAL EXAMINATION: GENERAL: A 42-year-old female. VITAL SIGNS: Afebrile, with pulse of 110, respiratory rate 20-22, blood pressure 148/82. HEENT: Showed pale, dry oral mucous membranes. Nonicteric sclerae. LUNGS: Few scattered crepitations. Decreased air entry at bases. HEART: Positive S1 and S2. ABDOMEN: Soft. Bowel sounds are present. No mass or organomegaly. No rebound tenderness or guarding. EXTREMITIES: With lower extremity mild edematous changes. No clubbing or cyanosis. NEUROLOGIC: No reported new neurological deficits, sensory or motor. IMPRESSION: 1. Anemia, most likely secondary to chronic disease. No evidence of active bleeding. 2. Biliary leak, with status post endoscopic retrograde cholangio-pancreatography and biliary stent insertion. 3. Status post exploratory laparotomy due to intraperitoneal abscess formation. SUGGESTIONS: 1. Continue current management. 2. Guaiac all the stools daily x3. 3. Further recommendations to follow. Thor Davenport MD
--- NOTE | 2017-11-17 18:54 | CP.PCM.PN ---
Subjective - Date & Time of Evaluation Date of Evaluation: 11/17/17 Time of Evaluation: 16:00 - Subjective Subjective: dictated Objective - Vital Signs/Intake and Output Vital Signs (last 24 hours): Temp Pulse Resp BP Pulse Ox 99.1 F 111 H 20 159/77 H 96 11/17/17 15:45 11/17/17 15:00 11/17/17 15:00 11/17/17 15:00 11/17/17 15:00 Intake and Output: 11/17/17 11/17/17 06:59 18:59 Intake Total 575 1150 Output Total 595 Balance 575 555 - Medications Medications: Current Medications Acetaminophen (Tylenol 650 Mg Supp) 650 mg [place] Q4 PRN PRN Reason: Fever >100.4 F Last Admin: 11/03/17 08:29 Dose: 650 mg Acetaminophen (Tylenol 325mg Tab) 650 mg PO Q6 PRN PRN Reason: Pain, Mild (1-3) Last Admin: 11/17/17 15:45 Dose: 650 mg Benzocaine/Menthol (Cepacol Sore Throat) 1 lisa MT Q2H PRN PRN Reason: Sore Throat Epoetin Curry (Procrit) 10,000 unit SC MWF [facility] Last Admin: 11/15/17 15:46 Dose: 10,000 unit Furosemide (Lasix) 20 mg IVP DAILY [facility] Last Admin: 11/17/17 09:23 Dose: 20 mg Hydromorphone HCl (Dilaudid) 0.5 mg IVP Q3H PRN PRN Reason: Pain, severe (8-10) Last Admin: 11/17/17 16:25 Dose: 0.5 mg Metronidazole (Flagyl) 500 mg in 100 mls @ 100 mls/hr IVPB Q8H [facility]; Protocol Last Admin: 11/17/17 15:44 Dose: 100 mls/hr Ciprofloxacin (Cipro 400mg/200ml Dsw) 400 mg in 200 mls @ 133 mls/hr IVPB Q12H [facility]; Protocol Last Admin: 11/17/17 18:30 Dose: 133 mls/hr Fat Emulsion Intravenous (Intralipid 20%) 500 mls @ 42 mls/hr IV QOD@1800 [facility] Last Admin: 11/16/17 17:07 Dose: 42 mls/hr Heparin Sodium (Porcine) 1,000 units/ Amino Acids/Electrolytes/Dextrose 1,001 mls @ 83 mls/hr IV .Q12H4M [facility] Stop: 11/18/17 06:00 Last Admin: 11/17/17 18:41 Dose: 83 mls/hr Heparin Sodium (Porcine) 1,000 units/ Amino Acids/Electrolytes/Dextrose 1,001 mls @ 83 mls/hr IV .Q12H4M [facility] Stop: 11/18/17 18:00 Metoclopramide HCl (Reglan) 10 mg IVP Q6H [facility] Last Admin: 11/17/17 18:30 Dose: 10 mg Ondansetron HCl (Zofran Inj) 4 mg IVP Q4 PRN PRN Reason: Nausea/Vomiting Last Admin: 11/11/17 12:35 Dose: 4 mg Pantoprazole Sodium (Protonix Ec Tab) 40 mg PO DAILY [facility] Last Admin: 11/17/17 09:23 Dose: 40 mg - Labs Labs: 11/17/17 08:04 11/17/17 08:04 PT 17.4 SECONDS (9.7-12.2) H 11/06/17 21:38 INR 1.6 11/06/17 21:38 APTT 35 SECONDS (21-34) H 11/06/17 21:38
--- NOTE | 2017-11-17 23:59 | PN ---
DATE: 11/17/2017 INFECTIOUS DISEASE FOLLOWUP NOTE SUBJECTIVE: The patient was seen today. She states she wanted to go home. Her bile drainage tube was removed. She had a dressing there. The other tube had fallen off, and she had colostomy bag on it and that was draining some bile into it. She is saying, she is having less pain. She did have a CAT scan few days which still showed abscesses but they were little better but still has many abscesses. PHYSICAL EXAMINATION: VITAL SIGNS: T-max is 97.7, heart rate of 111, blood pressure 159/77, respirations are 20. HEENT: Head is atraumatic and normocephalic. NECK: Supple. LUNGS: Clear. Decreased breath sounds bilaterally. She is to remove the fluid because there was a mention of right pleural effusion. ABDOMEN: Remains still prominent, has a PICC line. EXTREMITIES: Remained with bilateral edema. Lab are noted. Labs showed white count is 16, hemoglobin 8.2, hematocrit 24.6, platelet count is 660. Potassium is 3.2, is being supplemented. She is getting hyperal by the PICC line, and her labs still remain with a high white count. The patient's ex-CAT scan which was done on 11/15/2017 shows multiple probable intraabdominal abscesses. appeared stable, it was slightly decreased compared prior study. However, limited assessment due to lack of IV contrast and moderate to large left greater than right pleural effusion so large is left more than right with associated consolidation so maybe some drainage might help. We will follow. Continue antibiotics. I have renewed Cipro and Flagyl at this time. We will follow with the surgery attending what she thinks of it as there are still many abscesses. We will follow. Juliet Vegas MD
[2017-11-18] MEDS: HYDROmorphone 0.5 mg/0.5 ml ISec IVP PRN ×7 (00:25→21:43)
[2017-11-18] MEDS: metroNIDAZOLE IV 500 mg/100 ml 500 MG/100 ML BAG IVPB SCH ×2 (03:44→12:00)
[2017-11-18] MEDS: Ciprofloxacin 400mg/200ml D5W 400 MG/200 ML BAG IVPB SCH (04:58)
[2017-11-18] MEDS ORDERED: TPN IV SCH (06:30)
[2017-11-18 07:36] LABS: BASO # 0.2 K/uL (0.0-0.2); LYMPH # 1.3 K/uL (1.0-4.3); LYMPH % 6.3 % (20.0-40.0); MEAN CELL VOLUME 74.3 fL (81.0-99.0); MEAN CORPUSCULAR HGB CONC 33.6 g/dL (33.0-37.0); MEAN PLATELET VOLUME 7.5 fL (7.2-11.7); MONO # 1.9 K/uL (0.0-0.8); MONO % 9.1 % (0.0-10.0); NEUT % 83.6 % (50.0-75.0); PLATELET COUNT 677 K/uL (130-400); WHITE BLOOD COUNT 20.4 K/uL (4.8-10.8)
--- NOTE | 2017-11-18 07:57 | CP.PCM.PN ---
Subjective - Date & Time of Evaluation Date of Evaluation: 11/18/17 Time of Evaluation: 06:40 - Subjective Subjective: General Surgery progress note for Dr. Roche Pt seen and examined at bedside this AM. Patient denies any pain, nasuea, vomiting, or any other symptoms. States she is taking the pain medcation for sleeping purposes at night. Objective - Vital Signs/Intake and Output Vital Signs (last 24 hours): Temp Pulse Resp BP Pulse Ox 98.6 F 64 20 141/83 98 11/18/17 04:20 11/18/17 04:20 11/18/17 04:20 11/18/17 04:20 11/18/17 04:20 Intake and Output: 11/18/17 11/18/17 06:59 18:59 Intake Total 415 Output Total 330 Balance 85 - Medications Medications: Current Medications Acetaminophen (Tylenol 650 Mg Supp) 650 mg [place] Q4 PRN PRN Reason: Fever >100.4 F Last Admin: 11/03/17 08:29 Dose: 650 mg Acetaminophen (Tylenol 325mg Tab) 650 mg PO Q6 PRN PRN Reason: Pain, Mild (1-3) Last Admin: 11/18/17 00:26 Dose: 650 mg Benzocaine/Menthol (Cepacol Sore Throat) 1 lisa MT Q2H PRN PRN Reason: Sore Throat Epoetin Curry (Procrit) 10,000 unit SC MWF [facility] Last Admin: 11/15/17 15:46 Dose: 10,000 unit Furosemide (Lasix) 20 mg IVP DAILY [facility] Last Admin: 11/17/17 09:23 Dose: 20 mg Hydromorphone HCl (Dilaudid) 0.5 mg IVP Q3H PRN PRN Reason: Pain, severe (8-10) Last Admin: 11/18/17 06:53 Dose: 0.5 mg Metronidazole (Flagyl) 500 mg in 100 mls @ 100 mls/hr IVPB Q8H [facility]; Protocol Last Admin: 11/18/17 03:44 Dose: 100 mls/hr Ciprofloxacin (Cipro 400mg/200ml Dsw) 400 mg in 200 mls @ 133 mls/hr IVPB Q12H [facility]; Protocol Last Admin: 11/18/17 04:58 Dose: 133 mls/hr Fat Emulsion Intravenous (Intralipid 20%) 500 mls @ 42 mls/hr IV QOD@1800 [facility] Last Admin: 11/16/17 17:07 Dose: 42 mls/hr Heparin Sodium (Porcine) 1,000 units/ Amino Acids/Electrolytes/Dextrose 1,001 mls @ 83 mls/hr IV .Q12H4M [facility] Stop: 11/18/17 18:00 Last Admin: 11/18/17 06:54 Dose: 83 mls/hr Metoclopramide HCl (Reglan) 10 mg IVP Q6H [facility] Last Admin: 11/18/17 00:25 Dose: 10 mg Ondansetron HCl (Zofran Inj) 4 mg IVP Q4 PRN PRN Reason: Nausea/Vomiting Last Admin: 11/11/17 12:35 Dose: 4 mg Pantoprazole Sodium (Protonix Ec Tab) 40 mg PO DAILY [facility] Last Admin: 11/17/17 09:23 Dose: 40 mg - Labs Labs: 11/18/17 07:19 11/17/17 08:04 PT 17.4 SECONDS (9.7-12.2) H 11/06/17 21:38 INR 1.6 11/06/17 21:38 APTT 35 SECONDS (21-34) H 11/06/17 21:38 - Constitutional Appears: Well, Non-toxic, No Acute Distress - Eye Exam Eye Exam: Normal appearance. absent: Conjunctival injection, Scleral icterus - ENT Exam ENT Exam: Mucous Membranes Moist, Normal Oropharynx - Respiratory Exam Respiratory Exam: NORMAL BREATHING PATTERN. absent: Accessory Muscle Use, Respiratory Distress - Cardiovascular Exam Cardiovascular Exam: Tachycardia - GI/Abdominal Exam GI & Abdominal Exam: Soft. absent: Distended, Tenderness Additional comments: ostomy bag in place over right lower quadrant wound with moderate amount of dark green-brown, thick liquid output. Place of former RUQ drain with dressing with small amount of serosanguinous saturation - Extremities Exam Extremities Exam: Pedal Edema (1+ nonpitting edema BL). absent: Calf Tenderness, Tenderness - Neurological Exam Neurological Exam: Alert, Awake, Oriented x3 - Psychiatric Exam Psychiatric exam: Flat Affect, Normal Mood - Skin Skin Exam: Dry, Intact, Warm Assessment and Plan - Assessment and Plan (Free Text) Assessment: 42F s/p open drainage of intra-abdominal abscess POD 12 Plan: -Monitor CBC and BMP, mg, phos -Replace electrolytes PRN -Continue CLD, advance to FLD after the thoracentesis -Continue to monitor output from RLQ abdomen -F/U IR thoracentesis today -C/w TPN -C/W Abx -encourage ambulation with walker -DVT/GI ppx DW Dr. Melchor Coronel, PGY2
[2017-11-18 07:59] LABS: BLOOD UREA NITROGEN 18 mg/dL (7-17); CALCIUM 8.4 mg/dl (8.6-10.4); GFR NON-AFRICAN AMERICAN > 60
[2017-11-18] MEDS: Pantoprazole 40 mg EC Tab PO SCH (09:23)
[2017-11-18 09:32] LABS: ANISOCYTOSIS SLIGHT; HYPOCHROMIC SLIGHT; LYMPHOCYTE 9 % (20-40); MONOCYTE 6 % (0-10); NEUTROPHIL 85 % (50-75); PLATELET ESTIMATE INCREASED (NORMAL); POIKILOCYTOSIS SLIGHT; TEARDROP CELLS SLIGHT; TOTAL CELLS COUNTED 100
[2017-11-18] MEDS: EPOETIN ALFA 10,000 UNIT/ML ML SC SCH (10:00)
[2017-11-18] MEDS ORDERED: Potassium Chloride 20 mEq/15 ml LIQ UD PO ONE (10:02)
[2017-11-18] MEDS ORDERED: Lidocaine Hydrochloride 5 ML INJ ONE (13:25)
--- NOTE | 2017-11-18 13:54 | PCM.SURG1 ---
Surgeon's Initial Post Op Note - Surgeon's Notes Surgeon: Jed Finley MD Yard Spotter: NONE Type of Anesthesia: Local Pre-Operative Diagnosis: Pleural effusion Operative Findings: US showed large left effusion Post-Operative Diagnosis: Pleural effusion Operation Performed: US guided left thoracentesis Specimen/Specimens Removed: 1200 cc of slightly cloudy yellow fluid Estimated Blood Loss: EBL {In ML}: 0 Blood Products Given: N/A Drains Used: No Drains Post-Op Condition: Fair Date of Surgery/Procedure: 11/18/17 Time of Surgery/Procedure: 13:50
--- NOTE | 2017-11-18 15:16 | PN ---
DATE: 11/18/2017 SUBJECTIVE: This is a 42-year-old female seen and examined early in rounds with reported increased abdominal pain or significant complaint of chest pain, palpitation or increased shortness of breath. No reported nausea or vomiting. No evidence of active bleeding the FRANC drainage noted as reported by the nursing staff. The entire chart is reviewed including but not limited to the most recent lab and radiology study results, current and the previous medication list, current and the previous medical events. Case discussed with the staff at length. LABORATORY DATA: Today's lab results showed leukocytosis of 20.4, hemoglobin 8, hematocrit 23.8 with low indices, highly suggest hypochromic microcytic anemia with thrombocytosis of 677, potassium 3.5, BUN 18 with normal creatinine with blood glucose level 181, calcium 8.4. PHYSICAL EXAMINATION: GENERAL: A 42-year-old female with low-grade temperature and heart rate of 122, respiratory rate 20 to 22, blood pressure of 154/86. HEENT: Showed pale, dry mucous membrane. Nonicteric sclerae. LUNGS: Scattered crepitation with decreased air entry at bases, mainly in the right side. HEART: Positive S1 and S2 with increased rate. ABDOMEN: With generalized mild tenderness mainly in the right side of the abdomen with slight distention. No mass or organomegaly. No rebound tenderness or guarding. EXTREMITIES: Lower extremities with edematous changes. No clubbing or cyanosis. NEUROLOGICAL: No reported new neurological deficits, sensory or motor. IMPRESSION: 1. Status post exploratory laparotomy due to intra-abdominal intraperitoneal abscess formation. 2. Biliary leak with biliary ascites, gradually improving. 3. Hypochromic microcytic anemia secondary to chronic disease and no evidence of active bleeding so far. 4. Status post cholecystectomy. 5. Right-sided pleural effusion most likely it is refractory. The patient for potential thoracocentesis. 6. Hypertension, by history. SUGGESTIONS: 1. Agree with your plan. 2. Further recommendation to follow post paracentesis. 3. Case is to be discussed with the surgical team. We will follow up closely with you. Thor Davenport MD
--- NOTE | 2017-11-18 16:28 | RAD ---
Date of service: 11/18/2017 HISTORY: s/p thoracentesis COMPARISON: 11/04/2017 single-view chest. 11/15/2017 CT abdomen and pelvis documenting bilateral pleural effusions. FINDINGS: LUNGS: Left lower lobe atelectasis likely related to prior left pleural effusion recently evacuated. Compressive atelectasis right lower lobe. PLEURA: Substantial decrease in left pleural effusion. No pneumothorax. Persistent right pleural effusion. CARDIOVASCULAR: No radiographic findings to suggest acute or significant cardiovascular disease. PICC line in satisfactory position OSSEOUS STRUCTURES: No significant abnormalities. VISUALIZED UPPER ABDOMEN: Normal. OTHER FINDINGS: None. IMPRESSION: No adverse findings/no pneumothorax following left thoracentesis. Partial re-expansion left lower lobe.
[2017-11-18] MEDS ORDERED: TPN CENTRAL LINE IV ONE (18:00)
--- NOTE | 2017-11-18 18:08 | RAD ---
Date of service: 11/18/2017 HISTORY: s/p thoracocentesis left lung ,coughing and tachyc COMPARISON: November 18, 2017 study performed 15:24 FINDINGS: LUNGS: Stable consolidative changes and residual left pleural effusion. Stable right lower lobe infiltrate/pleural effusion. PLEURA: No evidence of pneumothorax following left thoracentesis. CARDIOVASCULAR: No radiographic findings to suggest acute or significant cardiovascular disease. PICC line in satisfactory position OSSEOUS STRUCTURES: No significant abnormalities. VISUALIZED UPPER ABDOMEN: Normal. OTHER FINDINGS: None. IMPRESSION: Stable infiltrates and effusions. No pneumothorax identified.
[2017-11-18] MEDS: Fat Emulsion 20% IV 500 ML IV SCH (18:35)
[2017-11-18] MEDS: Meropenem 1 GM in Sodium Chloride 0.9% 100 ML IVPB SCH (19:19)
--- NOTE | 2017-11-18 20:49 | CP.PCM.PN ---
Subjective - Date & Time of Evaluation Date of Evaluation: 11/18/17 Time of Evaluation: 17:15 - Subjective Subjective: dictated Objective - Vital Signs/Intake and Output Vital Signs (last 24 hours): Temp Pulse Resp BP Pulse Ox 99.8 F H 125 H 20 142/86 96 11/18/17 15:00 11/18/17 15:00 11/18/17 15:00 11/18/17 15:00 11/18/17 15:00 Intake and Output: 11/18/17 11/19/17 18:59 06:59 Intake Total 964 Output Total 50 Balance 914 - Medications Medications: Current Medications Acetaminophen (Tylenol 650 Mg Supp) 650 mg [place] Q4 PRN PRN Reason: Fever >100.4 F Last Admin: 11/03/17 08:29 Dose: 650 mg Acetaminophen (Tylenol 325mg Tab) 650 mg PO Q6 PRN PRN Reason: Pain, Mild (1-3) Last Admin: 11/18/17 00:26 Dose: 650 mg Benzocaine/Menthol (Cepacol Sore Throat) 1 lisa MT Q2H PRN PRN Reason: Sore Throat Epoetin Curry (Procrit) 10,000 unit SC MWF [facility] Last Admin: 11/18/17 10:00 Dose: 10,000 unit Furosemide (Lasix) 20 mg IVP DAILY [facility] Last Admin: 11/18/17 09:24 Dose: 20 mg Hydromorphone HCl (Dilaudid) 0.5 mg IVP Q3H PRN PRN Reason: Pain, severe (8-10) Last Admin: 11/18/17 17:26 Dose: 0.5 mg Metronidazole (Flagyl) 500 mg in 100 mls @ 100 mls/hr IVPB Q8H [facility]; Protocol Last Admin: 11/18/17 12:00 Dose: 100 mls/hr Fat Emulsion Intravenous (Intralipid 20%) 500 mls @ 42 mls/hr IV QOD@1800 [facility] Last Admin: 11/18/17 18:35 Dose: 42 mls/hr Multivitamins/Vitamin C 10 ml/Heparin Sodium (Porcine) 1, 000 units/ Amino Acids/Electrolytes/Dextrose 1,011 mls @ 83 mls/hr IV .[id number] [facility] Stop: 11/19/17 06:10 Last Admin: 11/18/17 18:36 Dose: 83 mls/hr Heparin Sodium (Porcine) 1,000 units/ Amino Acids/Electrolytes/Dextrose 1,001 mls @ 83 mls/hr IV .Q12H4M [facility] Stop: 11/19/17 18:00 Micafungin Sodium 100 mg/ (Sodium Chloride) 100 mls @ 100 mls/hr IV Q24H [facility]; Protocol Meropenem 1 gm/ Sodium (Chloride) 100 mls @ 100 mls/hr IVPB Q8H [facility]; Protocol Last Admin: 11/18/17 19:19 Dose: 100 mls/hr Metoclopramide HCl (Reglan) 10 mg IVP Q6H [facility] Last Admin: 11/18/17 17:54 Dose: 10 mg Ondansetron HCl (Zofran Inj) 4 mg IVP Q4 PRN PRN Reason: Nausea/Vomiting Last Admin: 11/11/17 12:35 Dose: 4 mg Pantoprazole Sodium (Protonix Ec Tab) 40 mg PO DAILY [facility] Last Admin: 11/18/17 09:23 Dose: 40 mg - Labs Labs: 11/18/17 07:19 11/18/17 07:19 PT 17.4 SECONDS (9.7-12.2) H 11/06/17 21:38 INR 1.6 11/06/17 21:38 APTT 35 SECONDS (21-34) H 11/06/17 21:38
[2017-11-18] MEDS: Micafungin 100 MG in Sodium Chloride 0.9% 100 ML IV SCH (21:42)
[2017-11-18 23:35] LABS: SQUAMOUS EPITHIAL 7 /hpf (0-5); URINE BILIRUBIN NEGATIVE (NEGATIVE); URINE BLOOD NEGATIVE (NEGATIVE); URINE CLARITY Clear (Clear); URINE COLOR Yellow (YELLOW); URINE GLUCOSE (UA) NORMAL (Normal); URINE LEUKOCYTE ESTERASE NEG Leu/uL (Negative); URINE PROTEIN 1+ mg/dL (NEGATIVE); URINE UROBILINOGEN NORMAL mg/dL (0.2-1.0)
--- NOTE | 2017-11-18 23:47 | PN ---
DATE: 11/18/2017 SUBJECTIVE: Gerardo Rivera was seen today. She was seen, she was post pleurocentesis on the left side. She says she was feeling cold. She wanted an extra blanket. She was also tachycardic, so we took the vitals and vitals to me were reported as she had fever of 101.5 or close to it. She was tachycardic with a heart rate of 132 and was feeling cold, and so decided to get septic workup done. She is on TPN and blood cultures, urine culture, and a chest x-ray were ordered as she just had a procedure. PHYSICAL EXAMINATION: GENERAL: The patient was awake and alert otherwise. HEENT: Head was atraumatic. NECK: Supple. HEART: S1, S2 are tachycardic. LUNGS: Clear. Decreased breath sounds. ABDOMEN: She has had multiple abscesses in the abdomen and has bile leak-related abscesses. EXTREMITIES: Remain with edema. LABORATORY DATA: White count also has gone up today to 20.4, hemoglobin 8, hematocrit 23.8, platelet count is elevated 677, neutrophils are 83. Her tube which was draining the abscess fell off and now she only has a small bag where there is a leakage of the bile. BUN is 18, creatinine 0.8. So at this time, white count is going up. She is febrile. She just had a pleurocentesis. Chest x-ray was done which showed stable infiltrates and effusion, no pneumothorax identified. So at this time, I have added Merrem and Mycamine and we will continue with those and discontinue Cipro and we will continue with Merrem and Mycamine at this time. We will also discontinue Flagyl. We will follow. Need to repeat the labs tomorrow. The patient is status post bile leak with multiple abdominal abscesses, had recurrent laparotomy. She had abscess drained, but still remains with a high white count and febrile at this time. Juliet Vegas MD
[2017-11-19] MEDS: HYDROmorphone 0.5 mg/0.5 ml ISec IVP PRN ×7 (02:22→22:41)
[2017-11-19] MEDS: Meropenem 1 GM in Sodium Chloride 0.9% 100 ML IVPB SCH ×3 (02:24→19:21)
[2017-11-19] MEDS ORDERED: TPN CENTRAL LINE IV SCH ×2 (06:11→18:00)
--- NOTE | 2017-11-19 09:37 | RAD ---
Date of service: 11/19/2017 HISTORY: BL pleural effusions s/p thoracenteses COMPARISON: Portable chest 11/18/2017 radiographs 5:07 p.m. and 3:24 p.m.. FINDINGS: LUNGS: Right PICC unchanged in position. There is a marginal increase in mild left pleural effusion with borderline right pleural effusion not excluded. Right hemidiaphragm appears elevated versus prominent right basilar airspace disease. Some airspace disease is definitely present the medial right base likely posterior to the right hemidiaphragm. Underlying airspace disease not excluded the left base. Normal cardiac size. No pulmonary vascular congestion. No pneumothorax bilaterally. PLEURA: As above. CARDIOVASCULAR: As above. OSSEOUS STRUCTURES: No significant abnormalities. VISUALIZED UPPER ABDOMEN: Normal. OTHER FINDINGS: None. IMPRESSION: Slowly reaccumulating left pleural effusion and borderline right pleural effusion with underlying airspace disease at the right base and likely at the left base as well.
[2017-11-19 09:47] LABS: BASO # 0.1 K/uL (0.0-0.2); BASO % 0.7 % (0.0-2.0); HEMOGLOBIN 8.3 g/dL (11.0-16.0); LYMPH # 1.2 K/uL (1.0-4.3); LYMPH % 5.8 % (20.0-40.0); MEAN CORPUSCULAR HEMOGLOBIN 24.2 pg (27.0-31.0); MEAN CORPUSCULAR HGB CONC 32.7 g/dL (33.0-37.0); MEAN PLATELET VOLUME 7.3 fL (7.2-11.7); MONO # 1.4 K/uL (0.0-0.8); MONO % 6.9 % (0.0-10.0); NEUT # 17.6 K/uL (1.8-7.0); NEUT % 86.6 % (50.0-75.0); PLATELET COUNT 719 K/uL (130-400); RBC 3.44 Mil/uL (3.80-5.20); RED CELL DISTRIBUTION WIDTH 22.6 % (11.5-14.5); WHITE BLOOD COUNT 20.3 K/uL (4.8-10.8)
[2017-11-19] MEDS: Pantoprazole 40 mg EC Tab PO SCH (09:57)
[2017-11-19 10:17] LABS: BLOOD UREA NITROGEN 15 mg/dL (7-17); CALCIUM 8.5 mg/dl (8.6-10.4); GFR NON-AFRICAN AMERICAN > 60
[2017-11-19 10:19] LABS: ANISOCYTOSIS SLIGHT; BANDS 1 % (0-2); BASOPHIL 1 % (0-2); LYMPHOCYTE 6 % (20-40); MONOCYTE 6 % (0-10); NEUTROPHIL 86 % (50-75); PLATELET ESTIMATE INCREASED (NORMAL); POIKILOCYTOSIS SLIGHT; TOTAL CELLS COUNTED 100
[2017-11-19 10:20] LABS: HYPOCHROMIC SLIGHT; TARGET CELLS SLIGHT; TEARDROP CELLS SLIGHT
[2017-11-19] MEDS ORDERED: Potassium Chloride 20 mEq ER Tab PO ONE (13:05)
[2017-11-19] MEDS ORDERED: Magnesium Oxide 400 mg Tab UD PO ONE (13:06)
--- NOTE | 2017-11-19 13:14 | CP.PCM.PN ---
Subjective - Date & Time of Evaluation Date of Evaluation: 11/19/17 Time of Evaluation: 06:10 - Subjective Subjective: General surgery progress note for Dr. Roche Patient seen and examined this AM. No adverse events overnight. patient tolerated FLD, no nausea, vomiting, fevers, chills, denies abdominal pain Objective - Vital Signs/Intake and Output Vital Signs (last 24 hours): Temp Pulse Resp BP Pulse Ox 97.6 F 134 H 20 150/86 94 L 11/19/17 08:40 11/19/17 08:40 11/19/17 08:40 11/19/17 09:53 11/19/17 08:40 Intake and Output: 11/19/17 11/19/17 06:59 18:59 Intake Total 2190 Output Total 481 Balance 1709 - Medications Medications: Current Medications Acetaminophen (Tylenol 650 Mg Supp) 650 mg RI Q4 PRN PRN Reason: Fever >100.4 F Last Admin: 11/03/17 08:29 Dose: 650 mg Acetaminophen (Tylenol 325mg Tab) 650 mg PO Q6 PRN PRN Reason: Pain, Mild (1-3) Last Admin: 11/19/17 11:15 Dose: 650 mg Benzocaine/Menthol (Cepacol Sore Throat) 1 lisa MT Q2H PRN PRN Reason: Sore Throat Epoetin Curry (Procrit) 10,000 unit SC MWF [facility] Last Admin: 11/18/17 10:00 Dose: 10,000 unit Furosemide (Lasix) 20 mg IVP DAILY [facility] Last Admin: 11/19/17 09:53 Dose: 20 mg Hydromorphone HCl (Dilaudid) 0.5 mg IVP Q3H PRN PRN Reason: Pain, severe (8-10) Last Admin: 11/19/17 09:52 Dose: 0.5 mg Heparin Sodium (Porcine) 1,000 units/ Amino Acids/Electrolytes/Dextrose 1,001 mls @ 83 mls/hr IV .Q12H4M [facility] Stop: 11/19/17 18:00 Last Admin: 11/19/17 05:58 Dose: 83 mls/hr Micafungin Sodium 100 mg/ (Sodium Chloride) 100 mls @ 100 mls/hr IV Q24H [facility]; Protocol Last Admin: 11/18/17 21:42 Dose: 100 mls/hr Meropenem 1 gm/ Sodium (Chloride) 100 mls @ 100 mls/hr IVPB Q8H [facility]; Protocol Last Admin: 11/19/17 10:40 Dose: 100 mls/hr Heparin Sodium (Porcine) 1,000 units/ Multivitamins/Vitamin C 10 ml/ Amino Acids/Electrolytes/Dextrose 1,011 mls @ 83 mls/hr IV .[id number] [facility] Stop: 11/20/17 06:10 Heparin Sodium (Porcine) 1,000 units/ Amino Acids/Electrolytes/Dextrose 1,001 mls @ 83 mls/hr IV .Q12H4M [facility] Stop: 11/20/17 17:59 Metoclopramide HCl (Reglan) 10 mg IVP Q6H [facility] Last Admin: 11/19/17 11:19 Dose: 10 mg Ondansetron HCl (Zofran Inj) 4 mg IVP Q4 PRN PRN Reason: Nausea/Vomiting Last Admin: 11/11/17 12:35 Dose: 4 mg Pantoprazole Sodium (Protonix Ec Tab) 40 mg PO DAILY [facility] Last Admin: 11/19/17 09:57 Dose: 40 mg Zolpidem Tartrate (Ambien) 5 mg PO HS PRN PRN Reason: Insomnia Last Admin: 11/19/17 00:44 Dose: 5 mg - Labs Labs: 11/19/17 09:42 11/19/17 09:42 PT 17.4 SECONDS (9.7-12.2) H 11/06/17 21:38 INR 1.6 11/06/17 21:38 APTT 35 SECONDS (21-34) H 11/06/17 21:38 - Constitutional Appears: Well, Non-toxic, No Acute Distress - Head Exam Head Exam: ATRAUMATIC, NORMOCEPHALIC - Eye Exam Eye Exam: Normal appearance. absent: Conjunctival injection, Scleral icterus - ENT Exam ENT Exam: Mucous Membranes Moist, Normal Oropharynx - Respiratory Exam Respiratory Exam: NORMAL BREATHING PATTERN. absent: Accessory Muscle Use, Respi ratory Distress - Cardiovascular Exam Cardiovascular Exam: RRR - GI/Abdominal Exam GI & Abdominal Exam: Distended (mild), Soft, Tenderness (ivana-incisional ternderness) Additional comments: prior inicision inthe RLQ with ostomy bag attached with small amount of yellow brown liquid - Extremities Exam Extremities Exam: Pedal Edema (BL 2+ non=pitting edema). absent: Calf Tenderness, Tenderness - Neurological Exam Neurological Exam: Alert, Awake, Oriented x3 - Psychiatric Exam Psychiatric exam: Normal Affect, Normal Mood - Skin Skin Exam: Dry, Normal Color, Warm Assessment and Plan - Assessment and Plan (Free Text) Assessment: 42F s/p open drainage of intra-abdominal abscess POD 13 Plan: Continue to trend CBC, BMP, mg, and phos contniue FLD Continue to monitor output from the abdominal wound Continue to monitor and replete K continue lasix Antibiotics per ID Encourage ambulation Discussed with Dr. Roche, Janelle Coronel, PGY2
[2017-11-19] MEDS: Micafungin 100 MG in Sodium Chloride 0.9% 100 ML IV SCH (18:13)
--- NOTE | 2017-11-19 22:24 | CP.PCM.PN ---
Subjective - Date & Time of Evaluation Date of Evaluation: 11/19/17 Time of Evaluation: 15:00 - Subjective Subjective: dictated Objective - Vital Signs/Intake and Output Vital Signs (last 24 hours): Temp Pulse Resp BP Pulse Ox 98.4 F 119 H 20 128/80 98 11/19/17 15:00 11/19/17 15:00 11/19/17 15:00 11/19/17 15:00 11/19/17 15:00 - Medications Medications: Current Medications Acetaminophen (Tylenol 650 Mg Supp) 650 mg PA Q4 PRN PRN Reason: Fever >100.4 F Last Admin: 11/03/17 08:29 Dose: 650 mg Acetaminophen (Tylenol 325mg Tab) 650 mg PO Q6 PRN PRN Reason: Pain, Mild (1-3) Last Admin: 11/19/17 19:19 Dose: 650 mg Epoetin Curry (Procrit) 10,000 unit SC MWF [facility] Last Admin: 11/18/17 10:00 Dose: 10,000 unit Furosemide (Lasix) 20 mg IVP DAILY [facility] Last Admin: 11/19/17 09:53 Dose: 20 mg Hydromorphone HCl (Dilaudid) 0.5 mg IVP Q3H PRN PRN Reason: Pain, severe (8-10) Last Admin: 11/19/17 19:39 Dose: 0.5 mg Micafungin Sodium 100 mg/ (Sodium Chloride) 100 mls @ 100 mls/hr IV Q24H [facility]; Protocol Last Admin: 11/19/17 18:13 Dose: 100 mls/hr Meropenem 1 gm/ Sodium (Chloride) 100 mls @ 100 mls/hr IVPB Q8H [facility]; Protocol Last Admin: 11/19/17 19:21 Dose: 100 mls/hr Heparin Sodium (Porcine) 1,000 units/ Multivitamins/Vitamin C 10 ml/ Amino Acids/Electrolytes/Dextrose 1,011 mls @ 83 mls/hr IV .[id number] [facility] Stop: 11/20/17 06:10 Last Admin: 11/19/17 18:12 Dose: 83 mls/hr Heparin Sodium (Porcine) 1,000 units/ Amino Acids/Electrolytes/Dextrose 1,001 mls @ 83 mls/hr IV .Q12H4M [facility] Stop: 11/20/17 17:59 Metoclopramide HCl (Reglan) 10 mg IVP Q6H [facility] Last Admin: 11/19/17 18:13 Dose: 10 mg Ondansetron HCl (Zofran Inj) 4 mg IVP Q4 PRN PRN Reason: Nausea/Vomiting Last Admin: 11/11/17 12:35 Dose: 4 mg Pantoprazole Sodium (Protonix Ec Tab) 40 mg PO DAILY [facility] Last Admin: 11/19/17 09:57 Dose: 40 mg Zolpidem Tartrate (Ambien) 5 mg PO HS PRN PRN Reason: Insomnia Last Admin: 11/19/17 00:44 Dose: 5 mg - Labs Labs: 11/19/17 09:42 11/19/17 09:42 PT 17.4 SECONDS (9.7-12.2) H 11/06/17 21:38 INR 1.6 11/06/17 21:38 APTT 35 SECONDS (21-34) H 11/06/17 21:38
[2017-11-20] MEDS: HYDROmorphone 0.5 mg/0.5 ml ISec IVP PRN ×6 (02:21→19:50)
[2017-11-20] MEDS: Meropenem 1 GM in Sodium Chloride 0.9% 100 ML IVPB SCH ×3 (02:24→19:16)
--- NOTE | 2017-11-20 03:17 | PN ---
DATE: 11/19/2017 SUBJECTIVE: The patient was febrile yesterday but today she is feeling better. She still has abdominal pain, but she is wheezing. She is also tachycardic but has no fever today. T-max is 98.4, now blood pressure 128/80, respirations are 20, saturation 98%. Her [id number] was at the bedside, and she was asking me how she felt bad that the patient has been two months back and forth and I had to explain to her what exactly happened and what I am concerned for. She is still tachycardic, and her x-ray yesterday did not show any pneumothorax. She is breathing easier. OBJECTIVE: HEENT: Head is atraumatic, normocephalic. NECK: Supple. LUNGS: Decreased breath sounds bilaterally. HEART: S1, S2 regular. ABDOMEN: Soft, nontender. No guarding, no rigidity present. She does have distention, and she still has a drainage from the right bag. The biliary tube has been removed. She does still have multiple collections. EXTREMITIES: Have bilateral edema. I would like to see some of these collections drained if possible as antibiotics will not treat those areas, and also if she has a right pleural effusion that also may need to be tapped at some point so that she can breathe easier. She still remains tachycardic. Septic workup was done yesterday, and I had increased the coverage with the antibiotics and blood cultures are negative at this time. Body fluid is negative from yesterday, and there is no urine culture yet. So, we will continue present treatment as she is also getting hyperal through the PICC line, and I was concerned about fungemia, and I have added Mycamine. We will follow. Juliet Vegas MD
[2017-11-20] MEDS ORDERED: TPN CENTRAL LINE IV SCH (06:11)
[2017-11-20 08:22] LABS: BASO # 0.1 K/uL (0.0-0.2); BASO % 0.8 % (0.0-2.0); HEMOGLOBIN 7.7 g/dL (11.0-16.0); LYMPH # 1.1 K/uL (1.0-4.3); MEAN CELL VOLUME 73.8 fL (81.0-99.0); MEAN CORPUSCULAR HEMOGLOBIN 24.6 pg (27.0-31.0); MEAN CORPUSCULAR HGB CONC 33.4 g/dL (33.0-37.0); MEAN PLATELET VOLUME 7.5 fL (7.2-11.7); MONO # 1.3 K/uL (0.0-0.8); NEUT # 13.6 K/uL (1.8-7.0); NEUT % 84.2 % (50.0-75.0); PLATELET COUNT 683 K/uL (130-400); RBC 3.11 Mil/uL (3.80-5.20); RED CELL DISTRIBUTION WIDTH 22.8 % (11.5-14.5); WHITE BLOOD COUNT 16.2 K/uL (4.8-10.8)
[2017-11-20 08:56] LABS: BLOOD UREA NITROGEN 16 mg/dL (7-17); CALCIUM 8.4 mg/dl (8.6-10.4); GFR NON-AFRICAN AMERICAN > 60
[2017-11-20 09:04] LABS: BANDS 1 % (0-2); BASOPHIL 1 % (0-2); NEUTROPHIL 86 % (50-75); TOTAL CELLS COUNTED 100
[2017-11-20 09:05] LABS: ANISOCYTOSIS SLIGHT; LYMPHOCYTE 4 % (20-40); MONOCYTE 8 % (0-10); PLATELET ESTIMATE INCREASED (NORMAL); POIKILOCYTOSIS SLIGHT
[2017-11-20 09:06] LABS: HYPOCHROMIC MODERATE; MICROCYTOSIS SLIGHT; TARGET CELLS SLIGHT; TEARDROP CELLS SLIGHT
[2017-11-20] MEDS: EPOETIN ALFA 10,000 UNIT/ML ML SC SCH (09:28)
[2017-11-20] MEDS: Pantoprazole 40 mg EC Tab PO SCH (09:28)
--- NOTE | 2017-11-20 13:32 | US ---
PROCEDURE: Date of procedure: 11/18/2017 Procedure: 1. Ultrasound-guided left thoracentesis, CPT 57681 Medications: 5CC 1% Lidocaine HISTORY: Left pleural effusion, shortness of breath TECHNIQUE: Following informed consent ,the Patients' left chest was marked. Procedure time-out was called, and the patient was placed in the sitting position and limited ultrasound showed a large left effusion. The patient's left back was prepped and draped in the usual sterile fashion. After the skin was anesthetized with lidocaine, a drainage catheter was advanced under ultrasound guidance into the pleural space. Ultrasound-guided thoracentesis was performed. A total of 1200 cubic centimeters of slightly cloudy fluid removed without complication. A Xeroform dressing was applied. IMPRESSION: Ultrasound guided left thoracentesis. There were no immediate complications.
--- NOTE | 2017-11-20 13:45 | CP.PCM.PN ---
Subjective - Date & Time of Evaluation Date of Evaluation: 11/20/17 Time of Evaluation: 13:15 - Subjective Subjective: dictated Objective - Vital Signs/Intake and Output Vital Signs (last 24 hours): Temp Pulse Resp BP Pulse Ox 98.4 F 130 H 20 133/73 97 11/20/17 08:09 11/20/17 08:09 11/20/17 08:09 11/20/17 09:28 11/20/17 08:09 Intake and Output: 11/20/17 11/20/17 06:59 18:59 Intake Total 2018 Output Total 40 Balance 1978 - Medications Medications: Current Medications Acetaminophen (Tylenol 650 Mg Supp) [address] Q4 PRN PRN Reason: Fever >100.4 F Last Admin: 11/03/17 08:29 Dose: 650 mg Acetaminophen (Tylenol 325mg Tab) 650 mg PO Q6 PRN PRN Reason: Pain, Mild (1-3) Last Admin: 11/19/17 19:19 Dose: 650 mg Epoetin Curry (Procrit) 10,000 unit SC MWF [facility] Last Admin: 11/20/17 09:28 Dose: 10,000 unit Furosemide (Lasix) 20 mg IVP DAILY [facility] Last Admin: 11/20/17 09:28 Dose: 20 mg Hydromorphone HCl (Dilaudid) 0.5 mg IVP Q3H PRN PRN Reason: Pain, severe (8-10) Last Admin: 11/20/17 12:23 Dose: 0.5 mg Micafungin Sodium 100 mg/ (Sodium Chloride) 100 mls @ 100 mls/hr IV Q24H [facility]; Protocol Last Admin: 11/19/17 18:13 Dose: 100 mls/hr Meropenem 1 gm/ Sodium (Chloride) 100 mls @ 100 mls/hr IVPB Q8H [facility]; Protocol Last Admin: 11/20/17 11:22 Dose: 100 mls/hr Heparin Sodium (Porcine) 1,000 units/ Amino Acids/Electrolytes/Dextrose 1,001 mls @ 83 mls/hr IV .Q12H4M [facility] Stop: 11/20/17 17:59 Last Admin: 11/20/17 05:33 Dose: 83 mls/hr Multivitamins/Vitamin C 10 ml/Chromium/Copper/Manganese/Zinc 1 ml/ Heparin Sodium ( Porcine) 1,000 units/ Amino Acids/Electrolytes/Dextrose 1,012 mls @ 83 mls/hr IV .[id number] [facility] Stop: 11/21/17 06:11 Heparin Sodium (Porcine) 1,000 units/ Chromium/Copper/Manganese/Zinc 1 ml/ Amino Acids/Electrolytes/Dextrose 1,002 mls @ 83 mls/hr IV .Q12H5M [facility] Stop: 11/21/17 18:14 Metoclopramide HCl (Reglan) 10 mg IVP Q6H [facility] Last Admin: 11/20/17 12:23 Dose: 10 mg Ondansetron HCl (Zofran Inj) 4 mg IVP Q4 PRN PRN Reason: Nausea/Vomiting Last Admin: 11/11/17 12:35 Dose: 4 mg Pantoprazole Sodium (Protonix Ec Tab) 40 mg PO DAILY [facility] Last Admin: 11/20/17 09:28 Dose: 40 mg Zolpidem Tartrate (Ambien) 5 mg PO HS PRN PRN Reason: Insomnia Last Admin: 11/19/17 23:01 Dose: 5 mg - Labs Labs: 11/20/17 08:14 11/20/17 08:14 PT 17.4 SECONDS (9.7-12.2) H 11/06/17 21:38 INR 1.6 11/06/17 21:38 APTT 35 SECONDS (21-34) H 11/06/17 21:38
--- NOTE | 2017-11-20 15:41 | CP.PCM.PN ---
Subjective - Date & Time of Evaluation Date of Evaluation: 11/20/17 Time of Evaluation: 11:10 - Subjective Subjective: General surgery progress note for Dr. Roche patient seen and examined at bedside this AM. No adverse events overnight. Patient denies much pain, no nausea or vomiting on FLD. Patient continues to have output from the ostomy bag but states that the output is less. Denies any fever or chills. Objective - Vital Signs/Intake and Output Vital Signs (last 24 hours): Temp Pulse Resp BP Pulse Ox 98.4 F 130 H 20 133/73 97 11/20/17 08:09 11/20/17 08:09 11/20/17 08:09 11/20/17 09:28 11/20/17 08:09 Intake and Output: 11/20/17 11/20/17 06:59 18:59 Intake Total 2018 Output Total 40 Balance 1978 - Medications Medications: Current Medications Acetaminophen (Tylenol 650 Mg Supp) 650 mg [place] Q4 PRN PRN Reason: Fever >100.4 F Last Admin: 11/03/17 08:29 Dose: 650 mg Acetaminophen (Tylenol 325mg Tab) 650 mg PO Q6 PRN PRN Reason: Pain, Mild (1-3) Last Admin: 11/19/17 19:19 Dose: 650 mg Epoetin Curry (Procrit) 10,000 unit SC MWF [facility] Last Admin: 11/20/17 09:28 Dose: 10,000 unit Furosemide (Lasix) 20 mg IVP DAILY [facility] Last Admin: 11/20/17 09:28 Dose: 20 mg Hydromorphone HCl (Dilaudid) 0.5 mg IVP Q3H PRN PRN Reason: Pain, severe (8-10) Last Admin: 11/20/17 12:23 Dose: 0.5 mg Micafungin Sodium 100 mg/ (Sodium Chloride) 100 mls @ 100 mls/hr IV Q24H [facility]; Protocol Last Admin: 11/19/17 18:13 Dose: 100 mls/hr Meropenem 1 gm/ Sodium (Chloride) 100 mls @ 100 mls/hr IVPB Q8H [facility]; Protocol Last Admin: 11/20/17 11:22 Dose: 100 mls/hr Heparin Sodium (Porcine) 1,000 units/ Amino Acids/Electrolytes/Dextrose 1,001 mls @ 83 mls/hr IV .Q12H4M [facility] Stop: 11/20/17 17:59 Last Admin: 11/20/17 05:33 Dose: 83 mls/hr Multivitamins/Vitamin C 10 ml/Heparin Sodium (Porcine) 1, 000 units/ Amino Acids/Electrolytes/Dextrose 1,011 mls @ 83 mls/hr IV .[id number] [facility] Stop: 11/21/17 06:10 Heparin Sodium (Porcine) 1,000 units/ Amino Acids/Electrolytes/Dextrose 1,001 mls @ 83 mls/hr IV .Q12H4M [facility] Stop: 11/21/17 18:13 Metoclopramide HCl (Reglan) 10 mg IVP Q6H [facility] Last Admin: 11/20/17 12:23 Dose: 10 mg Ondansetron HCl (Zofran Inj) 4 mg IVP Q4 PRN PRN Reason: Nausea/Vomiting Last Admin: 11/11/17 12:35 Dose: 4 mg Pantoprazole Sodium (Protonix Ec Tab) 40 mg PO DAILY [facility] Last Admin: 11/20/17 09:28 Dose: 40 mg Zolpidem Tartrate (Ambien) 5 mg PO HS PRN PRN Reason: Insomnia Last Admin: 11/19/17 23:01 Dose: 5 mg - Labs Labs: 11/20/17 08:14 11/20/17 08:14 PT 17.4 SECONDS (9.7-12.2) H 11/06/17 21:38 INR 1.6 11/06/17 21:38 APTT 35 SECONDS (21-34) H 11/06/17 21:38 - Constitutional Appears: Well, Non-toxic, No Acute Distress - Head Exam Head Exam: ATRAUMATIC, NORMOCEPHALIC - Eye Exam Eye Exam: Normal appearance. absent: Conjunctival injection, Scleral icterus - ENT Exam ENT Exam: Mucous Membranes Moist, Normal Oropharynx - Respiratory Exam Respiratory Exam: NORMAL BREATHING PATTERN. absent: Accessory Muscle Use, Respiratory Distress - Cardiovascular Exam Cardiovascular Exam: Tachycardia, RRR - GI/Abdominal Exam GI & Abdominal Exam: Soft. absent: Distended, Tenderness Additional comments: midline incision with small area of skin dehiscence in the superior pole with yellow cloudy fluid drainage right lower quadrant incision with dark brown thin liquid output - Neurological Exam Neurological Exam: Alert, Awake, Oriented x3 - Psychiatric Exam Psychiatric exam: Normal Affect, Normal Mood - Skin Skin Exam: Dry, Normal Color, Warm Assessment and Plan - Assessment and Plan (Free Text) Assessment: 42F POD#14 s/p ex-lap with drainage of intra-abdominal abscess Plan: Continue to trend CBC, BMP Replete electrolytes as needed Wound care consult for abdominal drainage Continue antibiotic management per ID PRN pain management Continue FLD and TPN Discussed with Dr. Melchor Coronel, PGY2
[2017-11-20] MEDS: Micafungin 100 MG in Sodium Chloride 0.9% 100 ML IV SCH (17:45)
[2017-11-20] MEDS ORDERED: TPN IV ONE (18:00)
--- NOTE | 2017-11-20 19:00 | PN ---
DATE: 11/20/2017 LOCATION: [address] SUBJECTIVE: This is a 42-year-old female, seen and examined early in rounds with intermittent period of abdominal pain, but less than before with abdominal drainage and with mild nausea, but no vomiting with less dyspepsia. No reported active bleeding. Most recently done chest x-ray yesterday, report is seen. The entire chart is reviewed including but not limited to the most recent lab and radiology study results, current and the previous medication list, current and the previous medical events and today's white blood cells showed leukocytosis of 16.2, hemoglobin 7.7, hematocrit 22.9 with low indices and thrombocytosis with blood glucose level of 144, calcium 8.4 with normal phosphorus and normal magnesium. PHYSICAL EXAMINATION: GENERAL: A 42-year-old female. VITAL SIGNS: Afebrile with pulse of 112, respiratory rate 20 to 22, and blood pressure 130/68. HEENT: Showed pale, dry oral mucous membrane. Nonicteric sclerae. LUNGS: Few scattered crepitation with decreased air entry at bases bilaterally. HEART: Positive S1 and S2. ABDOMEN: Soft with slight distention. No mass or organomegaly. No rebound tenderness or guarding. Small amount of ascites is seen. Abdominal dressing is intact. EXTREMITIES: Without significant clubbing, cyanosis, or edema. NEUROLOGICAL: No reported new neurological deficits, sensory, or motor. IMPRESSION: 1. Status post exploratory laparotomy with drainage of intraabdominal abscess formation. 2. Known history of biliary leak. 3. Status post endoscopic retrograde cholangiopancreatography with biliary stent insertion. 4. Anemia secondary to above. 5. Leukocytosis secondary to above. 6. Status post cholecystectomy by recent history. SUGGESTIONS: 1. Continue current management. 2. Guaiac all the stool daily x3. 3. Further recommendation to follow. Thor Davenport MD
[2017-11-21] MEDS: HYDROmorphone 0.5 mg/0.5 ml ISec IVP PRN ×4 (00:15→09:43)
[2017-11-21] MEDS: Meropenem 1 GM in Sodium Chloride 0.9% 100 ML IVPB SCH ×3 (02:45→19:09)
--- NOTE | 2017-11-21 04:52 | PN ---
DATE: 11/20/2017 INFECTIOUS DISEASE FOLLOWUP SUBJECTIVE: The patient was seen today, but it was surprising that her abdominal wound was opening up also and she is probably developing fistulas as there was a fistula in the area where the drainage was and draining bile. There was a very big dressing on the mid abdominal wall. PHYSICAL EXAMINATION: VITAL SIGNS: T-max is 98.4, heart rate 124, blood pressure 132/78, respiration are 20; however, she looked optimistic. HEENT: Head is atraumatic. NECK: Supple. LUNGS: Clear. HEART: S1 and S2 are regular. ABDOMEN: Has now these two wounds which are opening up. ASSESSMENT AND PLAN: She does have multiple abscesses in the belly but seeing these fistulas, I am thinking if we aspirate them, we can have more openings and may be . She is feeling little better with the present antibiotics. She is on Merrem and Mycamine at this time. I am waiting for the culture reports especially the blood through the central line. Urine culture is negative. Body fluid culture, there is no growth after two days. We still have another day to see that, so we will continue present treatment for now and probably if further culture remains negative, may be changed to Diflucan with may be easier to change control specialist to oral once she is eating. I am not sure what Dr. Roche would suggest about these abscesses in the belly. She has already done a laparotomy again. We will follow with the surgical team and continue antibiotics for now. Juliet Vegas MD
[2017-11-21] MEDS ORDERED: TPN #26 IV ONE (06:10)
[2017-11-21 07:48] LABS: BASO # 0.1 K/uL (0.0-0.2); BASO % 0.7 % (0.0-2.0); HEMOGLOBIN 7.5 g/dL (11.0-16.0); LYMPH # 0.7 K/uL (1.0-4.3); LYMPH % 4.5 % (20.0-40.0); MEAN CELL VOLUME 73.5 fL (81.0-99.0); MEAN CORPUSCULAR HEMOGLOBIN 24.5 pg (27.0-31.0); MEAN CORPUSCULAR HGB CONC 33.3 g/dL (33.0-37.0); MEAN PLATELET VOLUME 7.1 fL (7.2-11.7); MONO # 1.3 K/uL (0.0-0.8); MONO % 7.7 % (0.0-10.0); NEUT # 14.2 K/uL (1.8-7.0); NEUT % 87.1 % (50.0-75.0); PLATELET COUNT 596 K/uL (130-400); RBC 3.05 Mil/uL (3.80-5.20); WHITE BLOOD COUNT 16.3 K/uL (4.8-10.8)
[2017-11-21 08:56] LABS: BLOOD UREA NITROGEN 17 mg/dL (7-17); CALCIUM 8.3 mg/dl (8.6-10.4); GFR NON-AFRICAN AMERICAN > 60
--- NOTE | 2017-11-21 08:56 | CP.PCM.PN ---
Subjective - Date & Time of Evaluation Date of Evaluation: 11/21/17 Time of Evaluation: 06:30 - Subjective Subjective: General surgery progress note for Dr. Roche patient seen and examined this AM. No adverse events overnight. Patient states she tolerated her FLD with no pain, is having normal bowel function. Only 30cc's drainage out of midline incision and 5 out of RLQ incision/12 hours Objective - Vital Signs/Intake and Output Vital Signs (last 24 hours): Temp Pulse Resp BP Pulse Ox 99.1 F 123 H 20 139/81 96 11/21/17 08:22 11/21/17 08:22 11/21/17 08:22 11/21/17 08:22 11/21/17 08:22 Intake and Output: 11/21/17 11/21/17 06:59 18:59 Intake Total 1968 Output Total 75 Balance 1893 - Medications Medications: Current Medications Acetaminophen (Tylenol 650 Mg Supp) 650 mg IN Q4 PRN PRN Reason: Fever >100.4 F Last Admin: 11/03/17 08:29 Dose: 650 mg Acetaminophen (Tylenol 325mg Tab) 650 mg PO Q6 PRN PRN Reason: Pain, Mild (1-3) Last Admin: 11/20/17 19:06 Dose: 650 mg Epoetin Curry (Procrit) 10,000 unit SC MWF [facility] Last Admin: 11/20/17 09:28 Dose: 10,000 unit Furosemide (Lasix) 20 mg IVP DAILY [facility] Last Admin: 11/20/17 09:28 Dose: 20 mg Hydromorphone HCl (Dilaudid) 0.5 mg IVP Q3H PRN PRN Reason: Pain, severe (8-10) Last Admin: 11/21/17 06:22 Dose: 0.5 mg Micafungin Sodium 100 mg/ (Sodium Chloride) 100 mls @ 100 mls/hr IV Q24H [facility]; Protocol Last Admin: 11/20/17 17:45 Dose: 100 mls/hr Meropenem 1 gm/ Sodium (Chloride) 100 mls @ 100 mls/hr IVPB Q8H [facility]; Protocol Last Admin: 11/21/17 02:45 Dose: 100 mls/hr Metoclopramide HCl (Reglan) 10 mg IVP Q6H [facility] Last Admin: 11/21/17 05:36 Dose: 10 mg Ondansetron HCl (Zofran Inj) 4 mg IVP Q4 PRN PRN Reason: Nausea/Vomiting Last Admin: 11/11/17 12:35 Dose: 4 mg Pantoprazole Sodium (Protonix Ec Tab) 40 mg PO DAILY [facility] Last Admin: 11/20/17 09:28 Dose: 40 mg Zolpidem Tartrate (Ambien) 5 mg PO HS PRN PRN Reason: Insomnia Last Admin: 11/20/17 21:08 Dose: 5 mg - Labs Labs: 11/21/17 07:36 11/20/17 08:14 PT 17.4 SECONDS (9.7-12.2) H 11/06/17 21:38 INR 1.6 11/06/17 21:38 APTT 35 SECONDS (21-34) H 11/06/17 21:38 - Constitutional Appears: Well, Non-toxic, No Acute Distress - Head Exam Head Exam: ATRAUMATIC, NORMOCEPHALIC - Eye Exam Eye Exam: Conjunctival injection, Normal appearance. absent: Scleral icterus - ENT Exam ENT Exam: Mucous Membranes Moist, Normal Oropharynx - Respiratory Exam Respiratory Exam: NORMAL BREATHING PATTERN. absent: Accessory Muscle Use, Respiratory Distress - Cardiovascular Exam Cardiovascular Exam: RRR - GI/Abdominal Exam GI & Abdominal Exam: Soft. absent: Distended, Tenderness Additional comments: midline incision with ostomy bag over the superior pole with minimal amount of seropurulent yellow fluid RLQ incision with ostomy bag with small amount of medium brown, clear fluid output - Extremities Exam Extremities Exam: Pedal Edema. absent: Calf Tenderness, Tenderness - Neurological Exam Neurological Exam: Alert, Awake, Oriented x3 - Psychiatric Exam Psychiatric exam: Normal Affect, Normal Mood - Skin Skin Exam: Dry, Normal Color, Warm Assessment and Plan - Assessment and Plan (Free Text) Assessment: 42F POD# 15 s/p ex lap with drainage of retroperitoneal abscess Plan: Continue to trend CBC and BMP Continue antibiotic per ID Will advance diet to regular diet, will D/C TPN Encourage ambulation Will switch to PO pain medication Will work on possible D/C to home with case management--will discuss possibility of PO vs IV antibiotics with ID and home wound care Discussed with , who agrees with above Janelle Coronel, PGY2
[2017-11-21 08:58] LABS: ANISOCYTOSIS SLIGHT; LYMPHOCYTE 6 % (20-40); MONOCYTE 8 % (0-10); NEUTROPHIL 86 % (50-75); PLATELET ESTIMATE INCREASED (NORMAL); POIKILOCYTOSIS SLIGHT; TOTAL CELLS COUNTED 100
[2017-11-21 08:59] LABS: HYPOCHROMIC SLIGHT; LARGE PLATELETS PRESENT; MICROCYTOSIS SLIGHT
[2017-11-21 09:00] LABS: TARGET CELLS SLIGHT
[2017-11-21] MEDS: Pantoprazole 40 mg EC Tab PO SCH (09:42)
[2017-11-21] MEDS ORDERED: Potassium Chloride 20 mEq/15 ml LIQ UD PO ONE (10:39)
[2017-11-21] MEDS: oxyCODONE 5 mg Immediate Release Tab PO PRN ×2 (12:57→19:09)
--- NOTE | 2017-11-21 14:48 | CP.PCM.PN ---
Subjective - Date & Time of Evaluation Date of Evaluation: 11/21/17 Time of Evaluation: 14:15 - Subjective Subjective: dictated Objective - Vital Signs/Intake and Output Vital Signs (last 24 hours): Temp Pulse Resp BP Pulse Ox 99.1 F 123 H 20 140/87 96 11/21/17 08:22 11/21/17 08:22 11/21/17 08:22 11/21/17 09:44 11/21/17 08:22 Intake and Output: 11/21/17 11/21/17 06:59 18:59 Intake Total 1968 Output Total 75 Balance 1893 - Medications Medications: Current Medications Acetaminophen (Tylenol 650 Mg Supp) 650 mg [place] Q4 PRN PRN Reason: Fever >100.4 F Last Admin: 11/03/17 08:29 Dose: 650 mg Acetaminophen (Tylenol 325mg Tab) 650 mg PO Q6 PRN PRN Reason: Pain, Mild (1-3) Last Admin: 11/20/17 19:06 Dose: 650 mg Epoetin Curry (Procrit) 10,000 unit SC MWF [facility] Last Admin: 11/20/17 09:28 Dose: 10,000 unit Furosemide (Lasix) 20 mg IVP DAILY [facility] Last Admin: 11/21/17 09:44 Dose: 20 mg Micafungin Sodium 100 mg/ (Sodium Chloride) 100 mls @ 100 mls/hr IV Q24H [facility]; Protocol Last Admin: 11/20/17 17:45 Dose: 100 mls/hr Meropenem 1 gm/ Sodium (Chloride) 100 mls @ 100 mls/hr IVPB Q8H [facility]; Protocol Last Admin: 11/21/17 11:01 Dose: 100 mls/hr Metoclopramide HCl (Reglan) 10 mg IVP Q6H [facility] Last Admin: 11/21/17 11:30 Dose: 10 mg Ondansetron HCl (Zofran Inj) 4 mg IVP Q4 PRN PRN Reason: Nausea/Vomiting Last Admin: 11/11/17 12:35 Dose: 4 mg Oxycodone HCl (Oxycodone Immediate Release Tab) 5 mg PO Q6 PRN PRN Reason: Pain, moderate (4-7) Last Admin: 11/21/17 12:57 Dose: 5 mg Pantoprazole Sodium (Protonix Ec Tab) 40 mg PO DAILY [facility] Last Admin: 11/21/17 09:42 Dose: 40 mg Zolpidem Tartrate (Ambien) 5 mg PO HS PRN PRN Reason: Insomnia Last Admin: 11/20/17 21:08 Dose: 5 mg - Labs Labs: 11/21/17 07:36 11/21/17 07:36 PT 17.4 SECONDS (9.7-12.2) H 11/06/17 21:38 INR 1.6 11/06/17 21:38 APTT 35 SECONDS (21-34) H 11/06/17 21:38
--- NOTE | 2017-11-21 17:21 | PN ---
DATE: 11/21/2017 LOCATION: [address]. 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 The patient still has intermittent period of abdominal pain. She somewhat tolerated oral intake of liquid diet and with no reported nausea or vomiting or abdominal distension. The entire chart is reviewed including but not limited to some of recent lab and radiology study results, current and previous medication list, current and previous medical events. Today lab results showed leukocytosis of 16.3, hemoglobin 7.5, hematocrit 22.5 with low indices highly suggest hypochromic microcytic anemia with potassium 3.4 and blood glucose level 176 with low calcium. PHYSICAL EXAMINATION: GENERAL: A 42-year-old female awake, alert, and oriented. VITAL SIGNS: Afebrile with pulse of 112, respiratory rate 20 to 22, and blood pressure 136/82. HEENT: Showed pale, dry oral mucous membrane. Nonicteric sclerae. LUNGS: Few scattered crepitation. Decreased air entry at bases. HEART: Positive S1 and S2. ABDOMEN: Soft with mild distention. Possible right-sided drainage is seen x2 in the site of recently done surgery. EXTREMITIES: With lower extremity edematous changes. No clubbing or cyanosis. NEUROLOGICAL: No reported new neurological deficits, sensory, or motor. IMPRESSION: 1. Biliary leak with biliary peritonitis and abscess formation. 2. Status post exploratory laparotomy with drainage of retroperitoneal abscess. 3. Anemia secondary to above. 4. Status post endoscopic retrograde cholangiopancreatography with biliary stent insertion. 5. Malnutrition with hypoalbuminemia. SUGGESTIONS: 1. Continue current management. 2. Follow up with ID consultation. 3. No need for aggressive GI workup. 4. Further recommendation to follow. Thor Davenport MD
[2017-11-21] MEDS: Micafungin 100 MG in Sodium Chloride 0.9% 100 ML IV SCH (17:59)
--- NOTE | 2017-11-22 00:39 | PN ---
DATE: 11/21/2017 INFECTIOUS DISEASE FOLLOWUP SUBJECTIVE: The patient was seen today. She said she had some diet by mouth, and she has a PICC line. She is thinking of going home. She still has draining from the midline wound which has broke open. It seems to me, she is draining the abscess from there as there is pure pus. She is still on pain medications. She denied any nausea or vomiting. Tolerated some p.o. diet, I think. OBJECTIVE: VITAL SIGNS: T-max is 99, heart rate is 126, blood pressure 129/77, respirations are 20. HEENT: Head is atraumatic, normocephalic. NECK: Supple. LUNGS: Clear. She remains with decreased breath sounds on both bases of the lung. HEART: S1, S2 tachycardic. ABDOMEN: Remains prominent. No guarding, no rigidity present. EXTREMITIES: Remain with edema at this time. Her white count is still 16.3, hemoglobin 7.5, hematocrit 22.5, platelet count is 596, still high. Potassium is 3.4, chlorides are 97, BUN is 29, glucose is 176. Reports, chest x-ray was done on 11/19/2017. She did have left fluid tap done before; and micro garcia, her cultures have been negative. The body fluid is also negative as we are giving her strong antibiotics, but is draining pure, looks like, pus. Medications, she is on meropenem as well as Mycamine at this time and micafungin, both of them probably are controlling but she has two areas which look either fistulous tract or they are draining the abscess. We will see what the surgery thinks about it as she still has multiple abscesses. She is status post bile leak, status post bile peritonitis along with multiple abscesses and plan is to continue antibiotics and follow of the CAT scan to see if she is improving or not every 10 days as this has been a lengthy recovery phase for her. Juliet Vegas MD
[2017-11-22] MEDS: oxyCODONE 5 mg Immediate Release Tab PO PRN ×4 (01:07→19:15)
[2017-11-22] MEDS: Meropenem 1 GM in Sodium Chloride 0.9% 100 ML IVPB SCH ×3 (03:06→18:44)
--- NOTE | 2017-11-22 08:16 | CP.PCM.PN ---
<Julian Ortega - Last Filed: 11/22/17 13:37> Objective - Vital Signs/Intake and Output Vital Signs (last 24 hours): Temp Pulse Resp BP Pulse Ox 98.5 F 117 H 20 133/79 97 11/22/17 07:00 11/22/17 07:00 11/22/17 07:00 11/22/17 10:25 11/22/17 07:00 Intake and Output: 11/22/17 11/22/17 06:59 18:59 Intake Total 790 Output Total 30 Balance 760 - Medications Medications: Current Medications Acetaminophen (Tylenol 650 Mg Supp) 650 mg [place] Q4 PRN PRN Reason: Fever >100.4 F Last Admin: 11/03/17 08:29 Dose: 650 mg Acetaminophen (Tylenol 325mg Tab) 650 mg PO Q6 PRN PRN Reason: Pain, Mild (1-3) Last Admin: 11/21/17 18:08 Dose: 650 mg Epoetin Curry (Procrit) 10,000 unit SC MWF [facility] Last Admin: 11/22/17 09:25 Dose: 10,000 unit Furosemide (Lasix) 20 mg IVP DAILY [facility] Last Admin: 11/22/17 10:25 Dose: 20 mg Micafungin Sodium 100 mg/ (Sodium Chloride) 100 mls @ 100 mls/hr IV Q24H [facility]; Protocol Last Admin: 11/21/17 17:59 Dose: 100 mls/hr Meropenem 1 gm/ Sodium (Chloride) 100 mls @ 100 mls/hr IVPB Q8H [facility]; Protocol Last Admin: 11/22/17 10:25 Dose: 100 mls/hr Metoclopramide HCl (Reglan) 10 mg IVP Q6H [facility] Last Admin: 11/22/17 10:30 Dose: 10 mg Ondansetron HCl (Zofran Inj) 4 mg IVP Q4 PRN PRN Reason: Nausea/Vomiting Last Admin: 11/11/17 12:35 Dose: 4 mg Oxycodone HCl (Oxycodone Immediate Release Tab) 5 mg PO Q6 PRN PRN Reason: Pain, moderate (4-7) Last Admin: 11/22/17 13:17 Dose: 5 mg Pantoprazole Sodium (Protonix Ec Tab) 40 mg PO DAILY [facility] Last Admin: 11/22/17 10:24 Dose: 40 mg Zolpidem Tartrate (Ambien) 5 mg PO HS PRN PRN Reason: Insomnia Last Admin: 11/21/17 22:35 Dose: 5 mg - Labs Labs: 11/22/17 08:33 11/22/17 08:33 PT 17.4 SECONDS (9.7-12.2) H 11/06/17 21:38 INR 1.6 11/06/17 21:38 APTT 35 SECONDS (21-34) H 11/06/17 21:38 Assessment and Plan - Assessment and Plan (Free Text) Plan: Likely DC today or TOmorrow. -VNS set up for wound care -ID recommendation for home med appreciated. DW Dr. Arce <Janelle Coronel - Last Filed: 11/22/17 16:02> Subjective - Date & Time of Evaluation Date of Evaluation: 11/22/17 Time of Evaluation: 13:00 - Subjective Subjective: General surgery progress note for Dr. Arce, covering for Dr. Roche Pt seen and examined at bedside. States she is tolerating her regular diet well. 45cc's fluid from midline incision and 10 from RLQ incision Objective - Vital Signs/Intake and Output Vital Signs (last 24 hours): Temp Pulse Resp BP Pulse Ox 98.6 F 119 H 20 125/82 96 11/22/17 04:00 11/22/17 04:00 11/22/17 04:00 11/22/17 04:00 11/22/17 04:00 Intake and Output: 11/22/17 11/22/17 06:59 18:59 Intake Total 790 Output Total 30 Balance 760 - Medications Medications: Current Medications Acetaminophen (Tylenol 650 Mg Supp) 650 mg [place] Q4 PRN PRN Reason: Fever >100.4 F Last Admin: 11/03/17 08:29 Dose: 650 mg Acetaminophen (Tylenol 325mg Tab) 650 mg PO Q6 PRN PRN Reason: Pain, Mild (1-3) Last Admin: 11/21/17 18:08 Dose: 650 mg Epoetin Curry (Procrit) 10,000 unit SC MWF [facility] Last Admin: 11/20/17 09:28 Dose: 10,000 unit Furosemide (Lasix) 20 mg IVP DAILY [facility] Last Admin: 11/21/17 09:44 Dose: 20 mg Micafungin Sodium 100 mg/ (Sodium Chloride) 100 mls @ 100 mls/hr IV Q24H [facility]; Protocol Last Admin: 11/21/17 17:59 Dose: 100 mls/hr Meropenem 1 gm/ Sodium (Chloride) 100 mls @ 100 mls/hr IVPB Q8H [facility]; Protocol Last Admin: 11/22/17 03:06 Dose: 100 mls/hr Metoclopramide HCl (Reglan) 10 mg IVP Q6H [facility] Last Admin: 11/22/17 04:50 Dose: 10 mg Ondansetron HCl (Zofran Inj) 4 mg IVP Q4 PRN PRN Reason: Nausea/Vomiting Last Admin: 11/11/17 12:35 Dose: 4 mg Oxycodone HCl (Oxycodone Immediate Release Tab) 5 mg PO Q6 PRN PRN Reason: Pain, moderate (4-7) Last Admin: 11/22/17 07:10 Dose: 5 mg Pantoprazole Sodium (Protonix Ec Tab) 40 mg PO DAILY [facility] Last Admin: 11/21/17 09:42 Dose: 40 mg Zolpidem Tartrate (Ambien) 5 mg PO HS PRN PRN Reason: Insomnia Last Admin: 11/21/17 22:35 Dose: 5 mg - Labs Labs: 11/21/17 07:36 11/21/17 07:36 PT 17.4 SECONDS (9.7-12.2) H 11/06/17 21:38 INR 1.6 11/06/17 21:38 APTT 35 SECONDS (21-34) H 11/06/17 21:38 - Constitutional Appears: Well, Non-toxic, No Acute Distress - Head Exam Head Exam: ATRAUMATIC, NORMOCEPHALIC - Eye Exam Eye Exam: Normal appearance. absent: Conjunctival injection, Scleral icterus - ENT Exam ENT Exam: Mucous Membranes Moist, Normal Oropharynx - Respiratory Exam Respiratory Exam: NORMAL BREATHING PATTERN. absent: Accessory Muscle Use, Respiratory Distress - Cardiovascular Exam Cardiovascular Exam: Tachycardia - GI/Abdominal Exam GI & Abdominal Exam: Soft. absent: Distended, Tenderness Additional comments: midline incision well approximated except for small opening in the very superior pole with small amount of yellow seropurulent drainage RLQ incision with minimal amount of dark brown clear fluid drainage - Extremities Exam Extremities Exam: Pedal Edema. absent: Calf Tenderness, Tenderness - Neurological Exam Neurological Exam: Alert, Awake, Oriented x3 - Psychiatric Exam Psychiatric exam: Normal Affect, Normal Mood - Skin Skin Exam: Dry, Normal Color, Warm Assessment and Plan - Assessment and Plan (Free Text) Assessment: 42F pod#16 S/P exploratory laparotomy and drainage of a retroperitoneal abscess Plan: Continue antibiotics per ID--will switch from Merrem to once daily ertapenam, continue mycamine Patient will need daily infusions as outpatient Discussed wound care with patient, she feels comfortable managing wound care at home with help of VNS Continue PO pain medication Continue current diet Discussed with Dr. Arce covering Janelle Brothers, PGY2 <Eliot Arce B - Last Filed: 11/23/17 18:58> Objective - Vital Signs/Intake and Output Vital Signs (last 24 hours): Temp Pulse Resp BP Pulse Ox 99.6 F 123 H 20 142/91 H 95 11/23/17 15:00 11/23/17 15:00 11/23/17 15:00 11/23/17 15:00 11/23/17 15:00 Intake and Output: 11/23/17 11/23/17 06:59 18:59 Intake Total 510 Output Total 85 15 Balance 425 -15 - Medications Medications: Current Medications Acetaminophen (Tylenol 650 Mg Supp) 650 mg RI Q4 PRN PRN Reason: Fever >100.4 F Last Admin: 11/03/17 08:29 Dose: 650 mg Acetaminophen (Tylenol 325mg Tab) 650 mg PO Q6 PRN PRN Reason: Pain, Mild (1-3) Last Admin: 11/21/17 18:08 Dose: 650 mg Epoetin Curry (Procrit) 10,000 unit SC MWF [facility] Last Admin: 11/22/17 09:25 Dose: 10,000 unit Furosemide (Lasix) 20 mg IVP DAILY [facility] Last Admin: 11/23/17 10:26 Dose: 20 mg Micafungin Sodium 100 mg/ (Sodium Chloride) 100 mls @ 100 mls/hr IV Q24H [facility]; Protocol Last Admin: 11/23/17 17:43 Dose: 100 mls/hr Meropenem 1 gm/ Sodium (Chloride) 100 mls @ 100 mls/hr IVPB Q8H [facility]; Protocol Last Admin: 11/23/17 10:28 Dose: 100 mls/hr Metoclopramide HCl (Reglan) 10 mg IVP Q6H [facility] Last Admin: 11/23/17 17:43 Dose: 10 mg Ondansetron HCl (Zofran Inj) 4 mg IVP Q4 PRN PRN Reason: Nausea/Vomiting Last Admin: 11/11/17 12:35 Dose: 4 mg Oxycodone HCl (Oxycodone Immediate Release Tab) 5 mg PO Q6 PRN PRN Reason: Pain, moderate (4-7) Last Admin: 11/23/17 17:42 Dose: 5 mg Pantoprazole Sodium (Protonix Ec Tab) 40 mg PO DAILY [facility] Last Admin: 11/23/17 10:25 Dose: 40 mg Zolpidem Tartrate (Ambien) 5 mg PO HS PRN PRN Reason: Insomnia Last Admin: 11/22/17 21:59 Dose: 5 mg - Labs Labs: 11/23/17 08:04 11/23/17 08:04 PT 17.4 SECONDS (9.7-12.2) H 11/06/17 21:38 INR 1.6 11/06/17 21:38 APTT 35 SECONDS (21-34) H 11/06/17 21:38 Attending/Attestation - Attestation I have personally seen and examined this patient.: Yes I have fully participated in the care of the patient.: Yes I have reviewed all pertinent clinical information, including history, physical exam and plan: Yes Notes (Text): Pt was seen and examined at bedside Agree with above note and assessment Pt with EC fistula Pt is improved clinically Can be DC home f.u as out pt after 2 weeks PO antibiotics for 10 days Plan d.w pt in detail Risk and benefit explained in detail.
[2017-11-22 08:48] LABS: BASO # 0.1 K/uL (0.0-0.2); HEMOGLOBIN 7.8 g/dL (11.0-16.0); LYMPH % 7.1 % (20.0-40.0); MEAN CELL VOLUME 73.5 fL (81.0-99.0); MEAN CORPUSCULAR HEMOGLOBIN 24.3 pg (27.0-31.0); MEAN CORPUSCULAR HGB CONC 33.1 g/dL (33.0-37.0); MEAN PLATELET VOLUME 7.5 fL (7.2-11.7); MONO % 7.1 % (0.0-10.0); NEUT # 11.8 K/uL (1.8-7.0); NEUT % 84.8 % (50.0-75.0); PLATELET COUNT 581 K/uL (130-400); RED CELL DISTRIBUTION WIDTH 23.3 % (11.5-14.5); WHITE BLOOD COUNT 13.9 K/uL (4.8-10.8)
[2017-11-22 09:15] LABS: BLOOD UREA NITROGEN 12 mg/dL (7-17); CALCIUM 8.3 mg/dl (8.6-10.4); GFR NON-AFRICAN AMERICAN > 60
[2017-11-22] MEDS: EPOETIN ALFA 10,000 UNIT/ML ML SC SCH (09:25)
[2017-11-22] MEDS: Pantoprazole 40 mg EC Tab PO SCH (10:24)
[2017-11-22 11:18] LABS: LYMPHOCYTE 8 % (20-40); MONOCYTE 2 % (0-10); NEUTROPHIL 90 % (50-75); TOTAL CELLS COUNTED 100
[2017-11-22 11:19] LABS: ANISOCYTOSIS MODERATE; HYPOCHROMIC SLIGHT; MICROCYTOSIS SLIGHT; PLATELET ESTIMATE INCREASED (NORMAL); POLYCHROMIC SLIGHT
--- NOTE | 2017-11-22 16:16 | PN ---
DATE: 11/22/2017 LOCATION 667, bed B. SUBJECTIVE: This is a 42-year-old female seen and examined in rounds with recurrent intermittent periods of abdominal pain, less than before with reported again fistula formation postsurgically recently with drainage, but no reported active bleeding. No chest pain or palpitation, but mild shortness of breath on and off. The entire chart is reviewed including but not limited to the most recent lab and radiology study results, current and the previous medication list, current and the previous medical events. Case discussed with the staff at length. Today's lab showed white blood cells of 13.9, hemoglobin 7.8, hematocrit 23.5, with low indices, with thrombocytosis of 581, CO2 content 31 indicative of respiratory alkalosis, calcium 8.3. PHYSICAL EXAMINATION: GENERAL: A 42-year-old female, awake, alert, and oriented. VITAL SIGNS: Afebrile, with pulse of 112, respiratory 20-22, blood pressure 130/72. HEENT: Pale, dry oral mucous membranes. Nonicteric sclerae. LUNGS: Few scattered crepitations. Decreased air entry at bases. HEART: Positive S1 and S2, increased rate. ABDOMEN: With slight distention and generalized tenderness, with positive drainage from the recently done midline incision as well as the right upper quadrant incision area. EXTREMITIES: Without significant clubbing, cyanosis, or edema. NEUROLOGIC: No reported new neurological deficits, sensory or motor. IMPRESSION: 1. Biliary leak with intraabdominal biliary ascites and abscess. 2. Status post exploratory laparotomy with evacuation of abscess formation. 3. Status post ERCP with biliary stent insertion. 4. Anemia, most likely secondary to above. 5. Malnutrition with hypoalbuminemia. SUGGESTIONS: 1. Continue current management. 2. Follow up with repeat CAT scan should be kept in mind. 3. No further aggressive GI workup in the meantime. Thor Davenport MD
[2017-11-22] MEDS ORDERED: Influenza Vaccine 60 MCG/0.5 ML SYR (3 yr & up) IM ONE (16:39)
--- NOTE | 2017-11-22 16:55 | CP.PCM.PN ---
Subjective - Date & Time of Evaluation Date of Evaluation: 11/22/17 Time of Evaluation: 16:00 - Subjective Subjective: dictated Objective - Vital Signs/Intake and Output Vital Signs (last 24 hours): Temp Pulse Resp BP Pulse Ox 98.4 F 120 H 20 130/80 96 11/22/17 15:42 11/22/17 15:42 11/22/17 15:42 11/22/17 15:42 11/22/17 15:42 Intake and Output: 11/22/17 11/22/17 06:59 18:59 Intake Total 790 Output Total 30 Balance 760 - Medications Medications: Current Medications Acetaminophen (Tylenol 650 Mg Supp) [address] Q4 PRN PRN Reason: Fever >100.4 F Last Admin: 11/03/17 08:29 Dose: 650 mg Acetaminophen (Tylenol 325mg Tab) 650 mg PO Q6 PRN PRN Reason: Pain, Mild (1-3) Last Admin: 11/21/17 18:08 Dose: 650 mg Epoetin Curry (Procrit) 10,000 unit SC MWF [facility] Last Admin: 11/22/17 09:25 Dose: 10,000 unit Furosemide (Lasix) 20 mg IVP DAILY [facility] Last Admin: 11/22/17 10:25 Dose: 20 mg Micafungin Sodium 100 mg/ (Sodium Chloride) 100 mls @ 100 mls/hr IV Q24H [facility]; Protocol Last Admin: 11/21/17 17:59 Dose: 100 mls/hr Meropenem 1 gm/ Sodium (Chloride) 100 mls @ 100 mls/hr IVPB Q8H [facility]; Protocol Last Admin: 11/22/17 10:25 Dose: 100 mls/hr Influenza Virus Vaccine (Fluzone Quad [id number]) 60 mcg IM .ONCE ONE Stop: 11/22/17 16:40 Metoclopramide HCl (Reglan) 10 mg IVP Q6H [facility] Last Admin: 11/22/17 10:30 Dose: 10 mg Ondansetron HCl (Zofran Inj) 4 mg IVP Q4 PRN PRN Reason: Nausea/Vomiting Last Admin: 11/11/17 12:35 Dose: 4 mg Oxycodone HCl (Oxycodone Immediate Release Tab) 5 mg PO Q6 PRN PRN Reason: Pain, moderate (4-7) Last Admin: 11/22/17 13:17 Dose: 5 mg Pantoprazole Sodium (Protonix Ec Tab) 40 mg PO DAILY [facility] Last Admin: 11/22/17 10:24 Dose: 40 mg Zolpidem Tartrate (Ambien) 5 mg PO HS PRN PRN Reason: Insomnia Last Admin: 11/21/17 22:35 Dose: 5 mg - Labs Labs: 11/22/17 08:33 11/22/17 08:33 PT 17.4 SECONDS (9.7-12.2) H 11/06/17 21:38 INR 1.6 11/06/17 21:38 APTT 35 SECONDS (21-34) H 11/06/17 21:38
[2017-11-22] MEDS: Micafungin 100 MG in Sodium Chloride 0.9% 100 ML IV SCH (17:40)
--- NOTE | 2017-11-22 21:59 | PN ---
DATE: 11/22/2017 INFECTIOUS DISEASE FOLLOWUP NOTE SUBJECTIVE: The patient was seen today. She is feeling slightly better. She tolerated oral fluid. She is going to be off TPN and plan to get her home. She still has the drainage from the central wound as well as on the right lower quadrant. She has this pus coming out. She is, however, hopeful she can make it home and the resident called me that Dr. Roche may follow as outpatient. T-max is 98.4. She has a PICC line on the right arm. She denies any nausea or vomiting. Does have abdominal pain. She is on pain medications. PHYSICAL EXAMINATION: GENERAL: She appears pale, but optimistic. VITAL SIGNS: T-max is 98.4, pulse is 120, blood pressure 130/80, respirations are 20. HEENT: Head is atraumatic. Tongue is moist. NECK: Supple. LUNGS: Decreased breath sounds bilaterally. She is told to take a spirometry monitor with her and to use it, incentive spirometer at home to use it. HEART: S1 and S2 remain tachycardic. PICC line is unremarkable on the right arm. ABDOMEN: Soft, nontender. She has drainage on two areas, which is purulent pus. EXTREMITIES: Remain with bilateral edema. MEDICATIONS: I want to re-analyze here because this may be my last note. Here, she is on Tylenol. She is on Procrit 10,000 MWF, on Lasix 20 IV push, and she did get. She is waiting for her flu vaccine. She is on meropenem 1 g every 8 hours. I am going to that to Invanz 1 g daily as she can be covering the Proteus that was isolated. She is on Reglan p.r.n., Micafungin 100 mg, Zofran, oxycodone 5 mg every 6 hours p.r.n., Protonix 40 mg, Zolpidem 5 mg p.o. at bedtime. These are her medications. IMPRESSION AND PLAN: She had a bile leak and had intra-abdominal multiple abscesses. She had a laparotomy done for drainage of the retroperitoneal abscess and still has drainage from the abdominal wound, which may be a fistula and may be the abscess striking out at this time. She will need to be followed closely by the Surgery, if Surgery's decision that they want to send her out, otherwise I would have kept here until further improvement. She also underwent thoracocentesis on the left lung. Recent cultures are all negative. Juliet Vegas MD
[2017-11-23] MEDS: oxyCODONE 5 mg Immediate Release Tab PO PRN ×3 (01:19→17:42)
[2017-11-23] MEDS: Meropenem 1 GM in Sodium Chloride 0.9% 100 ML IVPB SCH ×3 (03:38→19:17)
[2017-11-23 04:34] VITALS: O2SAT 95
[2017-11-23] MEDS ORDERED: SODIUM CHLORIDE 0.9% IV ONE (08:00)
[2017-11-23] MEDS ORDERED: NS IV ONE (08:00)
[2017-11-23] MEDS ORDERED: ERTAPENEM IV ONE (08:00)
[2017-11-23 08:15] LABS: BASO # 0.1 K/uL (0.0-0.2); HEMOGLOBIN 7.5 g/dL (11.0-16.0); LYMPH # 1.4 K/uL (1.0-4.3); LYMPH % 11.8 % (20.0-40.0); MEAN CELL VOLUME 72.5 fL (81.0-99.0); MEAN CORPUSCULAR HEMOGLOBIN 24.3 pg (27.0-31.0); MEAN CORPUSCULAR HGB CONC 33.5 g/dL (33.0-37.0); MEAN PLATELET VOLUME 7.4 fL (7.2-11.7); MONO % 8.2 % (0.0-10.0); NEUT # 9.6 K/uL (1.8-7.0); RBC 3.08 Mil/uL (3.80-5.20); RED CELL DISTRIBUTION WIDTH 23.5 % (11.5-14.5); WHITE BLOOD COUNT 12.1 K/uL (4.8-10.8)
[2017-11-23 08:34] LABS: BLOOD UREA NITROGEN 9 mg/dL (7-17); CALCIUM 8.5 mg/dl (8.6-10.4); GFR NON-AFRICAN AMERICAN > 60
[2017-11-23] MEDS: Pantoprazole 40 mg EC Tab PO SCH (10:25)
--- NOTE | 2017-11-23 10:33 | PN ---
DATE: 11/23/2017 LOCATION: 667, bed B. HISTORY OF PRESENT ILLNESS: This is a 46-year-old female, seen and examined in rounds without reported significant clinical changes with recurrent intermittent period of abdominal pain, is still on IV antibiotic with some drainage at the right side of the abdomen. The entire chart is reviewed, including, but not limited to the most recent lab and radiology study results, current and the previous medication list, current and the previous medical events. Today's lab is still pending, however, yesterday, white blood cells of 13.9 with low hemoglobin and hematocrit with low indices, but thrombocytosis with low creatinine and low calcium. PHYSICAL EXAMINATION: GENERAL: A 42-year-old female. VITAL SIGNS: Afebrile with heart rate of 112, respiratory rate 20-22, blood pressure of 128/78. HEENT: Showed pale, dry oral mucous membrane. Nonicteric sclerae. LUNGS: Few scattered crepitation. Decreased air entry at bases. HEART: Positive S1 and S2. ABDOMEN: Soft. Bowel sounds are present with mild abdominal distention. EXTREMITIES: Lower extremities, edematous changes. No clubbing or cyanosis. NEUROLOGIC: No reported neurological deficits. IMPRESSION: 1. Biliary leak. 2. Biliary ascites with biliary intraperitoneal abscess formation. 3. Status post exploratory laparotomy with drainage of abscess. 4. Possible fistula formation postsurgically. 5. Status post thoracocentesis recently due to large pleural effusion, results still pending. 6. Hypochromic microcytic anemia secondary to above. SUGGESTIONS: 1. Continue current management. 2. Surgical reevaluation. 3. No further aggressive GI workup. 4. Guaiac of stool every day x3. We will follow up closely with you. Thor Davenport MD
--- NOTE | 2017-11-23 13:44 | CP.PCM.DIS ---
Provider - Provider Date of Admission: 11/02/17 23:56 Attending physician: Brant Roche MD Time Spent in preparation of Discharge (in minutes): 45 Diagnosis - Discharge Diagnosis (1) Postprocedural intraabdominal abscess Status: Acute (2) Edema due to malnutrition Status: Acute (3) Hypokalemia Status: Acute (4) Abdominal pain Status: Acute (5) Anemia Status: Chronic (6) Leukocytosis Status: Acute (7) Nausea and vomiting Status: Acute Hospital Course - Lab Results Lab Results: Micro Results 11/18/17 23:25 Blood-Thru Central Line Blood Culture - Preliminary NO GROWTH AFTER 4 DAYS 11/18/17 19:26 Blood-Thru Central Line Blood Culture - Preliminary NO GROWTH AFTER 4 DAYS 11/18/17 14:20 Pleural Fluid Gram Stain - Final 11/18/17 14:20 Pleural Fluid Body Fluid Culture - Final No growth. 11/18/17 23:22 Urine Urine Culture - Final No Growth (<1,000 CFU/ML) 11/03/17 18:45 Blood Blood Culture - Final NO GROWTH AFTER 5 DAYS 11/03/17 18:45 Blood Gram Stain - Final TEST NOT PERFORMED 11/03/17 12:32 Blood Blood Culture - Final NO GROWTH AFTER 5 DAYS 11/03/17 12:32 Blood Gram Stain - Final TEST NOT PERFORMED 11/02/17 19:00 Blood Blood Culture - Final NO GROWTH AFTER 5 DAYS 11/02/17 19:00 Blood Gram Stain - Final TEST NOT PERFORMED 11/02/17 19:20 Blood Blood Culture - Final NO GROWTH AFTER 5 DAYS 11/02/17 19:20 Blood Gram Stain - Final TEST NOT PERFORMED 11/05/17 17:37 Urine Urine Culture - Final No Growth (<1,000 CFU/ML) 11/03/17 07:11 Urine,Catheterized Urine Culture - Final No Growth (<1,000 CFU/ML) 11/02/17 21:19 Urine Urine Culture - Final 50-100,000 CFU/ML. MULTIPLE SPECIES. SUGGEST REPEAT SPECIMEN. 11/02/17 20:49 Abdominal Fluid Gram Stain - Final 11/02/17 20:49 Abdominal Fluid Body Fluid Culture - Final Proteus Mirabilis Most Recent Lab Values WBC 12.1 K/uL (4.8-10.8) H 11/23/17 08:04 RBC 3.08 Mil/uL (3.80-5.20) L 11/23/17 08:04 Hgb 7.5 g/dL (11.0-16.0) L 11/23/17 08:04 Hct 22.3 % (34.0-47.0) L 11/23/17 08:04 MCV 72.5 fL (81.0-99.0) L 11/23/17 08:04 MCH 24.3 pg (27.0-31.0) L 11/23/17 08:04 MCHC 33.5 g/dL (33.0-37.0) 11/23/17 08:04 RDW 23.5 % (11.5-14.5) H 11/23/17 08:04 Plt Count 550 K/uL (130-400) H 11/23/17 08:04 MPV 7.4 fL (7.2-11.7) 11/23/17 08:04 Neut % (Auto) 79.0 % (50.0-75.0) H 11/23/17 08:04 Lymph % (Auto) 11.8 % (20.0-40.0) L 11/23/17 08:04 [place] % (Auto) 8.2 % (0.0-10.0) 11/23/17 08:04 Eos % (Auto) 0.0 % (0.0-4.0) 11/23/17 08:04 Baso % (Auto) 1.0 % (0.0-2.0) 11/23/17 08:04 Neut # (Auto) 9.6 K/uL (1.8-7.0) H 11/23/17 08:04 Lymph # (Auto) 1.4 K/uL (1.0-4.3) 11/23/17 08:04 [place] # (Auto) 1.0 K/uL (0.0-0.8) H 11/23/17 08:04 Eos # (Auto) 0.0 K/uL (0.0-0.7) 11/23/17 08:04 Baso # (Auto) 0.1 K/uL (0.0-0.2) 11/23/17 08:04 Neutrophils % (Manual) 90 % (50-75) H 11/22/17 08:33 Band Neutrophils % 1 % (0-2) 11/20/17 08:14 Lymphocytes % (Manual) 8 % (20-40) L 11/22/17 08:33 Reactive Lymphs % 1 % (0-0) H 11/09/17 06:33 Monocytes % (Manual) 2 % (0-10) 11/22/17 08:33 Basophils % (Manual) 1 % (0-2) 11/20/17 08:14 Metamyelocytes % 1 % (0-0) H 11/08/17 08:12 Toxic Granulation Present 11/09/17 06:33 Dohle Bodies Present 11/04/17 07:20 Platelet Estimate Increased (NORMAL) H 11/22/17 08:33 Large Platelets Present 11/21/17 07:36 Polychromasia Slight 11/22/17 08:33 Hypochromasia (manual) Slight 11/22/17 08:33 Poikilocytosis (manual Slight 11/21/17 07:36 Anisocytosis (manual) Moderate 11/22/17 08:33 Microcytosis (manual) Slight 11/22/17 08:33 Target Cells Slight 11/21/17 07:36 Tear Drop Cells Slight 11/20/17 08:14 Ovalocytes Slight 11/16/17 07:57 Schistocytes Slight 11/03/17 08:51 PT 17.4 SECONDS (9.7-12.2) H 11/06/17 21:38 INR 1.6 11/06/17 21:38 APTT 35 SECONDS (21-34) H 11/06/17 21:38 Puncture Site Lb 11/06/17 23:15 pCO2 48 mm/Hg (35-45) H 11/06/17 23:15 pO2 102 mm/Hg (80-100) H 11/06/17 23:15 HCO3 31.3 mmol/L (21-28) H 11/06/17 23:15 ABG pH 7.45 (7.35-7.45) 11/06/17 23:15 ABG Total CO2 34.9 mmol/L (22-28) H 11/06/17 23:15 ABG O2 Saturation 99.3 % (95-98) H 11/06/17 23:15 ABG Base Excess 8.1 mmol/L (-2.0-3.0) H 11/06/17 23:15 Cristi Test Na 11/06/17 23:15 ABG Potassium 4.0 mmol/L (3.6-5.2) 11/06/17 23:15 VBG pH 7.52 (7.32-7.43) H 11/02/17 22:20 VBG pCO2 41 mmHg (40-60) 11/02/17 22:20 VBG HCO3 32.1 mmol/L 11/02/17 22:20 VBG Total CO2 34.8 mmol/L (22-28) H 11/02/17 22:20 VBG O2 Sat (Calc) 83.8 % (40-65) H 11/02/17 22:20 VBG Base Excess 9.7 mmol/L (0.0-2.0) H 11/02/17 22:20 VBG Potassium 2.3 mmol/L (3.6-5.2) L* 11/02/17 22:20 A-a O2 Difference 66.0 mm/Hg 11/06/17 23:15 Respiratory Index 0.6 11/06/17 23:15 Sodium 143.0 mmol/l (132-148) 11/06/17 23:15 Chloride 107.0 mmol/L (98-107) 11/06/17 23:15 Glucose 122 mg/dl (65-105) H 11/06/17 23:15 Lactate 2.4 mmol/L (0.7-2.1) H 11/06/17 23:15 Liter Flow 3.0 11/06/17 23:15 FiO2 32.0 % 11/06/17 23:15 Crit Value Called To Jenn esposito 11/02/17 22:20 Crit Value Called By [facility] 11/02/17 22:20 Crit Value Read Back Y 11/02/17 22:20 Blood Gas Notified Time 222511/02/17 22:20 Sodium 135 mmol/L (132-148) 11/23/17 08:04 Potassium 3.7 mmol/L (3.6-5.2) 11/23/17 08:04 Chloride 96 mmol/L (98-107) L 11/23/17 08:04 Carbon Dioxide 33 mmol/L (22-30) H 11/23/17 08:04 Anion Gap 9 (10-20) L 11/23/17 08:04 BUN 9 mg/dL (7-17) 11/23/17 08:04 Creatinine 0.6 mg/dL (0.7-1.2) L 11/23/17 08:04 Est GFR ( Amer) > 60 11/23/17 08:04 Est GFR (Non-Af Amer) > 60 11/23/17 08:04 Random Glucose 93 mg/dL (65-105) 11/23/17 08:04 Lactic Acid 1.3 mmol/L (0.7-2.1) 11/03/17 19:39 Calcium 8.5 mg/dl (8.6-10.4) L 11/23/17 08:04 Phosphorus 4.3 mg/dL (2.5-4.5) 11/23/17 08:04 Magnesium 1.7 mg/dL (1.6-2.3) 11/23/17 08:04 Total Bilirubin 0.5 mg/dL (0.2-1.3) 11/12/17 08:17 AST 15 U/L (14-36) 11/12/17 08:17 ALT 16 U/L (9-52) 11/12/17 08:17 Alkaline Phosphatase 122 U/L (38-126) 11/12/17 08:17 Troponin I < 0.0120 ng/mL (0.00-0.120) 11/05/17 17:39 Total Protein 6.3 g/dL (6.3-8.3) 11/12/17 08:17 Albumin 2.5 g/dL (3.5-5.0) L 11/12/17 08:17 Globulin 3.8 gm/dL (2.2-3.9) 11/12/17 08:17 Albumin/Globulin Ratio 0.6 (1.0-2.1) L 11/12/17 08:17 Lipase 11 U/L (23-300) L 11/07/17 07:11 Procalcitonin 0.67 NG/ML (0.19-0.49) H 11/10/17 07:55 Arterial Blood Potassium 4.0 mmol/L (3.6-5.2) 11/06/17 23:15 Venous Blood Potassium 2.3 mmol/L (3.6-5.2) L* 11/02/17 22:20 Urine Color Yellow (YELLOW) 11/18/17 23:22 Urine Clarity Clear (Clear) 11/18/17 23: Urine pH 7.0 (5.0-8.0) 11/18/17 23:22 Ur Specific [place] 1.010 (1.003-1.030) 11/18/17 23:22 Urine Protein 1+ mg/dL (NEGATIVE) H 11/18/17 23:22 Urine Glucose (UA) Normal mg/dL (Normal) 11/18/17 23: Urine Ketones Negative mg/dL (NEGATIVE) 11/18/17 23: Urine Blood Negative (NEGATIVE) 11/18/17: Urine Nitrate Negative (NEGATIVE) 11/18/17: Urine Bilirubin Negative (NEGATIVE) 11/18/17: Urine Urobilinogen Normal mg/dL (0.2-1.0) 11/18/17 23: Ur Leukocyte Esterase Neg Teresa/uL (Negative) 11/18/17 23: Urine WBC (Auto) 3 /hpf (0-5) 11/18/17 23:22 Urine RBC (Auto) 1 /hpf (0-3) 11/18/17 23:22 Ur Squamous Epith Cells 7 /hpf (0-5) H 11/18/17 23:22 Urine Bacteria Rare (<OCC) 11/05/17 17:39 Hyaline Casts 11-20 /lpf (0-2) H 11/05/17 17:39 Urine HCG, Qual Negative (NEGATIVE) 11/06/17 07:30 Stool Sodium TNP 11/14/17 13:37 Stool Potassium TNP 11/14/17 13:37 Stool Chloride TNP 11/14/17 13:37 Blood Type O POSITIVE 11/16/17 16:51 Antibody Screen Negative 11/16/17 16:51 - Hospital Course Hospital Course: Pt is a 42F with PMH including a laparoscopic cholecystectomy with subsequent biliary leak, ERCP with biliary stent and IR drainage of intra-abdominal biliary collections. Pt returned to the ER for worsening abdominal pain, was started on IV antibiotics, GI and ID were consulted, and patient underwent an open drainage of a retroperitoneal abscess with drain left in place. Patient was NPO and started on TPN. Patient began to have edema and pleural effusion and was started on Lasix and underwent a percutaneous thoracentesis of the left pleural effusion by IR. Patient developed drainage of her intra-abdominal fluid collections from her incisions but WBC persistently decreased and diet was slowly advanced until regular diet was tolerated. Patient was evaluated by PT and wound care. Patient was trained in how to perform wound care, was ambulating well with a walker, edema/effusions improved, and tolerated pain with PO antibiotics. Plan for discharge to home with IV antibiotics through PICC per ID recs, weekly labs, home PT, and follow up with surgery and ID was discussed with the patient, who agreed to the plan and preferred home D/C over going to rehab/[facility]. D/C was discussed with all services involved who agreed with plan. Patient was D/Cd to home. For full hospital course, refer to chart Discharge Exam - Head Exam Head Exam: ATRAUMATIC, NORMOCEPHALIC - Eye Exam Eye Exam: Normal appearance. absent: Conjunctival injection, Scleral icterus - ENT Exam ENT Exam: Mucous Membranes Moist, Normal Exam - Respiratory Exam Respiratory Exam: NORMAL BREATHING PATTERN, UNREMARKABLE. absent: Accessory Muscle Use - Cardiovascular Exam Cardiovascular Exam: Tachycardia - GI/Abdominal Exam GI & Abdominal Exam: Soft. absent: Distended, Tenderness Additional comments: midline incision with seropurulent drainage RLQ incision with minimal dark brown clear drainage - Extremities Exam Extremities exam: pedal edema (1+ pitting), pedal pulses present - Back Exam Back exam: muscle spasm, paraspinal tenderness. absent: CVA tenderness (L), CVA tenderness (R), rash noted, vertebral tenderness - Neurological Exam Neurological exam: Alert, Oriented x3 - Psychiatric Exam Psychiatric exam: Normal Affect, Normal Mood - Skin Skin Exam: Dry, Normal Color, Warm Discharge Plan - Discharge Medications Prescriptions: Ertapenem Sodium [Ertapenem] 1 gm IJ DAILY 14 Days vial Micafungin [Mycamine] 100 mg IV Q24H #14 vial oxyCODONE [oxyCODONE Immediate Release Tab] 5 mg PO Q6H #16 tab Pantoprazole [Protonix EC Tab] 40 mg PO DAILY #14 ect - Follow Up Plan Condition: FAIR Disposition: HOME/ ROUTINE Instructions: Acute Abdominal Pain (DC), Acute Abdominal Pain (GEN), Leukocytosis (DC), Leukocytosis (GEN), Abscess (GEN) Additional Instructions: Follow up with your primary doctor early next week Call to schedule an appointment with Dr. Roche in 2 weeks Call to schedule an appointment with Dr. Vegas, ID doctor, in 2 weeks Give yourself transfusions of ertapenam and mycafungin each 1x/day through your PICC line Empty your wound bags as needed through the day, change with the new bags 2x/ week or as needed. Call Dr. Roche, your primary, or come to ER for any fever >100.4, changes in the output, severe abdominal pain, nausea, or vomiting, or any other concerning symptoms. Do not lift >15 pounds. Do not soak the wounds, you may shower only if you keep the bags intact and do not let water flow over the wound remind visiting nurses that a blood need to be drawn on the 28 of November, and a week after ,06 of December. please call with the results of the laboratory results. Referrals: Brant Roche MD [Staff Provider] - Juliet Vegas MD [Staff Provider] - Clinical Quality Measures - CQM - Stroke Antithrombotic Prescribed: Yes
--- NOTE | 2017-11-23 16:22 | CP.PCM.PN ---
Subjective - Date & Time of Evaluation Date of Evaluation: 11/23/17 Time of Evaluation: 14:15 - Subjective Subjective: dictated Objective - Vital Signs/Intake and Output Vital Signs (last 24 hours): Temp Pulse Resp BP Pulse Ox 98.6 F 114 H 20 143/86 95 11/23/17 08:31 11/23/17 08:31 11/23/17 08:31 11/23/17 10:26 11/23/17 08:31 Intake and Output: 11/23/17 11/23/17 06:59 18:59 Intake Total 510 Output Total 85 15 Balance 425 -15 - Medications Medications: Current Medications Acetaminophen (Tylenol 650 Mg Supp) 650 mg OR Q4 PRN PRN Reason: Fever >100.4 F Last Admin: 11/03/17 08:29 Dose: 650 mg Acetaminophen (Tylenol 325mg Tab) 650 mg PO Q6 PRN PRN Reason: Pain, Mild (1-3) Last Admin: 11/21/17 18:08 Dose: 650 mg Epoetin Curry (Procrit) 10,000 unit SC MWF ON LICENSE OF [facility] Last Admin: 11/22/17 09:25 Dose: 10,000 unit Furosemide (Lasix) 20 mg IVP DAILY ON LICENSE OF [facility] Last Admin: 11/23/17 10:26 Dose: 20 mg Micafungin Sodium 100 mg/ (Sodium Chloride) 100 mls @ 100 mls/hr IV Q24H AILEEN; Protocol Last Admin: 11/22/17 17:40 Dose: 100 mls/hr Meropenem 1 gm/ Sodium (Chloride) 100 mls @ 100 mls/hr IVPB Q8H AILEEN; Protocol Last Admin: 11/23/17 10:28 Dose: 100 mls/hr Metoclopramide HCl (Reglan) 10 mg IVP Q6H AILEEN Last Admin: 11/23/17 10:30 Dose: 10 mg Ondansetron HCl (Zofran Inj) 4 mg IVP Q4 PRN PRN Reason: Nausea/Vomiting Last Admin: 11/11/17 12:35 Dose: 4 mg Oxycodone HCl (Oxycodone Immediate Release Tab) 5 mg PO Q6 PRN PRN Reason: Pain, moderate (4-7) Last Admin: 11/23/17 10:27 Dose: 5 mg Pantoprazole Sodium (Protonix Ec Tab) 40 mg PO DAILY ON LICENSE OF [facility] Last Admin: 11/23/17 10:25 Dose: 40 mg Zolpidem Tartrate (Ambien) 5 mg PO HS PRN PRN Reason: Insomnia Last Admin: 11/22/17 21:59 Dose: 5 mg - Labs Labs: 11/23/17 08:04 11/23/17 08:04 PT 17.4 SECONDS (9.7-12.2) H 11/06/17 21:38 INR 1.6 11/06/17 21:38 APTT 35 SECONDS (21-34) H 11/06/17 21:38
[2017-11-23 17:13] VITALS: BP 142/91; PULSE 123; TEMP 99.6
[2017-11-23] MEDS: Micafungin 100 MG in Sodium Chloride 0.9% 100 ML IV SCH (17:43)
--- NOTE | 2017-11-23 20:04 | PN ---
DATE: 11/23/2017 SUBJECTIVE: The patient is feeling better. She is and I have given orders to the home infusion company; hopefully, she will learn how to do medication at home and she will be receiving antibiotics for the next two weeks. She is tolerating p.o. food. PHYSICAL EXAMINATION: VITAL SIGNS: T-max is 98.6, heart rate of 114, blood pressure is 143/81, respirations are 20. HEENT: Head is atraumatic. NECK: Supple. LUNGS: Decreased breath sounds bilaterally. HEART: S1 and S2 is tachycardic. ABDOMEN: Surgical wound is still draining pus and they have fitted her with a special pack so that she knows how to drain it and they are arranging for visiting nurse also and that is on the right side. Minimal drainage from the right lower abdomen. EXTREMITIES: Still have edema. ASSESSMENT AND PLAN: The patient is going to go home today with IV infusions which she will be getting and will also get blood tests done weekly for the next two weeks and then we will see what the Surgery recommends, and will probably need a repeat CT at some point to see how she is doing with these antibiotics. The patient has history of bile leak and has multiple abscesses and is draining one abscess and she also had a laparotomy to drain a retroperitoneal abscess and is anemic also. Juliet Vegas MD
== END 2017-11-23 20:50 | disposition home or self-care (01) | DRG 581 ==
LOC: C.ER 18:14 → C.6T 23:56
PROVIDERS: ADMIT Specialist; ATTEND Specialist
PROC: 0W9G0ZZ Drainage of Peritoneal Cavity, Open Approach (ICD-10-PCS; principal; 2017-11-08)
PROC: 0WJG4ZZ Inspection of Peritoneal Cavity, Percutaneous Endoscopic Approach (ICD-10-PCS; 2017-11-08)
PROC: 0W9B3ZZ Drainage of Left Pleural Cavity, Percutaneous Approach (ICD-10-PCS; 2017-11-20)
DX: T81.43XA Infection following a procedure, organ and space surgical site, initial encounter (principal); K65.1 Peritoneal abscess; K65.3 Choleperitonitis; E87.3 Alkalosis; E46 Unspecified protein-calorie malnutrition; E87.6 Hypokalemia; B96.4 Proteus (mirabilis) (morganii) as the cause of diseases classified elsewhere; D63.8 Anemia in other chronic diseases classified elsewhere; I10 Essential (primary) hypertension; Z53.31 Laparoscopic surgical procedure converted to open procedure; Z93.4 Other artificial openings of gastrointestinal tract status